=== PATIENT | female | born 1935 | race Caucasian/White ===

== ENCOUNTER 2017-11-01 21:25 | Inpatient (IN) | payer MEDICARE ==
[~2017-11-01] VITALS: Ht 160 cm; Wt 52.3 kg
[2017-11-01] MEDS ORDERED: ONDANSETRON HCL INJ 2 MG/ML VIAL IV STA (21:54)
[2017-11-01] MEDS ORDERED: SODIUM CHLORIDE 0.9% 1000ML 1,000 ML IV ONE (22:00)
[2017-11-01] MEDS ORDERED: ASPIRIN 81 MG CHEW TAB PO ONE (22:00)
--- NOTE | 2017-11-01 22:31 | Diagnostic Imaging Report ---
EXAM: CHEST SINGLE (PORTABLE), AP 1 view DATE: 11/01/2017 9:54 PM Time stamp on exam: 2214 hours INDICATION: Chest pain, vomiting COMPARISON: None FINDINGS: LINES/TUBES: None LUNGS: Emphysematous changes. Biapical scarring. Nonspecific reticulonodular changes throughout both lungs. PLEURA: No effusions or pneumothorax. HEART AND MEDIASTINUM: Normal size and contour. BONES AND SOFT TISSUES: No acute findings. IMPRESSION: Emphysematous changes with nonspecific reticulonodular changes throughout both lungs. This could represent chronic lung disease or infection in the appropriate clinical setting. Signed by: Dr. Susanna Mcgregor M.D. on 11/01/2017 10:28 PM
[2017-11-01 22:50] LABS: BASOPHILS % 0.2 % (0.0-1.0); EOSINOPHILS % 0.1 % (0.0-6.0); HEMATOCRIT 41.9 % (34.2-44.1); HEMOGLOBIN 12.8 g/dL (12.0-16.0); LYMPHOCYTES # (AUTO) 1.5 (1.0-3.2); LYMPHOCYTES % 11.7 % (18.0-39.1); MEAN CORPUSCULAR HEMOGLOBIN 28.7 pg (28-32); MEAN CORPUSCULAR HGB CONC 30.5 g/dL (31-35); MEAN CORPUSCULAR VOLUME 93.9 fL (81-99); NEUTROPHILS # (AUTO) 9.6 (2.1-6.9); NEUTROPHILS % 76.3 % (38.7-80.0); PLATELET COUNT 311 x10e3/uL (140-360); RED BLOOD COUNT 4.46 x10e6/uL (3.6-5.1); RED CELL DISTRIBUTION WIDTH 18.1 % (11.7-14.4)
[2017-11-01 23:01] LABS: INR 0.87; PROTHROMBIN TIME 12.3 seconds (11.9-14.5)
[2017-11-01 23:02] LABS: PARTIAL THROMBOPLASTIN TIME 36.5 seconds (23.8-35.5)
[2017-11-01 23:09] LABS: ALBUMIN 2.4 g/dL (3.5-5.0); ALBUMIN/GLOBULIN RATIO 0.6 (0.8-2.0); ALKALINE PHOSPHATASE 64 IU/L (40-150); ANION GAP 21.3 mmol/L (8-16); BLOOD UREA NITROGEN 11 mg/dL (7-26); BUN/CREATININE RATIO 18 (6-25); CALCIUM 9.7 mg/dL (8.4-10.2); CARBON DIOXIDE 36 mmol/L (22-29); CHLORIDE 86 mmol/L (98-107); CREATINE KINASE 9 IU/L (29-168); CREATININE, SERUM 0.61 mg/dL (0.57-1.11); EST GLOMERULAR FILTRATION RATE > 60 ML/MIN (60-); GLUCOSE 105 mg/dL (74-118); POTASSIUM 3.3 mmol/L (3.5-5.1); SODIUM 140 mmol/L (136-145)
[2017-11-01 23:11] LABS: ALANINE AMINOTRANSFERASE < 6 IU/L (0-55)
[2017-11-02] VITALS (7 sets, daily range): BP systolic 122–148; BP diastolic 60–70
[2017-11-02] MEDS ORDERED: KCL 20MEQ/.9 SOD CHL 1,000 ML IV ONE
[2017-11-02] MEDS ORDERED: SODIUM CHLORIDE 0.9% 500ML 500 ML IV ONE
[2017-11-02 00:03] LABS: BILIRUBIN,URINE 1+ (NEGATIVE); KETONES,URINE 3+ (NEGATIVE); LEUKOCYTE ESTERASE ,URINE 2+ (NEGATIVE); URINE UROBILINOGEN 8 mg/dL (0.2 - 1)
[2017-11-02 00:04] LABS: CLARITY,URINE CLOUDY (CLEAR); COLOR,URINE AMBER (YELLOW); NITRITE,URINE POSITIVE (NEGATIVE); PROTEIN,URINE DIPSTICK 2+ (NEGATIVE)
[2017-11-02 00:13] LABS: AMORPHOUS SEDIMENT,URINE MODERATE (FEW); BACTERIA,URINE MANY /HPF; EPITHELIAL CELLS,URINE RARE /LPF; WBC,URINE (MAN) 21-50 /HPF (0-5)
[2017-11-02] MEDS ORDERED: CEFTRIAXONE SOD 1 GM VIAL IV STA (02:44)
[2017-11-02] MEDS: SODIUM CHLORIDE 0.9% 1000ML 1,000 ML IV SCH ×3 (03:30→18:47)
[2017-11-02] MEDS ORDERED: DEXTROSE 50% SYRINGE 50 ML IV PRN (03:30)
[2017-11-02] MEDS: ONDANSETRON HCL INJ 2 MG/ML VIAL IV PRN ×4 (06:41→21:00)
[2017-11-02 07:05] LABS: CREATINE KINASE MB 1.1 ng/mL (0.00-5.00)
[2017-11-02] MEDS: INSULIN REGULAR, HUMAN 100 UNIT/1 ML 3ML VIAL SQ SCH ×3 (07:30→16:30)
[2017-11-02] MEDS: CEFTRIAXONE SOD 1 GM VIAL IV SCH ×2 (08:52→20:08)
[2017-11-02] MEDS ORDERED: PANTOPRAZOLE 40 MG 10ML VIAL IV SCH (09:00)
[2017-11-02] MEDS ORDERED: LASIX20 MG PO (13:47)
[2017-11-02] MEDS ORDERED: NORCO 7.5-3251 EACH PO (13:47)
[2017-11-02] MEDS ORDERED: PROMETHAZINE HC25 M1 PO (13:47)
[2017-11-02] MEDS ORDERED: ASPIRIN CHEW81 MG PO (13:47)
[2017-11-02] MEDS ORDERED: DESOXIMETASONE15 G2 TOP (13:47)
[2017-11-02] MEDS ORDERED: IBANDRONATE SO150 MG PO (13:47)
[2017-11-02] MEDS ORDERED: PANTOPRAZOLE SO40 MG PO (13:47)
[2017-11-02] MEDS ORDERED: MONTELUKAST SOD10 MG PO (13:47)
[2017-11-02] MEDS ORDERED: RANITIDINE HCL150 MG PO (13:47)
[2017-11-02] MEDS ORDERED: VITAMIN D250000 UNIT PO (13:47)
[2017-11-02] MEDS ORDERED: SYMBICORT 16010.2 GM INH (13:47)
[2017-11-02] MEDS ORDERED: GABAPENTIN100 MG PO (13:47)
[2017-11-02] MEDS ORDERED: AMIODARONE HCL200 MG PO (13:47)
[2017-11-02] MEDS ORDERED: ZOFRAN ODT4 MG PO (13:47)
[2017-11-02] MEDS ORDERED: ALBUTEROL0.63 MG/3 IH (13:48)
[2017-11-02] MEDS ORDERED: LIDOPATCH1 EACH TOP (13:52)
[2017-11-02 15:36] LABS: CREATINE KINASE MB 1.1 ng/mL (0.00-5.00)
[2017-11-02] MEDS: HYDROCODONE/APAP 7.5MG-325MG 1 EA TAB PO PRN (16:29)
[2017-11-02] MEDS: BALSAM PERU/CASTOR OIL 60 GM OINT...G. TP SCH (17:36)
[2017-11-02] MEDS: ENOXAPARIN SOD INJ 40 MG/0.4 ML SYR SC SCH (18:26)
--- NOTE | 2017-11-02 19:57 | History and Physical ---
PRIMARY CARE PROVIDER: Dr. Gorman at the [facility], CHIEF COMPLAINT: Nausea, vomiting and diarrhea. HISTORY OF PRESENT ILLNESS: Ms. Ridley is an 82-year-old year lady who comes in complaining of nausea, vomiting and diarrhea for the last 3 days. Poor p.o. intake and generalized weakness and unable to stand up on her own. REVIEW OF SYSTEMS: She denies fever, chills or weight loss. Denies sinus congestion or sore throat. She denies chest pain or palpitation. She has shortness of breath and some dyspnea with exertion. She is not wheezing and has no cough. She does have a history of COPD. She denies abdominal pain, but has nausea, vomiting and diarrhea. She denies dysuria or flank pain. She denies rash or pruritus. She denies joint pain or swelling. She denies bleeding or bruising. She denies headache, vertigo or loss of consciousness. She denies depression, agitation, homicidal or suicidal ideation. PAST MEDICAL HISTORY: Significant for longstanding hypertension, type 2 diabetes, paroxysmal atrial fibrillation, COPD and previous melanoma that was removed off the right leg. She also has a distant history of cholecystectomy and partial bowel resection. She is not sure why. CURRENT MEDICATIONS: Amiodarone 200 mg daily. Aspirin 81 mg daily. Gabapentin 100 mg 3 times a day. Hydrocodone as needed for pain. Singulair 10 mg at bedtime. Ranitidine 150 mg at bedtime. Protonix 40 mg twice daily before meals. Lidocaine patch as needed. Diphosphonate, I am not familiar with, 150 mg tablet daily. A steroid cream as needed for rash. Promethazine as needed. Zofran as needed. Lasix 20 mg daily. Vitamin D2 50,000 units weekly. Symbicort inhaler 1 puff twice a day. She uses albuterol in a nebulizer at home. She has home O2 and home nebulizer. ALLERGIES: SHE HAS A STATED ALLERGY TO CODEINE AND PENICILLIN. FAMILY HISTORY: Remarkable for hypertension and diabetes. SOCIAL HISTORY: The patient lives with her . She is . [place] is her primary language. She is quite weak. Has been getting home physical therapy, but has required quite a bit of assistance from her for daily living activities. PHYSICAL EXAM: PSYCHIATRIC: She is awake and alert, mostly oriented. She seems a little confused at times, but she seems oriented times 3 to simple questions. She has a normal body habitus and is in no acute distress. VITAL SIGNS: Blood pressure 144/67. Pulse 85 and regular. Respiratory rate 20. O2 sat 97% on 2 liter nasal cannula. Temperature 98.1. HEENT: Head is atraumatic. Her eyes are anicteric with clear conjunctivae. Ears and nares are without erythema or discharge. Oropharynx is clear. NECK: Is supple with no mass or thyromegaly. LYMPHATIC SYSTEM: She has no palpable cervical, axillary or inguinal adenopathy. CARDIOVASCULAR: Heart has a regular rate and rhythm without murmur or extra heart sounds. She has no carotid bruit. She has no peripheral edema. Has palpable dorsal pedal pulses. RESPIRATORY: Clear. She has markedly diminished breath sounds throughout. She has some end expiratory wheezing with forced expiration. She has hacking nonproductive cough. She is on 2 liters nasal cannula with normal respiratory effort. GASTROINTESTINAL: Abdomen is soft without organomegaly, masses or tenderness. Normal bowel sounds present. CUTANEOUS: Her skin is warm and dry to touch with no rash or skin breakdown. MUSCULOSKELETAL: Joints are normal alignment without erythema or swelling. No calf tenderness. NEUROLOGIC: Exam is nonfocal with intact cranial nerves and no motor or sensory deficits. DIAGNOSTIC STUDIES: Chest x-ray shows emphysema. Her urine has 6 to 10 red cells, 20 to 50 white cells with many bacteria, 2+ leukocyte esterase, 1+ nitrite. Her EKG shows normal sinus rhythm with possible old anterior infarct or poor R-wave progression due to pulmonary disease pattern. Her troponin is 0.012. BNP is 72.3. Magnesium 1.5. Her electrolytes are normal. CO2 is 26. Creatinine 0.61. BUN 11 for a normal GFR. Calcium 9.7. Glucose 105. Transaminases, bilirubin and alkaline phos are normal. CBC shows a white count 12.6 with 76% neutrophils and 12% lymphocytes. Hemoglobin 12.8, hematocrit 41.9 and platelet count 311,000. IMPRESSION AND PLAN 1. Urinary tract infection with sepsis. The patient has elevated white count and the source for urinary sepsis. The patient will be started on IV Rocephin empirically pending culture results. 2. Nausea, vomiting and diarrhea. Possibly related to the urinary tract infection. Will give antiemetics and will start the patient on Reglan and Pepcid before meals with Zofran as needed for nausea. Will check a Clostridium difficile on the stool to rule out Clostridium difficile colitis. 3. Hypertension. Patient is on no chronic medications. and so we will just continue to monitor her and use p.r.n. IV hydralazine if necessary. 4. Type 2 diabetes. Again patient appears to not be on any medication. She was diagnosed a few years ago. Will continue to monitor her blood sugar and check her A1c level 5. Paroxysmal atrial fibrillation. Will continue amiodarone. Patient is not a good candidate for anticoagulation and is currently in sinus rhythm. 6. Chronic obstructive pulmonary disease. The patient has chronic respiratory failure and chronic obstructive pulmonary disease, and is dependent on home oxygen. Will continue her O2 here as well as routine nebulizer treatments. 7. Severe debility. The patient will be started on PT, OT and will call case management for senior living evaluation. 8. For prophylaxis the patient will be on Lovenox for DVT prophylaxis and Pepcid for GI prophylaxis. Have changed her Protonix to Pepcid to reduce risk of Clostridium difficile. Job#: [id number]
[2017-11-02] MEDS: GABAPENTIN 100 MG CAP PO SCH (20:08)
[2017-11-02] MEDS: METOCLOPRAMIDE HCL 10 MG TAB PO SCH (20:09)
[2017-11-02] MEDS: MONTELUKAST SODIUM 10 MG TAB PO SCH (20:09)
[2017-11-03] VITALS (7 sets, daily range): BP systolic 107–144; BP diastolic 55–81
[2017-11-03] MEDS: ONDANSETRON HCL INJ 2 MG/ML VIAL IV PRN (02:39)
[2017-11-03] MEDS: HYDROCODONE/APAP 7.5MG-325MG 1 EA TAB PO PRN ×2 (02:39→20:54)
[2017-11-03] MEDS: SODIUM CHLORIDE 0.9% 1000ML 1,000 ML IV SCH (02:39)
[2017-11-03 06:48] LABS: BASOPHILS # (AUTO) 0.2 (0.0-0.1); BASOPHILS % 1.6 % (0.0-1.0); EOSINOPHILS % 0.4 % (0.0-6.0); HEMATOCRIT 35.2 % (34.2-44.1); HEMOGLOBIN 10.5 g/dL (12.0-16.0); LYMPHOCYTES # (AUTO) 1.8 (1.0-3.2); LYMPHOCYTES % 19.6 % (18.0-39.1); MEAN CORPUSCULAR HEMOGLOBIN 28.8 pg (28-32); MEAN CORPUSCULAR HGB CONC 29.8 g/dL (31-35); MEAN CORPUSCULAR VOLUME 96.4 fL (81-99); MONOCYTES # (AUTO) 0.8 (0.2-0.8); MONOCYTES % 8.6 % (4.4-11.3); NEUTROPHILS # (AUTO) 5.4 (2.1-6.9); NEUTROPHILS % 59.3 % (38.7-80.0); PLATELET COUNT 254 x10e3/uL (140-360); RED BLOOD COUNT 3.65 x10e6/uL (3.6-5.1); RED CELL DISTRIBUTION WIDTH 18.4 % (11.7-14.4)
[2017-11-03 07:16] LABS: ALBUMIN 1.9 g/dL (3.5-5.0); ALBUMIN/GLOBULIN RATIO 0.6 (0.8-2.0); ALKALINE PHOSPHATASE 49 IU/L (40-150); ANION GAP 11.7 mmol/L (8-16); BLOOD UREA NITROGEN 7 mg/dL (7-26); BUN/CREATININE RATIO 16 (6-25); CALCIUM 7.8 mg/dL (8.4-10.2); CARBON DIOXIDE 35 mmol/L (22-29); CHLORIDE 100 mmol/L (98-107); CREATININE, SERUM 0.45 mg/dL (0.57-1.11); EST GLOMERULAR FILTRATION RATE > 60 ML/MIN (60-); GLUCOSE 88 mg/dL (74-118); SODIUM 144 mmol/L (136-145)
[2017-11-03 07:20] LABS: ALANINE AMINOTRANSFERASE < 6 IU/L (0-55)
[2017-11-03 07:21] LABS: MAGNESIUM 1.1 MG/DL (1.3-2.1); POTASSIUM 2.7 mmol/L (3.5-5.1)
[2017-11-03] MEDS: METOCLOPRAMIDE HCL 10 MG TAB PO SCH ×4 (08:06→20:51)
[2017-11-03] MEDS: ASPIRIN 81 MG CHEW TAB PO SCH (08:06)
[2017-11-03] MEDS: GABAPENTIN 100 MG CAP PO SCH ×3 (08:06→20:51)
[2017-11-03] MEDS: CEFTRIAXONE SOD 1 GM VIAL IV SCH ×2 (08:06→20:51)
[2017-11-03] MEDS: FAMOTIDINE 20 MG TAB PO SCH ×2 (08:06→16:00)
[2017-11-03] MEDS: AMIODARONE HCL 200 MG TAB PO SCH (08:06)
[2017-11-03 08:13] LABS: THYROID STIMULATING HORMONE 16.888 uIU/mL (0.350-4.940)
[2017-11-03] MEDS ORDERED: POTASSIUM CHLORIDE 20 MEQ TAB CR PO STA (08:13)
[2017-11-03] MEDS ORDERED: MAGNESIUM SULFATE 2GM/50ML 50 ML IV ONE (08:15)
[2017-11-03] MEDS: BALSAM PERU/CASTOR OIL 60 GM OINT...G. TP SCH ×2 (08:31→17:11)
[2017-11-03] MEDS ORDERED: POTASSIUM CHLORIDE 20MEQ/100ML 200 ML IV ONE (09:30)
[2017-11-03] MEDS ORDERED: POTASSIUM CHLORIDE 100 ML IV SCH (10:00)
[2017-11-03] MEDS ORDERED: HYDRALAZINE HCL 20 MG/ML VIAL IV PRN (15:30)
[2017-11-03] MEDS: ENOXAPARIN SOD INJ 40 MG/0.4 ML SYR SC SCH (17:11)
--- NOTE | 2017-11-03 17:32 | Diagnostic Imaging Report ---
PROCEDURE:ABDOMINAL ULTRASOUND COMPARISON:None. INDICATIONS: Nausea and Vomiting TECHNIQUE: Transverse and longitudinal images of the upper abdomen were obtained. FINDINGS: Liver: Size: 12.6 cm in the right midclavicular line, normal Appearance: Normal echogenicity, smooth contour Mass: No focal masses Spleen: Size: 8.2 cm in length, normal Echogenicity: Normal Mass: No focal masses Gallbladder: Absent Bile Ducts: Intrahepatic Ducts: No dilatation Extrahepatic Ducts: Common bile duct measures 0.3 cm, no dilatation Pancreas: Limited visualized portions of the neck are normal. Right Kidney: Size: 8.9 x 4.3 x 5.2 cm Echogenicity: Normal Collecting System: No hydronephrosis Stone: None Cyst/Mass: Inferior pole 1.2 x 1 x 1.5 cm simple cyst. Left Kidney: Size: 9.8 x 4.7 x 4.5 cm Echogenicity: Normal Collecting System: No hydronephrosis Stone: None Cyst/Mass: Interpolar 1.5 x 1.6 x 1.6 cm simple cyst. Vessels: Aorta: Atherosclerotic calcifications. Size measures up to 2.7 cm in the mid portion, non-aneurysmal. Inferior Vena Cava: Prominent without prominence of the hepatic veins which may be related to volume status. Main Portal Vein: 1 cm, normal size with hepatopetal flow. Free Fluid: No ascites or pleural effusions IMPRESSION: No ultrasound findings to explain nausea and vomiting. Dictated by: Jonathan Hayes M.D. on 11/03/2017 at 17:42 Electronically approved by: Jonathan Hayes M.D. on 11/03/2017 at 17:42
[2017-11-03] MEDS: MONTELUKAST SODIUM 10 MG TAB PO SCH (20:51)
[2017-11-04] VITALS: BP 110/53
[2017-11-04] MEDS: ONDANSETRON HCL INJ 2 MG/ML VIAL IV PRN ×2 (06:03→12:54)
[2017-11-04] MEDS: HYDROCODONE/APAP 7.5MG-325MG 1 EA TAB PO PRN (06:04)
[2017-11-04 06:35] LABS: BASOPHILS % 0.3 % (0.0-1.0); EOSINOPHILS # (AUTO) 0.2 (0.0-0.4); EOSINOPHILS % 1.3 % (0.0-6.0); HEMOGLOBIN 11.2 g/dL (12.0-16.0); LYMPHOCYTES # (AUTO) 2.2 (1.0-3.2); LYMPHOCYTES % 19.8 % (18.0-39.1); MEAN CORPUSCULAR HEMOGLOBIN 28.9 pg (28-32); MEAN CORPUSCULAR HGB CONC 29.5 g/dL (31-35); MEAN CORPUSCULAR VOLUME 98.2 fL (81-99); MONOCYTES # (AUTO) 1.1 (0.2-0.8); MONOCYTES % 9.9 % (4.4-11.3); NEUTROPHILS # (AUTO) 6.6 (2.1-6.9); NEUTROPHILS % 58.9 % (38.7-80.0); PLATELET COUNT 249 x10e3/uL (140-360); RED BLOOD COUNT 3.87 x10e6/uL (3.6-5.1); RED CELL DISTRIBUTION WIDTH 18.1 % (11.7-14.4)
[2017-11-04 06:53] LABS: AMYLASE 14 U/L (25-125); ANION GAP 11.5 mmol/L (8-16); BLOOD UREA NITROGEN 5 mg/dL (7-26); BUN/CREATININE RATIO 10 (6-25); CARBON DIOXIDE 37 mmol/L (22-29); CHLORIDE 98 mmol/L (98-107); CREATININE, SERUM 0.49 mg/dL (0.57-1.11); EST GLOMERULAR FILTRATION RATE > 60 ML/MIN (60-); GLUCOSE 83 mg/dL (74-118); LIPASE 4 U/L (8-78); MAGNESIUM 1.6 MG/DL (1.3-2.1); POTASSIUM 3.5 mmol/L (3.5-5.1); SODIUM 143 mmol/L (136-145)
[2017-11-04 07:13] LABS: FREE T4 (FREE THYROXINE) 0.88 ng/dL (0.9-1.8)
[2017-11-04 08:13] VITALS: BP 110/53
[2017-11-04 08:33] VITALS: BP 116/61
[2017-11-04] MEDS: CEFTRIAXONE SOD 1 GM VIAL IV SCH ×2 (09:35→21:00)
[2017-11-04] MEDS: GABAPENTIN 100 MG CAP PO SCH ×3 (09:35→21:00)
[2017-11-04] MEDS: BALSAM PERU/CASTOR OIL 60 GM OINT...G. TP SCH ×2 (09:35→17:11)
[2017-11-04] MEDS: ASPIRIN 81 MG CHEW TAB PO SCH (09:35)
[2017-11-04] MEDS: FAMOTIDINE 20 MG TAB PO SCH ×2 (09:35→16:30)
[2017-11-04] MEDS: AMIODARONE HCL 200 MG TAB PO SCH (09:35)
[2017-11-04] MEDS: METOCLOPRAMIDE HCL 10 MG/2ML VIAL IV SCH ×5 (09:36→21:00)
[2017-11-04 09:39] LABS: LYMPHOCYTES % (MANUAL) 16 % (19-48); METAMYELOCYTES % (MANUAL) 2 % (0-0); MONOCYTES % (MANUAL) 11 % (3.4-9.0); MYELOCYTES % (MANUAL) 2 % (0-0); NEUTROPHILS % (MANUAL) 69 % (40-74); PLATELET ESTIMATE ADEQUATE; PLATELET MORPHOLOGY COMMENT NORMAL; RBC MORPHOLOGY COMMENT NORMAL
[2017-11-04] MEDS ORDERED: LEVOTHYROXINE SODIUM 50 MCG TAB PO SCH (10:00)
[2017-11-04] MEDS: LEVOTHYROXINE SODIUM 25 MCG TABLET PO SCH (10:30)
[2017-11-04 11:53] VITALS: BP 117/56
[2017-11-04 16:20] VITALS: BP 128/62
[2017-11-04] MEDS: ENOXAPARIN SOD INJ 40 MG/0.4 ML SYR SC SCH (17:00)
[2017-11-04] MEDS ORDERED: PROPOFOL IV EMULSION 10 MG/ML 20 ML VIAL ONE (18:21)
[2017-11-04] MEDS ORDERED: LIDOCAINE HCL 2% LOCAL INJ 5 ML SDV VIAL INJ ONE (18:21)
[2017-11-04] MEDS: PANTOPRAZOLE 40 MG 10ML VIAL IV SCH (20:00)
[2017-11-04 20:40] VITALS: BP 156/73
[2017-11-04] MEDS: MONTELUKAST SODIUM 10 MG TAB PO SCH (21:00)
[2017-11-04] MEDS: ALBUTEROL/IPRATROPIUM 3 ML NEB NEB SCH (21:05)
[2017-11-05] VITALS (7 sets, daily range): BP systolic 107–162; BP diastolic 58–75
[2017-11-05] MEDS: ALBUTEROL/IPRATROPIUM 3 ML NEB NEB SCH ×3 (01:00→19:43)
[2017-11-05] MEDS: ONDANSETRON HCL INJ 2 MG/ML VIAL IV PRN (01:57)
[2017-11-05] MEDS: HYDROCODONE/APAP 7.5MG-325MG 1 EA TAB PO PRN ×2 (04:08→18:51)
[2017-11-05] MEDS: LEVOTHYROXINE SODIUM 25 MCG TABLET PO SCH (05:24)
[2017-11-05 07:39] LABS: EOSINOPHILS # (AUTO) 0.1 (0.0-0.4); EOSINOPHILS % 1.1 % (0.0-6.0); HEMATOCRIT 35.4 % (34.2-44.1); HEMOGLOBIN 10.6 g/dL (12.0-16.0); LYMPHOCYTES # (AUTO) 1.7 (1.0-3.2); LYMPHOCYTES % 16.5 % (18.0-39.1); MEAN CORPUSCULAR HEMOGLOBIN 28.6 pg (28-32); MEAN CORPUSCULAR HGB CONC 29.9 g/dL (31-35); MEAN CORPUSCULAR VOLUME 95.4 fL (81-99); MONOCYTES # (AUTO) 0.7 (0.2-0.8); MONOCYTES % 7.1 % (4.4-11.3); NEUTROPHILS # (AUTO) 6.8 (2.1-6.9); NEUTROPHILS % 67.5 % (38.7-80.0); PLATELET COUNT 204 x10e3/uL (140-360); RED BLOOD COUNT 3.71 x10e6/uL (3.6-5.1); RED CELL DISTRIBUTION WIDTH 18.1 % (11.7-14.4)
[2017-11-05 08:00] LABS: ANION GAP 12.4 mmol/L (8-16); BLOOD UREA NITROGEN < 5 mg/dL (7-26); CALCIUM 7.9 mg/dL (8.4-10.2); CARBON DIOXIDE 38 mmol/L (22-29); CHLORIDE 96 mmol/L (98-107); CREATININE, SERUM 0.46 mg/dL (0.57-1.11); EST GLOMERULAR FILTRATION RATE > 60 ML/MIN (60-); GLUCOSE 79 mg/dL (74-118); MAGNESIUM 1.3 MG/DL (1.3-2.1); POTASSIUM 3.4 mmol/L (3.5-5.1); SODIUM 143 mmol/L (136-145)
[2017-11-05 08:03] LABS: BUN/CREATININE RATIO 11 (6-25)
[2017-11-05] MEDS: PANTOPRAZOLE 40 MG 10ML VIAL IV SCH ×2 (08:26→20:44)
[2017-11-05] MEDS: METOCLOPRAMIDE HCL 10 MG/2ML VIAL IV SCH ×4 (08:26→20:44)
[2017-11-05] MEDS: CEFTRIAXONE SOD 1 GM VIAL IV SCH ×2 (08:26→20:44)
[2017-11-05] MEDS: FAMOTIDINE 20 MG TAB PO SCH ×2 (08:26→16:10)
[2017-11-05] MEDS: ASPIRIN 81 MG CHEW TAB PO SCH (08:26)
[2017-11-05] MEDS: AMIODARONE HCL 200 MG TAB PO SCH (08:26)
[2017-11-05] MEDS: BALSAM PERU/CASTOR OIL 60 GM OINT...G. TP SCH ×2 (08:26→16:11)
[2017-11-05] MEDS: GABAPENTIN 100 MG CAP PO SCH ×3 (08:26→20:44)
--- NOTE | 2017-11-05 09:42 | Operative Report ---
DATE OF PROCEDURE: November 04, 2017 REFERRING PHYSICIAN: Dr. Clemente Stapleton. PROCEDURE PERFORMED: Esophagogastroduodenoscopy with biopsies. INDICATIONS FOR ESOPHAGOGASTRODUODENOSCOPY: History of nausea and vomiting. MEDICATION: Patient was done under MAC. Please see anesthesiologist's note. PROCEDURE: With the patient in left lateral decubitus position, flexible fiberoptic Olympus gastroscope was introduced into the esophagus under direct visualization without any difficulty. There was some patchy erythema noted in distal esophagus. A small hiatal hernia was noted and that was traversed with ease with the scope and it was advanced into the stomach. Mucosa overlying the antrum and the body revealed some diffuse erythema and mild to moderate edema and biopsies were obtained sent to stain for H. pylori. Pylorus appeared to be of normal contour and shape. Was intubated with ease and scope was advanced all the way to the 2nd portion of the duodenum. The scope was then withdrawn slowly. Mucosa overlying the proximal 2nd portion and the duodenal bulb appeared to be within normal limits. The scope was then withdrawn back above the stomach and retroflexed. Mucosa overlying the fundus and cardia appeared to be within normal limits. The scope was then straightened out. The stomach was decompressed. Scope was subsequently withdrawn. Patient tolerated procedure well. IMPRESSION: 1. Distal esophagitis. 2. Hiatal hernia. 3. Gastritis biopsied. Biopsy sent stain for H. pylori. PLAN: Follow up histology. Will augment current anti-PUD therapy. Start Protonix 40 mg IV b.i.d. Continue Reglan 10 mg IV q.6 hours. Will advance diet to full liquids. Job#: [id number]
[2017-11-05 10:19] LABS: BAND NEUTROPHILS % (MANUAL) 1 %; EOSINOPHILS % (MANUAL) 1 % (0-7); LYMPHOCYTES % (MANUAL) 19 % (19-48); METAMYELOCYTES % (MANUAL) 1 % (0-0); MONOCYTES % (MANUAL) 7 % (3.4-9.0); MYELOCYTES % (MANUAL) 1 % (0-0); NEUTROPHILS % (MANUAL) 70 % (40-74)
[2017-11-05 10:20] LABS: PLATELET ESTIMATE ADEQUATE; PLATELET MORPHOLOGY COMMENT NORMAL; RBC MORPHOLOGY COMMENT NORMAL
[2017-11-05] MEDS ORDERED: METOPROLOL TARTRATE INJ 1 MG/ML VIAL IV PRN (13:00)
[2017-11-05] MEDS ORDERED: POTASSIUM CHLORIDE 20 MEQ TAB CR PO ONE (15:00)
[2017-11-05] MEDS: ENOXAPARIN SOD INJ 40 MG/0.4 ML SYR SC SCH (16:10)
[2017-11-05] MEDS: VANCOMYCIN 250MG/5ML ORAL SOLN PO SCH (16:11)
[2017-11-05] MEDS: MONTELUKAST SODIUM 10 MG TAB PO SCH (20:44)
[2017-11-05] MEDS: METRONIDAZOLE 500MG/NS 100ML 100 ML IV SCH (22:27)
[2017-11-06] VITALS (8 sets, daily range): BP systolic 97–132; BP diastolic 55–65
[2017-11-06] MEDS: ALBUTEROL/IPRATROPIUM 3 ML NEB NEB SCH ×4 (01:00→19:55)
[2017-11-06] MEDS: VANCOMYCIN 250MG/5ML ORAL SOLN PO SCH ×4 (06:05→16:35)
[2017-11-06] MEDS: METRONIDAZOLE 500MG/NS 100ML 100 ML IV SCH ×3 (06:05→21:52)
[2017-11-06] MEDS: LEVOTHYROXINE SODIUM 25 MCG TABLET PO SCH (06:05)
[2017-11-06] MEDS: HYDROCODONE/APAP 7.5MG-325MG 1 EA TAB PO PRN (07:16)
[2017-11-06 07:56] LABS: BASOPHILS # (AUTO) 0.1 (0.0-0.1); BASOPHILS % 0.8 % (0.0-1.0); EOSINOPHILS # (AUTO) 0.2 (0.0-0.4); EOSINOPHILS % 2.1 % (0.0-6.0); HEMATOCRIT 37.7 % (34.2-44.1); HEMOGLOBIN 11.1 g/dL (12.0-16.0); LYMPHOCYTES # (AUTO) 1.8 (1.0-3.2); MEAN CORPUSCULAR HEMOGLOBIN 28.4 pg (28-32); MEAN CORPUSCULAR HGB CONC 29.4 g/dL (31-35); MEAN CORPUSCULAR VOLUME 96.4 fL (81-99); MONOCYTES # (AUTO) 0.8 (0.2-0.8); MONOCYTES % 10.7 % (4.4-11.3); NEUTROPHILS # (AUTO) 4.3 (2.1-6.9); NEUTROPHILS % 56.5 % (38.7-80.0); PLATELET COUNT 196 x10e3/uL (140-360); RED BLOOD COUNT 3.91 x10e6/uL (3.6-5.1); RED CELL DISTRIBUTION WIDTH 18.1 % (11.7-14.4)
[2017-11-06] MEDS: AMIODARONE HCL 200 MG TAB PO SCH (08:24)
[2017-11-06] MEDS: METOCLOPRAMIDE HCL 10 MG/2ML VIAL IV SCH ×4 (08:24→21:52)
[2017-11-06] MEDS: GABAPENTIN 100 MG CAP PO SCH ×3 (08:24→21:52)
[2017-11-06] MEDS: FAMOTIDINE 20 MG TAB PO SCH ×2 (08:24→16:35)
[2017-11-06] MEDS: ONDANSETRON HCL INJ 2 MG/ML VIAL IV PRN (08:24)
[2017-11-06] MEDS: CEFTRIAXONE SOD 1 GM VIAL IV SCH ×2 (08:24→21:52)
[2017-11-06] MEDS: BALSAM PERU/CASTOR OIL 60 GM OINT...G. TP SCH ×2 (08:24→16:35)
[2017-11-06] MEDS: ASPIRIN 81 MG CHEW TAB PO SCH (08:24)
[2017-11-06] MEDS: PANTOPRAZOLE 40 MG 10ML VIAL IV SCH ×2 (08:24→21:52)
[2017-11-06 08:32] LABS: ANION GAP 10.4 mmol/L (8-16); BLOOD UREA NITROGEN < 5 mg/dL (7-26); CALCIUM 8.1 mg/dL (8.4-10.2); CHLORIDE 92 mmol/L (98-107); EST GLOMERULAR FILTRATION RATE > 60 ML/MIN (60-); GLUCOSE 77 mg/dL (74-118); MAGNESIUM 1.4 MG/DL (1.3-2.1); POTASSIUM 3.4 mmol/L (3.5-5.1); SODIUM 142 mmol/L (136-145)
[2017-11-06 08:33] LABS: BUN/CREATININE RATIO 10 (6-25)
[2017-11-06 08:35] LABS: CARBON DIOXIDE 43 mmol/L (22-29)
[2017-11-06 10:17] LABS: ABG PH 7.41 (7.31-7.41)
[2017-11-06 10:19] LABS: ABG PCO2 73 mmHg (41-51); ABG PO2 96 mmHg (80-105)
[2017-11-06 10:20] LABS: ABG HCO3 46 mmol/L (23-28)
[2017-11-06] MEDS ORDERED: POTASSIUM CHLORIDE 20 MEQ TAB CR PO ONE (11:00)
[2017-11-06 11:11] LABS: BAND NEUTROPHILS % (MANUAL) 12 %; EOSINOPHILS % (MANUAL) 1 % (0-7); LYMPHOCYTES % (MANUAL) 31 % (19-48); MONOCYTES % (MANUAL) 7 % (3.4-9.0); NEUTROPHILS % (MANUAL) 49 % (40-74); PLATELET ESTIMATE ADEQUATE; PLATELET MORPHOLOGY COMMENT NORMAL; RBC MORPHOLOGY COMMENT NORMAL
[2017-11-06] MEDS ORDERED: ACETAZOLAMIDE SODIUM 500 MG/VIAL IV ONE (14:00)
--- NOTE | 2017-11-06 14:04 | Diagnostic Imaging Report ---
EXAMINATION: Chest, CHEST SINGLE (PORTABLE) INDICATION: Chest pain COMPARISON: None FINDINGS: LINES: None. Heart: Normal cardiac silhouette. Vascular: The pulmonary vasculature is within normal limits. Atherosclerotic calcifications of the aortic arch. Mediastinum: No mediastinal, hilar, or axillary mass or lymphadenopathy. Lungs: No parenchymal mass. Bibasilar airspace opacifications. Pleura: Small bilateral pleural effusions. No pneumothorax. Bones: No acute osseous abnormality. Degenerative changes of the thoracic spine. Soft tissues: Normal. Impression: Bibasilar airspace opacifications may represent atelectasis or a developing pneumonia. Signed by: Dr. Wiliam Cao M.D. on 11/06/2017 2:00 PM
--- NOTE | 2017-11-06 16:08 | Consultation ---
PULMONARY CONSULTATION DATE OF CONSULTATION: CONSULTING PHYSICIAN: Dr. Stapleton. REASON FOR CONSULTATION: COPD. HISTORY OF PRESENT ILLNESS: Ms. Ridley is an 82-year-old female who presented with nausea, vomiting, and generalized weakness. She reports that almost a month ago, she was admitted at [facility] and was transferred into [facility] since and was discharged from there to go home, but she has been weak and was not feeling well. She reports that she has a history of COPD, uses home oxygen around 3 to 4 liters at home, and has been on oxygen for 1 year; however, lately she has felt that she has no energy and is unable to walk even to the bathroom. She denies any chest pain, was having nausea, vomiting, and diarrhea, but currently it is better. REVIEW OF SYSTEMS: GENERAL: Denies any fever or chills. HEAD: Denies any head trauma. ENT: Denies any earache. CVS: Denies any chest pain or shortness of breath. RESPIRATORY: As in HPI. GI: Nausea and vomiting, which is better now. The rest of the review systems are negative except as in HPI. PAST MEDICAL HISTORY: History of lumbar vertebral fracture, atrial fibrillation, osteoporosis, arthritis, and COPD. PAST SURGICAL HISTORY: History of intestinal obstruction on August 14, 2017, cataract surgery, and hysterectomy. MEDICATIONS: Reviewed. SOCIAL HISTORY: She has been a smoker for almost 65 years, 1.5 packs per day, around [id number]. Denies any alcohol use. She was recently discharged from the [facility]. PHYSICAL EXAMINATION VITALS: Temperature 97, pulse of 80, blood pressure 127/60, respiratory rate of 18, and O2 sat 94% on 3 liters nasal cannula. SKIN: Warm and dry. GENERAL APPEARANCE: She is an elderly female, not in any obvious distress. She is awake and alert, following commands. Responding to questions appropriately. HEENT: Head atraumatic and normocephalic. Oral mucosa is dry. Oropharynx clear. NECK: Supple. No JVD. Thyroid not enlarged. CHEST: Reduced air entry bilaterally, but no wheezing. HEART: S1 and S2 audible. ABDOMEN: Soft, nontender, and nondistended. EXTREMITIES: No pedal edema. NEUROLOGIC: Awake and alert. DIAGNOSTIC DATA: Chest x-rays, I have reviewed the images. Chest x-ray was done on ; it is showing hyperinflation with no pneumonia. LABORATORY DATA: White count 7000, hemoglobin 11.1, and platelets 196. She had a blood gas done today; pH of 7.4, pCO2 of 73, and pO2 of 96. INR is 0.87. Urine culture is growing E. Coli. ASSESSMENT: Carolyn Ridley is an 82-year-old female who presented with nausea, had UTIs, being treated for UTI. ABG is showing evidence of hypercapnia with pCO2 of 73. Her bicarbonate on admission was 36 and now it has gone up to 43. Her C. diff has been positive. CURRENT PROBLEMS: 1. Chronic hypercapnic respiratory failure with mild acute worsening. PCO2 has increased to 73; however, the pH is normal. 2. Ex-smoker; the patient has known COPD and sees a auto wheel alignment specialist at [facility]. 3. Chest x-ray is not showing clearcut evidence of pneumonia. 4. C. diff colitis and diarrhea. 5. UTI. 6. Hypothyroidism. PLAN: 1. Agree with DuoNeb treatment. 2. I have asked the patient if she will be able to use BiPAP, and she is agreeable at nighttime as it is going to help in the chronic hypercapnia. I will give her a dose of Diamox as well. 3. Continue the current IV antibiotics as ordered. 4. Repeat a chest x-ray as the last one was done on the . I will review the chest x-ray. If it is showing any evidence of pneumonia, may need to add coverage for hospital-acquired pneumonia, currently on Rocephin and Flagyl. The patient is on p.o. vancomycin for C. diff colitis. Thank you for this consult. Job#: [id number] VAS
[2017-11-06] MEDS: ENOXAPARIN SOD INJ 40 MG/0.4 ML SYR SC SCH (16:35)
[2017-11-06] MEDS: CALCIUM CARBONATE 500 MG CHEWABLE TABS PO SCH (16:35)
[2017-11-06] MEDS: MONTELUKAST SODIUM 10 MG TAB PO SCH (21:52)
[2017-11-07] MEDS: VANCOMYCIN 250MG/5ML ORAL SOLN PO SCH ×4 (01:22→18:25)
[2017-11-07] MEDS: ALBUTEROL/IPRATROPIUM 3 ML NEB NEB SCH ×4 (02:00→19:20)
[2017-11-07] MEDS: METRONIDAZOLE 500MG/NS 100ML 100 ML IV SCH ×2 (05:15→15:03)
[2017-11-07] MEDS: LEVOTHYROXINE SODIUM 25 MCG TABLET PO SCH (05:15)
[2017-11-07] MEDS: HYDROCODONE/APAP 7.5MG-325MG 1 EA TAB PO PRN ×2 (05:15→15:04)
[2017-11-07 05:41] VITALS: BP 126/58
[2017-11-07 06:59] LABS: BASOPHILS % 0.5 % (0.0-1.0); EOSINOPHILS # (AUTO) 0.2 (0.0-0.4); EOSINOPHILS % 2.6 % (0.0-6.0); HEMATOCRIT 34.4 % (34.2-44.1); HEMOGLOBIN 10.1 g/dL (12.0-16.0); LYMPHOCYTES # (AUTO) 1.4 (1.0-3.2); LYMPHOCYTES % 16.6 % (18.0-39.1); MEAN CORPUSCULAR HGB CONC 29.4 g/dL (31-35); MEAN CORPUSCULAR VOLUME 95.3 fL (81-99); MONOCYTES # (AUTO) 0.9 (0.2-0.8); MONOCYTES % 11.4 % (4.4-11.3); NEUTROPHILS # (AUTO) 5.4 (2.1-6.9); PLATELET COUNT 158 x10e3/uL (140-360); RED BLOOD COUNT 3.61 x10e6/uL (3.6-5.1); RED CELL DISTRIBUTION WIDTH 17.8 % (11.7-14.4)
[2017-11-07 07:24] LABS: ANION GAP 9.6 mmol/L (8-16); BLOOD UREA NITROGEN 5 mg/dL (7-26); BUN/CREATININE RATIO 9 (6-25); CALCIUM 8.2 mg/dL (8.4-10.2); CARBON DIOXIDE 38 mmol/L (22-29); CHLORIDE 95 mmol/L (98-107); CREATININE, SERUM 0.53 mg/dL (0.57-1.11); EST GLOMERULAR FILTRATION RATE > 60 ML/MIN (60-); GLUCOSE 86 mg/dL (74-118); MAGNESIUM 1.4 MG/DL (1.3-2.1); POTASSIUM 3.6 mmol/L (3.5-5.1); SODIUM 139 mmol/L (136-145)
[2017-11-07 07:53] LABS: EOSINOPHILS % (MANUAL) 2 % (0-7); LYMPHOCYTES % (MANUAL) 12 % (19-48); METAMYELOCYTES % (MANUAL) 1 % (0-0); MONOCYTES % (MANUAL) 9 % (3.4-9.0); MYELOCYTES % (MANUAL) 3 % (0-0); NEUTROPHILS % (MANUAL) 73 % (40-74)
[2017-11-07 07:56] LABS: ANISOCYTOSIS MODERATE; ELLIPTOCYTE, RBC SLIGHT; HYPOCHROMASIA SLIGHT; PLATELET ESTIMATE ADEQUATE; PLATELET MORPHOLOGY COMMENT FEW LARGE; POIKILOCYTOSIS SLIGHT; RBC MORPHOLOGY COMMENT NORMAL
[2017-11-07] MEDS: FAMOTIDINE 20 MG TAB PO SCH ×2 (08:00→17:17)
[2017-11-07] MEDS: METOCLOPRAMIDE HCL 10 MG/2ML VIAL IV SCH ×4 (08:00→20:23)
[2017-11-07] MEDS: CALCIUM CARBONATE 500 MG CHEWABLE TABS PO SCH ×2 (08:00→17:17)
[2017-11-07] MEDS: PANTOPRAZOLE 40 MG 10ML VIAL IV SCH ×2 (08:00→20:23)
[2017-11-07 08:01] VITALS: BP 127/64
[2017-11-07] MEDS: BALSAM PERU/CASTOR OIL 60 GM OINT...G. TP SCH ×2 (09:00→17:17)
[2017-11-07] MEDS: CEFTRIAXONE SOD 1 GM VIAL IV SCH ×2 (09:00→20:23)
[2017-11-07] MEDS: GABAPENTIN 100 MG CAP PO SCH ×3 (09:00→20:23)
[2017-11-07] MEDS: ASPIRIN 81 MG CHEW TAB PO SCH (09:00)
[2017-11-07] MEDS: AMIODARONE HCL 200 MG TAB PO SCH (09:00)
[2017-11-07 12:05] VITALS: BP 114/62
[2017-11-07] MEDS ORDERED: METRONIDAZOLE500 MG PO (15:21)
[2017-11-07] MEDS ORDERED: OS-CAL 500+D T1 EACH PO (15:21)
[2017-11-07] MEDS ORDERED: LEVOTHYROXINE25 MCG PO (15:21)
[2017-11-07] MEDS ORDERED: LEVAQUIN500 MG PO (15:21)
[2017-11-07] MEDS ORDERED: ZOFRAN ODT4 MG PO (15:21)
[2017-11-07] MEDS ORDERED: VANCOCIN HCL250 MG PO (15:21)
[2017-11-07] MEDS ORDERED: REGLAN10 MG PO (15:22)
[2017-11-07 15:35] VITALS: BP 113/63
[2017-11-07] MEDS: ENOXAPARIN SOD INJ 40 MG/0.4 ML SYR SC SCH (17:17)
[2017-11-07 20:00] VITALS: BP 126/56
[2017-11-07] MEDS: MONTELUKAST SODIUM 10 MG TAB PO SCH (20:23)
[2017-11-07] MEDS: ONDANSETRON HCL INJ 2 MG/ML VIAL IV PRN (21:21)
--- NOTE | 2017-11-08 18:27 | Discharge Summary ---
ADMISSION DIAGNOSES 1. Urinary tract infection with sepsis. 2. Nausea, vomiting and diarrhea. 3. Hypertension. 4. Type 2 diabetes. 5. Paroxysmal atrial fibrillation. 6. Chronic obstructive pulmonary disease. 7. Severe debility. DISCHARGE DIAGNOSES 1. Urinary tract infection with sepsis. 2. Nausea, vomiting and diarrhea. 3. Hypertension. 4. Type 2 diabetes. 5. Paroxysmal atrial fibrillation. 6. Chronic obstructive pulmonary disease. 7. Severe debility. 8. Hypokalemia. 9. Hypercapnia. 10. Hypocalcemia. 11. Hypothyroidism. 12. Clostridium difficile. 13. Gastrointestinal bleed. HISTORY: Patient has a history of hypertension, type 2 diabetes, paroxysmal AFib, COPD, previous melanoma that was removed off the right leg, surgical history of cholecystectomy and partial bowel resection. HOSPITAL COURSE: An 82-year-old female complains of nausea, vomiting and diarrhea for the last 3 days. She has poor intake, weakness and is unable to stand on her own. She was recently sent home from detention facility, and was only home for about 2 days before being readmitted to the hospital. Patient was started on IV Rocephin empirically. Urine culture was found to have E. coli. Rocephin continued due to sensitivity. GI was consulted for the nausea and vomiting, which did not subside on antiemetics by themselves. C. diff was found to be positive. Patient was started on p.o. vancomycin. GI did an EGD, which found esophagitis, gastritis, hiatal hernia. Patient slowly began to be able to tolerate food. After starting the vancomycin p.o., the diarrhea started to slow down. Patient started to feel much better. As per physical therapy, she is still very weak, but is refusing to go to detention facility, even after speaking with the and telling him how weak she was. He refused to have her go anywhere else. He says that he is at home and can help her. They have a grandson or a nephew that lives across the street from them and can also help with her daily care. While running labs, the patient was found to have hypothyroidism. Patient started on levothyroxine 25 mcg daily, and was instructed to follow up with primary care to adjust dosing as needed. Patient was discharged home per her request. Prior to being discharged, the patient was found to have a CO2 of 43. Pulmonary was consulted, and started her on BiPAP at night. She did not use the BiPAP at night, but still felt comfortable going home. Pulmonary also agreed with that. Chest x-ray prior to discharge showed atelectasis. Pulmonary agreed to discharge. At the time of discharge, hemoglobin 10.1, hematocrit 34.4, WBC of 8.23. Sodium 139, potassium 3.6, creatinine of 0.53. Patient is stable and ready to be discharged home with family. Patient will follow up with primary care in 1-2 weeks, and follow up with pulmonary as needed. DICTATED BY GALO OGDEN NP KARLY AMBRIZ MD Job#: [id number] [place]
== END 2017-11-07 21:57 | DRG 871 ==
LOC: ER 21:25 → ERHOLD 11-02 03:34 → IMCU 11-02 05:11 → OBSVTOIN 11-07 13:26
PROVIDERS: ADMIT Internal Medicine; ATTEND Internal Medicine
PROC: 0DB68ZX Excision of Stomach, Via Natural or Artificial Opening Endoscopic, Diagnostic (ICD-10-PCS; 2017-11-04)
PROC: 0DB78ZX Excision of Stomach, Pylorus, Via Natural or Artificial Opening Endoscopic, Diagnostic (ICD-10-PCS; principal; 2017-11-04 19:34)
DX: A41.89 Other specified sepsis (principal); J96.22 Acute and chronic respiratory failure with hypercapnia; A04.72 Enterocolitis due to Clostridium difficile, not specified as recurrent; K92.2 Gastrointestinal hemorrhage, unspecified; E83.51 Hypocalcemia; E83.42 Hypomagnesemia; N39.0 Urinary tract infection, site not specified; I48.0 Paroxysmal atrial fibrillation; Z99.81 Dependence on supplemental oxygen; J44.9 Chronic obstructive pulmonary disease, unspecified; Z79.01 Long term (current) use of anticoagulants; E87.6 Hypokalemia; E03.9 Hypothyroidism, unspecified; Z79.52 Long term (current) use of systemic steroids; K20.9 Esophagitis, unspecified; K29.70 Gastritis, unspecified, without bleeding; Z87.891 Personal history of nicotine dependence; R19.7 Diarrhea, unspecified; M06.9 Rheumatoid arthritis, unspecified; R53.81 Other malaise
CPT/HCPCS: 36415; 36600; 43239; 71045; 76700; 80048; 80053; 81001; 82150; 82270; 82550; 82553; 82805; 82948; 83036; 83690; 83735; 83880; 84439; 84443; 84484; 85025; 85610; 85730; 87086; 87186; 87493; 88305; 88312; 93005; 94640; 96361; 97139; 99284; G0378; J0696; J1650; J2001; J2405; J2765; J7030

== ENCOUNTER 2019-06-08 12:28 | Emergency (ER) | payer MEDICARE ==
[~2019-06-08] VITALS: Ht 160 cm; Wt 52.2 kg
[~2019-06-08 12:28] MED LIST: ALBUTEROL0.63 MG/3 IH; AMIODARONE HCL200 MG PO; ASPIRIN CHEW81 MG PO; DESOXIMETASONE15 G2 TOP; GABAPENTIN100 MG PO; IBANDRONATE SO150 MG PO; LASIX20 MG PO; LEVAQUIN500 MG PO; LEVOTHYROXINE25 MCG PO; LIDOPATCH1 EACH TOP; METRONIDAZOLE500 MG PO; MONTELUKAST SOD10 MG PO; NORCO 7.5-3251 EACH PO; OS-CAL 500+D T1 EACH PO; PANTOPRAZOLE SO40 MG PO; PROMETHAZINE HC25 M1 PO; RANITIDINE HCL150 MG PO; REGLAN10 MG PO; SYMBICORT 16010.2 GM INH; VANCOCIN HCL250 MG PO; VITAMIN D250000 UNIT PO; ZOFRAN ODT4 MG PO
--- OUTSIDE RECORDS SUMMARY | 2019-06-08 12:32 | XMS REPORT | Clinical Summary ---
Author Author [facility] Address Unknown Phone Unavailable Care Team Providers Care Health Education Coordinator Name Role Phone Pcp, No PCP Unavailable Deepika Morrow 32 Unavailable Allergies Comments Active Allergy Reactions Severity Noted Date Codeine Rash Low 07/04/2017 Oxybutynin 11/09/2018 Penicillins Itching 07/04/2017 Medications End Date Status Medication Sig Dispensed Refills Start Date Active ergocalciferol Take 50,000 0 (ERGOCALCIFEROL) 50,000 Units by unit capsule mouth twice a week. Active ibandronate (BONIVA) 150 Take 150 mg 0 mg tablet by mouth every 30 (thirty) days Take in AM with glass of water prior to food, don't lie down for 30 minutes. . Active aspirin 81 MG EC tablet Take 81 mg by 0 mouth daily. Active DULoxetine (CYMBALTA) 60 Take 60 mg by 0 MG capsule mouth daily. Active levothyroxine (SYNTHROID, Take 50 mcg 0 LEVOTHROID) 50 MCG tablet by mouth Every morning on an empty stomach. Active pantoprazole (PROTONIX) Take 40 mg by 0 40 MG tablet mouth daily. Active ranitidine (ZANTAC) 150 Take 150 mg 0 MG tablet by mouth nightly. Active senna (SENOKOT) 8.6 mg Take 1 tablet 0 tablet by mouth 2 (two) times daily as needed for Constipation. Active tiotropium (SPIRIVA) 18 Inhale 18 mcg 0 mcg inhalation capsule by mouth via inhaler daily. Active dronedarone (MULTAQ) 400 Take 0.5 0 mg tablet tablets (200 9 mg total) by mouth 2 (two) times daily with breakfast and dinner. Active budesonide (PULMICORT) Take 2 mLs 0 0.5 mg/2 mL nebulizer (0.5 mg 9 solution total) by nebulization 2 (two) times daily. Active levalbuterol (XOPENEX) Take 0.25 mLs 0 1.25 mg/0.5 mL nebulizer (0.63 mg 9 solution total) by nebulization every 4 (four) hours as needed (for shortness of breath or wheezing). Active metoprolol (LOPRESSOR) 25 Take 1 tablet 0 MG tablet (25 mg total) 9 by mouth 2 (two) times daily Do not give if systolic BP < 100 or heart rate < 60. Active HYDROcodone-acetaminophen Take 1 tablet 60 tablet 0 (NORCO 7.5-325) 7.5-325 by mouth 9 mg per tablet every 6 (six) hours as needed for Pain. Max Daily Amount: 4 tablets Active predniSONE (DELTASONE) 10 Take 1 tablet 7 tablet 0 MG tablet (10 mg total) 9 by mouth daily Take 2 pills for 1 day, then 1 pill daily for 5 days. 12/17/2019 Active ferrous sulfate 325 (65 Take 1 tablet 30 tablet 0 FE) MG EC tablet (325 mg 9 total) by mouth daily with breakfast. 11/09/2018 Discontinued albuterol HFA (VENTOLIN Inhale 1 puff 0 HFA) 90 mcg/actuation by mouth via inhaler inhaler 2 (two) times daily. 11/16/2018 Discontinued budesonide-formoterol Inhale 1 puff 0 (SYMBICORT) 160-4.5 by mouth via mcg/actuation inhaler inhaler 2 (two) times daily . 11/09/2018 Discontinued desoximetasone (TOPICORT) Apply 0 0.25 % cream topically 2 (two) times daily. 11/09/2018 Discontinued HYDROcodone-acetaminophen Take 1 tablet 0 (NORCO 7.5-325) 7.5-325 by mouth 2 mg per tablet (two) times daily as needed for Pain. 11/09/2018 Discontinued lidocaine (XYLOCAINE) 5 % Apply 0 ointment topically as needed. 11/09/2018 Discontinued montelukast (SINGULAIR) Take 10 mg by 0 10 mg tablet mouth nightly. 11/09/2018 Discontinued mupirocin (BACTROBAN) 2 % Apply 0 ointment topically 3 (three) times daily 3X DAILY FOR TEN DAYS . 11/09/2018 Discontinued gubwqswm-[id number]-imhrbb Place 3 drops 0 ortisone (CORTISPORIN) into both 3.5-10,000-1 ears 3 mg/mL-unit/mL-% otic (three) times solutionIndications: FOR daily. 10 DAYS 11/09/2018 Discontinued ondansetron (ZOFRAN) 4 MG Take 4 mg by 0 tablet mouth every 8 (eight) hours as needed for Nausea. 09/23/2018 amiodarone (PACERONE) 200 Take 1 tablet 60 tablet 0 MG tablet (200 mg 7 total) by mouth daily. 11/09/2018 Discontinued furosemide (LASIX) 20 MG Take 1 tablet 20 tablet 0 tabletIndications: edema (20 mg total) 7 by mouth daily as needed (leg swelling). 11/09/2018 Discontinued gabapentin (NEURONTIN) Take 3 0 100 MG capsules (300 7 capsuleIndications: mg total) by Neuropathic Pain mouth 3 (three) times daily. 11/09/2018 Discontinued pantoprazole (PROTONIX) Take 1 tablet 0 40 MG tablet (40 mg total) 7 by mouth 2 (two) times daily. 09/23/2018 aspirin 81 MG EC tablet Take 1 tablet 0 (81 mg total) 7 by mouth daily. 09/23/2018 ranitidine (HEARTBURN Take 1 tablet 30 tablet 11 RELIEF, RANITIDINE,) 150 (150 mg 7 MG tablet total) by mouth nightly. 11/16/2018 Discontinued dronedarone (MULTAQ) 400 Take 400 mg 0 mg tablet by mouth 2 (two) times daily with breakfast and dinner. 11/16/2018 Discontinued HYDROcodone-acetaminophen Take 1 tablet 0 (NORCO 10-325) 10-325 mg by mouth per tablet every 8 (eight) hours as needed for Pain. 11/16/2018 Discontinued levalbuterol (XOPENEX Inhale 2 0 HFA) 45 mcg/actuation puffs by inhaler mouth via inhaler every 4 (four) hours as needed for Wheezing or Shortness of Breath. 12/17/2018 Discontinued HYDROcodone-acetaminophen Take 1 tablet 0 (NORCO 5-325) 5-325 mg by mouth 9 per tablet every 6 (six) hours as needed (for severe apin). Max Daily Amount: 4 tablets 01/17/2019 lidocaine (LIDODERM) 5 % Place 1 patch 30 patch 0 patch onto the skin 9 daily for 30 days Remove & Discard patch within 12 hours or as directed by MD. Active Problems Problem Noted Date Acute chest pain 12/13/2018 Pathologic compression fracture of thoracic vertebra, initial encounter 11/10/2018 Pathologic compression fracture of lumbar vertebra, initial encounter 11/10/2018 Acute abdominal pain resolved 11/09/2018 Unintended weight loss 11/09/2018 Paroxysmal atrial fibrillation 11/09/2018 COPD, severe 11/09/2018 DJD (degenerative joint disease) of thoracic spine 11/09/2018 DJD (degenerative joint disease), lumbar 11/09/2018 Osteoporosis 11/09/2018 Hyperlipidemia 11/09/2018 Hypothyroidism 11/09/2018 Failure to thrive in adult 11/09/2018 Severe malnutrition 11/09/2018 Gastroesophageal reflux disease without esophagitis 11/09/2018 Depression 11/09/2018 Physical deconditioning 11/09/2018 Decubitus ulcer of coccyx, stage 2 11/09/2018 Nausea & vomiting resolved 09/21/2017 Weakness generalized 09/20/2017 Chronic respiratory failure with hypoxia 09/20/2017 Acute back pain less than 4 weeks duration 07/04/2017 Resolved Problems Problem Noted Date Resolved Date Back pain 11/10/2018 11/16/2018 Thoracic compression fracture, closed, initial encounter 11/10/2018 11/16/2018 Thoracic compression fracture, closed, initial encounter 11/09/2018 11/09/2018 Severe malnutrition 11/09/2018 11/09/2018 Decubitus ulcer of coccyx, stage 2 09/23/2017 11/09/2018 Moderate protein-calorie malnutrition 09/21/2017 11/09/2018 Acute cystitis with hematuria 09/21/2017 11/09/2018 Epigastric pain 09/20/2017 11/09/2018 Hypokalemia 09/20/2017 11/09/2018 Leg swelling 09/20/2017 11/09/2018 Atrial fibrillation with RVR 07/04/2017 11/09/2018 Encounters Care Team Description Date Type Specialty 12/16/2018 Travel Lan Mosquera MD Rehman, Javed, MD Alagugurusamy, Rajkumar, MD Acute chest pain (Primary Dx); SOB (shortness of breath); Hypotension, unspecified hypotension type; Elevated d-dimer; Other acute back pain; Dehydration 12/13/2018 Hospital Cardiology - Encounter 12/17/2018 12/13/2018 Orders Only General Internal Medicine 12/13/2018 Travel Sammi Anaya MD 11/14/2018 Anesthesia Event Virtual, Surgeon PROCEDURE DONE OUTSIDE OR 11/14/2018 Surgery Lilian Zavala Jr., MD Zalavarria, Jonard Herbias, MD Quadri, Syed M., MD Thoracic compression fracture, closed, initial encounter (HCC) (Primary Dx); Moderate protein-calorie malnutrition (HCC); Weakness generalized 11/09/2018 Hospital General Internal Medicine - Encounter 11/16/2018 11/09/2018 Orders Only General Internal Medicine 11/09/2018 Travel after 06/07/2018 Immunizations Name Dates Previously Given Next Due Pneumococcal Conjugate 11/13/2018 (Prevnar) 13-Valent Family History Medical History Relation Name Comments Dementia Sister Cancer Son Cancer Son Relation Name Status Comments Sister Son Son Social History Date Tobacco Use Types Packs/Day Years Used Quit: 10/03/2015 Former Smoker Smokeless Tobacco: Never Used Alcohol Use Drinks/Week oz/Week Comments No Sex Assigned at Date Recorded Not on file Industry Job Start Date Occupation Not on file Not on file Not on file Travel End Travel History Travel Start No recent travel history available. Last Filed Vital Signs Time Taken Vital Sign Reading 12/17/2018 4:10 PM CDT Blood Pressure 144/70 12/17/2018 4:10 PM CDT Pulse 80 12/17/2018 4:10 PM CDT Temperature 36.6 C (97.9 F) 12/17/2018 4:10 PM CDT Respiratory Rate 17 12/17/2018 4:10 PM CDT Oxygen Saturation 98% - Inhaled Oxygen - Concentration 12/13/2018 6:25 PM CDT Weight 41 kg (90 lb 6.2 oz) 12/16/2018 10:15 AM CDT Height 160 cm (5' 3") 12/13/2018 6:25 PM CDT Body Mass Index 16.01 Plan of Treatment Not on file Procedures Comments Procedure Name Priority Date/Time Associated Diagnosis RHYTHM STRIP - SCAN 12/29/2018 7:51 AM CDT REPORT OF PROCEDURE - 12/19/2018 ENDOSCOPY SCAN 1:40 PM CDT RHYTHM STRIP - SCAN 12/19/2018 1:40 PM CDT XR SPINE CERVICAL 2 OR 3 Routine 12/15/2018 VIEWS 12:45 PM CDT XR SPINE THORACIC 2 VIEWS Routine 12/15/2018 12:44 PM CDT CBC W/PLT COUNT & AUTO Routine 12/15/2018 DIFFERENTIAL 5:43 AM CDT CBC W/PLT COUNT & AUTO Routine 12/15/2018 DIFFERENTIAL 5:43 AM CDT BASIC METABOLIC PANEL (7) Routine 12/15/2018 5:43 AM CDT VITAMIN D, 25-HYDROXY Routine 12/14/2018 5:17 PM CDT MR THORACIC SPINE WITHOUT Routine 12/14/2018 CONTRAST 4:48 PM CDT TROPONIN I Routine 12/14/2018 6:39 AM CDT FERRITIN Routine 12/14/2018 1:18 AM CDT IRON, TIBC, % SAT. Routine 12/14/2018 (WITHOUT FERRITIN) 1:18 AM CDT CBC W/PLT COUNT & AUTO Routine 12/13/2018 DIFFERENTIAL 11:50 PM CDT CBC W/PLT COUNT & AUTO Routine 12/13/2018 DIFFERENTIAL 11:50 PM CDT TROPONIN I Routine 12/13/2018 11:50 PM CDT URINALYSIS W/ MICROSCOPIC STAT 12/13/2018 5:30 PM CDT LACTIC ACID, VENOUS STAT 12/13/2018 2:46 PM CDT XR CHEST 1 VIEW STAT 12/13/2018 PORTABLE/BEDSIDE 12:29 PM CDT CBC W/PLT COUNT & AUTO STAT 12/13/2018 DIFFERENTIAL 11:47 AM CDT D-DIMER STAT 12/13/2018 11:47 AM CDT RAPID TROPONIN I STAT 12/13/2018 11:47 AM CDT CBC W/PLT COUNT & AUTO STAT 12/13/2018 DIFFERENTIAL 11:47 AM CDT BASIC METABOLIC PANEL (7) STAT 12/13/2018 11:47 AM CDT ECG 12-LEAD Routine 12/13/2018 11:43 AM CDT Procedure Note - Interface, External Ris In - 12/13/2018 3:42 PM CDT Ventricula r Rate 93 BPM Atrial Rate 93 BPM P-R Interval 128 ms QRS Duration 76 ms Q-T Interval 366 ms QTC Calculatio n(Bazett) 455 ms P Eads 73 degrees R Eads 72 degrees T Eads 67 degrees Sinus rhythm with occasional Premature ventricula r complexes and Possible Premature atrial complexes with Aberrant conduction Possible Left atrial enlargemen t Borderline ECG When compared with ECG of 9 08:56, Premature ventricula r complexes are now Present Aberrant conduction is now Present Vent. rate has increased BY 31 BPM Nonspecifi c T wave abnormalit y now evident in Lateral leads ECG 12-LEAD STAT 12/13/2018 11:43 AM CDT ED ECG INTERPRETATION Routine 12/13/2018 11:42 AM CDT CRITICAL CARE Routine 12/13/2018 11:42 AM CDT RHYTHM STRIP - SCAN 11/25/2018 2:10 PM EPIDEMIOLOGY INTERN POCT-GLUCOSE METER Routine 11/16/2018 11:47 AM EPIDEMIOLOGY INTERN POCT-GLUCOSE METER Routine 11/16/2018 7:47 AM EPIDEMIOLOGY INTERN POCT-GLUCOSE METER Routine 11/15/2018 9:37 PM EPIDEMIOLOGY INTERN CBC W/PLT COUNT & AUTO Routine 11/15/2018 DIFFERENTIAL 4:00 AM EPIDEMIOLOGY INTERN PHOSPHORUS Routine 11/15/2018 4:00 AM EPIDEMIOLOGY INTERN MAGNESIUM Routine 11/15/2018 4:00 AM EPIDEMIOLOGY INTERN BASIC METABOLIC PANEL (7) Routine 11/15/2018 4:00 AM EPIDEMIOLOGY INTERN CBC W/PLT COUNT & AUTO Routine 11/15/2018 DIFFERENTIAL 4:00 AM EPIDEMIOLOGY INTERN POCT-GLUCOSE METER Routine 11/14/2018 10:17 PM EPIDEMIOLOGY INTERN IR KYPHOPLASTY THORACIC Routine 11/14/2018 5:21 PM EPIDEMIOLOGY INTERN PROCEDURE DONE OUTSIDE OR 11/14/2018 Compression fracture of 12:00 PM EPIDEMIOLOGY INTERN cervical spine, sequela Special Needs REQ 1200 ECG 12-LEAD STAT 11/14/2018 8:56 AM EPIDEMIOLOGY INTERN TROPONIN I STAT 11/14/2018 8:39 AM EPIDEMIOLOGY INTERN POCT-GLUCOSE METER Routine 11/14/2018 8:05 AM EPIDEMIOLOGY INTERN PT/APTT Routine 11/14/2018 5:14 AM EPIDEMIOLOGY INTERN BASIC METABOLIC PANEL (7) STAT 11/14/2018 5:12 AM EPIDEMIOLOGY INTERN MAGNESIUM Routine 11/14/2018 5:12 AM EPIDEMIOLOGY INTERN POTASSIUM Routine 11/14/2018 5:12 AM EPIDEMIOLOGY INTERN POCT-GLUCOSE METER Routine 11/13/2018 9:32 PM EPIDEMIOLOGY INTERN POCT-GLUCOSE METER Routine 11/13/2018 6:08 PM EPIDEMIOLOGY INTERN POCT-GLUCOSE METER Routine 11/13/2018 11:33 AM EPIDEMIOLOGY INTERN CBC W/PLT COUNT & AUTO STAT 11/13/2018 DIFFERENTIAL 8:03 AM EPIDEMIOLOGY INTERN CBC W/PLT COUNT & AUTO STAT 11/13/2018 DIFFERENTIAL 8:03 AM EPIDEMIOLOGY INTERN POCT-GLUCOSE METER Routine 11/13/2018 7:33 AM EPIDEMIOLOGY INTERN MAGNESIUM Routine 11/13/2018 4:09 AM EPIDEMIOLOGY INTERN BASIC METABOLIC PANEL (7) Routine 11/13/2018 4:09 AM EPIDEMIOLOGY INTERN POCT-GLUCOSE METER Routine 11/12/2018 9:41 PM EPIDEMIOLOGY INTERN POCT-GLUCOSE METER Routine 11/12/2018 5:32 PM EPIDEMIOLOGY INTERN MR SPINE LUMBAR WITHOUT Routine 11/12/2018 IV CONTRAST 5:10 PM EPIDEMIOLOGY INTERN MR THORACIC SPINE WITHOUT Routine 11/12/2018 CONTRAST 5:10 PM EPIDEMIOLOGY INTERN POCT-GLUCOSE METER Routine 11/12/2018 11:33 AM EPIDEMIOLOGY INTERN POCT-GLUCOSE METER Routine 11/12/2018 7:44 AM EPIDEMIOLOGY INTERN CBC W/PLT COUNT & AUTO Routine 11/12/2018 DIFFERENTIAL 5:47 AM EPIDEMIOLOGY INTERN MAGNESIUM Routine 11/12/2018 5:47 AM EPIDEMIOLOGY INTERN BASIC METABOLIC PANEL (7) Routine 11/12/2018 5:47 AM EPIDEMIOLOGY INTERN CBC W/PLT COUNT & AUTO Routine 11/12/2018 DIFFERENTIAL 5:47 AM EPIDEMIOLOGY INTERN POCT-GLUCOSE METER Routine 11/11/2018 9:47 PM EPIDEMIOLOGY INTERN POCT-GLUCOSE METER Routine 11/11/2018 5:28 PM EPIDEMIOLOGY INTERN POCT-GLUCOSE METER Routine 11/11/2018 11:12 AM EPIDEMIOLOGY INTERN POCT-GLUCOSE METER Routine 11/11/2018 7:57 AM EPIDEMIOLOGY INTERN CBC W/PLT COUNT & AUTO Routine 11/11/2018 DIFFERENTIAL 5:17 AM EPIDEMIOLOGY INTERN CBC W/PLT COUNT & AUTO Routine 11/11/2018 DIFFERENTIAL 5:17 AM EPIDEMIOLOGY INTERN MAGNESIUM Routine 11/11/2018 5:11 AM EPIDEMIOLOGY INTERN BASIC METABOLIC PANEL (7) Routine 11/11/2018 5:11 AM EPIDEMIOLOGY INTERN POCT-GLUCOSE METER Routine 11/10/2018 9:11 PM EPIDEMIOLOGY INTERN POCT-GLUCOSE METER Routine 11/10/2018 6:37 PM EPIDEMIOLOGY INTERN BLOOD CULTURE Routine 11/10/2018 1:10 PM EPIDEMIOLOGY INTERN POCT-GLUCOSE METER Routine 11/10/2018 12:03 PM EPIDEMIOLOGY INTERN POCT-GLUCOSE METER Routine 11/10/2018 7:41 AM EPIDEMIOLOGY INTERN POCT-GLUCOSE METER Routine 11/09/2018 9:44 PM EPIDEMIOLOGY INTERN PHOSPHORUS STAT 11/09/2018 5:15 PM EPIDEMIOLOGY INTERN MAGNESIUM STAT 11/09/2018 5:15 PM EPIDEMIOLOGY INTERN LIPASE STAT 11/09/2018 5:15 PM EPIDEMIOLOGY INTERN COMPREHENSIVE METABOLIC STAT 11/09/2018 PANEL 5:15 PM EPIDEMIOLOGY INTERN AMYLASE STAT 11/09/2018 5:15 PM EPIDEMIOLOGY INTERN POCT-GLUCOSE METER Routine 11/09/2018 4:[address] SPINE LUMBAR WITHOUT STAT 11/09/2018 IV CONTRAST 4:[address] SPINE THORACIC WITHOUT STAT 11/09/2018 IV CONTRAST 4:[address] ABDOMEN/PELVIS WITHOUT STAT 11/09/2018 IV CONTRAST 4:04 PM EPIDEMIOLOGY INTERN ECG 12-LEAD Routine 11/09/2018 3:25 PM EPIDEMIOLOGY INTERN Procedure Note - Interface, External Ris In - 11/09/2018 7:15 PM EPIDEMIOLOGY INTERN Ventricula r Rate 94 BPM Atrial Rate 94 BPM P-R Interval 112 ms QRS Duration 72 ms Q-T Interval 390 ms QTC Calculatio n(Bazett) 487 ms P Eads 61 degrees R Eads 78 degrees T Eads 76 degrees Sinus rhythm with Premature supraventr icular complexes and Fusion complexes Nonspecifi c ST abnormalit y Abnormal ECG When compared with ECG of 12:32, Fusion complexes are now Present Premature supraventr icular complexes are now Present QRS axis Shifted left ST no longer depressed in Inferior leads Nonspecifi c T wave abnormalit y no longer evident in Inferior leads QT has lengthened ECG 12-LEAD STAT 11/09/2018 3:25 PM EPIDEMIOLOGY INTERN BLOOD CULTURE Routine 11/09/2018 IDENTIFICATION PANEL 3:23 PM EPIDEMIOLOGY INTERN BLOOD CULTURE STAT 11/09/2018 3:23 PM EPIDEMIOLOGY INTERN CBC W/PLT COUNT & AUTO STAT 11/09/2018 DIFFERENTIAL 3:20 PM EPIDEMIOLOGY INTERN TSH VANDANA 11/09/2018 3:20 PM EPIDEMIOLOGY INTERN CBC W/PLT COUNT & AUTO STAT 11/09/2018 DIFFERENTIAL 3:20 PM EPIDEMIOLOGY INTERN URINALYSIS W/ MICROSCOPIC STAT 11/09/2018 2:30 PM EPIDEMIOLOGY INTERN after 06/07/2018 Results * RHYTHM STRIP - SCAN (12/29/2018 7:51 AM CDT) Only the most recent of 3 results within the time period is included. Narrative Performed At * EKG-SCANNED (12/19/2018 1:40 PM CDT) Narrative Performed At * XR spine cervical 2 or 3 views (12/15/2018 12:45 PM CDT) Specimen Narrative Performed At FINAL REPORT [facility] CLINICAL HISTORY: neck pain with radiculopathy TECHNIQUE: Frontal and lateral views of the cervical spine. COMPARISON: None IMPRESSION: Only the C1-C6 vertebral bodies are visualized. The visualized cervical vertebral body heights are maintained. The top of the C7 vertebral body is incompletely seen. The visualized cervical alignment is maintained, but the cervicothoracic junction alignment cannot be evaluated. The bones are osteopenic. The examination is of limited diagnostic value regarding radiculopathy and if clinically warranted, cross-sectional imaging should be performed for further evaluation. Signed: Brice Steele MD Report Verified Date/Time:12/15/2018 13:28:28 Reading Location: [address] Consult Reading Room Procedure Note Interface, External Ris In - 12/15/2018 1:30 PM CDT FINAL REPORT CLINICAL HISTORY: neck pain with radiculopathy TECHNIQUE: Frontal and lateral views of the cervical spine. COMPARISON: None IMPRESSION: Only the C1-C6 vertebral bodies are visualized. The visualized cervical vertebral body heights are maintained. The top of the C7 vertebral body is incompletely seen. The visualized cervical alignment is maintained, but the cervicothoracic junction alignment cannot be evaluated. The bones are osteopenic. The examination is of limited diagnostic value regarding radiculopathy and if clinically warranted, cross-sectional imaging should be performed for further evaluation. Signed: Brice Steele MD Report Verified Date/Time: 12/15/2018 13:28:28 Reading Location: [address] Consult Reading Room Performing Organization Address City/State/Zipcode Phone Number [facility] * XR spine thoracic 2 views (12/15/2018 12:44 PM CDT) Specimen Narrative Performed At FINAL REPORT [facility] CLINICAL HISTORY: upper back pain TECHNIQUE: Frontal and lateral views of the thoracic spine. COMPARISON: Thoracic MRI 12/14/2018 IMPRESSION: Vertebroplasty of severe compression fractures of the T6 and L1 vertebral bodies is again noted. Moderate compression fractures T5 and T8 are again noted without vertebroplasty. The bones are diffusely osteopenic with other thoracic vertebral body heights maintained. The thoracic curvature and alignment is preserved. Signed: Brice Steele MD Report Verified Date/Time:12/15/2018 14:26:14 Reading Location: [address] Consult Reading Room Procedure Note Interface, External Ris In - 12/15/2018 2:28 PM CDT FINAL REPORT CLINICAL HISTORY: upper back pain TECHNIQUE: Frontal and lateral views of the thoracic spine. COMPARISON: Thoracic MRI 12/14/2018 IMPRESSION: Vertebroplasty of severe compression fractures of the T6 and L1 vertebral bodies is again noted. Moderate compression fractures T5 and T8 are again noted without vertebroplasty. The bones are diffusely osteopenic with other thoracic vertebral body heights maintained. The thoracic curvature and alignment is preserved. Signed: Brice Steele MD Report Verified Date/Time: 12/15/2018 14:26:14 Reading Location: [facility] [id number] Consult Reading Room Performing Organization Address City/State/Zipcode Phone Number [facility] * CBC with platelet count + automated diff (12/15/2018 5:43 AM CDT) Only the most recent of 8 results within the time period is included. WBC 7.3 3.5 - 10.5 K/L [facility] RBC 3.35 (L) 3.93 - 5.22 M/L [facility] Hemoglobin 10.2 (L) 11.2 - 15.7 GM/DL [facility] Hematocrit 34.3 34.1 - 44.9 % [facility] MCV 102.4 (H)Comment: Discordant 79.4 - 94.8 fL [facility] result compared to previous [facility] result; clinical correlation required. MCH 30.4 25.6 - 32.2 pg [facility] MCHC 29.7 (L) 32.2 - 35.5 GM/DL [facility] RDW 13.4 11.7 - 14.4 % [facility] Platelets 144 (L) 150 - 450 K/CU MM [facility] MPV 11.2 9.4 - 12.3 fL [facility] nRBC 0 0 - 0 /100 WBC [facility] % Neutros 80 % [facility] % Lymphs 14 % [facility] % Monos 6 % [facility] % Eos 1 % [facility] % Baso 0 % [facility] # Neutros 5.79 1.56 - 6.13 K/L [facility] # Lymphs 1.01 (L) 1.18 - 3.74 K/L [facility] # Monos 0.41 (H) 0.24 - 0.36 K/L [facility] # Eos 0.04 0.04 - 0.36 K/L [facility] # Baso 0.01 0.01 - 0.08 K/L [facility] Immature 0 0 - 1 % [facility] Granulocytes-[facility] Specimen Blood Performing Organization Address City/State/Zipcode Phone Number [facility] [address] [place] [address] [facility] * Basic Metabolic Panel (12/15/2018 5:43 AM CDT) Only the most recent of 7 results within the time period is included. Sodium 137 136 - 145 meq/L [facility] Potassium 4.7 3.5 - 5.1 meq/L [facility] Chloride 105 98 - 107 meq/L [facility] CO2 25 22 - 29 meq/L [facility] BUN 18 7 - 21 mg/dL [facility] Creatinine 0.56 (L) 0.57 - 1.25 mg/dL [facility] Glucose 115 (H) 70 - 105 mg/dL [facility] Calcium 8.5 8.4 - 10.2 mg/dL [facility] EGFR 104Comment: ESTIMATED GFR IS mL/min/1.73 sq m [facility] NOT ACCURATE CREATININE [facility] CLEARANCE IN PREDICTING GLOMERULAR FILTRATION RATE. ESTIMATED GFR IS NOT APPLICABLE FOR DIALYSIS PATIENTS. Specimen Blood Performing Organization Address City/State/Zipcode Phone Number [facility] [address] [place] [address] [facility] * Vitamin D, 25-Hydroxy (12/14/2018 5:17 PM CDT) Vitamin D 25-Hydroxy 30.5 6.6 - 49.9 ng/mL [facility] Specimen Blood Narrative Performed At Effective 07/13/2017: Reference Range Change [facility] New: 6.6-49.9 ng/mL Previous: 13.0-47.8 ng/mL [facility] Recommended Vitamin D Target Range: 30.0-40.0 ng/mL Performing Organization Address City/[facility] Phone Number [facility] [address] [place] [address] [facility] * MR thoracic spine without IV contrast (12/14/2018 4:48 PM CDT) Only the most recent of 2 results within the time period is included. Specimen Narrative Performed At FINAL REPORT [facility] MR, SPINE, THORACIC, WITHOUT CONTRAST INDICATION: Abnormal xray, thoracic spine, bone destruction COMPARISON: November 12, 2018 TECHNIQUE: Multiplanar, multisequence MR images of the thoracic spine without contrast. FINDINGS: Spinal cord: Normal course and caliber of the cord. Faint T2 signal suggested in the right lateral aspect of the cord at the T6 level. No hydrosyrinx. Osseous structures: Signal loss in the T6 vertebral body compatible with vertebroplasty changes. No worsening of height loss is present at this level. Chronic height loss noted at multiple vertebral bodies including T3, T5, T8, T9, T11 and T12. Previously described fracture deformity of L1 again noted with signal loss compatible with interval vertebroplasty. There has been no progression of previously described degenerative changes and no critical canal or foraminal stenosis. Disc space narrowing is present at multiple levels and is also unchanged. Paraspinal soft tissues: Paraspinal soft tissues and visible retroperitoneal structures are unremarkable. IMPRESSION: Interval vertebroplasty at T6 without progression of compression deformity. Chronic multilevel compression fractures are unchanged from the prior examination. No new fractures or osseous lesions have developed. Suspected myelopathic changes in the right lateral aspect of the cord at the T6 level. Correlation is recommended for focal radiculopathy. Signed: JR Ashford Robert MD Report Verified Date/Time:12/15/2018 07:59:12 Reading Location: [address] Neuro Reading Room Procedure Note Interface, External Ris In - 12/15/2018 8:01 AM CDT FINAL REPORT MR, SPINE, THORACIC, WITHOUT CONTRAST INDICATION: Abnormal xray, thoracic spine, bone destruction COMPARISON: November 12, 2018 TECHNIQUE: Multiplanar, multisequence MR images of the thoracic spine without contrast. FINDINGS: Spinal cord: Normal course and caliber of the cord. Faint T2 signal suggested in the right lateral aspect of the cord at the T6 level. No hydrosyrinx. Osseous structures: Signal loss in the T6 vertebral body compatible with vertebroplasty changes. No worsening of height loss is present at this level. Chronic height loss noted at multiple vertebral bodies including T3, T5, T8, T9, T11 and T12. Previously described fracture deformity of L1 again noted with signal loss compatible with interval vertebroplasty. There has been no progression of previously described degenerative changes and no critical canal or foraminal stenosis. Disc space narrowing is present at multiple levels and is also unchanged. Paraspinal soft tissues: Paraspinal soft tissues and visible retroperitoneal structures are unremarkable. IMPRESSION: Interval vertebroplasty at T6 without progression of compression deformity. Chronic multilevel compression fractures are unchanged from the prior examination. No new fractures or osseous lesions have developed. Suspected myelopathic changes in the right lateral aspect of the cord at the T6 level. Correlation is recommended for focal radiculopathy. Signed: JR Ashford Robert MD Report Verified Date/Time: 12/15/2018 07:59:12 Reading Location: [facility] C0[facility] Neuro Reading Room Performing Organization Address City/State/Zipcode Phone Number GE RIS * Troponin I (12/14/2018 6:39 AM CDT) Only the most recent of 3 results within the time period is included. Troponin I <0.01 0.00 - 0.03 ng/mL [facility] Specimen Blood Narrative Performed At Troponin I (TnI) levels must be interpreted in the context of the presenting [facility] symptoms and the clinical findings. Elevated TnI levels indicate myocardial [facility] damage, but are not specific for ischemic heart disease. Elevated TnI levels are seen in patients with other cardiac conditions (including myocarditis and congestive heart failure), and slight TnI elevations occur in patients with other conditions, including sepsis, renal failure, acidosis, acute neurological disease, and persistent tachyarrhythmia. Performing Organization Address City/[facility]/Zipcode Phone Number [address] * Iron, TIBC, % sat. (without ferritin) (12/14/2018 1:18 AM CDT) Iron 39.0 (L) 40.0 - 160.0 ug/dL [facility] TIBC 226 (L) 250 - 450 ug/dL [facility] Iron % Saturation 17 (L) 20 - 55 % [facility] Specimen Blood Performing Organization Address [facility] Phone Number [address] * Ferritin (12/14/2018 1:18 AM CDT) Ferritin 87 5 - 275 ng/mL [facility] Specimen Blood Performing Organization Address City/[facility] [place] [phone] [place] [address] * Urinalysis w/Microscopic (12/13/2018 5:30 PM CDT) Only the most recent of 2 results within the time period is included. Color, UA Dark Yellow , [facility] [place] Clarity, UA Clear , [facility] [place] Specific Maybell, UA 1.025 1.001 - 1.035 , [facility] [place] pH, UA 5.5 5.0 - 8.[address] [facility] [place] Protein, UA 100 mg/dL (A) Negative [facility] Glucose, UA Negative Negative [facility] Ketones, UA Trace (A) Negative , [facility] Bilirubin, UA Negative Negative [facility] Blood, UA Negative Negative [facility] Nitrite, UA Negative Negative [facility] Leukocytes, UA Negative Negative [facility] Urobilinogen, UA 1.0 0.2 - 1.0 mg/dL [facility] Bacteria, UA Few [facility] Mucus Few [facility] RBC, UA None Seen /HPF [facility] WBC, UA <5 /HPF [facility] SQUAMOUS EPITHELIAL <5 /HPF [facility] HYALINE CASTS 5-10 /LPF [facility] Specimen Source , [facility] Specimen Urine Performing Organization Address City/State/Zipcode Phone Number [facility] [address] [place] [address] [facility] * Lactic acid, venous (12/13/2018 2:46 PM CDT) Lactate, Venous 1.6 0.5 - 2.2 mmol/L , [facility] [place] Specimen Blood Performing Organization Address City/[facility]/Zipcode Phone Number [place] [phone] [place] [address] [facility] [place] * XR chest 1 view portable / bedside (12/13/2018 12:29 PM CDT) Specimen Narrative Performed At FINAL REPORT [employer] CLINICAL HISTORY: HYPOTENSION TECHNIQUE: 1 view of the chest. COMPARISON: 09/20/2017 IMPRESSION: There are multiple bilateral lung nodular opacities bilaterally some of which are new since the prior exam. Further evaluation with chest CT is recommended to exclude metastatic disease. There is no lobar consolidation or pleural effusion. The heart is not enlarged. There is multilevel vertebroplasty cement. Signed: Brice Steele MD Report Verified Date/Time:12/13/2018 12:38:58 Reading Location: [address] Consult Reading Room Procedure Note Interface, External Ris In - 12/13/2018 12:41 PM CDT FINAL REPORT CLINICAL HISTORY: HYPOTENSION TECHNIQUE: 1 view of the chest. COMPARISON: 09/20/2017 IMPRESSION: There are multiple bilateral lung nodular opacities bilaterally some of which are new since the prior exam. Further evaluation with chest CT is recommended to exclude metastatic disease. There is no lobar consolidation or pleural effusion. The heart is not enlarged. There is multilevel vertebroplasty cement. Signed: Brice Steele MD Report Verified Date/Time: 12/13/2018 12:38:58 Reading Location: [facility] B1 C013W Consult Reading Room Performing Organization Address City/State/Zipcode Phone Number [facility] * Rapid Troponin I (12/13/2018 11:47 AM CDT) Rapid Troponin I <0.05 <0.05 ng/mL , [facility] [place] Specimen Blood Performing Organization Address [facility] Phone Number [place] [address] [place], [place] [phone] [facility] [place] * D-dimer, quantitative (12/13/2018 11:47 AM CDT) D-Dimer, Quant 0.50 (H) <0.50 MG/L FEU , [facility] [place] Specimen Blood Narrative Performed At REGARDING D-DIMER RESULTS: Results of this D-Dimer test should always be [facility] interpreted in conjunction with the patient's medical history, clinical [facility] presentation and other findings. DVT clinical diagnosis should not be based on [place] the results of [facility] D-Dimer alone. [facility], [facility] Performing Organization Address [facility] Phone Number [facility] [address] [place] [address] [facility] * ECG 12 lead (12/13/2018 11:43 AM CDT) Only the most recent of 3 results within the time period is included. Specimen Narrative Performed At Ventricular Rate 93 BPM GE MUSE Atrial Rate 93 BPM P-R Interval 128 ms QRS Duration 76 ms Q-T Interval 366 ms QTC Calculation(Bazett) 455 ms P Eads 73 degrees R Eads 72 degrees T Eads 67 degrees Sinus rhythm with occasional Premature ventricular complexes and Possible Premature atrial complexes with Aberrant conduction Possible Left atrial enlargement Borderline ECG When compared with ECG of 14-NOV-2018 08:56, Premature ventricular complexes are now Present Aberrant conduction is now Present Vent. rate has increased BY31 BPM Nonspecific T wave abnormality now evident in Lateral leads Confirmed by MD BRITNI, RACHEL Peña ([id number]) on 12/14/2018 6:45:11 AM Procedure Note Interface, External Ris In - 12/14/2018 6:45 AM CDT Ventricular Rate 93 BPM Atrial Rate 93 BPM P-R Interval 128 ms QRS Duration 76 ms Q-T Interval 366 ms QTC Calculation(Bazett) 455 ms P Eads 73 degrees R Eads 72 degrees T Eads 67 degrees Sinus rhythm with occasional Premature ventricular complexes and Possible Premature atrial complexes with Aberrant conduction Possible Left atrial enlargement Borderline ECG When compared with ECG of 14-NOV-2018 08:56, Premature ventricular complexes are now Present Aberrant conduction is now Present Vent. rate has increased BY 31 BPM Nonspecific T wave abnormality now evident in Lateral leads Confirmed by MD BRITNI, RACHEL Peña ([id number]) on 12/14/2018 6:45:11 AM Performing Organization Address City/State/Zipcode Phone Number [facility] M[facility] * ECG/EKG Interpretation (12/13/2018 11:42 AM CDT) Narrative Performed At Lan Mosquera MD 12/14/20188:45 AM ECG/EKG Interpretation Date/Time: 12/13/2018 1:40 PM Performed by: Lan Mosquera MD Authorized by: Lan Mosquera MD The ECG was interpreted by ED physician. The ECG is interpreted as sinus rhythm. Heart rate is 83 BPM. Patient tolerance: Patient tolerated the procedure well with no immediate complications Comments: SINUS RHYTHM ON MONITOR * CRITICAL CARE (12/13/2018 11:42 AM CDT) Narrative Performed At Lan Mosquera MD 12/14/20188:45 AM Critical Care Performed by: Lan Mosquera MD Authorized by: Lan Mosquera MD Total critical care time: 35 minutes Critical care time was exclusive of separately billable procedures and treating other patients. Critical care was necessary to treat or prevent imminent or life-threatening deterioration of the following conditions: circulatory failure. Critical care was time spent personally by me on the following activities: discussions with consultants, pulse oximetry, review of old charts, ordering and review of laboratory studies, obtaining history from patient or surrogate, evaluation of patient's response to treatment, development of treatment plan with patient or surrogate, ordering and performing treatments and interventions, ordering and review of radiographic studies and re-evaluation of patient's condition. Comments: I provided medically necessary Critical Care on an emergent basis in order to prevent any sudden, clinically significant deterioration in her condition. Critical care time:35min It is my opinion that her clinical presentation, without appropriate emergent intervention has the potential to acutely impair one or more of her vital organ systems with a high probability of imminent deterioration in her condition. The time involved in the performance of separately reportable procedures or teaching time was not counted towards the critical care time that is documented here. * POC-Glucose meter (11/16/2018 11:47 AM EPIDEMIOLOGY INTERN) Only the most recent of 23 results within the time period is included. POC-Glucose Meter 118 (H)Comment: TESTED AT 70 - 110 mg/dL [address] [address] Specimen Blood Performing Organization Address City/[facility] Phone Number [address] [address] [facility] * Phosphorus (11/15/2018 4:00 AM EPIDEMIOLOGY INTERN) Only the most recent of 2 results within the time period is included. Phosphorus 3.1 2.3 - 4.7 mg/dL [facility] Specimen Blood Performing Organization Address City/[facility] Phone Number [address] [phone] [facility] * Magnesium (11/15/2018 4:00 AM EPIDEMIOLOGY INTERN) Only the most recent of 6 results within the time period is included. Magnesium 1.7 1.6 - 2.6 mg/dL [facility] Specimen Blood Performing Organization Address [facility] Phone Number [address] [address] [facility] * IR kyphoplasty thoracic (11/14/2018 5:21 PM EPIDEMIOLOGY INTERN) Specimen Narrative Performed At FINAL REPORT [facility] HISTORY: T6 wedge vertebral compression fracture and severe lower back pain despite conservative therapy. PROCEDURE: Following informed written consent, general endotracheal anesthesia was performed by the anesthesiology service and the patient was placed in a prone position on the angiographic table. The lower back was prepped and draped in the usual sterile manner. 2% lidocaine was given locally for anesthesia. Using a bilateral posterior transpedicular approach and fluoroscopic guidance, the access needles were placed into the T6 vertebral body. Tracts were drilled through each cannula into the T6 vertebral body. Vertebral augmentation balloons were placed through the access cannulas and inflated bilaterally. The balloons were deflated, removed and a total of three cc of methyl methacrylate was infused into the T6 vertebral body under constant fluoroscopic visualization. The cannulas were then removed and the access sites closed with Steri-Strips. Sterile bandages were applied and the patient was transferred from the department in stable condition. There were no immediate complications. FINDINGS: Images obtained during the procedure show the access needles, cannulas and balloons in expected positions within the T6 vertebral body. Following methacrylate infusion, adequate distribution is seen within the T6 vertebral body without extravasation. IMPRESSION: 1. Technically successful T6 percutaneous vertebral augmentation. No immediate complications. Total fluoroscopy time: 16.2 minutes. Estimated total patient dose reported as (Ka,r): 133 mGy Signed: Lilian Esteban MD Report Verified Date/Time:11/21/2018 09:42:00 Reading Location: [address] Consult Reading Room Procedure Note Interface, External Ris In - 11/21/2018 9:44 AM EPIDEMIOLOGY INTERN FINAL REPORT HISTORY: T6 wedge vertebral compression fracture and severe lower back pain despite conservative therapy. PROCEDURE: Following informed written consent, general endotracheal anesthesia was performed by the anesthesiology service and the patient was placed in a prone position on the angiographic table. The lower back was prepped and draped in the usual sterile manner. 2% lidocaine was given locally for anesthesia. Using a bilateral posterior transpedicular approach and fluoroscopic guidance, the access needles were placed into the T6 vertebral body. Tracts were drilled through each cannula into the T6 vertebral body. Vertebral augmentation balloons were placed through the access cannulas and inflated bilaterally. The balloons were deflated, removed and a total of three cc of methyl methacrylate was infused into the T6 vertebral body under constant fluoroscopic visualization. The cannulas were then removed and the access sites closed with Steri-Strips. Sterile bandages were applied and the patient was transferred from the department in stable condition. There were no immediate complications. FINDINGS: Images obtained during the procedure show the access needles, cannulas and balloons in expected positions within the T6 vertebral body. Following methacrylate infusion, adequate distribution is seen within the T6 vertebral body without extravasation. IMPRESSION: 1. Technically successful T6 percutaneous vertebral augmentation. No immediate complications. Total fluoroscopy time: 16.2 minutes. Estimated total patient dose reported as (Ka,r): 133 mGy Signed: Lilian Esteban MD Report Verified Date/Time: 11/21/2018 09:42:00 Reading Location: [facility] [id number] Consult Reading Room Performing Organization Address City/[facility] Phone Number [employer] * PT/aPTT (11/14/2018 5:14 AM EPIDEMIOLOGY INTERN) Protime 15.1 (H) 11.7 - 14.7 seconds [facility] INR 1.2 <=5.9 [facility] PTT 34.9 22.5 - 36.0 seconds [facility] Specimen Blood Narrative Performed At RECOMMENDED COUMADIN/WARFARIN INR THERAPY RANGES [facility] STANDARD DOSE: 2.0 - 3.0 Includes: PROPHYLAXIS for venous thrombosis, [facility] systemic embolization; TREATMENT for venous thrombosis and/or pulmonary embolus. HIGH RISK: Target INR is 2.5-3.5 for patients with mechanical heart valves. Performing Organization Address [facility] Phone Number [address] * Potassium (11/14/2018 5:12 AM EPIDEMIOLOGY INTERN) Potassium 4.4 3.5 - 5.1 meq/L [facility] Specimen Blood Performing Organization Address City/[facility] Phone Number [address] * MR spine lumbar without IV contrast (11/12/2018 5:10 PM EPIDEMIOLOGY INTERN) Specimen Narrative Performed At FINAL REPORT [employer] MRI thoracic spine without contrast. MRI lumbar spine without contrast. CLINICAL HISTORY: Spine fracture, pathological, thoracic and lumbar. Determine chronicity of fractures TECHNIQUE: MRI of the thoracic and lumbar spine was performed without contrast, utilizing the following sequences: Sagittal T1, T2, STIR; axial T1 and T2. COMPARISON: Thoracic and lumbar spine MRI 07/06/2017. FINDINGS: There is an exaggeration of the visualized cervical lordosis. There is a thoracic kyphosis. Vertebral body alignment in the thoracic and lumbar spine is maintained. There are scattered multilevel intraosseous hemangiomas. There is a mild chronic compression fracture deformity of T3, mild to moderate chronic compression fracture deformity of T5 and T8 and mild chronic compression fracture deformity of T9, T11 and T12. There is an acute moderate compression fracture deformity of T6. There is a chronic moderate compression fracture deformity of L1. There is a mild chronic compression fracture deformity of L3. There is mild loss of height of L2 and L4. The spinal cord is normal in size, contour and signal. The conus medullaris terminates at L1. There is multilevel degenerative disc disease as evidenced by disc desiccation, endplate Schmorl's nodes and mild disc space narrowing. There is no significant spinal canal and neural foraminal stenosis. There are bilateral renal cysts.There are small bilateral pleural effusions. There is atrophy of the lumbosacral paraspinal and bilateral gluteal musculature. IMPRESSION: Moderate acute compression fracture of T6. Chronic compression fractures in the thoracic and lumbar spine as described. Signed: Zoraida Santos MD Report Verified Date/Time:11/12/2018 19:40:39 Reading Location: [place] [id number] CT Body Reading Room Procedure Note Interface, External Ris In - 11/13/2018 9:55 AM EPIDEMIOLOGY INTERN FINAL REPORT MRI thoracic spine without contrast. MRI lumbar spine without contrast. CLINICAL HISTORY: Spine fracture, pathological, thoracic and lumbar. Determine chronicity of fractures TECHNIQUE: MRI of the thoracic and lumbar spine was performed without contrast, utilizing the following sequences: Sagittal T1, T2, STIR; axial T1 and T2. COMPARISON: Thoracic and lumbar spine MRI 07/06/2017. FINDINGS: There is an exaggeration of the visualized cervical lordosis. There is a thoracic kyphosis. Vertebral body alignment in the thoracic and lumbar spine is maintained. There are scattered multilevel intraosseous hemangiomas. There is a mild chronic compression fracture deformity of T3, mild to moderate chronic compression fracture deformity of T5 and T8 and mild chronic compression fracture deformity of T9, T11 and T12. There is an acute moderate compression fracture deformity of T6. There is a chronic moderate compression fracture deformity of L1. There is a mild chronic compression fracture deformity of L3. There is mild loss of height of L2 and L4. The spinal cord is normal in size, contour and signal. The conus medullaris terminates at L1. There is multilevel degenerative disc disease as evidenced by disc desiccation, endplate Schmorl's nodes and mild disc space narrowing. There is no significant spinal canal and neural foraminal stenosis. There are bilateral renal cysts. There are small bilateral pleural effusions. There is atrophy of the lumbosacral paraspinal and bilateral gluteal musculature. IMPRESSION: Moderate acute compression fracture of T6. Chronic compression fractures in the thoracic and lumbar spine as described. Signed: Zoraida Santos MD Report Verified Date/Time: 11/12/2018 19:40:39 Reading Location: [facility] C013Y CT Body Reading Room Performing Organization Address City/[facility] Phone Number RIS * Blood culture (11/10/2018 1:10 PM EPIDEMIOLOGY INTERN) Only the most recent of 2 results within the time period is included. Result No growth in 5 days [facility] Specimen Blood Performing Organization Address [facility] [place] Phone Number [place] [address] [place] [address] * Lipase (11/09/2018 5:15 PM EPIDEMIOLOGY INTERN) Lipase 7 (L) 8 - 78 U/L [facility] Specimen Blood Performing Organization Address [facility] [place] Phone Number [address] [address] [phone] [place] [address] * Amylase (11/09/2018 5:15 PM EPIDEMIOLOGY INTERN) Amylase 26Comment: Specimen slightly 25 - 125 U/L [facility] hemolyzed [facility] Specimen Blood Performing Organization Address [facility] [place] Phone Number [address] [address] [facility] * Comprehensive metabolic panel (11/09/2018 5:15 PM EPIDEMIOLOGY INTERN) Protein, Total 6.3 6.0 - 8.3 gm/dL [facility] Albumin 3.9 3.5 - 5.0 g/dL [facility] Alkaline Phosphatase 47 40 - 150 U/L [facility] Total Bilirubin 0.9 0.2 - 1.2 mg/dL [facility] Sodium 132 (L) 136 - 145 meq/L [facility] Potassium 3.5 3.5 - 5.1 meq/L [facility] Chloride 93 (L) 98 - 107 meq/L [facility] CO2 27 22 - 29 meq/L [facility] BUN 17 7 - 21 mg/dL [facility] Creatinine 0.66 0.57 - 1.25 mg/dL [facility] Glucose 85 70 - 105 mg/dL [facility] Calcium 9.2 8.4 - 10.2 mg/dL [facility] AST 15 5 - 34 U/L [facility] ALT 8 6 - 55 U/L [facility] EGFR 86Comment: ESTIMATED GFR IS mL/min/1.73 sq m [facility] NOT ACCURATE CREATININE [facility] CLEARANCE IN PREDICTING GLOMERULAR FILTRATION RATE. ESTIMATED GFR IS NOT APPLICABLE FOR DIALYSIS PATIENTS. Specimen Blood Performing Organization Address City/State/Zipcode Phone Number [facility] [address] [place] [address] [facility] * CT spine lumbar without IV contrast (11/09/2018 4:04 PM EPIDEMIOLOGY INTERN) Specimen Narrative Performed At FINAL REPORT [facility] CT thoracic and lumbar spine without contrast 11/09/2018 4:13 PM CLINICAL INDICATION: Spine fracture, pathological, thoracic COMPARISON: MRI thoracic and lumbar spine 07/06/2017 TECHNIQUE: Multiple axial noncontrast CT images of the thoracic and lumbar spine were obtained in bone and soft tissue windows. Axially acquired data were reformatted in sagittal and coronal planes for further analysis. This examination was performed according to our departmental dose optimization program, which includes automated exposure control, adjustment of the mA and/or kV according to patient size, and/or use of iterated reconstruction technique. FINDINGS: There are mild and moderate compression fractures in the T3, T5, T6, T8, L1, L3, and L4 vertebral bodies, with evidence for prior L1 fracture augmentation. There is negligible osseous retropulsion of some of the posterior cortices, without spinal canal compromise. The remaining vertebral bodies are osteopenic, but intact. There is degeneration mediated grade 1 anterolisthesis of L4 on L5, with compensatory retrolisthesis of L2 on L3. Spinal canal diameter is within normal limits. There are multilevel degenerative changes, without high-grade central canal stenosis. There is pulmonary emphysema. There is arteriosclerosis with coronary artery vascular calcification. There is deconditioning of the posterior inferior paraspinal musculature. IMPRESSION: 1. Multilevel ajkh-vc-wuxmzaso compression fractures in the thoracolumbar spine, without spinal canal compromise. 2. Chronic appearing degenerative changes. No free. Pulmonary emphysema. 3. Atherosclerotic vascular disease. Signed: Judd Man MD Report Verified Date/Time:11/09/2018 16:19:08 Reading Location: [facility] Radiology Reading Room Procedure Note Interface, External Ris In - 11/09/2018 4:21 PM EPIDEMIOLOGY INTERN FINAL REPORT CT thoracic and lumbar spine without contrast 11/09/2018 4:13 PM CLINICAL INDICATION: Spine fracture, pathological, thoracic COMPARISON: MRI thoracic and lumbar spine 07/06/2017 TECHNIQUE: Multiple axial noncontrast CT images of the thoracic and lumbar spine were obtained in bone and soft tissue windows. Axially acquired data were reformatted in sagittal and coronal planes for further analysis. This examination was performed according to our departmental dose optimization program, which includes automated exposure control, adjustment of the mA and/or kV according to patient size, and/or use of iterated reconstruction technique. FINDINGS: There are mild and moderate compression fractures in the T3, T5, T6, T8, L1, L3, and L4 vertebral bodies, with evidence for prior L1 fracture augmentation. There is negligible osseous retropulsion of some of the posterior cortices, without spinal canal compromise. The remaining vertebral bodies are osteopenic, but intact. There is degeneration mediated grade 1 anterolisthesis of L4 on L5, with compensatory retrolisthesis of L2 on L3. Spinal canal diameter is within normal limits. There are multilevel degenerative changes, without high-grade central canal stenosis. There is pulmonary emphysema. There is arteriosclerosis with coronary artery vascular calcification. There is deconditioning of the posterior inferior paraspinal musculature. IMPRESSION: 1. Multilevel ntne-yo-rmwanqfi compression fractures in the thoracolumbar spine, without spinal canal compromise. 2. Chronic appearing degenerative changes. No free. Pulmonary emphysema. 3. Atherosclerotic vascular disease. Signed: Judd Man MD Report Verified Date/Time: 11/09/2018 16:19:08 Reading Location: [facility] Radiology Reading Room Performing Organization Address City/State/Zipcode Phone Number [facility] * CT spine thoracic without IV contrast (11/09/2018 4:04 PM EPIDEMIOLOGY INTERN) Specimen Narrative Performed At FINAL REPORT [facility] CT thoracic and lumbar spine without contrast 11/09/2018 4:13 PM CLINICAL INDICATION: Spine fracture, pathological, thoracic COMPARISON: MRI thoracic and lumbar spine 07/06/2017 TECHNIQUE: Multiple axial noncontrast CT images of the thoracic and lumbar spine were obtained in bone and soft tissue windows. Axially acquired data were reformatted in sagittal and coronal planes for further analysis. This examination was performed according to our departmental dose optimization program, which includes automated exposure control, adjustment of the mA and/or kV according to patient size, and/or use of iterated reconstruction technique. FINDINGS: There are mild and moderate compression fractures in the T3, T5, T6, T8, L1, L3, and L4 vertebral bodies, with evidence for prior L1 fracture augmentation. There is negligible osseous retropulsion of some of the posterior cortices, without spinal canal compromise. The remaining vertebral bodies are osteopenic, but intact. There is degeneration mediated grade 1 anterolisthesis of L4 on L5, with compensatory retrolisthesis of L2 on L3. Spinal canal diameter is within normal limits. There are multilevel degenerative changes, without high-grade central canal stenosis. There is pulmonary emphysema. There is arteriosclerosis with coronary artery vascular calcification. There is deconditioning of the posterior inferior paraspinal musculature. IMPRESSION: 1. Multilevel taga-dp-ujllsbue compression fractures in the thoracolumbar spine, without spinal canal compromise. 2. Chronic appearing degenerative changes. No free. Pulmonary emphysema. 3. Atherosclerotic vascular disease. Signed: Judd Man MD Report Verified Date/Time:11/09/2018 16:19:08 Reading Location: [facility] Radiology Reading Room Procedure Note Interface, External Ris In - 11/09/2018 4:21 PM EPIDEMIOLOGY INTERN FINAL REPORT CT thoracic and lumbar spine without contrast 11/09/2018 4:13 PM CLINICAL INDICATION: Spine fracture, pathological, thoracic COMPARISON: MRI thoracic and lumbar spine 07/06/2017 TECHNIQUE: Multiple axial noncontrast CT images of the thoracic and lumbar spine were obtained in bone and soft tissue windows. Axially acquired data were reformatted in sagittal and coronal planes for further analysis. This examination was performed according to our departmental dose optimization program, which includes automated exposure control, adjustment of the mA and/or kV according to patient size, and/or use of iterated reconstruction technique. FINDINGS: There are mild and moderate compression fractures in the T3, T5, T6, T8, L1, L3, and L4 vertebral bodies, with evidence for prior L1 fracture augmentation. There is negligible osseous retropulsion of some of the posterior cortices, without spinal canal compromise. The remaining vertebral bodies are osteopenic, but intact. There is degeneration mediated grade 1 anterolisthesis of L4 on L5, with compensatory retrolisthesis of L2 on L3. Spinal canal diameter is within normal limits. There are multilevel degenerative changes, without high-grade central canal stenosis. There is pulmonary emphysema. There is arteriosclerosis with coronary artery vascular calcification. There is deconditioning of the posterior inferior paraspinal musculature. IMPRESSION: 1. Multilevel uktq-uy-ixajzqze compression fractures in the thoracolumbar spine, without spinal canal compromise. 2. Chronic appearing degenerative changes. No free. Pulmonary emphysema. 3. Atherosclerotic vascular disease. Signed: Judd Man MD Report Verified Date/Time: 11/09/2018 16:19:08 Reading Location: [facility] Radiology Reading Room Performing Organization Address City/State/Zipcode Phone Number [facility] * CT abdomen/pelvis without iv contrast (11/09/2018 4:04 PM EPIDEMIOLOGY INTERN) Specimen Narrative Performed At FINAL REPORT [facility] ABDOMINAL AND PELVIS CT DATED 11/09/2018 CLINICAL INFORMATION:Abdominal pain, unspecified TECHNIQUE:Axial images of the abdomen and pelvis were obtained from diaphragm to the pubic symphysis without GI or intravenous contrast. This exam was performed according to our departmental dose-optimization program, which includes automated exposure control, adjustment of the mA and/or kV according to patient size and/or use of interactive reconstruction technique. COMMENT: Liver and spleen are normal in size without focal abnormality.Gallbladder is noted visualized. No biliary dilatation is noted. Pancreas and adrenals are unremarkable. Both kidneys are normal in size. No hydronephrosis, hydroureter, urolithiasis is seen. A 1.4 x 1.5 cm cyst is seen in the mid pole left kidney. A 1.1 cm cyst is seen in the inferior pole left kidney. The small and large bowel are suboptimally evaluated secondary to lack of GI and intravenous contrast. No small or large bowel dilatation is seen. Diverticular disease is seen in the large bowel without diverticulitis. Uterus surgically absent. Both ovaries are not visualized. Atherosclerotic calcification is seen in the abdominal aorta and bilateral iliac arteries. Wedge compression fracture seen involving the L1 vertebra with prior vertebroplasty. No mass, adenopathy or ascites is present. IMPRESSION: 1. Limited examination secondary to lack of GI and intravenous contrast. 2. Left renal cysts. 3. Diverticulosis without diverticulitis. 4. Generalized osteopenia and wedge compression fracture of L1 vertebra of undetermined age. Signed: Deepika Bruner MD Report Verified Date/Time:11/09/2018 16:24:49 Reading Location: [facility] C013Y CT Body Reading Room Procedure Note Interface, External Ris In - 11/09/2018 4:26 PM EPIDEMIOLOGY INTERN FINAL REPORT ABDOMINAL AND PELVIS CT DATED 11/09/2018 CLINICAL INFORMATION: Abdominal pain, unspecified TECHNIQUE: Axial images of the abdomen and pelvis were obtained from diaphragm to the pubic symphysis without GI or intravenous contrast. This exam was performed according to our departmental dose-optimization program, which includes automated exposure control, adjustment of the mA and/or kV according to patient size and/or use of interactive reconstruction technique. COMMENT: Liver and spleen are normal in size without focal abnormality. Gallbladder is noted visualized. No biliary dilatation is noted. Pancreas and adrenals are unremarkable. Both kidneys are normal in size. No hydronephrosis, hydroureter, urolithiasis is seen. A 1.4 x 1.5 cm cyst is seen in the mid pole left kidney. A 1.1 cm cyst is seen in the inferior pole left kidney. The small and large bowel are suboptimally evaluated secondary to lack of GI and intravenous contrast. No small or large bowel dilatation is seen. Diverticular disease is seen in the large bowel without diverticulitis. Uterus surgically absent. Both ovaries are not visualized. Atherosclerotic calcification is seen in the abdominal aorta and bilateral iliac arteries. Wedge compression fracture seen involving the L1 vertebra with prior vertebroplasty. No mass, adenopathy or ascites is present. IMPRESSION: 1. Limited examination secondary to lack of GI and intravenous contrast. 2. Left renal cysts. 3. Diverticulosis without diverticulitis. 4. Generalized osteopenia and wedge compression fracture of L1 vertebra of undetermined age. Signed: Deepika Bruner MD Report Verified Date/Time: 11/09/2018 16:24:49 Reading Location: [facility] B1 C013Y CT Body Reading Room Performing Organization Address City/State/Zipcode Phone Number [facility] * Blood Culture Panel([employer]) (11/09/2018 3:23 PM EPIDEMIOLOGY INTERN) [place] MONOCYTOGENES Not detected Not detected [facility] STAPHYLOCOCCUS Detected (A) Not detected [facility] Comment: [facility] First line therapy: Cefazolin, Nafcillin (Nafcillin preferred for Central Nervous Systeminfection) Coagulase Negative Staphylococcus (CoNS) DETECTED mecA NOT DETECTED Reference Range: Not Detected STAPHYLOCOCCUS AUREUS Not detected Not detected [facility] Streptococcus Not detected Not detected [facility] STREPTOCOCCUS AGALACTIAE Not detected Not detected [facility] (GROUP B) [facility] STREPTOCOCCUS PNEUMONIAE Not detected Not detected [facility] Streptococcus pyogenes Not detected Not detected [facility] (Group A) [facility] ACINETOBACTER BAUMANNII Not detected Not detected [facility] HAEMOPHILUS INFLUENZAE Not detected Not detected [facility] NEISSERIA MENINGITIDIS Not detected Not detected [facility] ENTEROBACTERIACEAE Not detected Not detected [facility] ENTEROBACTER CLOACOE Not detected Not detected [facility] OXYTOCA Not detected Not detected [facility] KLEBSIELLA PNEUMONIAE Not detected Not detected [facility] PROTEUS Not detected Not detected [facility] SERRATIA MARCESCENS Not detected Not detected [facility] EVELYN ALBICANS Not detected Not detected [facility] EVELYN GLABRATA Not detected Not detected [facility] EVELYN KRUSEI Not detected Not detected [facility]ELYN PARAPSILOSIS Not detected Not detected [facility] EVELYN TROPICALIS Not detected Not detected [facility] ESCHERICHIA COLI Not detected Not detected [facility] METHICILLIN-RESISTANCE Not detected Not detected [facility] VANCOMYCIN-RESISTANCE Not detected [facility] CARBAPENEM-RESISTANCE Not detected [facility] ENTEROCOCCUS Not detected Not detected [facility] PSEUDOMONAS AERUGINOSA Not detected Not detected [facility] Specimen Blood Narrative Performed At Other bacteria and resistance markers not targeted by this PCR panel cannot be [facility] excluded; therefore clinical correlation and follow up of serology, culture [facility] results, and other molecular studies is required. The results are not intended to be used as the sole means for clinical diagnosis or patient management decisions. This sample was tested at the [facility] Molecular Diagnostics Laboratory using the [employer] Blood Culture ID Panel. It is FDA cleared and has been verified and approved by the [facility] Molecular Diagnostics Laboratory for clinical use. This laboratory is CLIA-certified and [employer] ([employer])-accredited to perform high complexity testing. Performing Organization Address City/State/Zipcode Phone Number [facility] [address] [place] [address] [facility] * TSH (11/09/2018 3:20 PM EPIDEMIOLOGY INTERN) [facility] 1.16 0.35 - 4.94 uIU/mL [facility] Specimen Blood Performing Organization Address City/State/Zipcode Phone Number [facility] [address] [place] [address] [facility] after 06/07/2018 Insurance Payer Benefit Subscriber ID Type Phone Address Plan / Group [employer] xxxxxxxxxxx MEDICARE ADV Advance Directives For more information, please contact: [address] [address] Date Inactivated Comments Code Status Date Activated 12/17/2018 8:32 PM Full Code 12/13/2018 11:28 PM This code status was determined by: Patient 12/13/2018 11:27 AM Partial Code 11/09/2018 3:26 PM This code status was determined by: Patient and her [id number] Drug Protocol After Arrest Occurs? Yes Mechanical Ventilation with Intubation? No Bag/Mask? Yes Internal/External Pacemaker? Yes Transfer to Critical Care? Yes Chest Compressions? No Defibrillation/Cardioversion? No 09/23/2017 4:18 PM Full Code 09/20/2017 2:37 PM This code status was determined by: Patient 07/10/2017 4:15 PM Full Code 07/08/2017 10:13 AM This code status was determined by: Patient 07/08/2017 10:13 AM Full Code 07/04/2017 7:50 PM This code status was determined by: Patient
--- OUTSIDE RECORDS SUMMARY | 2019-06-08 12:33 | XMS REPORT ---
Author Author [facility] Address Unknown Phone Unavailable Care Team Providers Care Belting And Webbing Inspector Name Role Phone Jeanie NIX Unavailable Unavailable DEEPIKA WEBSTER Unavailable Unavailable KARLY AMBRIZ Unavailable Unavailable MANAV WHITE Unavailable Unavailable Problems This patient has no known problems. Allergies, Adverse Reactions, Alerts This patient has no known allergies or adverse reactions. Medications This patient has no known medications. Results Test Description Test Time Test Comments Text Results Atomic Results Result Comments RAD, SPINE, THORACIC, 2 VIEWS 2018-12-15 14:26:00 Reason for exam:->upper back painShould this be performed at the bedside?->Yes FINAL REPORT CLINICAL HISTORY: upper back pain [...] and alignment is preserved. Signed: Brice Steele MDReport Verified Date/Time: 12/15/2018 14:26:14 Reading Location: [address] Consult Reading Room , SPINE, CERVICAL, 2 OR 3 VIEWS 2018-12-15 13:28:00 Reason for exam:->neck pain with radiculopathyShould this be performed at the bedside?->Yes FINAL REPORT CLINICAL HISTORY: neck pain with [...] performed for further evaluation. Signed: Brice Steele Verified Date/Time: 12/15/2018 13:28:28 Reading Location: [facility] C013W Consult Reading Room , SPINE, THORACIC, WITHOUT CONTRAST 2018-12-15 07:59:00 FINAL REPORT MR, SPINE, THORACIC, WITHOUT CONTRAST INDICATION: Abnormal xray, thoracic spine, bone destruction COMPARISON: November 12, 2018 TECHNIQUE: Multiplanar, multisequence MR images of the thoracic spine without contrast. FINDINGS: Spinal cord: Normal course and caliber of the cord. Faint T2 signal suggested in the right lateral aspect of the cord at the T6 level. No hy drosyrinx. Osseous structures: Signal loss in the T6 [...] for focal radiculopathy. Signed: JR Ashford Robert MDReport Verified Date/Time: 12/15/2018 07:59:12 Reading Location: [facility] C013V Neuro Reading Room C METABOLIC PANEL 2018-12-15 07:07:00 SODIUM (BEAKER) (test jmyl=702) 137 meq/L 136-145 POTASSIUM (BEAKER) (test mchc=336) 4.7 meq/L 3.5-5.1 CHLORIDE (BEAKER) (test wfca=259) 105 meq/L 98-107 CO2 (BEAKER) (test nrpx=098) 25 meq/L 22-29 BLOOD UREA NITROGEN (BEAKER) (test myip=488) 18 mg/dL 7-21 CREATININE (BEAKER) (test uwkd=247) 0.56 mg/dL 0.57-1.25 GLUCOSE RANDOM (BEAKER) (test ictv=691) 115 mg/dL 70-105 CALCIUM (BEAKER) (test oehy=896) 8.5 mg/dL 8.4-10.2 EGFR (BEAKER) (test vdkm=6075) 104 mL/min/1.73 sq m ESTIMATED GFR IS NOT ACCURATE CREATININE CLEARANCE IN PREDICTING GLOMERULAR FILTRATION RATE. ESTIMATED GFR IS NOT APPLICABLE FOR DIALYSIS PATIENTS. CBC W/PLT COUNT & AUTO [id number] 06:53:00* Test Item Value Reference Range Comments WHITE BLOOD CELL COUNT (BEAKER) (test ecwe=705) 7.3 K/ L 3.5-10.5 RED BLOOD CELL COUNT (BEAKER) (test oxib=091) 3.35 M/ L 3.93-5.22 HEMOGLOBIN (BEAKER) (test qfdw=850) 10.2 GM/DL 11.2-15.7 HEMATOCRIT (BEAKER) (test wnpv=656) 34.3 % 34.1-44.9 MEAN CORPUSCULAR VOLUME (BEAKER) (test tarb=597) 102.4 fL 79.4-94.8 Discordant result compared to previous result; clinical correlation required. MEAN CORPUSCULAR HEMOGLOBIN (BEAKER) (test bgkp=481) 30.4 pg 25.6-32.2 MEAN CORPUSCULAR HEMOGLOBIN CONC (BEAKER) (test zhoz=369) 29.7 GM/DL 32.2-35.5 RED CELL DISTRIBUTION WIDTH (BEAKER) (test hpki=031) 13.4 % 11.7-14.4 PLATELET COUNT (BEAKER) (test zdwv=941) 144 K/CU MM 150-450 MEAN PLATELET VOLUME (BEAKER) (test bcnv=114) 11.2 fL 9.4-12.3 NUCLEATED RED BLOOD CELLS (BEAKER) (test fuqs=445) 0 /100 WBC 0-0 NEUTROPHILS RELATIVE PERCENT (BEAKER) (test yeed=942) 80 % LYMPHOCYTES RELATIVE PERCENT (BEAKER) (test xnbt=598) 14 % MONOCYTES RELATIVE PERCENT (BEAKER) (test lwti=575) 6 % EOSINOPHILS RELATIVE PERCENT (BEAKER) (test ncnd=156) 1 % BASOPHILS RELATIVE PERCENT (BEAKER) (test iacd=214) 0 % NEUTROPHILS ABSOLUTE COUNT (BEAKER) (test idti=296) 5.79 K/ L 1.56-6.13 LYMPHOCYTES ABSOLUTE COUNT (BEAKER) (test krqr=729) 1.01 K/ L 1.18-3.74 MONOCYTES ABSOLUTE COUNT (BEAKER) (test wltl=402) 0.41 K/ L 0.24-0.36 EOSINOPHILS ABSOLUTE COUNT (BEAKER) (test bmpo=033) 0.04 K/ L 0.04-0.36 BASOPHILS ABSOLUTE COUNT (BEAKER) (test kpnj=989) 0.01 K/ L 0.01-0.08 IMMATURE GRANULOCYTES-RELATIVE PERCENT (BEAKER) (test wiix=0858) 0 % 0-1 VITAMIN D, [id number] 19:03:00* Test Item Value Reference Range Comments VITAMIN D 25-OH (BEAKER) (test qpeg=1533) 30.5 ng/mL 6.6-49.9 Effective 07/13/2017: Reference Range ChangeNew: 6.6-49.9 ng/mL Previous: 13.0 -47.8 ng/mLRecommended Vitamin D Target Range: 30.0-40.0 ng/[id number] 10:45:00* Test Item Value Reference Range Comments FERRITIN (BEAKER) (test fqfi=958) 87 ng/mL 5-275 IRON, TIBC, % SAT. (WITHOUT FERRITIN)2018-12-14 10:13:00* Test Item Value Reference Range Comments IRON (BEAKER) (test bwmi=264) 39.0 ug/dL 40.0-160.0 TOTAL IRON BINDING CAPACITY (BEAKER) (test qblr=452) 226 ug/dL 250-450 IRON % SATURATION (2) (BEAKER) (test dmfg=9248) 17 % 20-55 TROPONIN [id number] 09:16:00* Test Item Value Reference Range Comments TROPONIN I (BEAKER) (test mxmz=411) < ng/mL 0.00-0.03 Troponin I (TnI) levels must be interpreted in the context of the presenting sym ptoms and the clinical findings. Elevated TnI levels indicate myocardial damage, but are not specific for ischemic heart disease. Elevated TnI levels are seen in patients with other cardiac conditions (including myocarditis and congestive h eart failure), and slight TnI elevations occur in patients with other conditions , including sepsis, renal failure, acidosis, acute neurological disease, and per sistent tachyarrhythmia.TROPONIN [id number] 00:39:00* Test Item Value Reference Range Comments TROPONIN I (BEAKER) (test qyam=975) < ng/mL 0.00-0.03 Troponin I (TnI) levels must be interpreted in the context of the presenting sym ptoms and the clinical findings. Elevated TnI levels indicate myocardial damage, but are not specific for ischemic heart disease. Elevated TnI levels are seen in patients with other cardiac conditions (including myocarditis and congestive h eart failure), and slight TnI elevations occur in patients with other conditions , including sepsis, renal failure, acidosis, acute neurological disease, and per sistent tachyarrhythmia.CBC W/PLT COUNT & AUTO [id number] 23:59:00* Test Item Value Reference Range Comments WHITE BLOOD CELL COUNT (BEAKER) (test rlnp=899) 6.6 K/ L 3.5-10.5 RED BLOOD CELL COUNT (BEAKER) (test ubyk=949) 3.15 M/ L 3.93-5.22 HEMOGLOBIN (BEAKER) (test ubii=893) 9.9 GM/DL 11.2-15.7 HEMATOCRIT (BEAKER) (test ayvt=228) 30.5 % 34.1-44.9 MEAN CORPUSCULAR VOLUME (BEAKER) (test apsu=739) 96.8 fL 79.4-94.8 MEAN CORPUSCULAR HEMOGLOBIN (BEAKER) (test peha=744) 31.4 pg 25.6-32.2 MEAN CORPUSCULAR HEMOGLOBIN CONC (BEAKER) (test jzfj=840) 32.5 GM/DL 32.2-35.5 RED CELL DISTRIBUTION WIDTH (BEAKER) (test uvht=540) 13.4 % 11.7-14.4 PLATELET COUNT (BEAKER) (test depn=646) 154 K/CU MM 150-450 MEAN PLATELET VOLUME (BEAKER) (test gpru=418) 10.7 fL 9.4-12.3 NUCLEATED RED BLOOD CELLS (BEAKER) (test mrux=286) 0 /100 WBC 0-0 NEUTROPHILS RELATIVE PERCENT (BEAKER) (test rjiy=377) 62 % LYMPHOCYTES RELATIVE PERCENT (BEAKER) (test ieqc=594) 23 % MONOCYTES RELATIVE PERCENT (BEAKER) (test lyjw=974) 11 % EOSINOPHILS RELATIVE PERCENT (BEAKER) (test hzvs=981) 4 % BASOPHILS RELATIVE PERCENT (BEAKER) (test auig=706) 1 % NEUTROPHILS ABSOLUTE COUNT (BEAKER) (test opjm=679) 4.10 K/ L 1.56-6.13 LYMPHOCYTES ABSOLUTE COUNT (BEAKER) (test pddi=159) 1.52 K/ L 1.18-3.74 MONOCYTES ABSOLUTE COUNT (BEAKER) (test xgmc=549) 0.70 K/ L 0.24-0.36 EOSINOPHILS ABSOLUTE COUNT (BEAKER) (test pkhc=604) 0.24 K/ L 0.04-0.36 BASOPHILS ABSOLUTE COUNT (BEAKER) (test eujs=298) 0.03 K/ L 0.01-0.08 IMMATURE GRANULOCYTES-RELATIVE PERCENT (BEAKER) (test farv=4404) 0 % 0-1 URINALYSIS W/ [id number] 17:49:00* Test Item Value Reference Range Comments COLOR (BEAKER) (test dqry=675) Dark Yellow CLARITY (BEAKER) (test sfpj=989) Clear SPECIFIC GRAVITY UA (BEAKER) (test gvkg=619) 1.025 1.001-1.035 PH UA (BEAKER) (test fptg=831) 5.5 5.0-8.0 PROTEIN UA (BEAKER) (test myiw=519) 100 mg/dL Negative GLUCOSE UA (BEAKER) (test kxji=814) Negative Negative KETONES UA (BEAKER) (test azjc=856) Trace Negative BILIRUBIN UA (BEAKER) (test shkj=736) Negative Negative BLOOD UA (BEAKER) (test ivyp=218) Negative Negative NITRITE UA (BEAKER) (test unay=591) Negative Negative LEUKOCYTE ESTERASE UA (BEAKER) (test hvqu=020) Negative Negative UROBILINOGEN UA (BEAKER) (test dwet=751) 1.0 mg/dL 0.2-1.0 BACTERIA (BEAKER) (test ykbj=843) Few MUCUS (BEAKER) (test bomv=3847) Few RBC UA-MANUAL (BEAKER) (test mtbl=2177) None Seen /HPF WBC UA-MANUAL (BEAKER) (test mngf=2847) <5 /HPF SQUAMOUS EPITHELIAL MANUAL (BEAKER) (test doqj=3494) <5 /HPF HYALINE CASTS MANUAL (BEAKER) (test rilc=1924) 5-10 /LPF SOURCE(BEAKER) (test ztax=4636) LACTIC ACID, [id number] 15:11:00* Test Item Value Reference Range Comments LACTATE BLOOD VENOUS (2) (BEAKER) (test qpaw=7942) 1.6 mmol/L 0.5-2.2 RAPID TROPONIN [id number] 12:54:00* Test Item Value Reference Range Comments RAPID TROPONIN I (BEAKER) (test urdg=4927) < ng/mL <0.05 [id number] 12:49:00* Test Item Value Reference Range Comments D-DIMER QUANTITATIVE (BEAKER) (test bfmn=369) 0.50 MG/L FEU <0.50 REGARDING D-DIMER RESULTS: Results of this D-Dimer test should always be interpr eted in conjunction with the patient's medical history, clinical presentation an d other findings. DVT clinical diagnosis should not be based on the results of I [place] D-Dimer alone.BASIC METABOLIC [id number] 12:43:00* Test Item Value Reference Range Comments SODIUM (BEAKER) (test adal=344) 135 meq/L 135-148 POTASSIUM (BEAKER) (test nomv=146) 3.9 meq/L 3.6-5.5 CHLORIDE (BEAKER) (test bjsg=755) 93 meq/L 98-106 CO2 (BEAKER) (test aunk=635) 33 meq/L 24-32 BLOOD UREA NITROGEN (BEAKER) (test gckk=495) 19 mg/dL 10-26 CREATININE (BEAKER) (test qtem=162) 0.72 mg/dL 0.50-1.20 GLUCOSE RANDOM (BEAKER) (test gjnp=079) 124 mg/dL 70-110 CALCIUM (BEAKER) (test ewvy=102) 8.4 mg/dL 8.5-10.5 EGFR (BEAKER) (test oths=5844) 78 mL/min/1.73 sq m ESTIMATED GFR IS NOT ACCURATE CREATININE CLEARANCE IN PREDICTING GLOMERULAR FILTRATION RATE. ESTIMATED GFR IS NOT APPLICABLE FOR DIALYSIS PATIENTS. CBC W/PLT COUNT & AUTO [id number] 12:41:00* Test Item Value Reference Range Comments WHITE BLOOD CELL COUNT (BEAKER) (test akpw=381) 6.2 K/ L 4.0-10.0 RED BLOOD CELL COUNT (BEAKER) (test esrq=620) 3.32 M/ L 4.00-5.00 HEMOGLOBIN (BEAKER) (test ckjg=321) 10.5 GM/DL 12.0-15.0 HEMATOCRIT (BEAKER) (test sqhs=228) 31.8 % 36.0-45.0 MEAN CORPUSCULAR VOLUME (BEAKER) (test eswi=274) 95.8 fL 82.0-99.0 MEAN CORPUSCULAR HEMOGLOBIN (BEAKER) (test szwt=992) 31.8 pg 27.0-33.0 MEAN CORPUSCULAR HEMOGLOBIN CONC (BEAKER) (test qsgf=571) 33.1 GM/DL 32.0-36.0 RED CELL DISTRIBUTION WIDTH (BEAKER) (test wude=079) 12.8 % 10.3-14.2 PLATELET COUNT (BEAKER) (test ueim=204) 169 K/CU MM 150-430 MEAN PLATELET VOLUME (BEAKER) (test omgj=841) 8.5 fL 6.5-10.5 NEUTROPHILS RELATIVE PERCENT (BEAKER) (test expg=532) 75 % LYMPHOCYTES RELATIVE PERCENT (BEAKER) (test icep=861) 16 % MONOCYTES RELATIVE PERCENT (BEAKER) (test rkvh=007) 7 % EOSINOPHILS RELATIVE PERCENT (BEAKER) (test waza=196) 1 % BASOPHILS RELATIVE PERCENT (BEAKER) (test hbqu=696) 0 % NEUTROPHILS ABSOLUTE COUNT (BEAKER) (test owhm=622) 4.68 K/ L 1.80-8.00 LYMPHOCYTES ABSOLUTE COUNT (BEAKER) (test ewnq=200) 0.99 K/ L 1.48-4.50 MONOCYTES ABSOLUTE COUNT (BEAKER) (test csiq=667) 0.43 K/ L 0.00-1.30 EOSINOPHILS ABSOLUTE COUNT (BEAKER) (test tmte=776) 0.09 K/ L 0.00-0.50 BASOPHILS ABSOLUTE COUNT (BEAKER) (test pqvz=161) 0.02 K/ L 0.00-0.20 RAD, CHEST, 1 VIEW, NON [id number] 12:38:00Reason for exam:->HYPOTENSIONsent here from [facility] for low bp, pt c/o feeling dizzy and faint. Should this be performed at the bedside?->YesFINAL REPORT CLINICAL HISTORY: HYPOTENSION TECHNIQUE: 1 view of the chest. COMPARISON: 09/20/2017 IMPRESSION: There are multiple bilateral lung nodular opacities bilaterally some of which are new since the prior exam. Further evaluation with chest CT is recommended to exclude metastatic disease. There is no lobar consolidation or pleural effusion. The heart is not enlarged. There is multilevel vertebroplasty cement. Signed: Brice Steele MDReport Verified Date/Time: 12/13/2018 12:38:58 Reading Location: [address] Consult Reading Room , KYPHOPLASTY, THORACIC, [id number] 09:42:00What level(s) should be performed->T3, T5, T6, A3Wnjari for exam:->COMPRESSION FRACTURESFINAL REPORT HISTORY: T6 wedge vertebral compression fracture [...] percutaneous vertebral augmentation. No immediate complications. Total f luoroscopy time: 16.2 minutes. Estimated total patient dose reported as (Ka,r): 133 mGy Signed: Lilian Esteban MDReport Verified Date/Time: 11/21/2018 09:42:00 Reading Location: [facility] C013W Consult Reading Room -GLUCOSE [id number] 12:28:00* Test Item Value Reference Range Comments POC-GLUCOSE METER (BEAKER) (test doaw=9959) 118 mg/dL 70-110 TESTED AT [address] [address] POCT-GLUCOSE [id number] 08:17:00* Test Item Value Reference Range Comments POC-GLUCOSE METER (BEAKER) (test myay=5455) 108 mg/dL 70-110 TESTED AT [address] [address] POCT-GLUCOSE [id number] 21:38:00* Test Item Value Reference Range Comments POC-GLUCOSE METER (BEAKER) (test glye=9494) 100 mg/dL 70-110 TESTED AT [address] [address] BLOOD [id number] 19:01:00* Test Item Value Reference Range Comments CULTURE (BEAKER) (test xzsd=7209) No growth in 5 days [id number] 05:11:00* Test Item Value Reference Range Comments PHOSPHORUS (BEAKER) (test bwiq=435) 3.1 mg/dL 2.3-4.7 [id number] 05:11:00* Test Item Value Reference Range Comments MAGNESIUM (BEAKER) (test foiq=635) 1.7 mg/dL 1.6-2.6 BASIC METABOLIC [id number] 05:11:00* Test Item Value Reference Range Comments SODIUM (BEAKER) (test essh=355) 135 meq/L 136-145 POTASSIUM (BEAKER) (test caqz=120) 3.6 meq/L 3.5-5.1 CHLORIDE (BEAKER) (test vxxo=657) 95 meq/L 98-107 CO2 (BEAKER) (test hpmr=604) 36 meq/L 22-29 BLOOD UREA NITROGEN (BEAKER) (test mivk=413) 6 mg/dL 7-21 CREATININE (BEAKER) (test mplu=658) 0.56 mg/dL 0.57-1.25 GLUCOSE RANDOM (BEAKER) (test pghg=728) 81 mg/dL 70-105 CALCIUM (BEAKER) (test vkff=793) 8.5 mg/dL 8.4-10.2 EGFR (BEAKER) (test hnch=0015) 104 mL/min/1.73 sq m ESTIMATED GFR IS NOT ACCURATE CREATININE CLEARANCE IN PREDICTING GLOMERULAR FILTRATION RATE. ESTIMATED GFR IS NOT APPLICABLE FOR DIALYSIS PATIENTS. CBC W/PLT COUNT & AUTO [id number] 04:54:00* Test Item Value Reference Range Comments WHITE BLOOD CELL COUNT (BEAKER) (test rqmm=204) 7.2 K/ L 3.5-10.5 RED BLOOD CELL COUNT (BEAKER) (test bavc=737) 3.32 M/ L 3.93-5.22 HEMOGLOBIN (BEAKER) (test yvkb=144) 10.1 GM/DL 11.2-15.7 HEMATOCRIT (BEAKER) (test oflp=498) 32.6 % 34.1-44.9 MEAN CORPUSCULAR VOLUME (BEAKER) (test fgjg=201) 98.2 fL 79.4-94.8 MEAN CORPUSCULAR HEMOGLOBIN (BEAKER) (test qwxl=313) 30.4 pg 25.6-32.2 MEAN CORPUSCULAR HEMOGLOBIN CONC (BEAKER) (test syfi=423) 31.0 GM/DL 32.2-35.5 RED CELL DISTRIBUTION WIDTH (BEAKER) (test wiou=741) 13.1 % 11.7-14.4 PLATELET COUNT (BEAKER) (test dhbz=073) 149 K/CU MM 150-450 MEAN PLATELET VOLUME (BEAKER) (test nrpe=346) 11.3 fL 9.4-12.3 NUCLEATED RED BLOOD CELLS (BEAKER) (test miex=264) 0 /100 WBC 0-0 NEUTROPHILS RELATIVE PERCENT (BEAKER) (test emor=106) 70 % LYMPHOCYTES RELATIVE PERCENT (BEAKER) (test nhck=335) 18 % MONOCYTES RELATIVE PERCENT (BEAKER) (test ruob=803) 9 % EOSINOPHILS RELATIVE PERCENT (BEAKER) (test spvv=745) 2 % BASOPHILS RELATIVE PERCENT (BEAKER) (test vibq=434) 0 % NEUTROPHILS ABSOLUTE COUNT (BEAKER) (test drca=775) 5.08 K/ L 1.56-6.13 LYMPHOCYTES ABSOLUTE COUNT (BEAKER) (test njub=012) 1.33 K/ L 1.18-3.74 MONOCYTES ABSOLUTE COUNT (BEAKER) (test vnlu=291) 0.63 K/ L 0.24-0.36 EOSINOPHILS ABSOLUTE COUNT (BEAKER) (test zbdx=416) 0.13 K/ L 0.04-0.36 BASOPHILS ABSOLUTE COUNT (BEAKER) (test pzqg=730) 0.02 K/ L 0.01-0.08 IMMATURE GRANULOCYTES-RELATIVE PERCENT (BEAKER) (test vdvj=6219) 0 % 0-1 POCT-GLUCOSE [id number] 22:19:00* Test Item Value Reference Range Comments POC-GLUCOSE METER (BEAKER) (test mqfn=1884) 111 mg/dL 70-110 TESTED AT [facility] [address] [facility] [address] BASIC METABOLIC [id number] 10:58:00* Test Item Value Reference Range Comments SODIUM (BEAKER) (test kpmp=252) 138 meq/L 136-145 POTASSIUM (BEAKER) (test scrl=333) 4.5 meq/L 3.5-5.1 CHLORIDE (BEAKER) (test ieix=923) 99 meq/L 98-107 CO2 (BEAKER) (test zixl=796) 34 meq/L 22-29 BLOOD UREA NITROGEN (BEAKER) (test pgqu=492) 10 mg/dL 7-21 CREATININE (BEAKER) (test bjfw=920) 0.63 mg/dL 0.57-1.25 GLUCOSE RANDOM (BEAKER) (test ydqh=716) 91 mg/dL 70-105 CALCIUM (BEAKER) (test gnqv=077) 8.6 mg/dL 8.4-10.2 EGFR (BEAKER) (test xvbz=1100) 90 mL/min/1.73 sq m ESTIMATED GFR IS NOT ACCURATE CREATININE CLEARANCE IN PREDICTING GLOMERULAR FILTRATION RATE. ESTIMATED GFR IS NOT APPLICABLE FOR DIALYSIS PATIENTS. TROPONIN [id number] 09:18:00* Test Item Value Reference Range Comments TROPONIN I (BEAKER) (test hmum=790) < ng/mL 0.00-0.03 Troponin I (TnI) levels must be interpreted in the context of the presenting sym ptoms and the clinical findings. Elevated TnI levels indicate myocardial damage, but are not specific for ischemic heart disease. Elevated TnI levels are seen in patients with other cardiac conditions (including myocarditis and congestive h eart failure), and slight TnI elevations occur in patients with other conditions , including sepsis, renal failure, acidosis, acute neurological disease, and per sistent tachyarrhythmia.POCT-GLUCOSE [id number] 08:21:00* Test Item Value Reference Range Comments POC-GLUCOSE METER (BEAKER) (test zrnr=5665) 111 mg/dL 70-110 TESTED AT [facility] [address] [place] [address] [id number] 05:58:00* Test Item Value Reference Range Comments POTASSIUM (BEAKER) (test bohy=280) 4.4 meq/L 3.5-5.1 [id number] 05:58:00* Test Item Value Reference Range Comments MAGNESIUM (BEAKER) (test jcde=815) 1.8 mg/dL 1.6-2.6 [id number] 05:43:00* Test Item Value Reference Range Comments PROTIME (BEAKER) (test omby=345) 15.1 seconds 11.7-14.7 INR (BEAKER) (test rwbh=092) 1.2 <=5.9 PARTIAL THROMBOPLASTIN TIME (BEAKER) (test jicq=640) 34.9 seconds 22.5-36.0 RECOMMENDED COUMADIN/WARFARIN INR THERAPY RANGESSTANDARD DOSE: 2.0 - 3.0 Inclu rayray: PROPHYLAXIS for venous thrombosis, systemic embolization; TREATMENT for sia ous thrombosis and/or pulmonary embolus.HIGH RISK: Target INR is 2.5-3.5 for pat ients with mechanical heart valves.POCT-GLUCOSE [id number] 21:39:00* Test Item Value Reference Range Comments POC-GLUCOSE METER (BEAKER) (test zvdp=8054) 121 mg/dL 70-110 TESTED AT [address] [address] POCT-GLUCOSE [id number] 18:13:00* Test Item Value Reference Range Comments POC-GLUCOSE METER (BEAKER) (test wkdp=6390) 86 mg/dL 70-110 TESTED AT [facility] [address] [facility] [address] BLOOD [id number] 13:24:00* Test Item Value Reference Range Comments CULTURE (BEAKER) (test vsjr=3529) From Aerobic And Anaerobic Bottles Coagulase negative Staphylococcus GRAM STAIN RESULT (BEAKER) (test roaq=3856) From aerobic and anaerobic bottles: gram positive cocci in clusters POCT-GLUCOSE [id number] 11:36:00* Test Item Value Reference Range Comments POC-GLUCOSE METER (BEAKER) (test phcp=1765) 159 mg/dL 70-110 TESTED AT [facility] [address] [facility] [address] CBC W/PLT COUNT & AUTO [id number] 08:13:00* Test Item Value Reference Range Comments WHITE BLOOD CELL COUNT (BEAKER) (test whyk=507) 4.6 K/ L 3.5-10.5 RED BLOOD CELL COUNT (BEAKER) (test vuzx=872) 3.68 M/ L 3.93-5.22 HEMOGLOBIN (BEAKER) (test ydnu=417) 11.2 GM/DL 11.2-15.7 HEMATOCRIT (BEAKER) (test aaqx=472) 36.5 % 34.1-44.9 MEAN CORPUSCULAR VOLUME (BEAKER) (test ihir=304) 99.2 fL 79.4-94.8 MEAN CORPUSCULAR HEMOGLOBIN (BEAKER) (test xdrk=553) 30.4 pg 25.6-32.2 MEAN CORPUSCULAR HEMOGLOBIN CONC (BEAKER) (test mfho=679) 30.7 GM/DL 32.2-35.5 RED CELL DISTRIBUTION WIDTH (BEAKER) (test fvtd=456) 13.2 % 11.7-14.4 PLATELET COUNT (BEAKER) (test otvm=079) 140 K/CU MM 150-450 MEAN PLATELET VOLUME (BEAKER) (test mhtn=899) 10.7 fL 9.4-12.3 NUCLEATED RED BLOOD CELLS (BEAKER) (test bsfd=029) 0 /100 WBC 0-0 NEUTROPHILS RELATIVE PERCENT (BEAKER) (test nrsy=192) 48 % LYMPHOCYTES RELATIVE PERCENT (BEAKER) (test qsty=827) 38 % MONOCYTES RELATIVE PERCENT (BEAKER) (test rons=180) 12 % EOSINOPHILS RELATIVE PERCENT (BEAKER) (test pttn=952) 2 % BASOPHILS RELATIVE PERCENT (BEAKER) (test dyqo=779) 0 % NEUTROPHILS ABSOLUTE COUNT (BEAKER) (test szug=349) 2.20 K/ L 1.56-6.13 LYMPHOCYTES ABSOLUTE COUNT (BEAKER) (test pjhj=340) 1.73 K/ L 1.18-3.74 MONOCYTES ABSOLUTE COUNT (BEAKER) (test sstr=578) 0.53 K/ L 0.24-0.36 EOSINOPHILS ABSOLUTE COUNT (BEAKER) (test zxno=557) 0.11 K/ L 0.04-0.36 BASOPHILS ABSOLUTE COUNT (BEAKER) (test tkbv=306) 0.02 K/ L 0.01-0.08 IMMATURE GRANULOCYTES-RELATIVE PERCENT (BEAKER) (test tnya=6532) 0 % 0-1 POCT-GLUCOSE [id number] 07:58:00* Test Item Value Reference Range Comments POC-GLUCOSE METER (BEAKER) (test alzs=6209) 98 mg/dL 70-110 TESTED AT [facility] [address] [facility] [id number] 04:39:00* Test Item Value Reference Range Comments MAGNESIUM (BEAKER) (test fspr=814) 1.8 mg/dL 1.6-2.6 BASIC METABOLIC [id number] 04:39:00* Test Item Value Reference Range Comments SODIUM (BEAKER) (test gtnb=811) 137 meq/L 136-145 POTASSIUM (BEAKER) (test qbgu=195) 3.6 meq/L 3.5-5.1 CHLORIDE (BEAKER) (test eshy=909) 98 meq/L 98-107 CO2 (BEAKER) (test ksbv=540) 35 meq/L 22-29 BLOOD UREA NITROGEN (BEAKER) (test frye=156) 8 mg/dL 7-21 CREATININE (BEAKER) (test ljsy=325) 0.62 mg/dL 0.57-1.25 GLUCOSE RANDOM (BEAKER) (test nwiu=391) 93 mg/dL 70-105 CALCIUM (BEAKER) (test piqj=264) 8.3 mg/dL 8.4-10.2 EGFR (YIFAN) (test hegl=2792) 92 mL/min/1.73 sq m ESTIMATED GFR IS NOT ACCURATE CREATININE CLEARANCE IN PREDICTING GLOMERULAR FILTRATION RATE. ESTIMATED GFR IS NOT APPLICABLE FOR DIALYSIS PATIENTS. POCT-GLUCOSE [id number] 21:52:00* Test Item Value Reference Range Comments POC-GLUCOSE METER (YIFAN) (test jhrm=7604) 137 mg/dL 70-110 TESTED AT [facility] [address] [facility] [id number] MR, SPINE, THORACIC, WITHOUT [id number] 19:40:00FINAL REPORT MRI thoracic spine without contrast. MRI lumbar spine without contrast. CLINICAL HISTORY: Spine fracture, pathological, thoracic and lumbar. Determine chronicity of fractures TECHNIQUE: MRI of the thoracic and lumbar spine was performed without contrast, utilizing the following sequences: Sagittal T1, T2, STIR; axial T1 and T2. COMPARISON: Thoracic and lumbar spine MRI 07/06/2017. FINDINGS:There is an exaggeration of the visualized cervical lordosis. There is a thoracic kyphosis. Vertebral body alignment in the thoracic and lumbar spine is maintained. There are scattered multilevel intraosseous he mangiomas. There is a mild chronic compression fracture deformity of T3, mild to moderate chronic compression fracture deformity of T5 and T8 and mild chronic c ompression fracture deformity of T9, T11 and T12. There is an acute moderate com pression fracture deformity of T6. There is a chronic moderate compression fract ure deformity of L1. There is a mild chronic compression fracture deformity of L 3. There is mild loss of height of L2 and L4. The spinal cord is normal in size, contour and signal. The conus medullaris terminates at L1. There is multilevel degenerative disc disease as evidenced by disc desiccation, endplate Schmorl's n odes and mild disc space narrowing. There is no significant spinal canal and dolores ral foraminal stenosis. There are bilateral renal cysts. There are small bilate ral pleural effusions. There is atrophy of the lumbosacral paraspinal and bilate ral gluteal musculature. IMPRESSION: Moderate acute compression fracture of T6.C hronic compression fractures in the thoracic and lumbar spine as described. Sign ed: Zoraida Santos MDReport Verified Date/Time: 11/12/2018 19:40:39 Reading Loca tion: [facility] B1 C013Y CT Body Reading Room , SPINE, LUMBAR, WITHOUT CONTRAST 2018-11-12 19:40:00FINAL REPORT MRI thoracic spine without contrast. MRI lumbar spine without contrast. CLINICAL HISTORY: Spine fracture, pathological, thoracic and lumbar. Determine chronicity of fractures TECHNIQUE: MRI of the thoracic and lumbar spine was performed without contrast, utilizing the following sequences: Sagittal T1, T2, STIR; axial T1 and T2. COMPARISON: Thoracic and lumbar spine MRI 07/06/2017. FINDINGS:There is an exaggeration of the visualized cervical [...] musculature. IMPRESSION: Moderate acute compression fracture of T6.Chronic compression fractures in the thoracic and lumbar spine as described. Signed: Zoraida Santos MDReport Verified Date/Time: 11/12/2018 19:40:39 Reading Loca tion: [facility] B1 C013Y CT Body Reading Room -GLUCOSE [id number] 17:37:00* Test Item Value Reference Range Comments POC-GLUCOSE METER (VANDANAAKER) (test refb=5380) 100 mg/dL 70-110 TESTED AT [address] [address] POCT-GLUCOSE [id number] 11:50:00* Test Item Value Reference Range Comments POC-GLUCOSE METER (BEAKER) (test qkor=0002) 101 mg/dL 70-110 TESTED AT [address] [address] POCT-GLUCOSE [id number] 07:54:00* Test Item Value Reference Range Comments POC-GLUCOSE METER (BEAKER) (test srqg=5492) 153 mg/dL 70-110 TESTED AT [address] [address] [id number] 06:33:00* Test Item Value Reference Range Comments MAGNESIUM (BEAKER) (test qlzr=416) 1.4 mg/dL 1.6-2.6 BASIC METABOLIC [id number] 06:33:00* Test Item Value Reference Range Comments SODIUM (BEAKER) (test qvgp=537) 136 meq/L 136-145 POTASSIUM (BEAKER) (test vazr=032) 3.6 meq/L 3.5-5.1 CHLORIDE (BEAKER) (test zcvy=142) 98 meq/L 98-107 CO2 (BEAKER) (test orbn=960) 33 meq/L 22-29 BLOOD UREA NITROGEN (BEAKER) (test junm=252) 10 mg/dL 7-21 CREATININE (BEAKER) (test zklr=843) 0.62 mg/dL 0.57-1.25 GLUCOSE RANDOM (BEAKER) (test xzpe=126) 103 mg/dL 70-105 CALCIUM (BEAKER) (test fpcr=547) 8.4 mg/dL 8.4-10.2 EGFR (BEAKER) (test cwwk=3602) 92 mL/min/1.73 sq m ESTIMATED GFR IS NOT ACCURATE CREATININE CLEARANCE IN PREDICTING GLOMERULAR FILTRATION RATE. ESTIMATED GFR IS NOT APPLICABLE FOR DIALYSIS PATIENTS. CBC W/PLT COUNT & AUTO [id number] 06:12:00* Test Item Value Reference Range Comments WHITE BLOOD CELL COUNT (BEAKER) (test nhkr=427) 4.0 K/ L 3.5-10.5 RED BLOOD CELL COUNT (BEAKER) (test iejl=665) 3.38 M/ L 3.93-5.22 HEMOGLOBIN (BEAKER) (test oaow=691) 10.4 GM/DL 11.2-15.7 HEMATOCRIT (BEAKER) (test vibb=981) 32.7 % 34.1-44.9 MEAN CORPUSCULAR VOLUME (BEAKER) (test wblk=347) 96.7 fL 79.4-94.8 MEAN CORPUSCULAR HEMOGLOBIN (BEAKER) (test wder=874) 30.8 pg 25.6-32.2 MEAN CORPUSCULAR HEMOGLOBIN CONC (BEAKER) (test dbrt=826) 31.8 GM/DL 32.2-35.5 RED CELL DISTRIBUTION WIDTH (BEAKER) (test vnhm=776) 13.0 % 11.7-14.4 PLATELET COUNT (BEAKER) (test iych=169) 159 K/CU MM 150-450 MEAN PLATELET VOLUME (BEAKER) (test pcjt=391) 10.7 fL 9.4-12.3 NUCLEATED RED BLOOD CELLS (BEAKER) (test aqje=671) 0 /100 WBC 0-0 NEUTROPHILS RELATIVE PERCENT (BEAKER) (test jgnu=782) 52 % LYMPHOCYTES RELATIVE PERCENT (BEAKER) (test cecm=342) 32 % MONOCYTES RELATIVE PERCENT (BEAKER) (test zzhh=596) 12 % EOSINOPHILS RELATIVE PERCENT (BEAKER) (test gzyf=547) 4 % BASOPHILS RELATIVE PERCENT (BEAKER) (test hrln=731) 1 % NEUTROPHILS ABSOLUTE COUNT (BEAKER) (test gyey=170) 2.09 K/ L 1.56-6.13 LYMPHOCYTES ABSOLUTE COUNT (BEAKER) (test cczv=790) 1.27 K/ L 1.18-3.74 MONOCYTES ABSOLUTE COUNT (BEAKER) (test xsji=294) 0.46 K/ L 0.24-0.36 EOSINOPHILS ABSOLUTE COUNT (BEAKER) (test eomx=366) 0.14 K/ L 0.04-0.36 BASOPHILS ABSOLUTE COUNT (BEAKER) (test oruf=427) 0.02 K/ L 0.01-0.08 IMMATURE GRANULOCYTES-RELATIVE PERCENT (BEAKER) (test jtif=1313) 0 % 0-1 POCT-GLUCOSE [id number] 21:49:00* Test Item Value Reference Range Comments POC-GLUCOSE METER (BEAKER) (test taxo=9122) 156 mg/dL 70-110 TESTED AT [facility] [address] [facility] [address] POCT-GLUCOSE [id number] 17:32:00* Test Item Value Reference Range Comments POC-GLUCOSE METER (BEAKER) (test czet=1094) 146 mg/dL 70-110 TESTED AT [facility] [address] [facility] [address] POCT-GLUCOSE [id number] 12:10:00* Test Item Value Reference Range Comments POC-GLUCOSE METER (BEAKER) (test epku=3405) 87 mg/dL 70-110 TESTED AT [place] [id number] [facility] [address] POCT-GLUCOSE [id number] 08:48:00* Test Item Value Reference Range Comments POC-GLUCOSE METER (BEAKER) (test ahtj=5623) 79 mg/dL 70-110 TESTED AT [address] [address] [id number] 07:56:00* Test Item Value Reference Range Comments MAGNESIUM (BEAKER) (test ffeb=624) 1.6 mg/dL 1.6-2.6 BASIC METABOLIC [id number] 07:56:00* Test Item Value Reference Range Comments SODIUM (BEAKER) (test uabc=325) 133 meq/L 136-145 POTASSIUM (BEAKER) (test hqxv=110) 3.8 meq/L 3.5-5.1 CHLORIDE (BEAKER) (test tnyn=715) 95 meq/L 98-107 CO2 (BEAKER) (test kpzo=976) 30 meq/L 22-29 BLOOD UREA NITROGEN (BEAKER) (test czxl=572) 10 mg/dL 7-21 CREATININE (BEAKER) (test rwmx=843) 0.63 mg/dL 0.57-1.25 GLUCOSE RANDOM (BEAKER) (test ducy=853) 77 mg/dL 70-105 CALCIUM (BEAKER) (test scja=414) 8.5 mg/dL 8.4-10.2 EGFR (BEAKER) (test lixd=4948) 90 mL/min/1.73 sq m ESTIMATED GFR IS NOT ACCURATE CREATININE CLEARANCE IN PREDICTING GLOMERULAR FILTRATION RATE. ESTIMATED GFR IS NOT APPLICABLE FOR DIALYSIS PATIENTS. CBC W/PLT COUNT & AUTO [id number] 06:21:00* Test Item Value Reference Range Comments WHITE BLOOD CELL COUNT (BEAKER) (test ljgn=990) 4.3 K/ L 3.5-10.5 RED BLOOD CELL COUNT (BEAKER) (test uuvc=296) 3.64 M/ L 3.93-5.22 HEMOGLOBIN (BEAKER) (test lfbo=266) 11.1 GM/DL 11.2-15.7 HEMATOCRIT (BEAKER) (test ifdt=921) 35.2 % 34.1-44.9 MEAN CORPUSCULAR VOLUME (BEAKER) (test qgfu=116) 96.7 fL 79.4-94.8 MEAN CORPUSCULAR HEMOGLOBIN (BEAKER) (test zqwh=139) 30.5 pg 25.6-32.2 MEAN CORPUSCULAR HEMOGLOBIN CONC (BEAKER) (test hqwy=957) 31.5 GM/DL 32.2-35.5 RED CELL DISTRIBUTION WIDTH (BEAKER) (test imva=126) 13.1 % 11.7-14.4 PLATELET COUNT (BEAKER) (test dvpy=411) 182 K/CU MM 150-450 MEAN PLATELET VOLUME (BEAKER) (test bjhw=736) 10.7 fL 9.4-12.3 NUCLEATED RED BLOOD CELLS (BEAKER) (test vrhs=992) 0 /100 WBC 0-0 NEUTROPHILS RELATIVE PERCENT (BEAKER) (test cghb=337) 54 % LYMPHOCYTES RELATIVE PERCENT (BEAKER) (test kvih=746) 32 % MONOCYTES RELATIVE PERCENT (BEAKER) (test rxqf=569) 10 % EOSINOPHILS RELATIVE PERCENT (BEAKER) (test gxqv=138) 3 % BASOPHILS RELATIVE PERCENT (BEAKER) (test rpcx=908) 1 % NEUTROPHILS ABSOLUTE COUNT (BEAKER) (test hnmu=314) 2.32 K/ L 1.56-6.13 LYMPHOCYTES ABSOLUTE COUNT (BEAKER) (test wesn=340) 1.37 K/ L 1.18-3.74 MONOCYTES ABSOLUTE COUNT (BEAKER) (test wovr=959) 0.43 K/ L 0.24-0.36 EOSINOPHILS ABSOLUTE COUNT (BEAKER) (test fvbv=366) 0.12 K/ L 0.04-0.36 BASOPHILS ABSOLUTE COUNT (BEAKER) (test ysov=168) 0.02 K/ L 0.01-0.08 IMMATURE GRANULOCYTES-RELATIVE PERCENT (BEAKER) (test yfzj=0927) 0 % 0-1 POCT-GLUCOSE [id number] 21:29:00* Test Item Value Reference Range Comments POC-GLUCOSE METER (BEAKER) (test kkgr=8164) 132 mg/dL 70-110 TESTED AT [facility] [address] [facility] [address] POCT-GLUCOSE [id number] 18:40:00* Test Item Value Reference Range Comments POC-GLUCOSE METER (BEAKER) (test nwjd=1225) 171 mg/dL 70-110 TESTED AT [facility] [address] [facility] [address] BLOOD CULTURE IDENTIFICATION [id number] 12:27:00* Test Item Value Reference Range Comments LISTERIA MONOCYTOGENES (test pwel=8406484) Not detected Not detected STAPHYLOCOCCUS (test yzzj=1128779) Detected Not detected First line therapy: Cefazolin, Nafcillin (Nafcillin preferred for Central Nervous System infection) Coagulase Negative Staphylococcus (CoNS) DETECTEDmecA NOT DETECTEDReference Range: Not Detected STAPHYLOCOCCUS AUREUS (test ilnw=3932598) Not detected Not detected STREPTOCOCCUS (test uqnw=3958604) Not detected Not detected STREPTOCOCCUS AGALACTIAE (GROUP B) (test orrr=8957011) Not detected Not detected STREPTOCOCCUS PNEUMONIAE (test rnmi=6165664) Not detected Not detected STREPTOCOCCUS PYOGENES (GROUP A) (test dnns=9556650) Not detected Not detected ACINETOBACTER BAUMANNII (test qqyz=3550818) Not detected Not detected HAEMOPHILUS INFLUENZAE (test inmr=5726782) Not detected Not detected NEISSERIA MENINGITIDIS (test dwwo=7148306) Not detected Not detected ENTEROBACTERIACEAE (test ssij=9241176) Not detected Not detected ENTEROBACTER CLOACOE COMPLEX (test zvkg=1272409) Not detected Not detected KLEBSIELLA OXYTOCA (test ldwa=5389297) Not detected Not detected KLEBSIELLA PNEUMONIAE (test vtug=1215) Not detected Not detected PROTEUS (test sghy=3672664) Not detected Not detected SERRATIA MARCESCENS (test rhzn=2375267) Not detected Not detected EVELYN ALBICANS (test xyrb=2681786) Not detected Not detected EVELYN GLABRATA (test bgyt=5475153) Not detected Not detected EVELYN KRUSEI (test agmd=9578732) Not detected Not detected EVELYN PARAPSILOSIS (test pzxr=9820135) Not detected Not detected EVELYN TROPICALIS (test uify=4198882) Not detected Not detected ESCHERICHIA COLI (test mizw=6419144) Not detected Not detected METHICILLIN-RESISTANCE GENE (test hkka=8420294) Not detected Not detected VANCOMYCIN-RESISTANCE GENE (test rgnc=1348286) Not detected CARBAPENEM-RESISTANCE GENE (test bisw=3518004) Not detected ENTEROCOCCUS-BEAKER (test qyfx=6891333) Not detected Not detected PSEUDOMONAS AERUGINOSA-BEAKER (test nrsr=1508406) Not detected Not detected Other bacteria and resistance markers not targeted by this PCR panel cannot be e xcluded; therefore clinical correlation and follow up of serology, culture resul ts, and other molecular studies is required. The results are not intended to be used as the sole means for clinical diagnosis or patient management decisions. T his sample was tested at the [facility] using the RxResults Blood Culture ID Panel. It is FDA cleared and has been verified and approved by the [facility] for clinical use. Thi s laboratory is CLIA-certified and [employer] ([employer])-accred ited to perform high complexity testing.POCT-GLUCOSE [id number] 12:10:00* Test Item Value Reference Range Comments POC-GLUCOSE METER (BEAKER) (test ajzf=7673) 95 mg/dL 70-110 TESTED AT [address] [address] POCT-GLUCOSE [id number] 07:56:00* Test Item Value Reference Range Comments POC-GLUCOSE METER (BEAKER) (test nyud=9723) 81 mg/dL 70-110 TESTED AT [address] [address] POCT-GLUCOSE [id number] 21:59:00* Test Item Value Reference Range Comments POC-GLUCOSE METER (BEAKER) (test iaxj=4902) 97 mg/dL 70-110 TESTED AT [address] [address] [id number] 18:09:00* Test Item Value Reference Range Comments PHOSPHORUS (BEAKER) (test xnic=185) 4.3 mg/dL 2.3-4.7 [id number] 18:09:00* Test Item Value Reference Range Comments MAGNESIUM (BEAKER) (test jcjz=071) 1.6 mg/dL 1.6-2.6 COMPREHENSIVE METABOLIC [id number] 18:09:00* Test Item Value Reference Range Comments TOTAL PROTEIN (BEAKER) (test ihzt=925) 6.3 gm/dL 6.0-8.3 ALBUMIN (BEAKER) (test mtdm=6845) 3.9 g/dL 3.5-5.0 ALKALINE PHOSPHATASE (BEAKER) (test tppc=381) 47 U/L 40-150 BILIRUBIN TOTAL (BEAKER) (test mqpc=257) 0.9 mg/dL 0.2-1.2 SODIUM (BEAKER) (test tfcl=582) 132 meq/L 136-145 POTASSIUM (BEAKER) (test wkea=242) 3.5 meq/L 3.5-5.1 CHLORIDE (BEAKER) (test kvzm=659) 93 meq/L 98-107 CO2 (BEAKER) (test eitq=021) 27 meq/L 22-29 BLOOD UREA NITROGEN (BEAKER) (test bdwv=115) 17 mg/dL 7-21 CREATININE (BEAKER) (test zzeg=745) 0.66 mg/dL 0.57-1.25 GLUCOSE RANDOM (BEAKER) (test wiqo=502) 85 mg/dL 70-105 CALCIUM (BEAKER) (test tjvo=684) 9.2 mg/dL 8.4-10.2 AST (SGOT) (BEAKER) (test jzfp=886) 15 U/L 5-34 ALT (SGPT) (BEAKER) (test omrs=834) 8 U/L 6-55 EGFR (BEAKER) (test sfcr=2397) 86 mL/min/1.73 sq m ESTIMATED GFR IS NOT ACCURATE CREATININE CLEARANCE IN PREDICTING GLOMERULAR FILTRATION RATE. ESTIMATED GFR IS NOT APPLICABLE FOR DIALYSIS PATIENTS. [id number] 18:09:00* Test Item Value Reference Range Comments LIPASE (BEAKER) (test ltyl=034) 7 U/L 8-78 [id number] 18:01:00* Test Item Value Reference Range Comments AMYLASE (BEAKER) (test scab=229) 26 U/L 25-125 Specimen slightly hemolyzed POCT-GLUCOSE [id number] 17:31:00* Test Item Value Reference Range Comments POC-GLUCOSE METER (BEAKER) (test ilae=5063) 107 mg/dL 70-110 TESTED AT [address] [address] [address], [id number] 16:24:00FINAL REPORT ABDOMINAL AND PELVIS CT DATED 11/09/2018 [...] secondary to lack of GI and intravenous contrast.2. Left renal cysts.3. Diverticulosis without diverticulitis.4. Generalized osteopenia and wedge compression fracture of L1 vertebra of u ndetermined age. Signed: Deepika Bruner MDReport Verified Date/Time: 11/09/2018 16 :24:49 Reading Location: [facility] C013Y CT Body Reading Room Electronically s igned by: DEEPIKA BRUNER M.D. on 11/09/2018 04:[address], SPINE, THORACIC, WO [id number] 16:19:00FINAL REPORT CT thoracic and lumbar spine without [...] posterior inferior paraspinal musculature. IMPRESSION: 1. Multilevel otnj-lc-xzberaoe compression fractures in the thoracolumbar spine, wi thout spinal canal compromise. 2. Chronic appearing degenerative changes. No caleb e. Pulmonary emphysema. 3. Atherosclerotic vascular disease. Signed: Angus Man MDReport Verified Date/Time: 11/09/2018 16:19:08 Reading Location: [facility] Radiology Reading Room , SPINE, LUMBAR, WO [id number] 16:19:00FINAL REPORT CT thoracic and lumbar spine without contrast 11/09/2018 4:13 PM CLINICAL INDICATION: Spine fracture, pathological, thoracic C OMPARISON: MRI thoracic and lumbar spine 07/06/2017 TECHNIQUE: Multiple axial non contrast CT images of the thoracic and lumbar spine were obtained in bone and so ft tissue windows. Axially acquired data were reformatted in sagittal and aguilar l planes for further analysis. This examination was performed according to our d epartmental dose optimization program, which includes automated exposure control , adjustment of the mA and/or kV according to patient size, and/or use of iterat ed reconstruction technique. FINDINGS: There are mild and moderate compression f ractures in the T3, T5, T6, T8, L1, L3, and L4 vertebral bodies, with evidence f or prior L1 fracture augmentation. There is negligible osseous retropulsion of s ome of the posterior cortices, without spinal canal compromise. The remaining ve rtebral bodies are osteopenic, but intact. There is degeneration mediated grade 1 anterolisthesis of L4 on L5, with compensatory retrolisthesis of L2 on L3. Spi nal canal diameter is within normal limits. There are multilevel degenerative ch anges, without high-grade central canal stenosis. There is pulmonary emphysema. There is arteriosclerosis with coronary artery vascular calcification. There is deconditioning of the posterior inferior paraspinal musculature. IMPRESSION: 1. Multilevel oriv-xs-stzaqcxr compression fractures in the thoracolumbar spine, wi thout spinal canal compromise. 2. Chronic appearing degenerative changes. No caleb e. Pulmonary emphysema. 3. Atherosclerotic vascular disease. Signed: Anugs Man MDReport Verified Date/Time: 11/09/2018 16:19:08 Reading Location: [facility] Reading Room [id number] 16:09:00* Test Item Value Reference Range Comments THYROID STIMULATING HORMONE (BEAKER) (test xori=409) 1.16 uIU/mL 0.35-4.94 CBC W/PLT COUNT & AUTO [id number] 15:37:00* Test Item Value Reference Range Comments WHITE BLOOD CELL COUNT (BEAKER) (test mtsh=531) 6.5 K/ L 3.5-10.5 RED BLOOD CELL COUNT (BEAKER) (test gntk=764) 4.16 M/ L 3.93-5.22 HEMOGLOBIN (BEAKER) (test ckzh=547) 12.5 GM/DL 11.2-15.7 HEMATOCRIT (BEAKER) (test evap=847) 38.4 % 34.1-44.9 MEAN CORPUSCULAR VOLUME (BEAKER) (test wibo=909) 92.3 fL 79.4-94.8 MEAN CORPUSCULAR HEMOGLOBIN (BEAKER) (test oray=320) 30.0 pg 25.6-32.2 MEAN CORPUSCULAR HEMOGLOBIN CONC (BEAKER) (test enik=579) 32.6 GM/DL 32.2-35.5 RED CELL DISTRIBUTION WIDTH (BEAKER) (test gdyc=522) 13.5 % 11.7-14.4 PLATELET COUNT (BEAKER) (test yqat=294) 233 K/CU MM 150-450 MEAN PLATELET VOLUME (BEAKER) (test ukja=797) 11.5 fL 9.4-12.3 NUCLEATED RED BLOOD CELLS (BEAKER) (test fkwo=778) 0 /100 WBC 0-0 NEUTROPHILS RELATIVE PERCENT (BEAKER) (test ioml=799) 72 % LYMPHOCYTES RELATIVE PERCENT (BEAKER) (test cobj=218) 20 % MONOCYTES RELATIVE PERCENT (BEAKER) (test lgti=948) 7 % EOSINOPHILS RELATIVE PERCENT (BEAKER) (test wrjg=486) 1 % BASOPHILS RELATIVE PERCENT (BEAKER) (test kimg=838) 1 % NEUTROPHILS ABSOLUTE COUNT (BEAKER) (test xsbt=186) 4.67 K/ L 1.56-6.13 LYMPHOCYTES ABSOLUTE COUNT (BEAKER) (test sgli=167) 1.31 K/ L 1.18-3.74 MONOCYTES ABSOLUTE COUNT (BEAKER) (test mgac=551) 0.45 K/ L 0.24-0.36 EOSINOPHILS ABSOLUTE COUNT (BEAKER) (test uues=760) 0.03 K/ L 0.04-0.36 BASOPHILS ABSOLUTE COUNT (BEAKER) (test ktdv=504) 0.04 K/ L 0.01-0.08 IMMATURE GRANULOCYTES-RELATIVE PERCENT (BEAKER) (test nhat=9067) 0 % 0-1 URINALYSIS W/ [id number] 14:56:00* Test Item Value Reference Range Comments COLOR (BEAKER) (test oogo=495) Yellow CLARITY (BEAKER) (test cvdr=000) Clear SPECIFIC GRAVITY UA (BEAKER) (test wwqv=219) 1.019 1.001-1.035 PH UA (BEAKER) (test jqgp=528) 6.5 5.0-8.0 PROTEIN UA (BEAKER) (test ekyi=692) 70 mg/dL Negative GLUCOSE UA (BEAKER) (test ykjk=759) Negative Negative KETONES UA (BEAKER) (test riav=126) 40 mg/dL Negative BILIRUBIN UA (BEAKER) (test uksi=260) Negative Negative BLOOD UA (BEAKER) (test ptwy=914) Negative Negative NITRITE UA (BEAKER) (test mjde=788) Negative Negative LEUKOCYTE ESTERASE UA (BEAKER) (test zjre=036) Small Negative UROBILINOGEN UA (BEAKER) (test txrh=046) 3.0 mg/dL 0.2-1.0 RBC UA (BEAKER) (test jspv=803) 1 /HPF WBC UA (BEAKER) (test bmvm=827) 0 /HPF MUCUS (BEAKER) (test phiw=7709) Few SQUAMOUS EPITHELIAL (BEAKER) (test xhkb=032) 1 /HPF HYALINE CASTS (BEAKER) (test jjyp=999) 1 /LPF CASTS (BEAKER) (test teyp=5032) 3 /LPF SOURCE(BEAKER) (test ccma=8088) Urine, Voided CBC (HEMOGRAM ONLY)2017-09-23 08:17:00* Test Item Value Reference Range Comments WHITE BLOOD CELL COUNT (BEAKER) (test kacs=022) 3.0 K/ L 3.5-10.5 RED BLOOD CELL COUNT (BEAKER) (test ijnw=335) 4.18 M/ L 3.93-5.22 HEMOGLOBIN (BEAKER) (test iymg=705) 12.0 GM/DL 11.2-15.7 HEMATOCRIT (BEAKER) (test lptv=425) 38.6 % 34.1-44.9 MEAN CORPUSCULAR VOLUME (BEAKER) (test aznq=182) 92.3 fL 79.4-94.8 MEAN CORPUSCULAR HEMOGLOBIN (BEAKER) (test cqbf=983) 28.7 pg 25.6-32.2 MEAN CORPUSCULAR HEMOGLOBIN CONC (BEAKER) (test ukqe=730) 31.1 GM/DL 32.2-35.5 RED CELL DISTRIBUTION WIDTH (BEAKER) (test axej=959) 15.8 % 11.7-14.4 PLATELET COUNT (BEAKER) (test rgqs=336) 140 K/CU MM 150-450 MEAN PLATELET VOLUME (BEAKER) (test jjjv=692) 10.9 fL 9.4-12.3 NUCLEATED RED BLOOD CELLS (BEAKER) (test vnbg=790) 0 /100 WBC 0-0 FL, UGI, WITH [id number] 17:00:00Reason for exam:->Dysphagia and COPDFINAL REPORT INDICATION:82-year-old female with abdominal pain. COMPARISON: Abdomen series radiographs September 20, 2017 TECHNIQUE: Esophagram and upper GI exam. The patient was unable to tolerate effervescent crystals so single-contrast exam with thin barium was performed. Diagnostic accuracy of the exam is decreased because of the patient's deconditioned state and immobili ty.Fluoroscopy time 0.5 minutes.Acquired fluoroscopic images 120. FINDINGS: The patient was administered thin barium by mouth. A few tertiary contractions of th e esophagus were noted without esophageal spasm. There is a moderate hiatal saurav ia and there was spontaneous reflux to the midesophagus. No gross esophageal or gastric mass demonstrated. IMPRESSION:Moderate hiatal hernia and mild gastroesop hageal reflux. No gross esophageal or gastric mass. Signed: Giovanni Henson MDR eport Verified Date/Time: 09/22/2017 17:00:41 Reading Location: [facility] C013X [facility] Consult Reading Room ALYSIS W/ REFLEX URINE [id number] 14:52:00* Test Item Value Reference Range Comments COLOR (BEAKER) (test rtxl=511) Yellow CLARITY (BEAKER) (test pbii=185) Clear SPECIFIC GRAVITY UA (BEAKER) (test rnys=488) 1.010 1.001-1.035 PH UA (BEAKER) (test qcci=581) 6.5 5.0-8.0 PROTEIN UA (BEAKER) (test qurv=463) Negative Negative GLUCOSE UA (BEAKER) (test cheu=937) Negative Negative KETONES UA (BEAKER) (test ylib=906) 100 mg/dL Negative BILIRUBIN UA (BEAKER) (test upjw=423) Negative Negative BLOOD UA (BEAKER) (test jfwa=799) Negative Negative NITRITE UA (BEAKER) (test keas=778) Negative Negative LEUKOCYTE ESTERASE UA (BEAKER) (test xtsk=137) Negative Negative UROBILINOGEN UA (BEAKER) (test pmgq=456) 0.2 mg/dL 0.2-1.0 RBC UA (BEAKER) (test uapr=473) < /HPF WBC UA (BEAKER) (test vtmz=442) 1 /HPF MUCUS (BEAKER) (test ttux=6498) Occasional SQUAMOUS EPITHELIAL (BEAKER) (test elsb=555) 2 /HPF HYALINE CASTS (BEAKER) (test mkjr=441) 1 /LPF SOURCE(BEAKER) (test tdll=6683) [id number] 13:01:00* Test Item Value Reference Range Comments HAPTOGLOBIN (BEAKER) (test xhjk=694) 116 mg/dL 14-258 [id number] 13:00:00* Test Item Value Reference Range Comments HAPTOGLOBIN (BEAKER) (test rgax=094) 121 mg/dL 14-258 CBC (HEMOGRAM ONLY)2017-09-22 11:39:00* Test Item Value Reference Range Comments WHITE BLOOD CELL COUNT (BEAKER) (test gtwo=938) 4.6 K/ L 3.5-10.5 RED BLOOD CELL COUNT (BEAKER) (test cavt=527) 4.31 M/ L 3.93-5.22 HEMOGLOBIN (BEAKER) (test rbym=918) 12.3 GM/DL 11.2-15.7 HEMATOCRIT (BEAKER) (test uygc=049) 40.3 % 34.1-44.9 MEAN CORPUSCULAR VOLUME (BEAKER) (test gsob=864) 93.5 fL 79.4-94.8 MEAN CORPUSCULAR HEMOGLOBIN (BEAKER) (test tzup=296) 28.5 pg 25.6-32.2 MEAN CORPUSCULAR HEMOGLOBIN CONC (BEAKER) (test ayyb=704) 30.5 GM/DL 32.2-35.5 RED CELL DISTRIBUTION WIDTH (BEAKER) (test hwms=826) 15.6 % 11.7-14.4 PLATELET COUNT (BEAKER) (test cbel=077) 131 K/CU MM 150-450 MEAN PLATELET VOLUME (BEAKER) (test mnes=970) 10.8 fL 9.4-12.3 NUCLEATED RED BLOOD CELLS (BEAKER) (test adgh=999) 0 /100 WBC 0-0 PERIPHERAL BLOOD SMEAR - PATHOLOGIST [id number] 10:43:00* Test Item Value Reference Range Comments RBC MORPHOLOGY (BEAKER) (test yldb=7789) Anisocytosis RBC MORPHOLOGY (BEAKER) (test dhow=91000) Poikilocytosis PLT MORPHOLOGY (BEAKER) (test kfqn=1283) No Clumping PERIPHERAL SMR REVIEW (BEAKER) (test piph=1033) Cell counts confirmed. Results discussed with Dr. Grubbs 09/22/2017. [id number] (BEAKER) (test lcen=8017) Mony Maya M.D. (electronic signature) BASIC METABOLIC [id number] 05:19:00* Test Item Value Reference Range Comments SODIUM (BEAKER) (test dosh=576) 138 meq/L 136-145 POTASSIUM (BEAKER) (test stcm=776) 3.7 meq/L 3.5-5.1 Specimen slightly hemolyzed CHLORIDE (BEAKER) (test gkpz=741) 98 meq/L 98-107 CO2 (BEAKER) (test yqlk=905) 30 meq/L 22-29 BLOOD UREA NITROGEN (BEAKER) (test ovsa=959) 5 mg/dL 7-21 CREATININE (BEAKER) (test twsg=404) 0.53 mg/dL 0.57-1.25 Specimen slightly hemolyzed GLUCOSE RANDOM (BEAKER) (test gmwz=699) 60 mg/dL 70-105 CALCIUM (BEAKER) (test jhje=979) 7.0 mg/dL 8.4-10.2 EGFR (BEAKER) (test sulz=9462) 111 mL/min/1.73 sq m ESTIMATED GFR IS NOT ACCURATE CREATININE CLEARANCE IN PREDICTING GLOMERULAR FILTRATION RATE. ESTIMATED GFR IS NOT APPLICABLE FOR DIALYSIS PATIENTS. [id number] 05:18:00* Test Item Value Reference Range Comments MAGNESIUM (BEAKER) (test amwg=429) 1.5 mg/dL 1.6-2.6 Specimen slightly hemolyzed [id number] 05:18:00* Test Item Value Reference Range Comments PHOSPHORUS (BEAKER) (test zojw=641) 2.0 mg/dL 2.3-4.7 Specimen slightly hemolyzed (MANUAL DIFFERENTIAL)2017-09-21 22:40:00* Test Item Value Reference Range Comments NEUTROPHILS - REL (DIFF) (BEAKER) (test zxwd=0562) 69 % LYMPHOCYTES - REL (DIFF) (BEAKER) (test crew=0285) 13 % MONOCYTES - REL (DIFF) (BEAKER) (test ouio=4634) 11 % EOSINOPHILS - REL (DIFF) (BEAKER) (test xzxp=9548) 1 % BANDS - REL (DIFF) (BEAKER) (test edsb=5694) 6 % 0-10 NEUTROPHILS - ABS (DIFF) (BEAKER) (test vpej=3937) 3.51 K/ L 1.80-8.00 LYMPHOCYTES - ABS (DIFF) (BEAKER) (test bjpq=8254) 0.67 K/ L 1.48-4.50 MONOCYTES - ABS (DIFF) (BEAKER) (test rygr=2053) 0.58 K/ L 0.00-1.30 EOSINOPHILS - ABS (DIFF) (BEAKER) (test qqvi=8995) 0.05 K/ L 0.00-0.50 BANDS-ABS (DIFF) (BEAKER) (test xons=2816) 0.3 K/ L 0.0-0.8 TOTAL COUNTED (BEAKER) (test jgip=4348) 106 BANDS + SEGMENTED NEUTROPHILS (BEAKER) (test cexe=0941) 3.80 WBC MORPHOLOGY (BEAKER) (test zifv=394) Normal PLT MORPHOLOGY (BEAKER) (test jmpb=014) Normal RBC MORPHOLOGY (BEAKER) (test ktgd=085) Normal LACTATE DEHYDROGENASE (LDH)2017-09-21 16:06:00* Test Item Value Reference Range Comments LACTATE DEHYDROGENASE (BEAKER) (test eiqz=350) 500 U/L 125-220 [id number] 10:34:00* Test Item Value Reference Range Comments PHOSPHORUS (BEAKER) (test iagd=573) 1.5 mg/dL 2.3-4.7 [id number] 10:23:00* Test Item Value Reference Range Comments LIPASE (BEAKER) (test tfaf=179) 5 U/L 8-78 BASIC METABOLIC [id number] 07:13:00* Test Item Value Reference Range Comments SODIUM (BEAKER) (test pghv=769) 134 meq/L 136-145 POTASSIUM (BEAKER) (test hpjv=750) 4.3 meq/L 3.5-5.1 CHLORIDE (BEAKER) (test yuuy=464) 90 meq/L 98-107 CO2 (BEAKER) (test kwdl=588) 35 meq/L 22-29 BLOOD UREA NITROGEN (BEAKER) (test zoek=875) 8 mg/dL 7-21 CREATININE (BEAKER) (test muvp=293) 0.57 mg/dL 0.57-1.25 GLUCOSE RANDOM (BEAKER) (test ogqu=093) 147 mg/dL 70-105 CALCIUM (BEAKER) (test dnxh=128) 7.2 mg/dL 8.4-10.2 EGFR (BEAKER) (test fpuq=2377) 102 mL/min/1.73 sq m ESTIMATED GFR IS NOT ACCURATE CREATININE CLEARANCE IN PREDICTING GLOMERULAR FILTRATION RATE. ESTIMATED GFR IS NOT APPLICABLE FOR DIALYSIS PATIENTS. CBC (HEMOGRAM ONLY)2017-09-21 06:54:00* Test Item Value Reference Range Comments WHITE BLOOD CELL COUNT (BEAKER) (test ddeu=218) 5.1 K/ L 3.5-10.5 RED BLOOD CELL COUNT (BEAKER) (test zjkk=970) 4.11 M/ L 3.93-5.22 HEMOGLOBIN (BEAKER) (test lsvl=174) 11.7 GM/DL 11.2-15.7 HEMATOCRIT (BEAKER) (test namc=782) 38.5 % 34.1-44.9 MEAN CORPUSCULAR VOLUME (BEAKER) (test zatg=341) 93.7 fL 79.4-94.8 MEAN CORPUSCULAR HEMOGLOBIN (BEAKER) (test pxdx=451) 28.5 pg 25.6-32.2 MEAN CORPUSCULAR HEMOGLOBIN CONC (BEAKER) (test sbpb=422) 30.4 GM/DL 32.2-35.5 RED CELL DISTRIBUTION WIDTH (BEAKER) (test onnq=070) 15.4 % 11.7-14.4 PLATELET COUNT (BEAKER) (test ehkn=700) 126 K/CU MM 150-450 MEAN PLATELET VOLUME (BEAKER) (test gyvb=583) 10.6 fL 9.4-12.3 NUCLEATED RED BLOOD CELLS (BEAKER) (test qgdu=872) 0 /100 WBC 0-0 URINALYSIS W/ [id number] 23:48:00* Test Item Value Reference Range Comments COLOR (BEAKER) (test rmis=173) Yellow CLARITY (BEAKER) (test zmuz=191) Hazy SPECIFIC GRAVITY UA (BEAKER) (test zgiu=103) 1.016 1.001-1.035 PH UA (BEAKER) (test lkza=291) 6.5 5.0-8.0 PROTEIN UA (BEAKER) (test upem=125) 30 mg/dL Negative GLUCOSE UA (BEAKER) (test bjrr=001) Negative Negative KETONES UA (BEAKER) (test sojd=575) 80 mg/dL Negative BILIRUBIN UA (BEAKER) (test zahp=097) Positive Negative BLOOD UA (BEAKER) (test crnz=498) Negative Negative NITRITE UA (BEAKER) (test kqgw=997) Negative Negative LEUKOCYTE ESTERASE UA (BEAKER) (test dvjp=328) Large Negative UROBILINOGEN UA (BEAKER) (test wkiy=538) 4.0 mg/dL 0.2-1.0 RBC UA (BEAKER) (test ujwc=628) 5 /HPF WBC UA (BEAKER) (test yuyd=975) > /HPF BACTERIA (BEAKER) (test ihyv=473) Occasional MUCUS (BEAKER) (test bbqy=4466) Many SQUAMOUS EPITHELIAL (BEAKER) (test xinx=557) 2 /HPF SOURCE(BEAKER) (test ikqm=0578) Urine, Voided T4, [id number] 17:20:00* Test Item Value Reference Range Comments FREE T4 (BEAKER) (test zegm=846) 0.92 ng/dL 0.70-1.48 RAD, ABDOMEN 3 OR MORE VIEWS - FLAT, UPRIGHT, [id number] 15:55:00Reason for exam:->abd painFINAL REPORT Technique: supine and bilateral decubitus views dated 09/20/2017 History: Abdominal pain Comparison: None Impression: No air-filled, dilated loops of bowel to suggest obstruction. No free intraperitoneal air. No abnormal soft tissue mass or calcification. Bones are markedly osteopenic. Kyphoplasty material is seen in L1. Signed: Stacy [place] Verified Date/Time: 09/20/2017 15:55:47 Reading Location: [facility] Radiology Reading Room /FREE T4 IF [id number] 15:47:00* Test Item Value Reference Range Comments THYROID STIMULATING HORMONE (BEAKER) (test xcnm=372) 9.73 uIU/mL 0.35-4.94 HEPATIC FUNCTION [id number] 13:30:00* Test Item Value Reference Range Comments TOTAL PROTEIN (BEAKER) (test kutf=386) 5.5 gm/dL 6.0-8.3 ALBUMIN (BEAKER) (test yjze=8374) 2.9 g/dL 3.5-5.0 BILIRUBIN TOTAL (BEAKER) (test soap=716) 0.7 mg/dL 0.2-1.2 BILIRUBIN DIRECT (BEAKER) (test chkl=094) 0.4 mg/dL 0.1-0.5 ALKALINE PHOSPHATASE (BEAKER) (test lpic=407) 33 U/L 40-150 AST (SGOT) (BEAKER) (test husn=870) 15 U/L 5-34 ALT (SGPT) (BEAKER) (test kgwy=988) < U/L 6-55 RAD, SPINE, LUMBAR, COMPLETE (MIN 4 VIEWS)2017-09-20 13:29:00Reason for exam:-> GENERALIZED WEAKNESS, NOT ASSOCIATED WITH EXTREMITIESFINAL REPORT TECHNIQUE: Frontal, lateral, bilateral oblique and cone-down views of the lumbosacral spine dated 09/20/2017. HISTORY: Generalized weakness. COMPARISON: None. FINDINGS:There are 5 fmb-dhw-thjetvd vertebral bodies. Bones are markedly osteopenic. There is a normal lumbar lordosis. No acute fracture or malalignment is seen. There is an old compression deformity of L1. Kyphoplasty material is seen in L1. There is decrease in the L4-L5 and L5-S1 intervertebral disc spaces. Atherosclerotic calcification of the abdominal aorta is visualized. IMPRESSION:No acute fracture or malalignment. Signed: Stacy [place] Verified Date/Time: 09/20/2017 13:29:34 Reading Location: [facility] Radiology Reading Room , CHEST, 1 VIEW, NON [id number] 12:56:00Reason for exam:->GENERALIZED WEAKNESS, NOT ASSOCIATED WITH EXTREMITIESFINAL REPORT HISTORY : GENERALIZED WEAKNESS, NOT ASSOCIATED WITH EXTREMITIES. Comparison: 07/05/2017 Comment: Single portable view of the chest was obtained. The cardiac silhouette size is within normal limits. There is atherosclerotic calcification of the thoracic aorta. No pneumothorax or pleural effusion is seen. There is some mild interstitial prominence. Projecting over the right lower lung, there is a 1.6 cm nodular density that has increased in size. Correlation with a chest CT is advised. Signed: Duran Bashir MDReport Verified Date/Time: 09/20/2017 12:56:24 Reading Location: [facility] C013W Consult Reading Room [id number] 12:53:00* Test Item Value Reference Range Comments MAGNESIUM (BEAKER) (test cioq=831) 1.4 mg/dL 1.6-2.6 BASIC METABOLIC [id number] 12:53:00* Test Item Value Reference Range Comments SODIUM (BEAKER) (test xhtv=398) 140 meq/L 136-145 POTASSIUM (BEAKER) (test njzv=847) 3.0 meq/L 3.5-5.1 CHLORIDE (BEAKER) (test bkjg=875) 88 meq/L 98-107 CO2 (BEAKER) (test gvqr=435) 36 meq/L 22-29 BLOOD UREA NITROGEN (BEAKER) (test jaoh=794) 10 mg/dL 7-21 CREATININE (BEAKER) (test zpdl=378) 0.67 mg/dL 0.57-1.25 GLUCOSE RANDOM (BEAKER) (test gqbj=842) 91 mg/dL 70-105 CALCIUM (BEAKER) (test tchv=081) 8.0 mg/dL 8.4-10.2 EGFR (BEAKER) (test weau=0268) 84 mL/min/1.73 sq m ESTIMATED GFR IS NOT ACCURATE CREATININE CLEARANCE IN PREDICTING GLOMERULAR FILTRATION RATE. ESTIMATED GFR IS NOT APPLICABLE FOR DIALYSIS PATIENTS. CREATINE KINASE (CK), TOTAL AND [id number] 12:53:00* Test Item Value Reference Range Comments CREATINE KINASE TOTAL (BEAKER) (test adcz=131) 44 U/L 29-200 CREATINE KINASE-MB (BEAKER) (test vqvn=874) 1.5 ng/mL 0.0-6.6 CREATINE KINASE-MB INDEX (BEAKER) (test hzwb=819) 3.4 % CK-MB Reference Range:<6.7 Normal6.7-10.0 Borderline>10.0 AbnormalB- TYPE NATRIURETIC FACTOR (BNP)2017-09-20 12:52:00* Test Item Value Reference Range Comments B-TYPE NATRIURETIC PEPTIDE (BEAKER) (test kerw=805) 62 pg/mL 0-100 TROPONIN [id number] 12:49:00* Test Item Value Reference Range Comments TROPONIN I (BEAKER) (test ozac=546) 0.02 ng/mL 0.00-0.03 Troponin I (TnI) levels must be interpreted in the context of the presenting sym ptoms and the clinical findings. Elevated TnI levels indicate myocardial damage, but are not specific for ischemic heart disease. Elevated TnI levels are seen in patients with other cardiac conditions (including myocarditis and congestive h eart failure), and slight TnI elevations occur in patients with other conditions , including sepsis, renal failure, acidosis, acute neurological disease, and per sistent tachyarrhythmia.CBC W/PLT COUNT & AUTO [id number] 12:29:00* Test Item Value Reference Range Comments WHITE BLOOD CELL COUNT (BEAKER) (test umgw=382) 6.5 K/ L 3.5-10.5 RED BLOOD CELL COUNT (BEAKER) (test zsvt=400) 4.84 M/ L 3.93-5.22 HEMOGLOBIN (BEAKER) (test imwz=951) 13.8 GM/DL 11.2-15.7 HEMATOCRIT (BEAKER) (test vdqw=189) 45.5 % 34.1-44.9 MEAN CORPUSCULAR VOLUME (BEAKER) (test mcwo=151) 94.0 fL 79.4-94.8 MEAN CORPUSCULAR HEMOGLOBIN (BEAKER) (test vzby=928) 28.5 pg 25.6-32.2 MEAN CORPUSCULAR HEMOGLOBIN CONC (BEAKER) (test znik=692) 30.3 GM/DL 32.2-35.5 RED CELL DISTRIBUTION WIDTH (BEAKER) (test rifj=795) 15.5 % 11.7-14.4 PLATELET COUNT (BEAKER) (test wgmw=464) 139 K/CU MM 150-450 MEAN PLATELET VOLUME (BEAKER) (test zyoi=260) 10.5 fL 9.4-12.3 NUCLEATED RED BLOOD CELLS (BEAKER) (test dluu=379) 0 /100 WBC 0-0 NEUTROPHILS RELATIVE PERCENT (BEAKER) (test cvxn=258) 75 % LYMPHOCYTES RELATIVE PERCENT (BEAKER) (test onvy=804) 13 % MONOCYTES RELATIVE PERCENT (BEAKER) (test tmoe=056) 11 % EOSINOPHILS RELATIVE PERCENT (BEAKER) (test bbsn=400) 1 % BASOPHILS RELATIVE PERCENT (BEAKER) (test jqjx=450) 1 % NEUTROPHILS ABSOLUTE COUNT (BEAKER) (test dqpj=768) 4.86 K/ L 1.56-6.13 LYMPHOCYTES ABSOLUTE COUNT (BEAKER) (test koqi=109) 0.82 K/ L 1.18-3.74 MONOCYTES ABSOLUTE COUNT (BEAKER) (test ihqu=732) 0.69 K/ L 0.24-0.36 EOSINOPHILS ABSOLUTE COUNT (BEAKER) (test ucip=559) 0.05 K/ L 0.04-0.36 BASOPHILS ABSOLUTE COUNT (BEAKER) (test wvhh=101) 0.03 K/ L 0.01-0.08 IMMATURE GRANULOCYTES-RELATIVE PERCENT (BEAKER) (test wdsz=9409) 0 % 0-1 POCT-LACTIC ACID, [id number] 12:14:00* Test Item Value Reference Range Comments POC-LACTIC ACID, VENOUS (BEAKER) (test gecu=8091) 1.0 mmol/L 0.9-1.7 TESTED AT [facility] [address] [facility] [address] ANG, KYPHOPLASTY, LUMBAR, [id number] 14:59:00What level(s) should be performed->L1 +/- B6Wzqqby for exam:->recent L1 and T3 compression fractures sp fallFINAL REPORT HISTORY: L1 wedge compression fracture and severe lower back pain despite conservative therapy. PROCEDURE: Following informed written consent, general anesthesia was performed by the anesthesiology service and the patient was placed in a prone position on the angiographic table. The lower back was prepped and draped in the usual sterile manner. 2% lidocaine was given locally for anesthesia. Using a bilateral transpedicular approach and fluoroscopic guidance, the access needles were placed into the L1 vertebral body. Tracts were drilled through each cannula into the L1 vertebral body. Vertebral augmentation balloons were placed through the access cannulas and inflated bilaterally. The balloons were deflated, removed and a total of 2 cc of methyl methacrylate was infused into the L1 vertebral body under constant fluoroscopic visualization. The cannulas were then removed and the access sites closed with Steri-Strips. Sterile bandages were applied and the patient was transferred from the department in stable condition. There were no immediate complications. FINDINGS: Images obtained during the procedure show the access needles, cannulas and balloons in expected positions within the L1 vertebral body. Following methacrylate infusion, adequate distribution is seen within the L1 vertebral body without extravasation. IMPRESSION: Technically successful L1 percutaneous vertebral augmentation. No immediate complications. Total flouroscopy time: 12.6 minsEstimated dose: 732 mGy Signed: Phillip Gruber MDReport Verified Date/Time: 07/13/2017 14:59:11 Reading Location: [facility] B1 C013Y CT Body Reading Room W/PLT COUNT & AUTO [id number] 06:39:00* Test Item Value Reference Range Comments WHITE BLOOD CELL COUNT (BEAKER) (test wfsf=318) 13.6 K/ L 3.5-10.5 RED BLOOD CELL COUNT (BEAKER) (test nbuf=611) 3.86 M/ L 3.93-5.22 HEMOGLOBIN (BEAKER) (test ulcm=745) 11.5 GM/DL 11.2-15.7 HEMATOCRIT (BEAKER) (test iazb=660) 37.1 % 34.1-44.9 MEAN CORPUSCULAR VOLUME (BEAKER) (test hvjd=475) 96.1 fL 79.4-94.8 MEAN CORPUSCULAR HEMOGLOBIN (BEAKER) (test kgqd=668) 29.8 pg 25.6-32.2 MEAN CORPUSCULAR HEMOGLOBIN CONC (BEAKER) (test irkn=036) 31.0 GM/DL 32.2-35.5 RED CELL DISTRIBUTION WIDTH (BEAKER) (test gokh=218) 15.3 % 11.7-14.4 PLATELET COUNT (BEAKER) (test zvcl=312) 213 K/CU MM 150-450 MEAN PLATELET VOLUME (BEAKER) (test lena=412) 10.9 fL 9.4-12.3 NUCLEATED RED BLOOD CELLS (BEAKER) (test zuwo=198) 0 /100 WBC 0-0 NEUTROPHILS RELATIVE PERCENT (BEAKER) (test clip=040) 87 % LYMPHOCYTES RELATIVE PERCENT (BEAKER) (test kxoc=306) 7 % MONOCYTES RELATIVE PERCENT (BEAKER) (test ljqi=407) 6 % EOSINOPHILS RELATIVE PERCENT (BEAKER) (test henq=815) 0 % BASOPHILS RELATIVE PERCENT (BEAKER) (test bpjy=177) 0 % NEUTROPHILS ABSOLUTE COUNT (BEAKER) (test pylj=983) 11.83 K/ L 1.56-6.13 LYMPHOCYTES ABSOLUTE COUNT (BEAKER) (test ewas=329) 0.93 K/ L 1.18-3.74 MONOCYTES ABSOLUTE COUNT (BEAKER) (test fdyg=287) 0.78 K/ L 0.24-0.36 EOSINOPHILS ABSOLUTE COUNT (BEAKER) (test zimp=362) 0.00 K/ L 0.04-0.36 BASOPHILS ABSOLUTE COUNT (BEAKER) (test rqrl=354) 0.01 K/ L 0.01-0.08 IMMATURE GRANULOCYTES-RELATIVE PERCENT (BEAKER) (test uovm=4294) 1 % 0-1 [id number] 06:02:00* Test Item Value Reference Range Comments MAGNESIUM (BEAKER) (test mvmf=135) 2.0 mg/dL 1.6-2.6 BASIC METABOLIC [id number] 06:02:00* Test Item Value Reference Range Comments SODIUM (BEAKER) (test hatw=430) 136 meq/L 136-145 POTASSIUM (BEAKER) (test vqaq=629) 5.1 meq/L 3.5-5.1 CHLORIDE (BEAKER) (test njxk=166) 99 meq/L 98-107 CO2 (BEAKER) (test dvvj=414) 30 meq/L 22-29 BLOOD UREA NITROGEN (BEAKER) (test jhst=454) 15 mg/dL 7-21 CREATININE (BEAKER) (test ohrg=529) 0.63 mg/dL 0.57-1.25 GLUCOSE RANDOM (BEAKER) (test ogqp=649) 108 mg/dL 70-105 CALCIUM (BEAKER) (test ypfu=544) 8.6 mg/dL 8.4-10.2 EGFR (BEAKER) (test ohyw=1808) 91 mL/min/1.73 sq m ESTIMATED GFR IS NOT ACCURATE CREATININE CLEARANCE IN PREDICTING GLOMERULAR FILTRATION RATE. ESTIMATED GFR IS NOT APPLICABLE FOR DIALYSIS PATIENTS. B-TYPE NATRIURETIC FACTOR (BNP)2017-07-09 05:52:00* Test Item Value Reference Range Comments B-TYPE NATRIURETIC PEPTIDE (BEAKER) (test zjcl=420) 272 pg/mL 0-100 PLATELET AGGREGATION: FUNCTION [id number] 16:21:00* Test Item Value Reference Range Comments WEAK ADP RESULT(BEAKER) (test jcyr=1213) 65 % 60-91 PLATELET FUNCTION SCREEN INTERP (BEAKER) (test lkrw=3809) 60-100% indicates normal platelet function [id number] (BEAKER) (test iljg=7713) Odalys Posada MD (electronic signature) PLATELET COUNT AGG (BEAKER) (test fudj=1381) 221 K/CU MM 150-450 CBC W/PLT COUNT & AUTO [id number] 08:51:00* Test Item Value Reference Range Comments WHITE BLOOD CELL COUNT (BEAKER) (test mtwi=019) 12.6 K/ L 3.5-10.5 RED BLOOD CELL COUNT (BEAKER) (test qvkm=241) 3.96 M/ L 3.93-5.22 HEMOGLOBIN (BEAKER) (test ibky=188) 11.6 GM/DL 11.2-15.7 HEMATOCRIT (BEAKER) (test plgv=543) 38.0 % 34.1-44.9 MEAN CORPUSCULAR VOLUME (BEAKER) (test asyc=591) 96.0 fL 79.4-94.8 MEAN CORPUSCULAR HEMOGLOBIN (BEAKER) (test ybdm=932) 29.3 pg 25.6-32.2 MEAN CORPUSCULAR HEMOGLOBIN CONC (BEAKER) (test dylq=156) 30.5 GM/DL 32.2-35.5 RED CELL DISTRIBUTION WIDTH (BEAKER) (test kols=407) 15.1 % 11.7-14.4 PLATELET COUNT (BEAKER) (test aies=881) 221 K/CU MM 150-450 MEAN PLATELET VOLUME (BEAKER) (test dapb=816) 11.4 fL 9.4-12.3 NUCLEATED RED BLOOD CELLS (BEAKER) (test yfqq=285) 0 /100 WBC 0-0 NEUTROPHILS RELATIVE PERCENT (BEAKER) (test fgtf=801) 86 % LYMPHOCYTES RELATIVE PERCENT (BEAKER) (test gmcy=349) 9 % MONOCYTES RELATIVE PERCENT (BEAKER) (test poyn=039) 4 % EOSINOPHILS RELATIVE PERCENT (BEAKER) (test msbt=409) 0 % BASOPHILS RELATIVE PERCENT (BEAKER) (test gkmk=989) 0 % NEUTROPHILS ABSOLUTE COUNT (BEAKER) (test cbgm=440) 10.90 K/ L 1.56-6.13 LYMPHOCYTES ABSOLUTE COUNT (BEAKER) (test mxwy=029) 1.08 K/ L 1.18-3.74 MONOCYTES ABSOLUTE COUNT (BEAKER) (test oetz=272) 0.53 K/ L 0.24-0.36 EOSINOPHILS ABSOLUTE COUNT (BEAKER) (test cqhy=922) 0.00 K/ L 0.04-0.36 BASOPHILS ABSOLUTE COUNT (BEAKER) (test tadt=372) 0.02 K/ L 0.01-0.08 IMMATURE GRANULOCYTES-RELATIVE PERCENT (BEAKER) (test aojn=1460) 1 % 0-1 [id number] 07:16:00* Test Item Value Reference Range Comments MAGNESIUM (BEAKER) (test aatf=085) 1.8 mg/dL 1.6-2.6 COMPREHENSIVE METABOLIC [id number] 07:16:00* Test Item Value Reference Range Comments TOTAL PROTEIN (BEAKER) (test xrob=181) 6.8 gm/dL 6.0-8.3 ALBUMIN (BEAKER) (test bnxk=5352) 3.8 g/dL 3.5-5.0 ALKALINE PHOSPHATASE (BEAKER) (test iheu=650) 76 U/L 40-150 BILIRUBIN TOTAL (BEAKER) (test pdai=113) < mg/dL 0.2-1.2 SODIUM (BEAKER) (test bwcu=243) 139 meq/L 136-145 POTASSIUM (BEAKER) (test jzml=817) 4.9 meq/L 3.5-5.1 CHLORIDE (BEAKER) (test jtzf=189) 100 meq/L 98-107 CO2 (BEAKER) (test abyx=152) 30 meq/L 22-29 BLOOD UREA NITROGEN (BEAKER) (test xqfo=369) 17 mg/dL 7-21 CREATININE (BEAKER) (test rvuj=250) 0.69 mg/dL 0.57-1.25 GLUCOSE RANDOM (BEAKER) (test qmkl=412) 116 mg/dL 70-105 CALCIUM (BEAKER) (test fqwe=846) 9.4 mg/dL 8.4-10.2 AST (SGOT) (BEAKER) (test fnxh=343) 18 U/L 5-34 ALT (SGPT) (BEAKER) (test lhro=104) 12 U/L 6-55 EGFR (BEAKER) (test dwks=0995) 82 mL/min/1.73 sq m ESTIMATED GFR IS NOT ACCURATE CREATININE CLEARANCE IN PREDICTING GLOMERULAR FILTRATION RATE. ESTIMATED GFR IS NOT APPLICABLE FOR DIALYSIS PATIENTS. PT/[id number] 07:00:00* Test Item Value Reference Range Comments PROTIME (BEAKER) (test yocv=105) 12.1 seconds 11.7-14.7 INR (BEAKER) (test rtxu=789) 0.9 <=5.9 PARTIAL THROMBOPLASTIN TIME (BEAKER) (test wshh=957) 30.4 seconds 22.5-36.0 RECOMMENDED COUMADIN/WARFARIN INR THERAPY RANGESSTANDARD DOSE: 2.0 - 3.0 Inclu rayray: PROPHYLAXIS for venous thrombosis, systemic embolization; TREATMENT for sia ous thrombosis and/or pulmonary embolus.HIGH RISK: Target INR is 2.5-3.5 for pat ients with mechanical heart valves.CBC W/PLT COUNT & AUTO [id number] 08:34:00* Test Item Value Reference Range Comments WHITE BLOOD CELL COUNT (BEAKER) (test mhcp=664) 10.6 K/ L 3.5-10.5 RED BLOOD CELL COUNT (BEAKER) (test sawi=667) 3.97 M/ L 3.93-5.22 HEMOGLOBIN (BEAKER) (test oprz=731) 11.7 GM/DL 11.2-15.7 HEMATOCRIT (BEAKER) (test bjvh=628) 37.7 % 34.1-44.9 MEAN CORPUSCULAR VOLUME (BEAKER) (test ejpv=653) 95.0 fL 79.4-94.8 MEAN CORPUSCULAR HEMOGLOBIN (BEAKER) (test uxdi=216) 29.5 pg 25.6-32.2 MEAN CORPUSCULAR HEMOGLOBIN CONC (BEAKER) (test fhtj=773) 31.0 GM/DL 32.2-35.5 RED CELL DISTRIBUTION WIDTH (BEAKER) (test rfyh=662) 15.0 % 11.7-14.4 PLATELET COUNT (BEAKER) (test whpw=192) 212 K/CU MM 150-450 MEAN PLATELET VOLUME (BEAKER) (test cfrf=793) 11.3 fL 9.4-12.3 NUCLEATED RED BLOOD CELLS (BEAKER) (test eekg=841) 0 /100 WBC 0-0 NEUTROPHILS RELATIVE PERCENT (BEAKER) (test rxpa=914) 87 % LYMPHOCYTES RELATIVE PERCENT (BEAKER) (test qqbx=051) 8 % MONOCYTES RELATIVE PERCENT (BEAKER) (test ikyo=040) 4 % EOSINOPHILS RELATIVE PERCENT (BEAKER) (test aqtc=940) 0 % BASOPHILS RELATIVE PERCENT (BEAKER) (test qaiw=153) 0 % NEUTROPHILS ABSOLUTE COUNT (BEAKER) (test kcpa=602) 9.30 K/ L 1.56-6.13 LYMPHOCYTES ABSOLUTE COUNT (BEAKER) (test sscz=868) 0.86 K/ L 1.18-3.74 MONOCYTES ABSOLUTE COUNT (BEAKER) (test okfd=979) 0.39 K/ L 0.24-0.36 EOSINOPHILS ABSOLUTE COUNT (BEAKER) (test gjfh=348) 0.01 K/ L 0.04-0.36 BASOPHILS ABSOLUTE COUNT (BEAKER) (test ubea=562) 0.02 K/ L 0.01-0.08 IMMATURE GRANULOCYTES-RELATIVE PERCENT (BEAKER) (test vryt=8176) 1 % 0-1 BASIC METABOLIC [id number] 07:41:00* Test Item Value Reference Range Comments SODIUM (BEAKER) (test etcb=034) 138 meq/L 136-145 POTASSIUM (BEAKER) (test mcpc=194) 4.9 meq/L 3.5-5.1 CHLORIDE (BEAKER) (test xmcl=471) 102 meq/L 98-107 CO2 (BEAKER) (test ovvm=389) 30 meq/L 22-29 BLOOD UREA NITROGEN (BEAKER) (test aien=578) 14 mg/dL 7-21 CREATININE (BEAKER) (test prwv=236) 0.65 mg/dL 0.57-1.25 GLUCOSE RANDOM (BEAKER) (test tmyd=295) 142 mg/dL 70-105 CALCIUM (BEAKER) (test asru=617) 8.7 mg/dL 8.4-10.2 EGFR (BEAKER) (test maor=7637) 87 mL/min/1.73 sq m ESTIMATED GFR IS NOT ACCURATE CREATININE CLEARANCE IN PREDICTING GLOMERULAR FILTRATION RATE. ESTIMATED GFR IS NOT APPLICABLE FOR DIALYSIS PATIENTS. B-TYPE NATRIURETIC FACTOR (BNP)2017-07-07 07:38:00* Test Item Value Reference Range Comments B-TYPE NATRIURETIC PEPTIDE (BEAKER) (test yidt=940) 316 pg/mL 0-100 [id number] 07:38:00* Test Item Value Reference Range Comments MAGNESIUM (BEAKER) (test ehch=159) 2.1 mg/dL 1.6-2.6 CALCIUM, [id number] 07:06:00* Test Item Value Reference Range Comments CALCIUM IONIZED (BEAKER) (test qzqq=369) 1.17 mmol/L 1.12-1.27 PH, BLOOD (BEAKER) (test ldil=7823) 7.29 MR, SPINE, THORACIC, WITHOUT [id number] 13:30:00FINAL REPORT MRI thoracic and lumbar spine without contrast 07/06/2017 at 1306. CLINICAL HISTORY: Back pain, minor trauma. TECHNIQUE: Noncontrast MRI of the thoracic and lumbar spine was performed, utilizing sagittal T1, T2, STIR, axial T1 and T2-weighted sequences. COMPARISON: None available. FINDINGS: There is a recent L1 compression fracture resulting in 45% loss of height but no osseous retropulsion. There is a recent superior T3 compression fracture resulting in 33% loss of height but no osseous retropulsion. There is a chronic mild T8 compression fracture without osseous retropulsion. There are multilevel intervertebral disc bulges, with resultant endplate deformation. The skeleton is osteopenic. There are no destructive osseous lesions. The spinal cord is normal in size and signal intensity. The conus medullaris terminates at L1. The distal spinal cord and terminal nerve roots are unremarkable. Spinal canal diameter is within normal limits. There are universal degenerative changes, without high-g rade central canal or foraminal stenosis. There is deconditioning of the posteri or inferior paraspinal musculature. There are simple appearing cysts in the kidn eys. IMPRESSION:1. Recent moderate L1 and mild T3 compression fractures without spinal canal compromise.2. Chronic mild T8 compression fracture without spinal c anal compromise.3. Chronic appearing degenerative changes, without high-grade ce ntral canal or foraminal stenosis. Signed: Judd Man Verified Rajinder e/Time: 07/06/2017 13:30:59 Reading Location: [facility] , SPINE, LUMBAR, WITHOUT [id number] 13:30:00FINAL REPORT MRI thoracic and lumbar spine without contrast 07/06/2017 at 1306. CLINICAL HISTORY: Back pain, minor trauma. TECHNIQUE: Noncontrast MRI of the thoracic and lumbar spine was performed, utilizing sagittal T1, T2, STIR, axial T1 and T2-weighted sequences. COMPARISON: None available. FINDINGS: There is a recent L1 compression fracture resulting in 45% loss of height but no osseous retropulsion. There is a recent superior T3 compression fracture resulting in 33% loss of height but no osseous retropulsion. There is a chronic mild T8 compression fracture without osseous retropulsion. There are multilevel intervertebral disc bulges, with resultant endplate deformation. The skeleton is osteopenic. There are no destructive osseous lesions. The spinal cord is normal in size and signal intensity. The conus medullaris terminates at L1. The distal spinal cord and terminal nerve roots are unremarkable. Spinal canal diameter is within normal limits. There are universal degenerative changes, without high-g rade central canal or foraminal stenosis. There is deconditioning of the posteri or inferior paraspinal musculature. There are simple appearing cysts in the kidn eys. IMPRESSION:1. Recent moderate L1 and mild T3 compression fractures without spinal canal compromise.2. Chronic mild T8 compression fracture without spinal c anal compromise.3. Chronic appearing degenerative changes, without high-grade ce ntral canal or foraminal stenosis. Signed: Judd Manort Verified Rajinder e/Time: 07/06/2017 13:30:59 Reading Location: [facility] C METABOLIC [id number] 07:34:00* Test Item Value Reference Range Comments SODIUM (BEAKER) (test ritn=981) 144 meq/L 136-145 POTASSIUM (BEAKER) (test cwan=089) 4.3 meq/L 3.5-5.1 CHLORIDE (BEAKER) (test ymrv=940) 114 meq/L 98-107 CO2 (BEAKER) (test xxej=129) 27 meq/L 22-29 BLOOD UREA NITROGEN (BEAKER) (test qola=608) 16 mg/dL 7-21 CREATININE (BEAKER) (test midz=097) 0.55 mg/dL 0.57-1.25 GLUCOSE RANDOM (BEAKER) (test irop=393) 92 mg/dL 70-105 CALCIUM (BEAKER) (test hblv=674) 6.8 mg/dL 8.4-10.2 EGFR (BEAKER) (test mrbw=7300) 106 mL/min/1.73 sq m ESTIMATED GFR IS NOT ACCURATE CREATININE CLEARANCE IN PREDICTING GLOMERULAR FILTRATION RATE. ESTIMATED GFR IS NOT APPLICABLE FOR DIALYSIS PATIENTS. [id number] 07:27:00* Test Item Value Reference Range Comments MAGNESIUM (BEAKER) (test gxgw=790) 1.7 mg/dL 1.6-2.6 CBC W/PLT COUNT & AUTO [id number] 07:11:00* Test Item Value Reference Range Comments WHITE BLOOD CELL COUNT (BEAKER) (test stss=067) 5.8 K/ L 3.5-10.5 RED BLOOD CELL COUNT (BEAKER) (test spxu=069) 3.06 M/ L 3.93-5.22 HEMOGLOBIN (BEAKER) (test mlia=967) 9.3 GM/DL 11.2-15.7 HEMATOCRIT (BEAKER) (test gicb=631) 30.3 % 34.1-44.9 MEAN CORPUSCULAR VOLUME (BEAKER) (test zxpw=124) 99.0 fL 79.4-94.8 MEAN CORPUSCULAR HEMOGLOBIN (BEAKER) (test kqza=889) 30.4 pg 25.6-32.2 MEAN CORPUSCULAR HEMOGLOBIN CONC (BEAKER) (test jdxs=934) 30.7 GM/DL 32.2-35.5 RED CELL DISTRIBUTION WIDTH (BEAKER) (test jyou=653) 15.2 % 11.7-14.4 PLATELET COUNT (BEAKER) (test ugff=243) 151 K/CU MM 150-450 MEAN PLATELET VOLUME (BEAKER) (test hgvx=721) 10.9 fL 9.4-12.3 NUCLEATED RED BLOOD CELLS (BEAKER) (test gxfi=828) 0 /100 WBC 0-0 NEUTROPHILS RELATIVE PERCENT (BEAKER) (test avug=830) 64 % LYMPHOCYTES RELATIVE PERCENT (BEAKER) (test icok=015) 20 % MONOCYTES RELATIVE PERCENT (BEAKER) (test rcrp=066) 10 % EOSINOPHILS RELATIVE PERCENT (BEAKER) (test ssxu=604) 6 % BASOPHILS RELATIVE PERCENT (BEAKER) (test accu=793) 0 % NEUTROPHILS ABSOLUTE COUNT (BEAKER) (test pays=584) 3.69 K/ L 1.56-6.13 LYMPHOCYTES ABSOLUTE COUNT (BEAKER) (test riyx=982) 1.15 K/ L 1.18-3.74 MONOCYTES ABSOLUTE COUNT (BEAKER) (test scmo=978) 0.57 K/ L 0.24-0.36 EOSINOPHILS ABSOLUTE COUNT (BEAKER) (test bbvm=159) 0.32 K/ L 0.04-0.36 BASOPHILS ABSOLUTE COUNT (BEAKER) (test jchy=075) 0.01 K/ L 0.01-0.08 IMMATURE GRANULOCYTES-RELATIVE PERCENT (BEAKER) (test rhkk=9431) 1 % 0-1 PT/[id number] 07:02:00* Test Item Value Reference Range Comments PROTIME (BEAKER) (test tqif=666) 15.5 seconds 11.7-14.7 INR (BEAKER) (test pcxg=316) 1.2 <=5.9 PARTIAL THROMBOPLASTIN TIME (BEAKER) (test cmbi=054) 42.4 seconds 22.5-36.0 RECOMMENDED COUMADIN/WARFARIN INR THERAPY RANGESSTANDARD DOSE: 2.0 - 3.0 Inclu rayray: PROPHYLAXIS for venous thrombosis, systemic embolization; TREATMENT for sia ous thrombosis and/or pulmonary embolus.HIGH RISK: Target INR is 2.5-3.5 for pat ients with mechanical heart valves.HEMOGLOBIN [id number] 16:51:00* Test Item Value Reference Range Comments HEMOGLOBIN A1C (BEAKER) (test cysv=911) 6.3 % 4.3-6.1 URINALYSIS W/ [id number] 15:40:00* Test Item Value Reference Range Comments COLOR (BEAKER) (test eaxe=444) Yellow CLARITY (BEAKER) (test ypsx=150) Clear SPECIFIC GRAVITY UA (BEAKER) (test iwdz=158) 1.023 1.001-1.035 PH UA (BEAKER) (test rfxf=281) 5.5 5.0-8.0 PROTEIN UA (BEAKER) (test jtyc=271) 10 mg/dL Negative GLUCOSE UA (BEAKER) (test xwia=552) Negative Negative KETONES UA (BEAKER) (test qhlt=472) Negative Negative BILIRUBIN UA (BEAKER) (test bnip=303) Negative Negative BLOOD UA (BEAKER) (test vvrf=015) Negative Negative NITRITE UA (BEAKER) (test pawi=430) Negative Negative LEUKOCYTE ESTERASE UA (BEAKER) (test scdn=077) Small Negative UROBILINOGEN UA (BEAKER) (test rtre=996) 0.2 mg/dL 0.2-1.0 RBC UA (BEAKER) (test qjhe=961) 1 /HPF WBC UA (BEAKER) (test xqjl=981) 6 /HPF MUCUS (BEAKER) (test nhzw=2359) Occasional SQUAMOUS EPITHELIAL (BEAKER) (test qeko=281) 2 /HPF HYALINE CASTS (BEAKER) (test caps=895) 9 /LPF SOURCE(BEAKER) (test lsmd=2344) Urine, Clean Catch TSH/FREE T4 IF [id number] 13:20:00* Test Item Value Reference Range Comments THYROID STIMULATING HORMONE (BEAKER) (test uqvr=586) 0.81 uIU/mL 0.35-4.94 [id number] 13:12:00* Test Item Value Reference Range Comments MAGNESIUM (BEAKER) (test exbu=022) 1.7 mg/dL 1.6-2.6 LIPID [id number] 13:12:00* Test Item Value Reference Range Comments TRIGLYCERIDES (BEAKER) (test ufyb=792) 64 mg/dL CHOLESTEROL (BEAKER) (test otpp=373) 157 mg/dL HDL CHOLESTEROL (BEAKER) (test jhrv=932) 55 mg/dL LDL CHOLESTEROL CALCULATED (BEAKER) (test xlxk=788) 89 mg/dL Triglyceride Reference Range: Low Risk <150 Borderline 150-199 High Risk 200-499 Very High Risk >=500Cholesterol Reference Range: Low Risk <200 Borderline 200-239 High Risk >240HDL Cholesterol Reference Range: Low Risk >=60 High Risk <40LDL Cholesterol Reference Range: Optimal <100 Near Optimal 100-129 Borderline 130-159 High 160-189 Very High >=190 HEPATIC FUNCTION [id number] 13:12:00* Test Item Value Reference Range Comments TOTAL PROTEIN (BEAKER) (test misi=293) 5.5 gm/dL 6.0-8.3 ALBUMIN (BEAKER) (test near=9057) 3.2 g/dL 3.5-5.0 BILIRUBIN TOTAL (BEAKER) (test olkr=720) 0.9 mg/dL 0.2-1.2 BILIRUBIN DIRECT (BEAKER) (test ojfx=915) 0.4 mg/dL 0.1-0.5 ALKALINE PHOSPHATASE (BEAKER) (test xkjp=495) 58 U/L 40-150 AST (SGOT) (BEAKER) (test iyic=108) 10 U/L 5-34 ALT (SGPT) (BEAKER) (test qhtc=299) 7 U/L 6-55 [id number] 13:08:00* Test Item Value Reference Range Comments D-DIMER QUANTITATIVE (BEAKER) (test ywgm=711) < MG/L FEU <0.50 Intended Use: The D-Dimer Assay can be used to aid in the diagnosis of Deep Vein Thrombosis (DVT) and Pulmonary Embolism Disease (PED).In patients with low pre- test probability, various studies concerning STA Liatest D-dimer test have repor zonia that with a cutoff value of 0.50 MG/L FEU, the Negative Predictive Value (BOILERMAKER WELDER V) regarding the exclusion of thrombosis is within 95-100% range.B-TYPE NATRIURETIC FACTOR (BNP)2017-07-05 12:59:00* Test Item Value Reference Range Comments B-TYPE NATRIURETIC PEPTIDE (BEAKER) (test bmef=996) 313 pg/mL 0-100 RAD, HIP, 2 VIEWS, [id number] 12:50:00Reason for exam:->fall, painShould this be performed at the bedside?->YesFINAL REPORT TECHNIQUE: Frontal and lateral radiographs of the left hip dated 07/05/2017 HISTORY: Fall, pain COMPARISON: None. FINDINGS:No fracture or dislocation. Bones are osteopenic. No joint space narrowing. No bone erosion or soft tissue nodule seen. No radiodense foreign body or subcutaneous emphysema. IMPRESSION:No fracture or dislocation. If there is continued clinical concern for a fracture recommend CT or MRI. Signed: Stacy [place] Verified Date/Time: 07/05/2017 12:50:55 Reading Location: [facility] Radiology Reading Room , CHEST, 1 VIEW, NON [id number] 11:42:00Reason for exam:->sobShould this be performed at the bedside?->YesFINAL REPORT Chest one view. Clinical history: sob Comparison: No priors Discussion: A frontal chest is provided. Cardiac silhouette is within normal limits. Aorta is mildly calcified. There is mild nonspecific interstitial prominence. At the right lower lung, there is an indeterminate 1.3 cm nodular density. This is amenable to radiographic follow-up or CT correlation. There is no pneumothorax, or significant pleural effusion. Osseous structures demonstrate mild degenerative changes. Signed: Neisha Price Verified Date/Time: 07/05/2017 11:42:24 Reading Location: [facility] Radiology Reading Room , HIP, 2 VIEWS, RIGHT 2017-07-05 11:36:00Reason for exam:->fall, painShould this be performed at the bedside?->YesFINAL REPORT Radiograph of the right hip Reason for exam: fall, pain Comparison: No priors Discussion: Frontal, and frog leg lateral views of the right hip are obtained. Bony mineralization is decreased, which decreases the sensitivity for detecting bony abnormality. No displaced fracture, or dislocation is identified. Symphysis pubis appears congruent. Visualized soft tissues are unremarkable. Impressions: No acute osseous abnormality is identified. Decreased bony mineralization, which reduces the sensitivity for detecting bony abnormality. Signed: Neisha Price Verified Date/Time: 07/05/2017 11:36:40 Reading Location: [facility] Radiology Reading Room ONIN [id number] 07:30:00* Test Item Value Reference Range Comments TROPONIN I (BEAKER) (test iggx=608) 0.01 ng/mL 0.00-0.03 Troponin I (TnI) levels must be interpreted in the context of the presenting sym ptoms and the clinical findings. Elevated TnI levels indicate myocardial damage, but are not specific for ischemic heart disease. Elevated TnI levels are seen in patients with other cardiac conditions (including myocarditis and congestive h eart failure), and slight TnI elevations occur in patients with other conditions , including sepsis, renal failure, acidosis, acute neurological disease, and per sistent tachyarrhythmia.TROPONIN [id number] 01:44:00* Test Item Value Reference Range Comments TROPONIN I (BEAKER) (test mwhf=425) 0.01 ng/mL 0.00-0.03 Troponin I (TnI) levels must be interpreted in the context of the presenting sym ptoms and the clinical findings. Elevated TnI levels indicate myocardial damage, but are not specific for ischemic heart disease. Elevated TnI levels are seen in patients with other cardiac conditions (including myocarditis and congestive h eart failure), and slight TnI elevations occur in patients with other conditions , including sepsis, renal failure, acidosis, acute neurological disease, and per sistent tachyarrhythmia.PT/[id number] 01:40:00* Test Item Value Reference Range Comments PROTIME (BEAKER) (test cjjd=165) 14.6 seconds 11.7-14.7 INR (BEAKER) (test ztyc=204) 1.2 <=5.9 PARTIAL THROMBOPLASTIN TIME (BEAKER) (test kdwp=705) 54.3 seconds 22.5-36.0 RECOMMENDED COUMADIN/WARFARIN INR THERAPY RANGESSTANDARD DOSE: 2.0 - 3.0 Inclu rayray: PROPHYLAXIS for venous thrombosis, systemic embolization; TREATMENT for sia ous thrombosis and/or pulmonary embolus.HIGH RISK: Target INR is 2.5-3.5 for pat ients with mechanical heart valves.BASIC METABOLIC [id number] 01:37:00* Test Item Value Reference Range Comments SODIUM (BEAKER) (test opxl=541) 140 meq/L 136-145 POTASSIUM (BEAKER) (test tfci=614) 3.5 meq/L 3.5-5.1 CHLORIDE (BEAKER) (test drks=869) 103 meq/L 98-107 CO2 (BEAKER) (test zcnv=060) 30 meq/L 22-29 BLOOD UREA NITROGEN (BEAKER) (test lcvy=012) 23 mg/dL 7-21 CREATININE (BEAKER) (test bpij=273) 0.73 mg/dL 0.57-1.25 GLUCOSE RANDOM (BEAKER) (test yfwa=913) 144 mg/dL 70-105 CALCIUM (BEAKER) (test xbcw=850) 8.2 mg/dL 8.4-10.2 EGFR (BEAKER) (test ghlo=3736) 77 mL/min/1.73 sq m ESTIMATED GFR IS NOT ACCURATE CREATININE CLEARANCE IN PREDICTING GLOMERULAR FILTRATION RATE. ESTIMATED GFR IS NOT APPLICABLE FOR DIALYSIS PATIENTS. CBC W/PLT COUNT & AUTO [id number] 01:21:00* Test Item Value Reference Range Comments WHITE BLOOD CELL COUNT (BEAKER) (test wgts=236) 9.5 K/ L 3.5-10.5 RED BLOOD CELL COUNT (BEAKER) (test ynlq=652) 4.28 M/ L 3.93-5.22 HEMOGLOBIN (BEAKER) (test tvfs=110) 12.8 GM/DL 11.2-15.7 HEMATOCRIT (BEAKER) (test uuog=033) 39.6 % 34.1-44.9 MEAN CORPUSCULAR VOLUME (BEAKER) (test pajq=363) 92.5 fL 79.4-94.8 MEAN CORPUSCULAR HEMOGLOBIN (BEAKER) (test srpa=145) 29.9 pg 25.6-32.2 MEAN CORPUSCULAR HEMOGLOBIN CONC (BEAKER) (test pjfd=064) 32.3 GM/DL 32.2-35.5 RED CELL DISTRIBUTION WIDTH (BEAKER) (test jayj=825) 14.8 % 11.7-14.4 PLATELET COUNT (BEAKER) (test xzzm=176) 222 K/CU MM 150-450 MEAN PLATELET VOLUME (BEAKER) (test veeg=326) 11.0 fL 9.4-12.3 NUCLEATED RED BLOOD CELLS (BEAKER) (test yqiq=318) 0 /100 WBC 0-0 NEUTROPHILS RELATIVE PERCENT (BEAKER) (test yjyo=138) 69 % LYMPHOCYTES RELATIVE PERCENT (BEAKER) (test mjcf=582) 17 % MONOCYTES RELATIVE PERCENT (BEAKER) (test khnu=688) 10 % EOSINOPHILS RELATIVE PERCENT (BEAKER) (test hafb=230) 4 % BASOPHILS RELATIVE PERCENT (BEAKER) (test jscu=756) 0 % NEUTROPHILS ABSOLUTE COUNT (BEAKER) (test iqvd=382) 6.55 K/ L 1.56-6.13 LYMPHOCYTES ABSOLUTE COUNT (BEAKER) (test mpej=386) 1.58 K/ L 1.18-3.74 MONOCYTES ABSOLUTE COUNT (BEAKER) (test zznu=677) 0.97 K/ L 0.24-0.36 EOSINOPHILS ABSOLUTE COUNT (BEAKER) (test bnpm=809) 0.33 K/ L 0.04-0.36 BASOPHILS ABSOLUTE COUNT (BEAKER) (test jwmz=311) 0.04 K/ L 0.01-0.08 IMMATURE GRANULOCYTES-RELATIVE PERCENT (BEAKER) (test gxik=1050) 1 % 0-1 CREATINE KINASE (CK), TOTAL AND [id number] 22:52:00* Test Item Value Reference Range Comments CREATINE KINASE TOTAL (BEAKER) (test jeln=299) 20 U/L 29-200 CREATINE KINASE-MB (BEAKER) (test pbci=602) 1.2 ng/mL 0.0-6.6 CREATINE KINASE-MB INDEX (BEAKER) (test fanx=487) 6.0 % CK-MB Reference Range:<6.7 Normal6.7-10.0 Borderline>10.0 Abnormal CHEST SINGLE (PORTABLE) [place] [address] Patient Name: CHLOE MARTIN MR #: [id number] : 1935 Age/Sex: 82/F Req #: [id number] Adm Physician: KARLY AMBRIZ MD Ordered by: ADRIEL ARITA MD Report #: [id number] Location: [facility] Room/Bed: [place] [address] Procedure: [id number] DX /CHEST SINGLE (PORTABLE) Exam Date: 11/06/17 Exam Ti me: 1350 REPORT STATUS: Signed EXAMINATION: Chest, CHEST SINGLE (GIO BLE) INDICATION: Chest pain COMPARISON: None FINDINGS: LINES: None. Heart: Normal cardiac silhouette. Vascular: The pulmonary vasculature is within normal limits. Atherosclerotic calcifications of the aortic arch. Mediastinum: No mediastinal, hilar, or axillary mass or lymphadenopathy. Lungs: No parenchymal mass. Bibasilar airspace opacif ications. Pleura: Small bilateral pleural effusions. No pneumothorax. Bones: No acute osseous abnormality. Degenerative changes of the thoracic s pine. Soft tissues: Normal. Impression: Bibasilar airspace opacifi cations may represent atelectasis or a developing pneumonia. Signed by : Dr. Deepika Kelly M.D. on 11/06/2017 2:00 PM Dictated By: DEEPIKA KELLY MD 99 Transcribed By: MITUL MENDEZ on 11/06/171399 COPY TO: ADRIEL ARITA MD US ABDOMEN COMPLETE [place] [address] Patient Name: CHLOE MARTIN MR #: [id number] : 1935 Age/Sex: 82/F Req #: [id number] Adm Physician: KARLY AMBRIZ MD Ordered by: Maria Ogden BOILERMAKER WELDER Report #: [id number] Location: [facility] Room/Bed: [place] [address] Procedure: [id number] US/ US ABDOMEN COMPLETE Exam Date: Exam Time: RE PORT STATUS: Signed PROCEDURE: ABDOMINAL ULTRASOUND COMPARISON: Non e. INDICATIONS: Nausea and Vomiting TECHNIQUE: Transverse and longit udinal images of the upper abdomen were obtained. FINDINGS: L iver: Size: 12.6 cm in the right midclavicular line, normal Appearance: Nor mal echogenicity, smooth contour Mass: No focal masses Spleen: Size: 8.2 cm in length, normal Echogenicity: Normal Mass: No focal masses Ga llbladder: Absent Bile Ducts: Intrahepatic Ducts: No dilatation E xtrahepatic Ducts: Common bile duct measures 0.3 cm, no dilatation Pancrea s: Limited visualized portions of the neck are normal. Right Kidney: Size: 8.9 x 4.3 x 5.2 cm Echogenicity: Normal Collecting System: No hydrone phrosis Stone: None Cyst/Mass: Inferior pole 1.2 x 1 x 1.5 cm simple cyst. Left Kidney: Size: 9.8 x 4.7 x 4.5 cm Echogenicity: Normal Collect ing System: No hydronephrosis Stone: None Cyst/Mass: Interpolar 1.5 x 1.6 x 1.6 cm simple cyst. Vessels: Aorta: Atherosclerotic calcifications. Size measures up to 2.7 cm in the mid portion, non-aneurysmal. Inferior V lupis Cava: Prominent without prominence of the hepatic veins which may be rela zonia to volume status. Main Portal Vein: 1 cm, normal size with hepatopetal f low. Free Fluid: No ascites or pleural effusions IMPRESSION: N o ultrasound findings to explain nausea and vomiting. Dictated by : Jonathan Bernard M.D. on 11/03/2017 at 17:42 Electronically approved by: Jonathan Bernard M.D. on 11/03/2017 at 17:42 Dictated By: KAREEM BERNARD MD 41 Transcr ibed By: NOLAN on 11/03/171741 COPY TO: MARIA OGDEN BOILERMAKER WELDER CHEST SINGLE (PORTABLE) [place] [address] Patient Name: CHLOE MARTIN MR #: [id number] : 1935 Age/Sex: 82/F Req #: [id number] Adm Physician: Ordered by: BEL SWANSON MD Report #: [id number] Location: ER Room/Bed: Procedure: [id number] DX/CHEST SINGLE (PORTABLE) Exam D ate: 11/01/17 Exam Time: 2200 REPORT STATUS: Si gned EXAM: CHEST SINGLE (PORTABLE), AP 1 view DATE: 11/01/2017 9:54 PM Time stamp on exam: 2214 hours INDICATION: Chest pain, vomiting COMPARISON: None FINDINGS: LINES/TUBES: None LUNGS: Emphysematous changes. Biapical scarring. Nonspecific reticulonodular changes throughout both lungs. PLE URA: No effusions or pneumothorax. HEART AND MEDIASTINUM: Normal size and c ontour. BONES AND SOFT TISSUES: No acute findings. IMPRESSION: Emph ysematous changes with nonspecific reticulonodular changes throughout both emily gs. This could represent chronic lung disease or infection in the appropriate clinical setting. Signed by: Dr. Neisha Mcgregor M.D. on 11/01/2017 10:28 PM Dictated By: NEISHA MCGREGOR MD 27 Transcribed By: EMILIE on 11/01/172227 COPY TO: BEL SWANSON MD
--- OUTSIDE RECORDS SUMMARY | 2019-06-08 12:41 | XMS REPORT | Clinical Summary ---
Author Author ROYCE [facility] Address Unknown Phone Unavailable Care Team Providers Care Demolitionist Name Role Phone Pcp, No PCP Unavailable [...] DAILY FOR TEN DAYS . 11/09/2018 Discontinued [id number] Place 3 drops 0 ortisone (CORTISPORIN) into [...] ms QTC Calculatio n(Bazett) 455 ms P [place] 73 degrees R [place] 72 degrees T [place] 67 degrees Sinus rhythm with occasional Premature [...] RHYTHM STRIP - SCAN 11/25/2018 2:10 PM CHANNEL PROGRAM MANAGER POCT-GLUCOSE METER Routine 11/16/2018 11:47 AM CHANNEL PROGRAM MANAGER POCT-GLUCOSE METER Routine 11/16/2018 7:47 AM CHANNEL PROGRAM MANAGER POCT-GLUCOSE METER Routine 11/15/2018 9:37 PM CHANNEL PROGRAM MANAGER CBC W/PLT COUNT & AUTO Routine 11/15/2018 DIFFERENTIAL 4:00 AM CHANNEL PROGRAM MANAGER PHOSPHORUS Routine 11/15/2018 4:00 AM CHANNEL PROGRAM MANAGER MAGNESIUM Routine 11/15/2018 4:00 AM CHANNEL PROGRAM MANAGER BASIC METABOLIC PANEL (7) Routine 11/15/2018 4:00 AM CHANNEL PROGRAM MANAGER CBC W/PLT COUNT & AUTO Routine 11/15/2018 DIFFERENTIAL 4:00 AM CHANNEL PROGRAM MANAGER POCT-GLUCOSE METER Routine 11/14/2018 10:17 PM CHANNEL PROGRAM MANAGER IR KYPHOPLASTY THORACIC Routine 11/14/2018 5:21 PM CHANNEL PROGRAM MANAGER PROCEDURE DONE OUTSIDE OR 11/14/2018 Compression fracture of 12:00 PM CHANNEL PROGRAM MANAGER cervical spine, sequela Special Needs REQ 1200 ECG 12-LEAD STAT 11/14/2018 8:56 AM CHANNEL PROGRAM MANAGER TROPONIN I STAT 11/14/2018 8:39 AM CHANNEL PROGRAM MANAGER POCT-GLUCOSE METER Routine 11/14/2018 8:05 AM CHANNEL PROGRAM MANAGER PT/APTT Routine 11/14/2018 5:14 AM CHANNEL PROGRAM MANAGER BASIC METABOLIC PANEL (7) STAT 11/14/2018 5:12 AM CHANNEL PROGRAM MANAGER MAGNESIUM Routine 11/14/2018 5:12 AM CHANNEL PROGRAM MANAGER POTASSIUM Routine 11/14/2018 5:12 AM CHANNEL PROGRAM MANAGER POCT-GLUCOSE METER Routine 11/13/2018 9:32 PM CHANNEL PROGRAM MANAGER POCT-GLUCOSE METER Routine 11/13/2018 6:08 PM CHANNEL PROGRAM MANAGER POCT-GLUCOSE METER Routine 11/13/2018 11:33 AM CHANNEL PROGRAM MANAGER CBC W/PLT COUNT & AUTO STAT 11/13/2018 DIFFERENTIAL 8:03 AM CHANNEL PROGRAM MANAGER CBC W/PLT COUNT & AUTO STAT 11/13/2018 DIFFERENTIAL 8:03 AM CHANNEL PROGRAM MANAGER POCT-GLUCOSE METER Routine 11/13/2018 7:33 AM CHANNEL PROGRAM MANAGER MAGNESIUM Routine 11/13/2018 4:09 AM CHANNEL PROGRAM MANAGER BASIC METABOLIC PANEL (7) Routine 11/13/2018 4:09 AM CHANNEL PROGRAM MANAGER POCT-GLUCOSE METER Routine 11/12/2018 9:41 PM CHANNEL PROGRAM MANAGER POCT-GLUCOSE METER Routine 11/12/2018 5:32 PM CHANNEL PROGRAM MANAGER MR SPINE LUMBAR WITHOUT Routine 11/12/2018 IV CONTRAST 5:10 PM CHANNEL PROGRAM MANAGER MR THORACIC SPINE WITHOUT Routine 11/12/2018 CONTRAST 5:10 PM CHANNEL PROGRAM MANAGER POCT-GLUCOSE METER Routine 11/12/2018 11:33 AM CHANNEL PROGRAM MANAGER POCT-GLUCOSE METER Routine 11/12/2018 7:44 AM CHANNEL PROGRAM MANAGER CBC W/PLT COUNT & AUTO Routine 11/12/2018 DIFFERENTIAL 5:47 AM CHANNEL PROGRAM MANAGER MAGNESIUM Routine 11/12/2018 5:47 AM CHANNEL PROGRAM MANAGER BASIC METABOLIC PANEL (7) Routine 11/12/2018 5:47 AM CHANNEL PROGRAM MANAGER CBC W/PLT COUNT & AUTO Routine 11/12/2018 DIFFERENTIAL 5:47 AM CHANNEL PROGRAM MANAGER POCT-GLUCOSE METER Routine 11/11/2018 9:47 PM CHANNEL PROGRAM MANAGER POCT-GLUCOSE METER Routine 11/11/2018 5:28 PM CHANNEL PROGRAM MANAGER POCT-GLUCOSE METER Routine 11/11/2018 11:12 AM CHANNEL PROGRAM MANAGER POCT-GLUCOSE METER Routine 11/11/2018 7:57 AM CHANNEL PROGRAM MANAGER CBC W/PLT COUNT & AUTO Routine 11/11/2018 DIFFERENTIAL 5:17 AM CHANNEL PROGRAM MANAGER CBC W/PLT COUNT & AUTO Routine 11/11/2018 DIFFERENTIAL 5:17 AM CHANNEL PROGRAM MANAGER MAGNESIUM Routine 11/11/2018 5:11 AM CHANNEL PROGRAM MANAGER BASIC METABOLIC PANEL (7) Routine 11/11/2018 5:11 AM CHANNEL PROGRAM MANAGER POCT-GLUCOSE METER Routine 11/10/2018 9:11 PM CHANNEL PROGRAM MANAGER POCT-GLUCOSE METER Routine 11/10/2018 6:37 PM CHANNEL PROGRAM MANAGER BLOOD CULTURE Routine 11/10/2018 1:10 PM CHANNEL PROGRAM MANAGER POCT-GLUCOSE METER Routine 11/10/2018 12:03 PM CHANNEL PROGRAM MANAGER POCT-GLUCOSE METER Routine 11/10/2018 7:41 AM CHANNEL PROGRAM MANAGER POCT-GLUCOSE METER Routine 11/09/2018 9:44 PM CHANNEL PROGRAM MANAGER PHOSPHORUS STAT 11/09/2018 5:15 PM CHANNEL PROGRAM MANAGER MAGNESIUM STAT 11/09/2018 5:15 PM CHANNEL PROGRAM MANAGER LIPASE STAT 11/09/2018 5:15 PM CHANNEL PROGRAM MANAGER COMPREHENSIVE METABOLIC STAT 11/09/2018 PANEL 5:15 PM CHANNEL PROGRAM MANAGER AMYLASE STAT 11/09/2018 5:15 PM CHANNEL PROGRAM MANAGER POCT-GLUCOSE METER Routine 11/09/2018 4:45 [address] SPINE LUMBAR WITHOUT STAT 11/09/2018 IV CONTRAST 4:[address] SPINE THORACIC WITHOUT STAT 11/09/2018 IV CONTRAST 4:04 PM CH[address] PROGRAM MANAGER CT ABDOMEN/PELVIS WITHOUT STAT 11/09/2018 IV CONTRAST 4:04 PM CHANNEL PROGRAM MANAGER ECG 12-LEAD Routine 11/09/2018 3:25 PM CHANNEL PROGRAM MANAGER Procedure Note - Interface, External Ris In - 11/09/2018 7:15 PM CHANNEL PROGRAM MANAGER Ventricula r Rate 94 BPM Atrial Rate 94 BPM P-R Interval 112 ms QRS Duration 72 ms Q-T Interval 390 ms QTC Calculatio n(Bazett) 487 ms P [place] 61 degrees R [place] 78 degrees T [place] 76 degrees Sinus rhythm with Premature supraventr [...] lengthened ECG 12-LEAD STAT 11/09/2018 3:25 PM CHANNEL PROGRAM MANAGER BLOOD CULTURE Routine 11/09/2018 IDENTIFICATION PANEL 3:23 PM CHANNEL PROGRAM MANAGER BLOOD CULTURE STAT 11/09/2018 3:23 PM CHANNEL PROGRAM MANAGER CBC W/PLT COUNT & AUTO STAT 11/09/2018 DIFFERENTIAL 3:20 PM CHANNEL PROGRAM MANAGER TSH VANDANA 11/09/2018 3:20 PM CHANNEL PROGRAM MANAGER CBC W/PLT COUNT & AUTO STAT 11/09/2018 DIFFERENTIAL 3:20 PM CHANNEL PROGRAM MANAGER URINALYSIS W/ MICROSCOPIC STAT 11/09/2018 2:30 PM CHANNEL PROGRAM MANAGER after 06/07/2018 Results * RHYTHM STRIP - SCAN (12/29/2018 7:51 AM CDT) Only the most recent of 3 results within the time period is included. Narrative Performed At * EKG-SCANNED (12/19/2018 1:40 PM CDT) Narrative Performed At * XR spine cervical 2 or 3 views (12/15/2018 12:45 PM CDT) Specimen Narrative Performed At FINAL REPORT [facility] CLINICAL HISTORY: neck pain with radiculopathy [...] MD Report Verified Date/Time:12/15/2018 13:28:28 Reading Location: [address] Consult Reading Room Procedure Note Interface, [...] Report Verified Date/Time: 12/15/2018 13:28:28 Reading Location: [address] Consult Reading Room Performing Organization Address City/State/Zipcode Phone Number [facility] * XR spine thoracic 2 views (12/15/2018 12:44 PM CDT) Specimen Narrative Performed At FINAL REPORT [facility] CLINICAL HISTORY: upper back pain TECHNIQUE: [...] MD Report Verified Date/Time:12/15/2018 14:26:14 Reading Location: [address] Consult Reading Room Procedure Note Interface, [...] Report Verified Date/Time: 12/15/2018 14:26:14 Reading Location: [facility] [id number] Consult Reading Room Performing Organization Address City/State/Zipcode Phone Number [facility] * CBC with platelet count + automated diff (12/15/2018 5:43 AM CDT) Only the most recent of 8 results within the time period is included. WBC 7.3 3.5 - 10.5 K/L [facility] RBC 3.35 (L) 3.93 - 5.22 M/L [facility] Hemoglobin 10.2 (L) 11.2 - 15.7 GM/DL [facility] Hematocrit 34.3 34.1 - 44.9 % [facility] MCV 102.4 (H)Comment: Discordant 79.4 - 94.8 fL [facility] result compared to previous [facility] result; clinical correlation required. MCH 30.4 25.6 - 32.2 pg [facility] MCHC 29.7 (L) 32.2 - 35.5 GM/DL [facility] RDW 13.4 11.7 - 14.4 % [facility] Platelets 144 (L) 150 - 450 K/CU MM [facility] MPV 11.2 9.4 - 12.3 fL [facility] nRBC 0 0 - 0 /100 WBC [facility] % Neutros 80 % [facility] % Lymphs 14 % [facility] % Monos 6 % [facility] % Eos 1 % [facility] % Baso 0 % [facility] # Neutros 5.79 1.56 - 6.13 K/L [facility] # Lymphs 1.01 (L) 1.18 - 3.74 K/L [facility] # Monos 0.41 (H) 0.24 - 0.36 K/L [facility] # Eos 0.04 0.04 - 0.36 K/L [facility] # Baso 0.01 0.01 - 0.08 K/L [facility] Immature 0 0 - 1 % [facility] Granulocytes-[facility] Specimen Blood Performing Organization Address City/State/Zipcode Phone Number [facility] [address] [place] [address] MEDICAL CENTER * Basic Metabolic Panel (12/15/2018 5:43 AM CDT) Only the most recent of 7 results within the time period is included. Sodium 137 136 - 145 meq/L [facility] Potassium 4.7 3.5 - 5.1 meq/L [facility] Chloride 105 98 - 107 meq/L [facility] CO2 25 22 - 29 meq/L [facility] BUN 18 7 - 21 mg/dL [facility] Creatinine 0.56 (L) 0.57 - 1.25 mg/dL [facility] Glucose 115 (H) 70 - 105 mg/dL [facility] Calcium 8.5 8.4 - 10.2 mg/dL [facility] EGFR 104Comment: ESTIMATED GFR IS mL/min/1.73 sq m [facility] NOT ACCURATE CREATININE [facility] CLEARANCE IN PREDICTING GLOMERULAR FILTRATION RATE. ESTIMATED GFR IS NOT APPLICABLE FOR DIALYSIS PATIENTS. Specimen Blood Performing Organization Address City/State/Zipcode Phone Number [facility] [address] [place] [address] [facility] * Vitamin D, 25-Hydroxy (12/14/2018 5:17 PM CDT) Vitamin D 25-Hydroxy 30.5 6.6 - 49.9 ng/mL [facility] Specimen Blood Narrative Performed At Effective 07/13/2017: Reference Range Change [facility] New: 6.6-49.9 ng/mL Previous: 13.0-47.8 ng/mL [facility] Recommended Vitamin D Target Range: 30.0-40.0 ng/mL Performing Organization Address City/[facility] Phone Number [facility] [address] [place] [address] [facility] * MR thoracic spine without IV contrast (12/14/2018 4:48 PM CDT) Only the most recent of 2 results within the time period is included. Specimen Narrative Performed At FINAL REPORT [employer] MR, SPINE, THORACIC, WITHOUT CONTRAST INDICATION: Abnormal [...] MD Report Verified Date/Time:12/15/2018 07:59:12 Reading Location: [address] Neuro Reading Room Procedure Note Interface, [...] Report Verified Date/Time: 12/15/2018 07:59:12 Reading Location: [facility] C[facility] Neuro Reading Room Performing Organization Address City/State/Zipcode Phone Number [facility] * Troponin I (12/14/2018 6:39 AM CDT) Only the most recent of 3 results within the time period is included. Troponin I <0.01 0.00 - 0.03 ng/mL [facility] Specimen Blood Narrative Performed At Troponin I (TnI) levels must be interpreted in the context of the presenting [facility] symptoms and the clinical findings. Elevated TnI levels indicate myocardial [facility] damage, but are not specific for ischemic heart disease. Elevated TnI levels are seen in patients with other cardiac conditions (including myocarditis and congestive heart failure), and slight TnI elevations occur in patients with other conditions, including sepsis, renal failure, acidosis, acute neurological disease, and persistent tachyarrhythmia. Performing Organization Address City/[facility]/Zipcode Phone Number [address] * Iron, TIBC, % sat. (without ferritin) (12/14/2018 1:18 AM CDT) Iron 39.0 (L) 40.0 - 160.0 ug/dL [facility] TIBC 226 (L) 250 - 450 ug/dL [facility] Iron % Saturation 17 (L) 20 - 55 % [facility] Specimen Blood Performing Organization Address [facility] Phone Number [address] * Ferritin (12/14/2018 1:18 AM CDT) Ferritin 87 5 - 275 ng/mL [facility] Specimen Blood Performing Organization Address City/[facility] [place]ode [place] [address] [phone] [place] [address] * Urinalysis w/Microscopic (12/13/2018 5:30 PM CDT) Only the most recent of 2 results within the time period is included. Color, UA Dark Yellow [facility], [facility] [place], [facility] Clarity, UA Clear [facility], [facility] [place], [facility] Specific Rosalie, UA 1.025 1.001 - 1.035 [facility], [facility] [place], [facility] pH, UA 5.5 5.0 - 8.0 [facility] [place] Protein, UA 100 mg/dL (A) Negative [facility], [facility] Glucose, UA Negative Negative [facility], [facility] Ketones, UA Trace (A) Negative [facility], [facility], [facility] Bilirubin, UA Negative Negative [facility], [facility] Blood, UA Negative Negative [facility], [facility] Nitrite, UA Negative Negative [facility], [facility] Leukocytes, UA Negative Negative [facility], [facility] Urobilinogen, UA 1.0 0.2 - 1.0 mg/dL [facility] Bacteria, UA Few [facility], [facility] Mucus Few [facility], [facility] RBC, UA None Seen /HPF [facility], [facility] WBC, UA <5 /HPF [facility], [facility] SQUAMOUS EPITHELIAL <5 /HPF [facility] HYALINE CASTS 5-10 /LPF [facility], [facility] Specimen Source [facility], [facility], [facility] Specimen Urine Performing Organization Address City/State/Zipcode Phone Number [facility] [address] [place] [address] [facility], [facility], [facility] * Lactic acid, venous (12/13/2018 2:46 PM CDT) Lactate, Venous 1.6 0.5 - 2.2 mmol/L [facility], [facility] [place], [facility] Specimen Blood Performing Organization Address City/[facility]/Zipcode Phone Number [place] [phone] [place] [address] [facility], [facility] [place], [facility] * XR chest 1 view portable / bedside (12/13/2018 12:29 PM CDT) Specimen Narrative Performed At FINAL REPORT [facility] CLINICAL HISTORY: HYPOTENSION TECHNIQUE: 1 view of [...] MD Report Verified Date/Time:12/13/2018 12:38:58 Reading Location: [address] Consult Reading Room Procedure Note Interface, [...] Report Verified Date/Time: 12/13/2018 12:38:58 Reading Location: [facility] B1 C013W Consult Reading Room Performing Organization Address City/State/Zipcode Phone Number [facility] * Rapid Troponin I (12/13/2018 11:47 AM CDT) Rapid Troponin I <0.05 <0.05 ng/mL [facility], [facility] [place], [facility] Specimen Blood Performing Organization Address [facility] Phone Number ROYCE MA [address] [place], [place] [phone] [facility], [facility] [place], [facility] * D-dimer, quantitative (12/13/2018 11:47 AM CDT) D-Dimer, Quant 0.50 (H) <0.50 MG/L FEU [facility], [facility] [place], [facility] Specimen Blood Narrative Performed At REGARDING D-DIMER RESULTS: Results of this D-Dimer test should always be [facility] interpreted in conjunction with the patient's medical history, clinical [facility] presentation and other findings. DVT clinical diagnosis should not be based on [place], [facility] the results of [place] D-Dimer alone. EMERGENCY C[facility], [facility] Performing Organization Address [facility] Phone [facility] [address] [place] [address] [facility], [facility], [facility] * ECG 12 lead (12/13/2018 11:43 AM CDT) Only the most recent of 3 results within the time period is included. Specimen Narrative Performed At Ventricular Rate 93 BPM GE MUSE Atrial Rate 93 BPM P-R Interval 128 ms QRS Duration 76 ms Q-T Interval 366 ms QTC Calculation(Bazett) 455 ms P [place] 73 degrees R [place] 72 degrees T [place] 67 degrees Sinus rhythm with occasional Premature [...] 366 ms QTC Calculation(Bazett) 455 ms P [place] 73 degrees R [place] 72 degrees T [place] 67 degrees Sinus rhythm with occasional Premature ventricular complexes and Possible Premature atrial complexes with Aberrant conduction Possible Left atrial enlargement Borderline ECG When compared with ECG of 14-NOV-2018 08:56, Premature ventricular complexes are now Present Aberrant conduction is now Present Vent. rate has increased BY 31 BPM Nonspecific T wave abnormality now evident in Lateral leads Confirmed by MD BRITNI, RACHEL Peña ([id number]) on 12/14/2018 6:45:11 AM Performing Organization Address [...] here. * POC-Glucose meter (11/16/2018 11:47 AM CHANNEL PROGRAM MANAGER) Only the most recent of 23 results within the time period is included. POC-Glucose Meter 118 (H)Comment: TESTED AT 70 - 110 mg/dL [address] [address] Specimen Blood Performing Organization Address City/[facility] Phone Number [address] [address] [facility] * Phosphorus (11/15/2018 4:00 AM CHANNEL PROGRAM MANAGER) Only the most recent of 2 results within the time period is included. Phosphorus 3.1 2.3 - 4.7 mg/dL [facility] Specimen Blood Performing Organization Address City/[facility] Phone Number [address] [phone] [facility] * Magnesium (11/15/2018 4:00 AM CHANNEL PROGRAM MANAGER) Only the most recent of 6 results within the time period is included. Magnesium 1.7 1.6 - 2.6 mg/dL [facility] Specimen Blood Performing Organization Address [facility] Phone Number [address] [address] [facility] * IR kyphoplasty thoracic (11/14/2018 5:21 PM CHANNEL PROGRAM MANAGER) Specimen Narrative Performed At FINAL REPORT [facility] HISTORY: T6 wedge vertebral compression fracture [...] MD Report Verified Date/Time:11/21/2018 09:42:00 Reading Location: [address] Consult Reading Room Procedure Note Interface, External Ris In - 11/21/2018 9:44 AM CHANNEL PROGRAM MANAGER FINAL REPORT HISTORY: T6 wedge vertebral compression [...] Report Verified Date/Time: 11/21/2018 09:42:00 Reading Location: [facility] C013W Consult Reading Room Performing Organization Address City/[facility] Phone Number [facility] * PT/aPTT (11/14/2018 5:14 AM CHANNEL PROGRAM MANAGER) Protime 15.1 (H) 11.7 - 14.7 seconds [facility] INR 1.2 <=5.9 [facility] PTT 34.9 22.5 - 36.0 seconds [facility] Specimen Blood Narrative Performed At RECOMMENDED COUMADIN/WARFARIN INR THERAPY RANGES [facility] STANDARD DOSE: 2.0 - 3.0 Includes: PROPHYLAXIS for venous thrombosis, [facility] systemic embolization; TREATMENT for venous thrombosis and/or pulmonary embolus. HIGH RISK: Target INR is 2.5-3.5 for patients with mechanical heart valves. Performing Organization Address [facility] Phone Number [address] * Potassium (11/14/2018 5:12 AM CHANNEL PROGRAM MANAGER) Potassium 4.4 3.5 - 5.1 meq/L [facility] Specimen Blood Performing Organization Address City/[facility] Cent[facility] Phone Number [address] * MR spine lumbar without IV contrast (11/12/2018 5:10 PM CHANNEL PROGRAM MANAGER) Specimen Narrative Performed At FINAL REPORT [facility] MRI thoracic spine without contrast. MRI lumbar [...] MD Report Verified Date/Time:11/12/2018 19:40:39 Reading Location: [place] [id number] Body Reading Room Procedure Note Interface, External Ris In - 11/13/2018 9:55 AM CHANNEL PROGRAM MANAGER FINAL REPORT MRI thoracic spine without contrast. [...] Report Verified Date/Time: 11/12/2018 19:40:39 Reading Location: [facility] C013Y CT Body Reading Room Performing Organization Address City/[facility] Phone Number [facility] * Blood culture (11/10/2018 1:10 PM CHANNEL PROGRAM MANAGER) Only the most recent of 2 results within the time period is included. Result No growth in 5 days [facility] Specimen Blood Performing Organization Address [facility] Phone Number [place] [phone] [place] [address] * Lipase (11/09/2018 5:15 PM CHANNEL PROGRAM MANAGER) Lipase 7 (L) 8 - 78 U/L [facility] Specimen Blood Performing Organization Address [facility] Centercode Phone Number [address] [address] [phone] [place] [address] * Amylase (11/09/2018 5:15 PM CHANNEL PROGRAM MANAGER) Amylase 26Comment: Specimen slightly 25 - 125 U/L [facility] hemolyzed [facility] Specimen Blood Performing Organization Address [facility] Phone Number [address] [address] [facility] * Comprehensive metabolic panel (11/09/2018 5:15 PM CHANNEL PROGRAM MANAGER) Protein, Total 6.3 6.0 - 8.3 gm/dL [facility] Albumin 3.9 3.5 - 5.0 g/dL [facility] Alkaline Phosphatase 47 40 - 150 U/L [facility] Total Bilirubin 0.9 0.2 - 1.2 mg/dL [facility] Sodium 132 (L) 136 - 145 meq/L [facility] Potassium 3.5 3.5 - 5.1 meq/L [facility] Chloride 93 (L) 98 - 107 meq/L [facility] CO2 27 22 - 29 meq/L [facility] BUN 17 7 - 21 mg/dL [facility] Creatinine 0.66 0.57 - 1.25 mg/dL [facility] Glucose 85 70 - 105 mg/dL [facility] Calcium 9.2 8.4 - 10.2 mg/dL [facility] AST 15 5 - 34 U/L [facility] ALT 8 6 - 55 U/L [facility] EGFR 86Comment: ESTIMATED GFR IS mL/min/1.73 sq m [facility] NOT ACCURATE CREATININE [facility] CLEARANCE IN PREDICTING GLOMERULAR FILTRATION RATE. ESTIMATED GFR IS NOT APPLICABLE FOR DIALYSIS PATIENTS. Specimen Blood Performing Organization Address City/State/Zipcode Phone Number [facility] [address] [place] [address] [address] * CT spine lumbar without IV contrast (11/09/2018 4:04 PM CHANNEL PROGRAM MANAGER) Specimen Narrative Performed At FINAL REPORT [facility] CT thoracic and lumbar spine without [...] posterior inferior paraspinal musculature. IMPRESSION: 1. Multilevel tklo-nz-ojrtokkq compression fractures in the thoracolumbar spine, without spinal canal compromise. 2. Chronic appearing degenerative changes. No free. Pulmonary emphysema. 3. Atherosclerotic vascular disease. Signed: Judd Man MD Report Verified Date/Time:11/09/2018 16:19:08 Reading Location: [facility] Radiology Reading Room Procedure Note Interface, External Ris In - 11/09/2018 4:21 PM CHANNEL PROGRAM MANAGER FINAL REPORT CT thoracic and lumbar spine [...] posterior inferior paraspinal musculature. IMPRESSION: 1. Multilevel xsag-zw-yvljnupq compression fractures in the thoracolumbar spine, without spinal canal compromise. 2. Chronic appearing degenerative changes. No free. Pulmonary emphysema. 3. Atherosclerotic vascular disease. Signed: Judd Man MD Report Verified Date/Time: 11/09/2018 16:19:08 Reading Location: [facility] Radiology Reading Room Performing Organization Address City/State/Zipcode Phone Number [facility] * CT spine thoracic without IV contrast (11/09/2018 4:04 PM CHANNEL PROGRAM MANAGER) Specimen Narrative Performed At FINAL REPORT [facility] CT thoracic and lumbar spine without contrast [...] posterior inferior paraspinal musculature. IMPRESSION: 1. Multilevel pvkl-jw-jgrvjcfq compression fractures in the thoracolumbar spine, without spinal canal compromise. 2. Chronic appearing degenerative changes. No free. Pulmonary emphysema. 3. Atherosclerotic vascular disease. Signed: Judd Man MD Report Verified Date/Time:11/09/2018 16:19:08 Reading Location: [facility] Radiology Reading Room Procedure Note Interface, External Ris In - 11/09/2018 4:21 PM CHANNEL PROGRAM MANAGER FINAL REPORT CT thoracic and lumbar spine [...] posterior inferior paraspinal musculature. IMPRESSION: 1. Multilevel gyyp-sy-smzdtgmp compression fractures in the thoracolumbar spine, without spinal canal compromise. 2. Chronic appearing degenerative changes. No free. Pulmonary emphysema. 3. Atherosclerotic vascular disease. Signed: Judd Man MD Report Verified Date/Time: 11/09/2018 16:19:08 Reading Location: [facility] Radiology Reading Room Performing Organization Address City/State/Zipcode Phone Number [facility] * CT abdomen/pelvis without iv contrast (11/09/2018 4:04 PM CHANNEL PROGRAM MANAGER) Specimen Narrative Performed At FINAL REPORT [facility] [...] MD Report Verified Date/Time:11/09/2018 16:24:49 Reading Location: [facility] C013Y CT Body Reading Room Procedure Note Interface, External Ris In - 11/09/2018 4:26 PM CHANNEL PROGRAM MANAGER FINAL REPORT ABDOMINAL AND PELVIS CT DATED [...] Report Verified Date/Time: 11/09/2018 16:24:49 Reading Location: [facility] B1 C013Y CT Body Reading Room Performing Organization Address City/State/Zipcode Phone Number [facility] * Blood Culture Panel(BioFire) (11/09/2018 3:23 PM CHANNEL PROGRAM MANAGER) [place] MONOCYTOGENES Not detected Not detected [facility] STAPHYLOCOCCUS Detected (A) Not detected [facility] Comment: [facility] First line therapy: Cefazolin, Nafcillin (Nafcillin preferred for Central Nervous Systeminfection) Coagulase Negative Staphylococcus (CoNS) DETECTED mecA NOT DETECTED Reference Range: Not Detected STAPHYLOCOCCUS AUREUS Not detected Not detected [facility] Streptococcus Not detected Not detected [facility] STREPTOCOCCUS AGALACTIAE Not detected Not detected [facility] (GROUP B) [facility] STREPTOCOCCUS PNEUMONIAE Not detected Not detected [facility] Streptococcus pyogenes Not detected Not detected [facility] (Group A) [facility] ACINETOBACTER BAUMANNII Not detected Not detected [facility] HAEMOPHILUS INFLUENZAE Not detected Not detected [facility] NEISSERIA MENINGITIDIS Not detected Not detected [facility] ENTEROBACTERIACEAE Not detected Not detected [facility] ENTEROBACTER CLOACOE Not detected Not detected [facility] KLEBSIELLA OXYTOCA Not detected Not detected [facility] KLEBSIELLA PNEUMONIAE Not detected Not detected [facility] PROTEUS Not detected Not detected [facility] SERRATIA MARCESCENS Not detected Not detected [facility] EVELYN ALBICANS Not detected Not detected [facility] EVELYN GLABRATA Not detected Not detected [facility] EVELYN KRUSEI Not detected Not detected [facility] EVELYN PARAPSILOSIS Not detected Not detected [facility]N TROPICALIS Not detected Not detected [facility] ESCHERICHIA COLI Not detected Not detected [facility] METHICILLIN-RESISTANCE Not detected Not detected [facility] VANCOMYCIN-RESISTANCE Not detected [facility] CARBAPENEM-RESISTANCE Not detected [facility] ENTEROCOCCUS Not detected Not detected [facility] PSEUDOMONAS AERUGINOSA Not detected Not detected [facility] Specimen Blood Narrative Performed At Other bacteria and resistance markers not targeted by this PCR panel cannot be [facility] excluded; therefore clinical correlation and follow up of serology, culture [facility] results, and other molecular studies is required. The results are not intended to be used as the sole means for clinical diagnosis or patient management decisions. This sample was tested at the [facility] using the Cool Lumens Blood Culture ID Panel. It is FDA cleared and has been verified and approved by the [facility] for clinical use. This laboratory is CLIA-certified and [employer] (CAP)-accredited to perform high complexity testing. Performing Organization Address City/State/Zipcode Phone Number [facility] [address] [place] [address] [facility] * TSH (11/09/2018 3:20 PM CHANNEL PROGRAM MANAGER) [facility] 1.16 0.35 - 4.94 uIU/mL [facility] Specimen Blood Performing Organization Address City/State/Zipcode Phone Number [facility] [address] [place] [address] [facility] after 06/07/2018 Insurance Payer Benefit Subscriber ID Type Phone Address Plan / Group [employer] xxxxxxxxxxx MEDICARE ADV Advance Directives For more information, please contact: [address] [address] Date Inactivated Comments Code Status Date Activated 12/17/2018 8:32 PM Full Code 12/13/2018 11:28 PM This code status was determined by: Patient 12/13/2018 11:27 AM Partial Code 11/09/2018 3:26 PM This code status was determined by: Patient and her [id number] Drug Protocol After Arrest Occurs? Yes Mechanical [...]
[2019-06-08] MEDS ORDERED: SODIUM CHLORIDE 0.9% 1000ML 1,000 ML IV STA (12:45)
[2019-06-08] MEDS ORDERED: MORPHINE SULFATE 2 MG/ML SYR 1ML IV ONE (12:45)
[2019-06-08] MEDS ORDERED: ONDANSETRON HCL INJ 2MG/ML 2ML 2 MG/ML VIAL IV ONE (13:00)
[2019-06-08 13:42] LABS: BASOPHILS % 0.6 % (0.0-1.0); EOSINOPHILS # (AUTO) 0.2 (0.0-0.4); HEMATOCRIT 32.5 % (34.2-44.1); HEMOGLOBIN 10.4 g/dL (12.0-16.0); LYMPHOCYTES # (AUTO) 1.4 (1.0-3.2); LYMPHOCYTES % 28.6 % (18.0-39.1); MEAN CORPUSCULAR HEMOGLOBIN 29.9 pg (28-32); MEAN CORPUSCULAR VOLUME 93.4 fL (81-99); MONOCYTES # (AUTO) 0.5 (0.2-0.8); MONOCYTES % 9.7 % (4.4-11.3); NEUTROPHILS # (AUTO) 2.9 (2.1-6.9); NEUTROPHILS % 57.9 % (38.7-80.0); PLATELET COUNT 198 x10e3/uL (140-360); RED BLOOD COUNT 3.48 x10e6/uL (3.6-5.1)
[2019-06-08 13:54] LABS: CLARITY,URINE SL CLOUDY (CLEAR); COLOR,URINE YELLOW (YELLOW); LEUKOCYTE ESTERASE ,URINE NEGATIVE (NEGATIVE); NITRITE,URINE NEGATIVE (NEGATIVE); PROTEIN,URINE DIPSTICK TRACE (NEGATIVE)
[2019-06-08 13:55] LABS: BACTERIA,URINE RARE /HPF; BILIRUBIN,URINE NEGATIVE (NEGATIVE); EPITHELIAL CELLS,URINE RARE /LPF; HYALINE CASTS 0-1 (0-1); KETONES,URINE NEGATIVE (NEGATIVE); URINE UROBILINOGEN 0.2 mg/dL (0.2 - 1)
[2019-06-08 14:11] LABS: ALANINE AMINOTRANSFERASE < 6 IU/L (0-55); ALBUMIN 4.1 g/dL (3.5-5.0); ALBUMIN/GLOBULIN RATIO 1.7 (0.8-2.0); ALKALINE PHOSPHATASE 39 IU/L (40-150); ANION GAP 13.5 mmol/L (8-16); BLOOD UREA NITROGEN 9 mg/dL (7-26); BUN/CREATININE RATIO 13 (6-25); CALCIUM 9.1 mg/dL (8.4-10.2); CARBON DIOXIDE 34 mmol/L (22-29); CHLORIDE 88 mmol/L (98-107); CREATINE KINASE 54 IU/L (29-168); CREATININE, SERUM 0.71 mg/dL (0.57-1.11); EST GLOMERULAR FILTRATION RATE > 60 ML/MIN (60-); GLUCOSE 106 mg/dL (74-118); POTASSIUM 4.5 mmol/L (3.5-5.1); SODIUM 131 mmol/L (136-145)
--- NOTE | 2019-06-08 15:20 | Diagnostic Imaging Report ---
EXAMINATION: CHEST SINGLE (PORTABLE) INDICATION: Back pain COMPARISON: Chest radiograph of 11/01/2017 FINDINGS: LINES/TUBES:None LUNGS:The lungs are hyperinflated. Bilateral emphysematous changes. No focal consolidation or pulmonary edema. PLEURA:No pleural effusion or pneumothorax. MEDIASTINUM:The cardiomediastinal silhouette appears normal in size and shape. Atherosclerotic calcifications of the thoracic aorta. BONES/SOFT TISSUES:No acute osseous injury. Postoperative findings of vertebral augmentation at multiple thoracic levels. ABDOMEN:No free air under the diaphragm. IMPRESSION: Hyperinflated lungs with emphysematous changes. No focal pneumonia or pulmonary edema. Signed by: Benito Barrera MD on 06/08/2019 3:17 PM
== END 2019-06-08 16:15 | disposition home or self-care (01) ==
LOC: ER 12:38
DX: R07.89 Other chest pain (principal); R06.00 Dyspnea, unspecified; R11.0 Nausea; M54.5 Low back pain; E03.9 Hypothyroidism, unspecified; J44.9 Chronic obstructive pulmonary disease, unspecified
CPT/HCPCS: 36415; 71045; 80053; 81001; 82550; 82553; 83880; 84484; 85025; 93005; 99284; J2270; J2405; J7030

== ENCOUNTER 2019-09-16 22:20 | Inpatient (IN) | payer MEDICARE ==
[~2019-09-16] VITALS: Ht 160 cm; Wt 44.9 kg
[2019-09-17] VITALS (7 sets, daily range): BP systolic 106–124; BP diastolic 61–74
--- NOTE | 2019-09-17 01:31 | Diagnostic Imaging Report ---
EXAMINATION: CHEST SINGLE (PORTABLE) INDICATION: Fall COMPARISON: Chest x-ray 06/08/2019 FINDINGS: TUBES and LINES: None. LUNGS: Lungs are well inflated. No consolidations. Increased pulmonary interstitial markings scattered throughout the lungs. Prominent pulmonary vasculature. PLEURA: No pleural effusion or pneumothorax. HEART AND MEDIASTINUM: The cardiomediastinal silhouette is unremarkable. Calcified mediastinal nodes. Aortic calcifications. BONES AND SOFT TISSUES: No acute osseous lesion. Soft tissues are unremarkable. Kyphoplasty material within a mild T7 and L1 vertebral body compression fractures. Low bone mineral density. Degenerative changes in the sinuses shoulders. UPPER ABDOMEN: No free air under the diaphragm. IMPRESSION: Findings of chronic lung fibrotic changes and probably emphysema. Pulmonary vascular congestion. Low bone mineral density, kyphoplasty material within mild T7 and L1 vertebral body compression fractures, unchanged since 06/08/2019. Signed by: Jesse Clements DO on 09/17/2019 1:27 AM
--- NOTE | 2019-09-17 01:40 | Diagnostic Imaging Report ---
Exam: X-ray lumbar spine 5 views, including bilateral oblique views. X-ray pelvis one view. HISTORY: Pain. Fall, right hip and back pain COMPARISON: None available. DISCUSSION: Cortical step-off at the lateral subcapital aspect of the right femoral neck. The central pelvic osseous structures are partially obscured by stool and bowel gas. There are five non-rib bearing lumbar vertebral bodies. The alignment of the spine is within normal limits. Kyphoplasty material within mild/moderate L1 and L4 vertebral body compression fractures. Osteoporosis. Degenerative changes in the lumbar spine, hips, and pelvis. Aortic and arterial calcifications. Moderate colonic stool burden. Gluteal subcutaneous granulomas. IMPRESSION: 1. Acute nondisplaced, slightly impacted right subcapital femoral neck fracture. 2. The right sacral ala is obscured by bowel contents and not well delineated. A right sacral ala insufficiency fracture remains a possibility. A noncontrast pelvic MRI would be necessary to evaluate for sacroiliac fracture, CT cannot exclude a nondisplaced insufficiency fracture in the setting of severe osteoporosis. 3. Moderate colonic stool burden, correlate for constipation. 4. Kyphoplasty material within mild L1 and L4 vertebral body compression fractures. Signed by: Jesse Clements DO on 09/17/2019 1:37 AM
[2019-09-17 03:05] LABS: BASOPHILS % 0.1 % (0.0-1.0); EOSINOPHILS # (AUTO) 0.1 (0.0-0.4); HEMATOCRIT 32.8 % (34.2-44.1); HEMOGLOBIN 10.2 g/dL (12.0-16.0); LYMPHOCYTES # (AUTO) 1.1 (1.0-3.2); LYMPHOCYTES % 13.9 % (18.0-39.1); MEAN CORPUSCULAR HEMOGLOBIN 30.4 pg (28-32); MEAN CORPUSCULAR HGB CONC 31.1 g/dL (31-35); MEAN CORPUSCULAR VOLUME 97.9 fL (81-99); MONOCYTES # (AUTO) 0.9 (0.2-0.8); MONOCYTES % 11.2 % (4.4-11.3); NEUTROPHILS # (AUTO) 5.8 (2.1-6.9); NEUTROPHILS % 73.3 % (38.7-80.0); PLATELET COUNT 230 x10e3/uL (140-360); RED BLOOD COUNT 3.35 x10e6/uL (3.6-5.1); RED CELL DISTRIBUTION WIDTH 13.9 % (11.7-14.4)
[2019-09-17] MEDS ORDERED: HYDROCODONE/APAP 5MG-325MG TAB PO ONE (03:15)
[2019-09-17 03:24] LABS: ALANINE AMINOTRANSFERASE 21 IU/L (0-55); ALBUMIN 3.4 g/dL (3.5-5.0); ALBUMIN/GLOBULIN RATIO 1.2 (0.8-2.0); ALKALINE PHOSPHATASE 46 IU/L (40-150); ANION GAP 13.7 mmol/L (8-16); BLOOD UREA NITROGEN 15 mg/dL (7-26); BUN/CREATININE RATIO 22 (6-25); CALCIUM 9.1 mg/dL (8.4-10.2); CARBON DIOXIDE 35 mmol/L (22-29); CHLORIDE 92 mmol/L (98-107); CREATININE, SERUM 0.67 mg/dL (0.57-1.11); EST GLOMERULAR FILTRATION RATE > 60 ML/MIN (60-); GLUCOSE 114 mg/dL (74-118); POTASSIUM 3.7 mmol/L (3.5-5.1); SODIUM 137 mmol/L (136-145)
[2019-09-17] MEDS ORDERED: DILTIAZEM 24HR120 M1 PO (04:07)
[2019-09-17] MEDS ORDERED: XOPENEX INH (04:07)
[2019-09-17] MEDS ORDERED: CYMBALTA30 MG PO (04:07)
[2019-09-17] MEDS ORDERED: ELIQUIS2.5 MG PO (04:07)
[2019-09-17] MEDS ORDERED: MIRTAZAPINE15 MG PO (04:07)
[2019-09-17] MEDS ORDERED: LEVOTHYROXINE50 MCG PO (04:09)
[2019-09-17] MEDS: MORPHINE SULFATE 2 MG/ML SYR 1ML IV PRN ×2 (06:32→10:40)
[2019-09-17] MEDS: ONDANSETRON HCL INJ 2MG/ML 2ML 2 MG/ML VIAL IV PRN (06:32)
[2019-09-17] MEDS: AMIODARONE HCL 200 MG TAB PO SCH ×2 (08:35→17:02)
[2019-09-17] MEDS: FUROSEMIDE 20 MG TAB PO SCH (08:35)
[2019-09-17] MEDS: ASPIRIN 81 MG CHEW TAB PO SCH (08:35)
[2019-09-17] MEDS: GABAPENTIN 100 MG CAP PO SCH ×3 (08:35→20:55)
[2019-09-17] MEDS: PANTOPRAZOLE SOD 40 MG TABEC PO SCH (08:35)
[2019-09-17] MEDS: LEVOTHYROXINE SODIUM 50 MCG TAB PO SCH (08:37)
[2019-09-17 09:45] LABS: INR 0.86; PROTHROMBIN TIME 12.2 seconds (11.9-14.5)
[2019-09-17 09:46] LABS: PARTIAL THROMBOPLASTIN TIME 35.2 seconds (23.8-35.5)
--- NOTE | 2019-09-17 10:04 | Diagnostic Imaging Report ---
EXAMINATION: HIP RIGHT 2-3 VW (+/- PELVIS) INDICATION: Fall COMPARISON: Pelvis radiograph of earlier the same day FINDINGS: Again seen is a nondisplaced right subcapital femoral neck fracture. No other acute fracture identified. Mild diffuse osteopenia. Status post vertebral augmentation at L4. Nonobstructive bowel gas pattern. No free air. IMPRESSION: Nondisplaced acute right subcapital femoral neck fracture. Signed by: Benito Barrera MD on 09/17/2019 10:01 AM
--- NOTE | 2019-09-17 11:00 | NUR ---
Pt was transferred to OR at this time. 0 s/s of acute distress noted. Breaths are even and unlabored.
--- NOTE | 2019-09-17 11:01 | NUR ---
ORTHOPEDICS CONSULTATION 84 yo limited ambulator with walker presents to the ED after a mechanical fall with complaints of right hip pain and an inability to ambulate. Denies numbness, paresthesias or loss of distal motor function. Denies pain in any other extremity PMdHx: Cardiac arrythmia, CAD, HTN, Hypothyroidism, Nausea, Vomiting Allergies: PCN, Codeine SurgHx: Spine Surgery FamHx: Non-contributory SocHx: Neg Tob, Neg EtOH, Neg Drugs Meds: See reconciliation VS T 98.6, HR 75, RR 19, BP 124/62 O2 95% Right Hip - No open lesions or sores, no gross deformity Unable to straight leg raise, Pain with log roll and heal strike Motor: + EHL, FHL, TA, G/S Sensation grossly intact Pulses + DP, Post tib Compartments soft Negative calf tenderness Xrays of Right Hip demonstrates a Valgus Impacted Right Femoral Neck Fracture 84 yo Female with Valgus Impacted Right Femoral Neck Fracture Plan for OR today for percutaneous pinning NPO except meds Hold anticoagulation IVF while NPO Bedrest Montse Hopper, DO [facility].
[2019-09-17] MEDS ORDERED: CLINDAMYCIN PHOS 900MG/ 50ML 50 ML IV ONE (11:30)
--- NOTE | 2019-09-17 11:47 | NUR ---
WOUND CARE CONSULT 84 YO FEMALE RECENT HIP FRACTURE AND NONBLANCHABLE REDNESS TO SACRAL AREA REY 20 CONSERVATIVE PUP ON VISCO MATTRESS LABS : WBC- 7.92,HGB- 10.2, GLUCOSE- 114 SKIN ASSESSMENT COMPLETE PATIENT PRESENTS WITH STAGE 1 ULCERATION ON SACRO GLUTEAL AREA 4CM X4CM RED NON BLANCHABLE RECOMMENDATIONS : NURSING TO CONTINUE TO MAINTAIN CONSERVATIVE PUP AND FREQUENT TURNS WITH ASSISTANCE R/T HIP FRACTURE NURSING TO APPLY DAILY VENELEX OINTMENT TO SACRO GLUTEAL STAGE 1 ULCERATION AND COVER WITH ALLEVYN FOAM Addendum: 09/17/19 at 1154 by Cy Ibarra RN Amended: Links added.
[2019-09-17] MEDS ORDERED: ALBUMIN 25% 12.5GM 50ML 50 ML IV ONE (12:12)
[2019-09-17] MEDS ORDERED: BUPIVACAINE 0.25% 30ML SDV INJ ONE (12:26)
--- NOTE | 2019-09-17 13:40 | NUR ---
Pt returned from OR at this time. Pt is still very groggy,but is easily arousable. Pt is able to answer questions. Breaths are even and unlabored on O2 3L/min. Dressing to right hip is dry and intact.
[2019-09-17] MEDS ORDERED: ALBUTEROL SULF 0.083% NEB SOLN 3 ML NEB NEB PRN (15:15)
[2019-09-17] MEDS: BALSAM PERU/CASTOR OIL 60 GM OINT...G. TP SCH (15:54)
[2019-09-17] MEDS: CLINDAMYCIN PHOS 900MG/ 50ML 50 ML IV SCH ×2 (15:55→22:00)
--- NOTE | 2019-09-17 16:32 | NUR ---
Nutrition Intervention Note RD Recommendation(s) for Physician: -Ensure Enlive BID -Continue regular diet Plan of Care: RD following, monitoring for tolerance and adequacy Nutrition reason for involvement: MST RD Assessment (09/17/19) Pt is an 84 year old female admitted with femoral neck fracture. Pt was sleeping at time of visit; therefore, spoke to family member. Pts appetite has been down and eating <50% of meals for > 1 month per family member. No recent wt loss reported and pt had weighed 85 lbs for the past year per family member. Per wt history in chart, pt had weighed 115 lbs in November 2017. No N/V noted. Will continue to monitor. Principal Problems/Diagnoses: femoral neck fracture PMH: cardiac arrhythmia, CAD, HTN, hypothyroid, nausea, vomiting GI: soft, non-tender abdomen Skin: no pressure ulcers documented Labs: (09/17/19) Reviewed Meds: clindamycin, morphine, levothyroxine, protonix, lasix, zofran, ergocalciferol, lovenox Ht: 63 inches Wt: 84 lbs BMI: 14.9 kg/m2 IBW: 115 lbs Malnutrition Evaluation (09/17/19) The patient does not meet criteria for a specified degree of malnutrition at this time. Will re-evaluate at follow-up as appropriate. . Energy intake: <75% of estimated energy requirements for >1 month Weight loss: No weight loss reported Unable to perform NFPE since pt was sleeping at time of visit Fat loss: unable to evaluate Muscle loss: unable to evaluate Supporting Evidence: Fluid accumulation: unable to evaluate Functional Status: unable to evaluate Nutrition Prescription (Diet Order): Regular Estimated Nutritional Needs: 5012-4338 calories/day (30-35 kcal/kg CBW) 57-76 g protein/day (1.5-2g pro/kg CBW) Diet Adequacy: Not meeting calorie needs, Not meeting protein needs Tolerance: Tolerance pending (pt was started on a regular diet today) Diet Education Needs Assessment: Diet education not indicated; patient on regular diet. Nutrition Care Level: moderate Nutrition Diagnosis: Underweight related to h/o inadequate energy intake as evidenced by BMI <18.5 kg/m2 and pt eating <50% of meals for > 1 month per family member. Goal: Patient will meet 75-100% of estimated needs by follow up Progress: N/A Interventions: -General healthful diet, Commercial beverage Monitoring/Evaluation: -Total energy intake, Total protein intake, Liquid supplement, Weight change Signed: Yola Anna RD, LD Addendum: 09/17/19 at 1636 by Yola Anna DIET Per wound care note, pt has a stage 1 sacral gluteal pressure ulcer.
--- NOTE | 2019-09-17 16:40 | NUR ---
Spoke with [id number] Emilie at bedside, patient is sleeping from surgery. Discussed that patient was at [place] for 21 days and two weeks, and left Tuesday. She fell on Tuesday. Patient and her family have applied for medicaid, but patient does not want to go live in a jail, does not want to lose her ss or her home. Spoke to Naz about SNF vs care home placement. Another order for SNF received. Choice for [facility] signed by Emilie.
--- NOTE | 2019-09-17 16:51 | NUR ---
Operative Note - Orthopedic Surgery PREOPERATIVE DIAGNOSES: Right Valgus Impacted Femoral Neck Fracture POSTOPERATIVE DIAGNOSES: Right Valgus Impacted Femoral Neck Fracture OPERATION PERFORMED: Closed Reduction, Percutaneous Pinning Left Hip, Flouroscopic Interpretation SURGEON: Montse Hopper DO ANESTHESIA: General. EBL: 10cc COMPLICATIONS: None IMPLANTS: Hollytree Asnis 6.3 Cannulated Screws x 3, 8.0 Cannulated Screw x 1 DESCRIPTION OF OPERATION: The patient was taken to the operating room and placed under general anesthesia. The right lower extremity and left upper extremity had all bony prominences well padded and secured. SCD was placed on the left lower leg. Preoperative Clindamycin antibiotics were given. The patients righr lower extremities were sterilely prepped and draped in the usual fashion. A time-out was performed to identify the correct extremity. The right hip was visualized under flouroscopy and the hip was adducted to improve the position of the fracture and to allow for pinning. Next and incision was made lateral to the greater trochanter. A guide pin was introduced through the inferior portion neck and head under flouroscopic guidance and deemed to be in adequate position. Two other guide pins were inserted under similar fashion along the superoanterior and superoposterior port ion of the neck and head. A fourth guide pin was used to fill the superior port ion of the neck. The intraosseous length of the pin was measured and four Asnis III Partially Threaded Cannulated Screws were introduced into the neck and head. The anterosuperior screw was 6.5x 80 mm TL 20 mm, posterosuperior screw was 6.5 x 85 mm TL 25mm and superior screw 8.0 x 85 mm TL 20mm and the superior screw was a 6.5 x 85 mm TL 20 mm Screw.. The guide pins were removed and final imaging was taken and interpreted to be in adequate position. The incisions were thoroughly irrigated, and the fascia was closed with 0 vicryl, and the subcutaneous tissue was closed with 2-0 vicryl. 3-0 Monocryl were placed to close the skin and the skin was then cleaned. 10 cc of .25% Marcaine was injected at the surgical site. An Aquacel dressing was placed. The patient was transferred back to the PACU.
--- NOTE | 2019-09-17 16:57 | NUR ---
Clinicals and pages 1-5 of PASSR faxed to [place] [phone]
[2019-09-17] MEDS: ENOXAPARIN SOD INJ 40 MG/0.4 ML SYR SC SCH (17:02)
[2019-09-17] MEDS ORDERED: SODIUM CHLORIDE 0.9% 1000ML 1,000 ML IV ONE (17:45)
--- NOTE | 2019-09-17 19:00 | NUR ---
Received nursing report from morning nurse. Pt alert to name, lying in bed HOB 45 degrees, drowsy. No acute distress noted. Bed low and locked call olivier within reach.
[2019-09-17] MEDS ORDERED: MIDAZOLAM HCL 2 MG/2 ML VIAL ONE (19:15)
[2019-09-17] MEDS ORDERED: LIDOCAINE HCL 2% LOCAL INJ 5 ML SDV VIAL INJ ONE (20:11)
[2019-09-17] MEDS ORDERED: EPHEDRINE SULFATE INJ 50 MG/ML VIAL ONE (20:11)
[2019-09-17] MEDS ORDERED: VASOPRESSIN INJ 20 UNIT/ML VIAL ONE (20:11)
[2019-09-17] MEDS ORDERED: FLUMAZENIL 0.5MG/ 5ML VIAL ONE (20:11)
[2019-09-17] MEDS ORDERED: ONDANSETRON HCL INJ 2MG/ML 2ML 2 MG/ML VIAL ONE (20:11)
[2019-09-17] MEDS ORDERED: PHENYLEPHRINE HCL 1% 10 MG/ML VIAL ONE (20:11)
[2019-09-17] MEDS ORDERED: PROPOFOL IV EMULSION 10 MG/ML 20 ML VIAL ONE (20:11)
[2019-09-17] MEDS ORDERED: SEVOFLURANE INHAL SOLN 250 ML PEN BTL ONE (20:11)
[2019-09-17] MEDS ORDERED: NALOXONE HCL INJ 0.4 MG/ML AMP ONE (20:11)
[2019-09-17] MEDS: BUDESONIDE/FORMOTEROL 160/4.5MCG INHALER INH SCH (20:15)
[2019-09-17] MEDS ORDERED: SODIUM CHLORIDE 0.9% 250ML 250 ML ONE (20:47)
[2019-09-17] MEDS: MIRTAZAPINE 15 MG TAB PO SCH (20:55)
[2019-09-17] MEDS: MONTELUKAST SODIUM 10 MG TAB PO SCH (20:55)
--- NOTE | 2019-09-17 20:57 | History and Physical ---
PRIMARY CARE PHYSICIAN: Dr. Simpson at [facility]. CHIEF COMPLAINT: Right hip pain status post fall. HISTORY OF PRESENT ILLNESS: This is an 84-year-old female with past medical history of hypertension, AFib, COPD, hypothyroidism, and osteoarthritis, presented to the ER with complaints of right hip pain status post fall. She denies any chest pain. Imaging showed acute nondisplaced, slightly impacted right subcapital femoral neck fracture. Orthopedics consulted and admitted for further workup. PAST MEDICAL HISTORY: 1. Hypertension. 2. AFib. 3. COPD. 4. Depression. 5. Osteoarthritis. PAST SURGICAL HISTORY: CryoPlasty. FAMILY MEDICAL HISTORY: She does not remember. SOCIAL HISTORY: Denies any tobacco, alcohol, or drug use. ALLERGIES: PENICILLIN AND CODEINE. REVIEW OF SYSTEMS: GENERAL: Fatigue. HEENT: No head trauma. LUNGS: No shortness of breath. CARDIOVASCULAR: No chest pain. No palpitation. GI: No nausea or vomiting. NEUROLOGIC: Alert. MUSCULOSKELETAL: Right lower extremity pain. PHYSICAL EXAMINATION: VITAL SIGNS: Temperature 97.1, pulse is 81, respiration rate is 16, blood pressure is 114/63, and pulse ox is 97% on 2 L of oxygen. GENERAL: No acute distress. HEENT: Normocephalic and atraumatic. NECK: Supple. LUNGS: Clear to auscultation. CARDIOVASCULAR: Regular rate and rhythm. GI: Soft and nontender. NEUROLOGIC: Alert, awake, and oriented x3. MUSCULOSKELETAL: Decreased ROM of the right lower extremity. SKIN: Dry. PSYCH: Calm. LABORATORY DATA: WBC 7.92, hemoglobin 10.2, hematocrit 32.8, and platelet 230. Sodium 137, potassium 3.7, carbon dioxide 35, BUN is 15, creatinine 0.67, and estimated GFR is greater than 60. PT is 12.2, INR is 0.86, and APTT is 35.2. IMAGING: Pelvic x-ray showed acute nondisplaced, slightly impacted right subcapital femoral neck fracture, right sacral ala is obscured by bowel contents and not well delineated. Right sacral ala insufficiency fracture remains a possibility. Moderate colonic stool burden, constipation, and kyphoplasty material within the L1 and L4. Chest x-ray shows chronic lung fibrotic changes and probable emphysema. Right hip x-ray shows nondisplaced acute right subcapital femoral neck. IMPRESSION: 1. Fall with right femoral neck fracture. Imaging noted. Orthopedics consulted to OR for ORIF of the right hip. 2. History of atrial fibrillation. Rate controlled, currently in sinus rhythm. We will continue on amiodarone. Started on Lovenox per Ortho. 3. Hypothyroidism. Continued on Synthroid. 4. Osteoarthritis, aware. Pain management as needed. 5. History of chronic obstructive pulmonary disease with no exacerbation. We will continue with DuoNebs. O2 continue. 6. Deep vein thrombosis prophylaxis. Lovenox per Ortho. PLAN: We will continue with current treatment, spoke to daughter who is requesting for long-term placement if agreeable. We will consult Case Management for placement. Dictated by LUIS ANTONIO Calabrese Christianne Wallace MD MY/MODL /[id number]
[2019-09-18] VITALS (7 sets, daily range): BP systolic 101–134; BP diastolic 53–76
[2019-09-18] MEDS ORDERED: SODIUM CHLORIDE 0.9% 1000ML 1,000 ML ONE (00:37)
[2019-09-18 05:40] LABS: HEMOGLOBIN 8.1 g/dL (12.0-16.0)
[2019-09-18] MEDS: CLINDAMYCIN PHOS 900MG/ 50ML 50 ML IV SCH (06:00)
[2019-09-18] MEDS: LEVOTHYROXINE SODIUM 50 MCG TAB PO SCH (06:00)
--- NOTE | 2019-09-18 06:45 | NUR ---
Report given to morning nurse. Patient lying quietly in bed with eyes closed. No acute distress noted.
[2019-09-18] MEDS: BUDESONIDE/FORMOTEROL 160/4.5MCG INHALER INH SCH ×2 (08:27→20:30)
[2019-09-18] MEDS: MORPHINE SULFATE 2 MG/ML SYR 1ML IV PRN (08:27)
[2019-09-18] MEDS: DULOXETINE HCL 30 MG DELAYED RELEASE PO SCH (08:28)
[2019-09-18] MEDS: ASPIRIN 81 MG CHEW TAB PO SCH (08:28)
[2019-09-18] MEDS: AMIODARONE HCL 200 MG TAB PO SCH ×2 (08:28→17:59)
[2019-09-18] MEDS: GABAPENTIN 100 MG CAP PO SCH ×3 (08:28→20:23)
[2019-09-18] MEDS: OYST-CAL-D 500MG TABLET PO SCH (08:28)
[2019-09-18] MEDS: PANTOPRAZOLE SOD 40 MG TABEC PO SCH (08:28)
[2019-09-18] MEDS: ERGOCALCIFEROL 50,000 UNIT CAP PO SCH (08:29)
[2019-09-18] MEDS: FUROSEMIDE 20 MG TAB PO SCH (08:29)
[2019-09-18] MEDS: ONDANSETRON HCL INJ 2MG/ML 2ML 2 MG/ML VIAL IV PRN ×2 (08:31→17:45)
[2019-09-18] MEDS ORDERED: VITAMIN D3 PO SCH (09:00)
[2019-09-18] MEDS ORDERED: CALCIUM CARBONATE PO SCH (09:00)
--- NOTE | 2019-09-18 10:25 | NUR ---
SPOKE WITH DIMPLE AT [facility]. SHE STATES PT HAS A PRIOR BALANCE OF 1800.00 CALLING FAMILY TO LET KNOW. DAUGHTER IN LAW [facility] NUMBER NOT DOCUMENTED IN CHART
--- NOTE | 2019-09-18 10:33 | NUR ---
WENT INTO ROOM NUMBER ON BOARD FOR [facility] CALLED AND GAVE HER THE INFORMATION FOR THE BALANCE DUE AND THE COPAY. ADVISED HER TO CALLED [facility] AND SPEAK WITH THEM THEY ARE A SEPARATE COMPANY. SHE STATES SHE WILL CALL AND THEN LET ME KNOW THE DIRECTION OF CARE FROM THERE.
--- NOTE | 2019-09-18 10:38 | NUR ---
DAMIAN'S NUMBER IS [phone]
[2019-09-18 11:38] LABS: % IRON SATURATION 7 % (15-50); IRON 15 ug/dL (50-170); TOTAL IRON BINDING CAPACITY 211 ug/dL (261-478); TRANSFERRIN 151 mg/dL (180-382)
--- NOTE | 2019-09-18 12:27 | Progress Note ---
DATE: 09/18/2019 DIESEL POWER MECHANIC: Dr. Hopper with Orthopedics. CHIEF COMPLAINT: Right hip pain. SUBJECTIVE: The patient is seen in the room, complaining of right hip pain. She reports having the pain throughout the night, status post ORIF of the right hip. Dressing looks intact. We will continue to treat pain as needed. PHYSICAL EXAMINATION: VITAL SIGNS: Temperature 97.5, pulse is 75, respirations 16, blood pressure 134/62, and pulse ox is 98% on 2 L of oxygen. GENERAL: No acute distress. Fatigued. HEENT: Normocephalic and atraumatic. NECK: Supple. LUNGS: With decreased breath sounds. CARDIOVASCULAR: Regular rate and rhythm. GI: Soft and nontender. NEUROLOGIC: Alert, awake, and oriented x3. MUSCULOSKELETAL: Decreased range of motion on the right lower extremity. SKIN: Dry. PSYCH: Calm. LABORATORY DATA: Hemoglobin 8.1 and hematocrit 26.0. IMPRESSION: 1. Right hip femoral neck fracture, status post open reduction and internal fixation of right hip per Orthopedics. Continue to control pain and PT evaluation per Ortho. 2. History of atrial fibrillation. Rate is controlled, currently normal sinus rhythm. We will continue on amiodarone and hold Eliquis due to recent surgery. 3. Hypothyroidism. Continue Synthroid. 4. Osteoarthritis. Pain management as needed. 5. History of chronic obstructive pulmonary disease with no exacerbation. We will continue DuoNeb as needed and O2 continuous. 6. Anemia, likely chronic diseases. Hemoglobin is 8.1. We will continue to monitor closely and transfuse if hemoglobin is less than 7. 7. Deep venous thrombosis prophylaxis. Currently on Lovenox per Ortho. PLAN: We will continue pain management and physical therapy to evaluate. Case management has been consulted for assisted facility placement. Dictated by LUIS ANTONIO Calabrese Christianne Wallace MD MY/MODL /[id number]
[2019-09-18 12:30] LABS: HEMATOCRIT 31.8 % (34.2-44.1); HEMOGLOBIN 9.7 g/dL (12.0-16.0)
[2019-09-18] MEDS: BALSAM PERU/CASTOR OIL 60 GM OINT...G. TP SCH (13:44)
--- NOTE | 2019-09-18 14:00 | NUR ---
Call received from Madison at [facility], . Patient was on service with them starting last Tuesday. Madison would like to be notified of DC. Informed her likely DC to SNF.
[2019-09-18] MEDS ORDERED: ACETAMINOPHEN/CODEINE 300MG - 30MG TAB PO PRN (15:15)
[2019-09-18] MEDS ORDERED: MORPHINE SULFATE 2 MG/ML SYR 1ML IV PRN (15:15)
--- NOTE | 2019-09-18 15:44 | NUR ---
observation rounding: patient is awaiting authorization for residential
[2019-09-18] MEDS: ENOXAPARIN SOD INJ 40 MG/0.4 ML SYR SC SCH (17:59)
--- NOTE | 2019-09-18 18:48 | NUR ---
ORTHOPEDICS PROGRESS NOTE Patient seen & examined resting comfortably at bedside. No acute events overnight. Patient states she has not worked with physical therapy. VS T 96.3 HR 76 RR 16 BP 128/59 O2 95% Right Hip - Dressing clean, dry and intact Motor: + EHL, FHL, TA, G/S Sensation grossly intact Pulses + DP, Post tib Compartments soft Negative calf tenderness H/H 9.7/31.8 84 yo F s/p Right Hip Femoral Neck Fracture POD #1 Analgesics DVT Prophylaxis PT WBT Follow up am labs DO MA[facility]
--- NOTE | 2019-09-18 19:05 | NUR ---
Nursing report received from morning nurse. Nurse reported Pt previously vomiting phlegm x2. Pt alert to name, lying in bed HOB 45 degrees. No acute distress noted. Bed low and locked call olivier within reach.
--- NOTE | 2019-09-18 19:37 | NUR ---
Notified Dr. Hermila Wallace, PROBE OPERATOR about episode of emesis x2 received orders to give Zofran 4 mg IV per MAR made aware I had already given Zofran 4 mg IV I also made PROBE OPERATOR aware patient c/o of chest pain, further that patient' s goes in at our of A-fib. Received orders to continue to monitor.
[2019-09-18] MEDS: MIRTAZAPINE 15 MG TAB PO SCH (20:23)
[2019-09-18] MEDS: MONTELUKAST SODIUM 10 MG TAB PO SCH (20:23)
[2019-09-18] MEDS: IRON SUCROSE 100 MG in SODIUM CHLORIDE 0.9% 100 ML 100 ML IV SCH (22:00)
--- NOTE | 2019-09-18 22:28 | NUR ---
Informed by telephone plant power operator Pt with 10 secs of V-tach. Spoke with Dr. Wallace ordered stat BMP and Mg labs, call back with abnormal potassium and Mg levels. Pt sitting up in bed, reflux clear phlegm, denies pain at this time.
[2019-09-18 23:16] LABS: ANION GAP 13.8 mmol/L (8-16); BLOOD UREA NITROGEN 12 mg/dL (7-26); BUN/CREATININE RATIO 20 (6-25); CARBON DIOXIDE 37 mmol/L (22-29); CHLORIDE 91 mmol/L (98-107); EST GLOMERULAR FILTRATION RATE > 60 ML/MIN (60-); GLUCOSE 110 mg/dL (74-118); POTASSIUM 3.8 mmol/L (3.5-5.1); SODIUM 138 mmol/L (136-145)
[2019-09-19] VITALS (8 sets, daily range): BP systolic 107–151; BP diastolic 52–75
[2019-09-19] MEDS ORDERED: POTASSIUM CHLORIDE 20 MEQ TAB CR PO STA (01:25)
[2019-09-19] MEDS ORDERED: MAGNESIUM SULFATE 2GM/50ML 50 ML IV ONE (01:30)
[2019-09-19] MEDS: ONDANSETRON HCL INJ 2MG/ML 2ML 2 MG/ML VIAL IV PRN ×2 (03:15→21:30)
[2019-09-19 05:32] LABS: HEMATOCRIT 33.7 % (34.2-44.1); HEMOGLOBIN 10.3 g/dL (12.0-16.0)
[2019-09-19] MEDS: LEVOTHYROXINE SODIUM 50 MCG TAB PO SCH (06:00)
--- NOTE | 2019-09-19 06:50 | NUR ---
Report given to morning nurse. Pt lying quietly in bed. No acute distress noted, SR HR 95.
--- NOTE | 2019-09-19 07:00 | NUR ---
BEDSIDE SHIFT REPORT RECEIVED FROM COFFEE SUPERVISOR RN. PT DENIES NEEDS AT THIS TIME.
[2019-09-19] MEDS: BUDESONIDE/FORMOTEROL 160/4.5MCG INHALER INH SCH ×2 (07:32→19:30)
--- NOTE | 2019-09-19 08:00 | NUR ---
discussed case with dr. johnston. Patient INPT LOC
--- NOTE | 2019-09-19 08:19 | NUR ---
SPOKE WITH DIMPLE AT [facility], SHE STATES SUBMITTED CLINICALS YESTERDAY, LET HER KNOW THAT DARRIUS HAD SPOKEN WITH [facility] AND SHE STATED AT 5PM SHE DID NOT GET THE CLINICALS. SHE STATES SHE WILL SUBMIT AGAIN, ALSO SHE STATES PT HAS MET OUT OF POCKET FOR THE YEAR AND THERE WILL BE NO COPAY. LET DIMPLE KNOW PT IS READY FOR DISCHARGE, SOON SHE GETS AUTH TO PLEASE LET ME KNOW.
[2019-09-19] MEDS: ASPIRIN 81 MG CHEW TAB PO SCH (09:29)
[2019-09-19] MEDS: BALSAM PERU/CASTOR OIL 60 GM OINT...G. TP SCH (09:30)
[2019-09-19] MEDS: AMIODARONE HCL 200 MG TAB PO SCH ×2 (09:30→17:28)
[2019-09-19] MEDS: FUROSEMIDE 20 MG TAB PO SCH (09:30)
[2019-09-19] MEDS: OYST-CAL-D 500MG TABLET PO SCH (09:30)
[2019-09-19] MEDS: DULOXETINE HCL 30 MG DELAYED RELEASE PO SCH (09:30)
[2019-09-19] MEDS: PANTOPRAZOLE SOD 40 MG TABEC PO SCH (09:30)
[2019-09-19] MEDS: GABAPENTIN 100 MG CAP PO SCH ×3 (09:30→21:10)
[2019-09-19] MEDS ORDERED: METOCLOPRAMIDE HCL 10 MG TAB PO PRN (10:00)
--- NOTE | 2019-09-19 10:03 | NUR ---
PER , PT IS NAUSEOUS AND A FIB, SPOKE WITH FACILITY TO UPDATE, LET KNOW MAY BE TOMORROW OR NEXT DAY BUT NOT TODAY, NEED TO SEND UPDATES WHEN AVAILABLE
[2019-09-19 10:20] LABS: ALANINE AMINOTRANSFERASE 17 IU/L (0-55); ALKALINE PHOSPHATASE 44 IU/L (40-150); ANION GAP 16.6 mmol/L (8-16); BLOOD UREA NITROGEN 13 mg/dL (7-26); BUN/CREATININE RATIO 22 (6-25); CALCIUM 9.5 mg/dL (8.4-10.2); CARBON DIOXIDE 34 mmol/L (22-29); CHLORIDE 89 mmol/L (98-107); EST GLOMERULAR FILTRATION RATE > 60 ML/MIN (60-); GLUCOSE 92 mg/dL (74-118); POTASSIUM 3.6 mmol/L (3.5-5.1); SODIUM 136 mmol/L (136-145)
--- NOTE | 2019-09-19 11:25 | Progress Note ---
DATE: 09/19/2019 CONSULTANTS: Dr. Hopper with Orthopedics and Dr. Medeiros with Cardiology. CHIEF COMPLAINT: Right hip pain, status post fall. SUBJECTIVE: The patient is sitting up in bed. Reports had nausea and vomiting overnight. She was noted to have SVTs and runs of ventricular tachycardia overnight. Currently, atrial fibrillation with controlled rate. We will consult Cardiology for evaluation. This may also be due to vagal response. PHYSICAL EXAMINATION: VITAL SIGNS: Temperature 97.4, pulse is 94, respirations 18, blood pressure 142/75, and pulse ox is 98% on 3 L of oxygen. GENERAL: No acute distress. Fatigued. HEENT: Normocephalic and atraumatic. NECK: Supple and midline. LUNGS: Decreased breath sounds. CARDIOVASCULAR: Irregular rate and rhythm. GI: Soft and nontender. NEUROLOGIC: Alert, awake, and oriented x3. MUSCULOSKELETAL: Decreased ROM of the right lower extremity. Right hip pain with movement. SKIN: Dry. PSYCH: Calm. LABORATORY DATA: Hemoglobin 10.3 and hematocrit 33.7. IMPRESSION: 1. Right hip femoral neck fracture, status post open reduction and internal fixation of right hip per Orthopedics. Continue pain control and physical therapy. 2. History of atrial fibrillation. Rate controlled, had runs of ventricular tachycardia overnight. Continue amiodarone and consult Cardiology for evaluation. We will hold Eliquis due to recent orthopedic surgery. 3. Hypothyroidism. Continue Synthroid. 4. Osteoarthritis. Pain management as needed. 5. History of chronic obstructive pulmonary disease with no exacerbation. Continue O2 and nebs. 6. Anemia, likely chronic. Hemoglobin is 10.3 today. We will continue to monitor closely. 7. Debility. Physical therapy on the case. SNF evaluation in place. 8. Deep vein thrombosis prophylaxis. Currently, on Lovenox per Ortho. 9. Nausea and vomiting. We will check an abdominal ultrasound and we will restart home Reglan. PLAN: We will continue current medications. We will await on Cardiology evaluation and pending halfway facility placement. Dictated by LUIS ANTONIO Calabrese Polyching Crow Wallace MD MY/MODL /[id number] Seen and examined, discussed with Dr. Medeiros. Agree with the findings and plan as documented by LUIS ANTONIO Lizarraga. GABI
[2019-09-19] MEDS: TRAMADOL HCL 50 MG TAB PO PRN (11:38)
--- NOTE | 2019-09-19 12:31 | Diagnostic Imaging Report ---
EXAM: US ABDOMEN COMPLETE INDICATION: Nausea, vomiting. COMPARISON: None TECHNIQUE: Transverse and longitudinal myrick scale and color doppler sonographic images of the abdomen were obtained. FINDINGS: Limited examination secondary to overlying bowel gas. LIVER 14.1 cm in the right midclavicular line. Normal echogenicity of the liver with normal contour, no masses. SPLEEN 6.6 cm in maximum diameter. Normal echogenicity, no masses. GALLBLADDER Status post cholecystectomy. BILE DUCTS No intra nor extra-hepatic biliary dilation. Common bile duct measures 1.0 cm, mildly dilated. PANCREAS: Visualized portions are normal. RIGHT KIDNEY: 9.1 cm Echogenicity: Normal Collecting System: No hydronephrosis Stones: None Cyst/Mass: Right lower pole anechoic renal cyst, measuring up to 1.2 cm. LEFT KIDNEY: 8.0 cm Echogenicity: Normal Collecting System: No hydronephrosis Stones: None Cyst/Mass: None VESSELS: Aorta: Visualized portions are within normal size limits Inferior Vena Cava: Visualized portions are normal Main Portal Vein: 0.7 cm, normal size with hepatopetal flow. FREE FLUID: None IMPRESSION: Somewhat limited examination secondary to overlying bowel gas. Mildly dilated common bile duct, measuring up to 1.0 cm, likely representing postcholecystectomy reservoir effect. Simple appearing right lower pole renal cyst. Signed by: Dr. Elie Forrest MD on 09/19/2019 12:28 PM
[2019-09-19] MEDS: ENOXAPARIN SOD INJ 40 MG/0.4 ML SYR SC SCH (17:28)
[2019-09-19] MEDS: MONTELUKAST SODIUM 10 MG TAB PO SCH (21:10)
[2019-09-19] MEDS: MIRTAZAPINE 15 MG TAB PO SCH (21:10)
[2019-09-19] MEDS: IRON SUCROSE 100 MG in SODIUM CHLORIDE 0.9% 100 ML 100 ML IV SCH (21:10)
[2019-09-19 21:32] LABS: ANION GAP 12.3 mmol/L (8-16); BLOOD UREA NITROGEN 15 mg/dL (7-26); BUN/CREATININE RATIO 23 (6-25); CALCIUM 9.4 mg/dL (8.4-10.2); CARBON DIOXIDE 38 mmol/L (22-29); CHLORIDE 87 mmol/L (98-107); CREATININE, SERUM 0.64 mg/dL (0.57-1.11); EST GLOMERULAR FILTRATION RATE > 60 ML/MIN (60-); GLUCOSE 112 mg/dL (74-118); POTASSIUM 3.3 mmol/L (3.5-5.1); SODIUM 134 mmol/L (136-145)
--- NOTE | 2019-09-19 22:20 | NUR ---
Assessment done.no resp.distress .has nausea.medication given.dressing to right hip is dry.getting nasal cannula o2 3litre.scd &zonia hose in place. bed locked and in lowest position.phone and call light within reach.instructed to call for assistance as needed.
--- NOTE | 2019-09-19 22:39 | Consultation ---
DATE OF CONSULTATION: 09/19/2019 Cardiology Consultation CONSULTING PHYSICIAN: Madhav Aguilar MD, Interventional Cardiology. REASON FOR CONSULTATION: Arrhythmia. HISTORY OF PRESENT ILLNESS: This is an 84-year-old woman with history of atrial fibrillation, osteoarthritis, COPD, anemia, hypertension, presents with right hip fracture, now status post open reduction and internal fixation. She had telemetry monitoring, revealed episodes of wide-complex nonsustained tachycardia overnight alternating with frequent PACs, short runs of SVTs, and sinus rhythm. She denies any chest discomfort or shortness of breath. Her EKG shows sinus rhythm with nonspecific repolarization abnormalities. Her hemoglobin has remained stable at 10, creatinine is 0.6, potassium 3.6, and magnesium 1.4 have been repleted with no recurrence of arrhythmia so far. Upon history of medications, she is on amiodarone 400 mg b.i.d. REVIEW OF SYSTEMS: She currently has no complaints. A 12-system review is negative except for as noted above. ALLERGIES: TO PENICILLIN AND CODEINE. PAST MEDICAL HISTORY: COPD, hypertension, paroxysmal atrial fibrillation. SOCIAL HISTORY: No smoking, alcohol, or drugs. FAMILY HISTORY: Noncontributory. PHYSICAL EXAMINATION: VITAL SIGNS: Temperature 98.1, heart rate 73, respiratory rate 16, blood pressure 107/52, O2 saturation 99% on 3 L/minute nasal cannula. GENERAL: No acute distress, alert. NECK: No JVD. CHEST: With scattered rhonchi. CARDIOVASCULAR: Regular rate and rhythm. Normal S1, S2. No S3 or S4. ABDOMEN: Soft. Bowel sounds positive. EXTREMITIES: No edema. Right lower extremity immobilized. CARDIOVASCULAR MEDICATIONS: Lovenox 40 mg subcu daily, amiodarone 200 mg b.i.d., furosemide 10 mg p.o. daily, and aspirin 81 mg daily. STUDIES: Sodium 136, potassium 3.6, chloride 89, bicarbonate 34, BUN 13, creatinine 0.6, glucose 92, calcium 9.2, magnesium 1.4. AST 11, ALT 17, INR 0.8, hemoglobin 10. Her chest x-ray shows COPD changes, pulmonary vascular congestion, low bone mineral density, kyphoplasty material in mid T7 and L1. ASSESSMENT AND PLAN: 1. An 84-year-old woman presents with right hip fracture, now status post open reduction and internal fixation. Past history of paroxysmal atrial fibrillation. On telemetry, noted to have less of nonsustained VT and SVT. 2. Chronic obstructive pulmonary disease, hypertension. 3. Frailty and cachectic. Recommend low blood pressure, currently limiting addition of beta-tran, however, as blood pressure allows, we will consider discontinue furosemide and assess blood pressure for now. Up titrate amiodarone to 400 mg b.i.d., recent surgery. For now, we will continue to attempt conservative management, particularly with low magnesium and potassium, which should be repleted to maintain magnesium over 2 and potassium over 4. Obtain echocardiogram. We will follow with you. Madhav Aguilar MD AFMilly/MODL /[id number]
[2019-09-20] VITALS (8 sets, daily range): BP systolic 111–168; BP diastolic 55–83
[2019-09-20] MEDS: LEVOTHYROXINE SODIUM 50 MCG TAB PO SCH (05:58)
[2019-09-20] MEDS: TRAMADOL HCL 50 MG TAB PO PRN ×3 (05:58→23:12)
--- NOTE | 2019-09-20 06:00 | NUR ---
PATIENT VOIDED IN THE BED JOYCE.ALLEVYN FOAM CHANGED.STABLE CONDITION.
--- NOTE | 2019-09-20 07:00 | NUR ---
LAB REPORTS NOTIFIED TO .RECEIVED NEW ORDERS.BED SIDE SHIFT REPORT GIVEN TO THE ONCOMING RN.STABLE CONDITION.
[2019-09-20] MEDS: BUDESONIDE/FORMOTEROL 160/4.5MCG INHALER INH SCH ×2 (07:21→19:25)
[2019-09-20] MEDS ORDERED: POTASSIUM CHLORIDE 20 MEQ TAB CR PO ONE ×2 (07:30→09:30)
--- NOTE | 2019-09-20 07:30 | NUR ---
walking rounds completed, change of shift report received from shift leader RN, pt resting, no signs of distress. will continue to assess.
[2019-09-20] MEDS ORDERED: MAGNESIUM SULFATE 2GM/50ML 50 ML IV ONE (09:00)
[2019-09-20] MEDS: AMIODARONE HCL 200 MG TAB PO SCH ×2 (09:04→16:18)
[2019-09-20] MEDS: ASPIRIN 81 MG CHEW TAB PO SCH (09:04)
[2019-09-20] MEDS: DULOXETINE HCL 30 MG DELAYED RELEASE PO SCH (09:05)
[2019-09-20] MEDS: GABAPENTIN 100 MG CAP PO SCH ×3 (09:05→21:42)
[2019-09-20] MEDS: OYST-CAL-D 500MG TABLET PO SCH (09:05)
[2019-09-20] MEDS: PANTOPRAZOLE SOD 40 MG TABEC PO SCH (09:06)
[2019-09-20] MEDS ORDERED: ONDANSETRON HCL 4 MG ORAL DISINTEGRATING TAB PO PRN (10:45)
--- NOTE | 2019-09-20 11:31 | NUR ---
WOUND CARE CONSULT/ FOLLOW UP VISIT 84 YO FEMALE HX FEMORAL FX REY 11 ON STRICT PUP STATUS AND ALTERNATING PRESSURE SURFACE PATIENT SEEN 09/17 FOR CONSULT FOR CARE SACRO GLUTEAL REDNESS NOW SHOWS IMPROVEMENT BLANCHABLE AND NOW MEASURES ABOUT A 1CM X 1CM AREA NURSING TO CONTINUE TO MONITOR PATIENT AND MAINTAIN STRICT PUP STATUS AND INTERVENTIONS NURSING TO RECONSULT WOUND CARE IF IN FUTURE THERE ARE ANY SKIN CARE CONCERNS OR WOUND CARE NEEDED Addendum: 09/20/19 at 1137 by Cy Ibarra RN Amended: Links added.
[2019-09-20] MEDS: BALSAM PERU/CASTOR OIL 60 GM OINT...G. TP SCH (14:01)
--- NOTE | 2019-09-20 14:18 | NUR ---
FAXED UPDATES TO [facility], SPOKE WITH NURSE AND MANAGER UTILIZATION REVIEW, STATES NOT READY FOR TRANSFER YET POSSIBLE TOMORROW. WILL LET NURSE KNOW WHEN GET ACCEPTANCE AND UPDATE PACKET AT STATION.
[2019-09-20 15:49] LABS: ANION GAP 14.9 mmol/L (8-16); BLOOD UREA NITROGEN 15 mg/dL (7-26); BUN/CREATININE RATIO 23 (6-25); CALCIUM 9.7 mg/dL (8.4-10.2); CARBON DIOXIDE 36 mmol/L (22-29); CHLORIDE 87 mmol/L (98-107); CREATININE, SERUM 0.65 mg/dL (0.57-1.11); EST GLOMERULAR FILTRATION RATE > 60 ML/MIN (60-); GLUCOSE 112 mg/dL (74-118); POTASSIUM 3.9 mmol/L (3.5-5.1); SODIUM 134 mmol/L (136-145)
[2019-09-20] MEDS: ENOXAPARIN SOD INJ 40 MG/0.4 ML SYR SC SCH (16:18)
--- NOTE | 2019-09-20 16:21 | Diagnostic Imaging Report ---
Exam: KUB - 2 views Indication: Constipation Comparison: None Findings: Moderately increased stool burden throughout the abdomen. Nonobstructive bowel gas pattern. No free air. Partially visualized right proximal femur ORIF hardware. Status post multilevel vertebral augmentation. Impression: Nonobstructive bowel gas pattern. No free air. Moderately increased stool burden. Signed by: Benito Barrera MD on 09/20/2019 4:17 PM
--- NOTE | 2019-09-20 16:23 | NUR ---
Follow up note RD Recommendation(s) for Physician: -Ensure Enlive TID -Continue regular diet The patient meets criteria for unspecified SEVERE protein-calorie malnutrition. Plan of Care: RD following, monitoring for tolerance and adequacy Nutrition reason for involvement: follow up RD Assessment (09/20/19) Follow up. Pt reports eating <50% of meals, but is drinking Ensure. Per documentation, pt has been consuming 25-50% of meals since 09/18. Pt was interested in receiving Ensure with every meal. Pt also reports some nausea. Pt did not have any questions at time of visit. Will continue to monitor. (09/17/19) Pt is an 84 year old female admitted with femoral neck fracture. Pt was sleeping at time of visit; therefore, spoke to family member. Pts appetite has been down and eating <50% of meals for > 1 month per family member. No recent wt loss reported and pt had weighed 85 lbs for the past year per family member. Per wt history in chart, pt had weighed 115 lbs in November 2017. No N/V noted. Will continue to monitor. Principal Problems/Diagnoses: femoral neck fracture PMH: cardiac arrhythmia, CAD, HTN, hypothyroid, nausea, vomiting GI: soft, non-tender abdomen Skin: stage 1 sacral gluteal pressure ulcer Labs: (09/20/19) Na 134 (09/17/19) Reviewed Meds: protonix, levothyroxine, iron sucrose, lovenox, ergocalciferol, zofran, reglan Ht: 63 inches Wt: 93 lbs (Pt weighed 84 lbs on 09/17, suspect possible weight error) BMI: 16.5 kg/m2 IBW: 115 lbs Malnutrition Evaluation (09/20/19) The patient meets criteria for unspecified SEVERE protein-calorie malnutrition. Energy intake: <75% of estimated energy requirements for >1 month Weight loss: No weight loss reported Fat loss: severe, generalized Muscle loss: severe, generalized Supporting Evidence: Fluid accumulation: no accumulation identified Functional Status: unable to evaluate Nutrition Prescription (Diet Order): Regular Estimated Nutritional Needs: 4430-8748 calories/day (30-35 kcal/kg CBW) 63-85 g protein/day (1.5-2g pro/kg CBW) Diet Adequacy: Not meeting calorie needs, Not meeting protein needs Tolerance: Tolerating PO Diet Education Needs Assessment: Diet education not indicated; patient on regular diet. Nutrition Care Level: moderate Nutrition Diagnosis: Severe protein calorie malnutrition related to h/o inadequate energy intake as evidenced by pt meeting <75% of estimated energy needs for > 1 month and generalized severe muscle and fat depletion. Goal: Patient will meet 75-100% of estimated needs by follow up Progress: not progressing Interventions: -General healthful diet, Commercial beverage Monitoring/Evaluation: -Total energy intake, Total protein intake, Liquid supplement, Weight change Signed: Yola Anna RD, LD
--- NOTE | 2019-09-20 17:07 | Progress Note ---
DATE: 09/20/2019 CONSULTANTS: 1. Dr. Hopper with Orthopedics. 2. Dr. Medeiros with Cardiology. CHIEF COMPLAINT: Right hip pain status post fall and nausea. SUBJECTIVE: The patient was seen working with physical therapy. She reports having nausea throughout the night and this morning. No reported vomiting. PHYSICAL EXAMINATION: VITAL SIGNS: Temperature 96.9, pulse is 77, respirations 16, blood pressure 165/82, pulse ox is 97%. GENERAL: No acute distress, chronically ill appearing, fatigued. HEENT: Normocephalic, atraumatic. NECK: Supple and midline. LUNGS: Decreased breath sounds. CARDIOVASCULAR: Irregular rate and rhythm. GI: Soft and nontender. NEUROLOGIC: Alert, awake, and oriented x3. MUSCULOSKELETAL: Decreased ROM of the right lower extremity due to pain. SKIN: Dry and intact. PSYCH: Calm. LABORATORY DATA: Sodium 134, potassium 3.3, carbon dioxide 38, creatinine 0.64, estimated GFR greater than 60. Magnesium level 1.7. IMAGING DATA: Abdominal ultrasound somewhat limited exam secondary to overlying bowel gas. Mildly dilated common bile duct likely postcholecystectomy reservoir effect and right lower pole renal cyst. IMPRESSION: 1. Right hip femoral neck fracture status post open reduction and internal fixation per Orthopedics. Continue pain control and physical therapy. 2. History of atrial fibrillation with supraventricular tachycardias. Cardiology has been consulted, amiodarone increased to 400 mg b.i.d. Electrolytes replaced. 3. Hypothyroidism. Continue Synthroid. 4. Osteoarthritis. Pain management as needed. 5. History of chronic obstructive pulmonary disease. No exacerbation. Continue nebs and O2. 6. Anemia, likely chronic. Hemoglobin is stable. We will continue to monitor. 7. Debility. Continue physical therapy and plan discharge to [facility] facility. 8. Nausea and vomiting. Improving abdominal ultrasound noted and restarted Reglan as needed. 9. Hypokalemia, replaced. We will recheck and address as needed. 10. Deep vein thrombosis prophylaxis, currently on Lovenox per Ortho. PLAN: We will continue current management. Echo has been done. Awaiting on results. Disposition to [facility] facility once cleared by Cardiology. Dictated by LUIS ANTONIO Calabrese Christianne Wallace MD MY/MODL /[id number] Seen and examined, check KUB to rule out constipation. Agree with the findings and plan as documented by LUIS ANTONIO Lizarraga. GABI
--- NOTE | 2019-09-20 18:09 | NUR ---
pt states she does not want any laxatives, despite not having BM for several days. Pt given prune juice to drink; pt tolerating PO. will continue to monitor.
--- NOTE | 2019-09-20 19:00 | NUR ---
RECEIVED THE PT IN REPORT.LYEING IN THE BED.STABLE CONDITION.
--- NOTE | 2019-09-20 21:00 | NUR ---
Assisted to use bed side commode.voided.patient is back to bed safely.bed locked and in lowest position.phone and call light within reach.instructed to call for assistance as needed.
--- NOTE | 2019-09-20 21:33 | Progress Note ---
DATE: 09/20/2019 Cardiology Progress Note SUBJECTIVE: No new complaints. OBJECTIVE: VITAL SIGNS: In telemetry, has remained in sinus rhythm. No recurrent ectopy. Temperature 98.2, heart rate 74, respiratory rate 16, blood pressure 158/71, O2 saturation 100% on nasal cannula. GENERAL: In no acute distress, alert. NECK: No JVD. CHEST: Clear to auscultation. CARDIOVASCULAR: Regular rate and rhythm. Normal S1 and S2. ABDOMEN: Soft and nontender. EXTREMITIES: With dressings in place. No edema. CARDIOVASCULAR MEDICATIONS: Reviewed. Amiodarone 400 mg b.i.d., Lovenox 40 mg subcu daily, and aspirin 81 mg daily. STUDIES: Reviewed. Hemoglobin 10.3. Sodium 134, potassium 3.9, chloride 87, bicarbonate 36, BUN 15, creatinine 0.6, glucose 112, calcium 9.7. Yesterday evening's magnesium is 1.7. ASSESSMENT AND PLAN: An 84-year-old woman presents with right hip fracture, status post open reduction and internal fixation. Noted to have history of paroxysmal atrial fibrillation, on telemetry, had nonsustained ventricular tachycardia as well as supraventricular tachycardia spells in the setting of hypomagnesemia and hypokalemia, which have now been repleted. The patient has been initiated on amiodarone in addition and remains in sinus rhythm. She also carries a history of chronic obstructive pulmonary disease and hypertension. She is frail and cachectic. Would benefit from consideration for SNF and/or rehab. MD NORMA Jewell/GALO /[id number]
[2019-09-20] MEDS: MONTELUKAST SODIUM 10 MG TAB PO SCH (21:42)
[2019-09-20] MEDS: MIRTAZAPINE 15 MG TAB PO SCH (21:42)
[2019-09-20] MEDS: LACTULOSE SYRUP 20 GM/30 ML UDC PO ONE (21:42)
[2019-09-20] MEDS: IRON SUCROSE 100 MG in SODIUM CHLORIDE 0.9% 100 ML 100 ML IV SCH (21:42)
[2019-09-21] VITALS: BP 143/80
[2019-09-21] MEDS: LACTULOSE SYRUP 20 GM/30 ML UDC PO ONE (00:45)
[2019-09-21 04:00] VITALS: BP 178/82
[2019-09-21] MEDS: LEVOTHYROXINE SODIUM 50 MCG TAB PO SCH (05:05)
--- NOTE | 2019-09-21 05:29 | NUR ---
Patient had bowel movement.black colored stool noted.
[2019-09-21 06:13] LABS: BASOPHILS % 0.2 % (0.0-1.0); EOSINOPHILS # (AUTO) 0.1 (0.0-0.4); EOSINOPHILS % 0.5 % (0.0-6.0); HEMATOCRIT 33.3 % (34.2-44.1); HEMOGLOBIN 10.6 g/dL (12.0-16.0); LYMPHOCYTES # (AUTO) 0.4 (1.0-3.2); LYMPHOCYTES % 2.7 % (18.0-39.1); MEAN CORPUSCULAR HEMOGLOBIN 30.8 pg (28-32); MEAN CORPUSCULAR HGB CONC 31.8 g/dL (31-35); MEAN CORPUSCULAR VOLUME 96.8 fL (81-99); MONOCYTES # (AUTO) 1.8 (0.2-0.8); MONOCYTES % 10.9 % (4.4-11.3); NEUTROPHILS % 85.2 % (38.7-80.0); PLATELET COUNT 265 x10e3/uL (140-360); RED BLOOD COUNT 3.44 x10e6/uL (3.6-5.1)
[2019-09-21 06:18] LABS: ALANINE AMINOTRANSFERASE 15 IU/L (0-55); ALBUMIN 2.7 g/dL (3.5-5.0); ALBUMIN/GLOBULIN RATIO 0.9 (0.8-2.0); ALKALINE PHOSPHATASE 148 IU/L (40-150); BUN/CREATININE RATIO 34 (6-25); CALCIUM 9.5 mg/dL (8.4-10.2); CARBON DIOXIDE 37 mmol/L (22-29); CHLORIDE 91 mmol/L (98-107); EST GLOMERULAR FILTRATION RATE > 60 ML/MIN (60-); GLUCOSE 129 mg/dL (74-118); SODIUM 136 mmol/L (136-145)
[2019-09-21 06:47] LABS: BLOOD UREA NITROGEN 24 mg/dL (7-26)
--- NOTE | 2019-09-21 07:00 | NUR ---
Bed side shift report given to the oncoming Rn.stable condition.
[2019-09-21] MEDS: TRAMADOL HCL 50 MG TAB PO PRN (07:08)
--- NOTE | 2019-09-21 07:09 | NUR ---
walking rounds completed and shift change report received from mini shifter RN. pt resting, in stable condition.
[2019-09-21] MEDS: BUDESONIDE/FORMOTEROL 160/4.5MCG INHALER INH SCH (07:50)
[2019-09-21] MEDS: ASPIRIN 81 MG CHEW TAB PO SCH (07:55)
[2019-09-21] MEDS: AMIODARONE HCL 200 MG TAB PO SCH (07:56)
[2019-09-21] MEDS: DULOXETINE HCL 30 MG DELAYED RELEASE PO SCH (07:56)
[2019-09-21] MEDS: ERGOCALCIFEROL 50,000 UNIT CAP PO SCH (07:58)
[2019-09-21] MEDS: PANTOPRAZOLE SOD 40 MG TABEC PO SCH (07:59)
[2019-09-21] MEDS: OYST-CAL-D 500MG TABLET PO SCH (07:59)
[2019-09-21] MEDS: GABAPENTIN 100 MG CAP PO SCH (07:59)
[2019-09-21] MEDS: BALSAM PERU/CASTOR OIL 60 GM OINT...G. TP SCH (08:00)
[2019-09-21 08:06] VITALS: BP 178/82
[2019-09-21 08:10] VITALS: BP 141/65
[2019-09-21] MEDS ORDERED: DOCUSATE SODIUM 100 MG CAP PO SCH (09:00)
--- NOTE | 2019-09-21 09:08 | Diagnostic Imaging Report ---
Exam: KUB - 2 views Indication: Constipation Comparison: Pelvic radiograph of 09/17/2019 Findings: Nonobstructive bowel gas pattern. Interval improvement in stool burden. Status post multilevel vertebral augmentation. No free air. Partially visualized right proximal femur or left hardware. Impression: Nonobstructive bowel gas pattern. No free air. Interval improvement in stool burden, now unremarkable. Signed by: Benito Barrera MD on 09/21/2019 9:04 AM
[2019-09-21 09:19] LABS: LYMPHOCYTES % (MANUAL) 1 % (19-48); MONOCYTES % (MANUAL) 10 % (3.4-9.0); NEUTROPHILS % (MANUAL) 89 % (40-74)
[2019-09-21 09:21] LABS: PLATELET ESTIMATE ADEQUATE; PLATELET MORPHOLOGY COMMENT NORMAL; RBC MORPHOLOGY COMMENT NORMAL
--- NOTE | 2019-09-21 10:36 | NUR ---
DETENTION FACILITY DISCHARGE INFORMATION PATIENT HAS BEEN ACCEPTED TO: NAME:[facility] ADDRESS:[id number] [address], [place] [address] ACCEPTING FUEL RETROFITTING TECHNICIAN:RICHIE MATHEWS ACCEPTING MD: JAMES ROOM:313 A NURSE CALL REPORT TO: [phone] IMM SIGNED AND OBTAINED (if applicable): YES THE FOLLOWING DOCUMENTS MUST ACCOMPANY PATIENT FOR TRANSFER: COPIED CHART: CHART
[2019-09-21 11:38] VITALS: BP 120/56
--- NOTE | 2019-09-21 12:28 | Progress Note ---
DATE: 09/21/2019 Cardiology Progress Note SUBJECTIVE: No complaints today. Working with PT/OT. OBJECTIVE: VITAL SIGNS: Temperature 97.3, heart rate 82, respiratory rate 19, blood pressure 141/65, and O2 saturation 96% on nasal cannula. On Telemetry, in sinus rhythm. GENERAL: No acute distress, alert, frail, cachectic. NECK: No JVD. CHEST: Clear to auscultation. CARDIOVASCULAR: Regular rate and rhythm. Normal S1, S2. ABDOMEN: Soft. Bowel sounds positive. EXTREMITIES: No edema. Dressings in place to right hip area. CARDIOVASCULAR MEDICATION: Reviewed. Aspirin 81 mg daily, Lovenox 40 mg subcu daily. STUDIES: Reviewed. White blood cells 16.4, hemoglobin 10.6, and platelets 265. Sodium 136, potassium 5, chloride 91, bicarbonate 37, BUN 24, creatinine 0.7, glucose 129, calcium 9.2, total bilirubin 0.5, AST 12, ALT 15, alkaline phosphatase 148, total protein is 5.6, albumin 2.7. ASSESSMENT AND PLAN: 1. An 84-year-old woman presents with right hip fracture, status post open reduction and internal fixation. 2. Paroxysmal atrial fibrillation. 3. Nonsustained ventricular tachycardia in the setting of hypomagnesemia and hypokalemia. 4. Frailty and deconditioning. RECOMMENDATIONS: 1. Continue current cardiovascular medications, particularly low-dose amiodarone, and monitor and replete electrolytes as needed. 2. Continue rehab. Madhav Aguilar MD AFMilly/GALO /[id number]
--- NOTE | 2019-09-21 14:43 | NUR ---
called report to ANETA Bello at [facility] (formerly [facility]) who will be receiving pt to room 313A. RN states to send packet of pt's medicine list, H&P with pt in transport, no need to fax at this time.
[2019-09-21 16:28] VITALS: BP 108/67
--- NOTE | 2019-09-22 06:53 | Discharge Summary ---
PRIMARY CARE PHYSICIAN: Dr. Simpson at [facility]. FINAL DISCHARGE DIAGNOSES: 1. Right femoral neck fracture, status post open reduction and internal fixation. 2. Atrial fibrillation. 3. Hypothyroidism. 4. Osteoarthritis. 5. Chronic obstructive pulmonary disease. HORTICULTURAL SERVICES SUPERVISOR: Orthopedics, Dr. Wolfe. PROCEDURE: Status post right hip ORIF. HISTORY: Per HPI. HOSPITAL COURSE: This is an 84-year-old female, who presented to the ER with complaints of right hip pain status post fall. Imaging showed that she has a nondisplaced acute slightly impacted right subcapital femoral neck fracture. Orthopedics was consulted and underwent ORIF of the right hip. She was evaluated by Physical Therapy and will be discharging to a half-way facility for rehabilitation before going back home. PHYSICAL EXAMINATION: VITAL SIGNS: Temperature 98.1, pulse is 75, BP is 120/56, pulse ox 99% on 3 L of oxygen. GENERAL: No acute distress. HEENT: Normocephalic, atraumatic. NECK: Supple. LUNGS: Clear to auscultation. CARDIOVASCULAR: Regular rate and rhythm. GI: Soft and nontender. NEUROLOGIC: Alert, awake, and oriented x3. MUSCULOSKELETAL: Right lower extremity decreased ROM. SKIN: Dry. PSYCH: Calm. CONDITION AT DISCHARGE: Improved. DISCHARGE MEDICATIONS: See medication reconciliation list. FOLLOWUP: Follow up with PCP and Orthopedics in 1 to 2 weeks. TIME SPENT: Total time of discharge is 32 minutes. PLAN: Discharge to half-way facility. Dictated by LUIS ANTONIO Calabrese Christianne Wallace MD MY/MODL /[id number] cc[facility] and examined on 09/21/19, wbc 16 noted, afebrile, clinically no evidence of infection, incision looks good, likely due to postop stress reaction, updated snf accepting phyisician Dr. Devin Almaraz, will repeat another wbc next week to make sure it's coming down, the patient will follow up with ortho in 1-2 wks. Agree with the findings and plan as documented by LUIS ANTONIO Lizarraga. ASHELYD
== END 2019-09-21 18:30 | DRG 480 ==
LOC: ER 22:20 → ERHOLD 09-17 06:04 → MED/SURG 09-17 06:39 → OBSVTOIN 09-19 09:24
PROVIDERS: ADMIT Internal Medicine; ATTEND Internal Medicine
PROC: 0QS604Z Reposition Right Upper Femur with Internal Fixation Device, Open Approach (ICD-10-PCS; principal; 2019-09-19)
DX: S72.001A Fracture of unspecified part of neck of right femur, initial encounter for closed fracture (principal); E43 Unspecified severe protein-calorie malnutrition; I47.1 Supraventricular tachycardia; Z68.1 Body mass index [BMI] 19.9 or less, adult; R64 Cachexia; E03.9 Hypothyroidism, unspecified; M19.90 Unspecified osteoarthritis, unspecified site; I10 Essential (primary) hypertension; J44.9 Chronic obstructive pulmonary disease, unspecified; W19.XXXA Unspecified fall, initial encounter; D63.8 Anemia in other chronic diseases classified elsewhere; R11.2 Nausea with vomiting, unspecified; E87.6 Hypokalemia; I48.0 Paroxysmal atrial fibrillation; Z79.01 Long term (current) use of anticoagulants; E83.42 Hypomagnesemia; S72.011A Unspecified intracapsular fracture of right femur, initial encounter for closed fracture; I25.10 Atherosclerotic heart disease of native coronary artery without angina pectoris; E11.9 Type 2 diabetes mellitus without complications; K21.9 Gastro-esophageal reflux disease without esophagitis
CPT/HCPCS: 36415; 71045; 72110; 72170; 74018; 76000; 76700; 80048; 80053; 83540; 83735; 84466; 85014; 85018; 85025; 85610; 85730; 86850; 86870; 86880; 86900; 86905; 93005; 93306; 94664; 97139; 99001; 99284; C1713; C1769; G0378; J1650; J1756; J2001; J2250; J2270; J2310; J2370; J2405; J3475; J7030; J7050; Q0162

== ENCOUNTER 2019-11-07 13:55 | Inpatient (IN) | payer MEDICARE ==
[~2019-11-07] VITALS: Ht 160 cm; Wt 50.0 kg
--- NOTE | 2019-11-07 07:15 | NUR ---
Handoff report to Anderson RN made aware patient needs to be given the Rocephin IVPB verbalized understanding.
[~2019-11-07 13:55] MED LIST changes: +CYMBALTA30 MG PO; +DILTIAZEM 24HR120 M1 PO; +ELIQUIS2.5 MG PO; +LEVOTHYROXINE50 MCG PO; +MIRTAZAPINE15 MG PO; +XOPENEX INH
[2019-11-07 14:50] LABS: BASOPHILS % 0.2 % (0.0-1.0); EOSINOPHILS # (AUTO) 0.1 (0.0-0.4); HEMATOCRIT 28.5 % (34.2-44.1); HEMOGLOBIN 8.5 g/dL (12.0-16.0); LYMPHOCYTES # (AUTO) 1.2 (1.0-3.2); LYMPHOCYTES % 21.4 % (18.0-39.1); MEAN CORPUSCULAR HEMOGLOBIN 29.3 pg (28-32); MEAN CORPUSCULAR HGB CONC 29.8 g/dL (31-35); MEAN CORPUSCULAR VOLUME 98.3 fL (81-99); MONOCYTES # (AUTO) 0.8 (0.2-0.8); MONOCYTES % 13.7 % (4.4-11.3); NEUTROPHILS # (AUTO) 3.4 (2.1-6.9); NEUTROPHILS % 62.3 % (38.7-80.0); PLATELET COUNT 209 x10e3/uL (140-360); RED CELL DISTRIBUTION WIDTH 14.1 % (11.7-14.4)
[2019-11-07 14:53] LABS: INR 1.09; PROTHROMBIN TIME 14.4 seconds (11.9-14.5)
[2019-11-07 15:00] LABS: ALANINE AMINOTRANSFERASE 63 IU/L (0-55); ALBUMIN 3.1 g/dL (3.5-5.0); ALBUMIN/GLOBULIN RATIO 0.9 (0.8-2.0); ALKALINE PHOSPHATASE 73 IU/L (40-150); ANION GAP 12.8 mmol/L (8-16); BLOOD UREA NITROGEN 19 mg/dL (7-26); BUN/CREATININE RATIO 27 (6-25); CALCIUM 8.7 mg/dL (8.4-10.2); CARBON DIOXIDE 36 mmol/L (22-29); CHLORIDE 89 mmol/L (98-107); CREATINE KINASE 19 IU/L (29-168); CREATININE, SERUM 0.71 mg/dL (0.57-1.11); EST GLOMERULAR FILTRATION RATE > 60 ML/MIN (60-); GLUCOSE 96 mg/dL (74-118); POTASSIUM 4.8 mmol/L (3.5-5.1); SODIUM 133 mmol/L (136-145)
[2019-11-07 15:09] LABS: PARTIAL THROMBOPLASTIN TIME 42.8 seconds (23.8-35.5)
--- NOTE | 2019-11-07 15:45 | Diagnostic Imaging Report ---
Chest, 1 view, 11/07/2019. History: Fall. Comparison: 09/17/2019. Findings: The cardiomediastinal silhouette and pulmonary vasculature are within normal limits for a portable exam. Aortic contour is normal. Bilateral upper lobe reticulonodular opacities are unchanged. There is no focal consolidation or pleural effusion. Skin folds are projected over the right upper lung. There is no evidence of pneumothorax. Vertebral augmentation cement is noted within the thoracic and lumbar spine. There are no acute osseous or soft tissue abnormalities. Impression: No acute cardiopulmonary abnormality. Signed by: Steve Downing on 11/07/2019 3:42 PM
--- NOTE | 2019-11-07 15:51 | Diagnostic Imaging Report ---
Right hip, 2 views. History: Fall 2 days ago. Comparison: 09/17/2019. Findings: The soft tissues are normal. The bones are diffusely osteopenic. Right femoral neck fracture status post ORIF with 4 lag screws is present, with slight superior displacement of the distal fragment. There is no evidence of dislocation. Surgical hardware is intact. No other fractures are seen. There are no lytic or sclerotic lesions. The joint spaces are within normal limits. IMPRESSION: Status post ORIF of right femoral neck fracture. Signed by: Steve Downing on 11/07/2019 3:49 PM
--- NOTE | 2019-11-07 16:06 | Diagnostic Imaging Report ---
EXAMINATION: Head and cervical spine CT without contrast. HISTORY: Status post fall 2 days ago, trauma to the head, head and neck pain. COMPARISON: None. TECHNIQUE: Multidetector axial images were obtained without contrast from the foramen magnum to the vertex and through the cervical spine. The images were reconstructed using brain and bone algorithms. Thin section brain images were reformatted into coronal and sagittal planes. Dose modulation, iterative reconstruction, and/or weight based adjustment of the mA/kV was utilized to reduce the radiation dose to as low as reasonably achievable. HEAD CT FINDINGS: Skull/scalp: No lytic or blastic lesions. Prominent forehead soft tissue swelling/scalp hematoma measuring approximately 1 cm in thickness and about 3. Centimeter transverse, no underlying skull fractures.. Parenchyma: Scattered and mildly confluent periventricular white matter hypodensities, most likely nonspecific chronic microvascular ischemic changes. No mass, hemorrhage or CT evidence of acute vascular insult. Brain volume: Normal for age. Ventricles: No hydrocephalus or displacement. Arteries: No density suggestive of thrombus. Dural sinuses: No abnormal density. Extra-axial spaces: No abnormal density. Foramen magnum: No mass, Chiari malformation, or basilar invagination. Sella: No obvious mass. Paranasal/mastoid sinuses: Imaged portions unremarkable. CERVICAL SPINE CT FINDINGS: Alignment:Normal alignment and lordosis. Soft tissues: Normal. Vertebrae: Normal height and density. No acute fracture, infection or neoplasm. Degenerative changes: C1-C2: Mild degenerative changes without stenosis C2-C3: Facet arthrosis without stenosis C3-C4: Facet arthrosis without stenoses C4-C5: Mild uncovertebral and facet arthrosis without stenosis C5-C6: Mild uncovertebral hypertrophy is without stenosis C6-C7: Normal C7-T1: Normal Incidental findings: Emphysematous changes in the lung apices. IMPRESSION: Head CT: 1. No acute postraumatic intracranial hemorrhage. 2. 4 head scalp swelling/hematoma without underlying fractures. 3. Mild white matter chronic microvascular ischemic changes. Cervical spine CT: 1. No acute fractures or dislocations. 2. Chronic degenerative changes as described. Note: Acute post traumatic spinal cord, vascular or ligamentous injury cannot adequately be assessed with CT. Signed by: Dr. Sadaf Adame M.D. on 11/07/2019 4:03 PM
[2019-11-07] MEDS ORDERED: ONDANSETRON HCL INJ 2MG/ML 2ML 2 MG/ML VIAL IV PRN (17:00)
[2019-11-07 17:18] LABS: BILIRUBIN,URINE NEGATIVE (NEGATIVE); CLARITY,URINE SL CLOUDY (CLEAR); COLOR,URINE YELLOW (YELLOW); KETONES,URINE NEGATIVE (NEGATIVE); LEUKOCYTE ESTERASE ,URINE NEGATIVE (NEGATIVE); NITRITE,URINE POSITIVE (NEGATIVE); PROTEIN,URINE DIPSTICK NEGATIVE (NEGATIVE); URINE UROBILINOGEN 0.2 mg/dL (0.2 - 1)
[2019-11-07 17:36] LABS: BACTERIA,URINE MANY /HPF; EPITHELIAL CELLS,URINE RARE /LPF
[2019-11-07] MEDS ORDERED: ACETAMINOPHEN 325 MG TAB PO PRN (18:00)
[2019-11-07] MEDS ORDERED: ALBUTEROL SULF 0.083% NEB SOLN 3 ML NEB NEB PRN (18:00)
[2019-11-07] MEDS ORDERED: ERGOCALCIFEROL 50,000 UNIT CAP PO SCH (18:00)
--- NOTE | 2019-11-07 18:15 | NUR ---
Received patient from ER patient in bed alert and oriented x3, verbalizing needs, her son at bedside, she has a wound to sacral area, appears to be a stage 2, applied Alyven dressing to sacral area will order wound care consult per protocol, patient also has multiple hematomas to facial[facility] she has a bulging to frontal area, she also has bruising to arm, denies pain to right hip area, per handoff report she has a scar to right hip area from previous hip surgery on September 19 2019. Bed alarm on bed in low position, and with breaks on. belongings and call light within reach will continue to monitor.
[2019-11-07 18:20] VITALS: BP 121/58
[2019-11-07] MEDS ORDERED: CEFTRIAXONE SOD 1 GM/NS 50 ML 50 ML IV SCH (18:30)
[2019-11-07 18:35] VITALS: BP 121/58
--- NOTE | 2019-11-07 18:58 | NUR ---
ORTHOPEDIC CONSULTATION 84 yo limited ambulator with walker presents to the ED after a mechanical fall with complaints of right hip pain and an inability to ambulate. Patient had a right hip pinning in 09/2019 and was doing well without pain. She started havin g multiple falls in October and after her fall 2 weeks ago, she started having more right hip pain and an inability to ambulte. Denies numbness, paresthesias or loss of distal motor function. Denies pain in any other extremity. Patient is a poor historian and son is at bedside to provide history. PMdHx: Cardiac arrythmia, CAD, HTN, Hypothyroidism, Nausea, Vomiting Allergies: PCN, Codeine SurgHx: Spine Surgery, Right hip CRPP 09/20 FamHx: Non-contributory SocHx: Neg Tob, Neg EtOH, Neg Drugs Meds: See reconciliation VS T 98.6, HR 75, RR 19, BP 124/62 O2 95% Right Hip - Incision healed well. No open lesions or sores, no gross deformity Unable to straight leg raise, Pain with log roll and heal strike Motor: + EHL, FHL, TA, G/S Sensation grossly intact Pulses + DP, Post tib Compartments soft Negative calf tenderness Xrays of Right Hip demonstrates a displaced jamir-implant Right Femoral Neck Fracture 84 yo Female with a displced jamir-implnt Right Femoral Neck Fracture Plan for OR tomorrow for cemented right hip hemiarthroplasty NPO except meds after midnight Hold anticoagulation IVF while NPO Bedrest Montse Hopper, DO [facility]
--- NOTE | 2019-11-07 19:00 | NUR ---
Patient visited in room during nursing rounds. Patient alert and oriented x3. Patient has multiple bruises on face and neck and also some bumps on the forehead as a result of fall at [facility]. Stage 2 to sacrum and covered with Allevyn foam. Allevyn foam also on bilateral heels for protection from friction. Pt states she feels some pain on right hip but tolerable at this time. Call olivier within reach. Bed alarm active. Will monitor pt closely.
[2019-11-07] MEDS ORDERED: HEPARIN SOD (PORCINE) 5,000 UNIT/ML VIAL SC ONE (19:15)
[2019-11-07 20:00] VITALS: BP 121/58
[2019-11-07] MEDS ORDERED: SODIUM CHLORIDE 0.9% 250ML 250 ML ONE (20:14)
[2019-11-07] MEDS: MONTELUKAST SODIUM 10 MG TAB PO SCH (20:30)
[2019-11-07 21:00] VITALS: BP 121/58
[2019-11-07] MEDS: BUDESONIDE/FORMOTEROL 160/4.5MCG INHALER INH SCH (22:30)
--- NOTE | 2019-11-07 22:30 | NUR ---
Pt received bed bath as done by Shannon (PHOTO INTERN). Pt tolerated bed bath well.
--- NOTE | 2019-11-07 23:00 | NUR ---
Pt aware she is scheduled for surgery (Right hip removal of hardware, hip arthroplasty) tomorrow (11/08/19) at [address] Stewart. Patient signed consent form. Patient's son (Gopal) and [id number] (Emilie) aware. Pt stated Emilie will come in AM to accompany her. Informed pt that she will most likely be transferred to ICU after the surgery as mentioned by Dr. Stewart.
[2019-11-08] VITALS (16 sets, daily range): BP systolic 108–143; BP diastolic 40–67
--- NOTE | 2019-11-08 00:57 | Consultation ---
DATE OF CONSULTATION: 11/07/2019 Cardiology Consultation CONSULTING PHYSICIAN: Madhav Aguilar MD, Interventional Cardiology REASON FOR CONSULTATION: Perioperative cardiovascular evaluation. HISTORY OF PRESENT ILLNESS: An 84-year-old woman with a history of chronic obstructive pulmonary disease, hypertension, paroxysmal atrial fibrillation, nonsustained ventricular tachycardia in the setting of hypokalemia and hypomagnesemia on prior admission, frailty, cachexia, suspected dementia, and hard of hearing, who presents from group home after a mechanical fall. The patient describes bending forward in bed to get an item from the floor and suddenly losing balance and falling forward resulting in facial hematoma and was significant. The patient was previously on anticoagulation with aspirin and Eliquis. She complained of resulting right hip discomfort after this fall. After persistent issues with right hip discomfort, she was transferred to the hospital for further evaluation. She recently underwent right hip open reduction and internal fixation for hip fracture back in September 2019. At this time, she underwent echocardiogram remarkable for preserved left ventricular systolic function, left ventricular ejection fraction of 60% to 65%. Her creatinine is 0.7. Her hemoglobin is 8.5. She denies any chest discomfort or shortness of breath. She has no other complaints at this time. REVIEW OF SYSTEMS: A 12 system reviewed negative except for as noted above. ALLERGIES: TO PENICILLIN AND CODEINE. PAST MEDICAL HISTORY: Remarkable for hypertension, COPD, paroxysmal atrial fibrillation, and prior run of an SVT with a magnesium 1.4 on previous admission, and electrolyte imbalances. SOCIAL HISTORY: No smoking, alcohol, or drugs. FAMILY HISTORY: Noncontributory. Her son is at bedside. PHYSICAL EXAMINATION: VITAL SIGNS: Temperature 98.5, heart rate 63, respiratory rate 13, blood pressure 105/73, O2 saturation 97% on 3 L/minute nasal cannula. GENERAL: In no acute distress. Alert. Hematoma to forehead and ecchymosis to the face running down her cheeks. NECK: No JVD. CHEST: With scattered rhonchi. Clear to auscultation otherwise. CARDIOVASCULAR: Regular rate and rhythm, normal S1, S2. No S3, no S4. No murmurs or rubs. ABDOMEN: Soft, nontender. Bowel sounds positive. EXTREMITIES: No edema. CARDIOVASCULAR MEDICATIONS: Reviewed. Furosemide 20 mg daily, amiodarone 200 mg every 12 hours, aspirin 81 mg daily, diltiazem 120 mg daily. STUDIES: Reviewed. White blood cells 5.4, hemoglobin 8.5, platelets 209. INR 1.09. PT 14.4, PTT 42.9. Sodium 133, potassium 4.8, chloride 89, bicarbonate 36, BUN 19, creatinine 0.71, glucose 96, calcium 8.7, magnesium 2.2. ASSESSMENT AND PLAN: 1. An 84-year-old woman presents with mild alignment and discomfort to right hip after recent open reduction and internal fixation with plans by Orthopedic Surgery for possible surgical revision. 2. Chronic obstructive pulmonary disease, on home O2. 3. Paroxysmal atrial fibrillation. 4. Hypertension. 5. History of supraventricular tachycardia in the setting of hypokalemia. 6. Anemia. 7. Frailty and cachexia. RECOMMEND: 1. Elevated risk for adverse cardiovascular outcomes. Estimate RCRI over 10.1%, 30-day risk for , TX or cardiac arrest with surgery assuming component of ischemic heart disease and history of cerebrovascular disease. 2. Preserved left ventricular systolic function on recent echocardiogram, last month. 3. Electrolytes are currently at goal. 4. Maintain on telemetry. 5. Switch diltiazem out and initiate low-dose beta tran. 6. Continue amiodarone. 7. Check BNP. 8. Discussed at length with the patient and family members, if alternatives for conservative approach towards her hip issues are an option worth considering this versus with the elevated risk of surgery. She will be at elevated risk for complications. 9. Perioperative beta-blockers advised. At this point, advised against further anticoagulation for thromboembolic risk prevention in the setting of recurrent falls and bleeding risk to be elevated. 10. Consider EP consultation regarding arrhythmia issues. Discussed alternatives of coronary assessment. At this point, the patient's family members are agreeable with avoiding further and coronary invasive procedures, given current timing related to ongoing orthopedic issue being evaluated and they would to avoid any delays in potential surgery should decision for surgery be confirmed. Madhav Aguilar MD AFV/MODL /[id number]
--- NOTE | 2019-11-08 02:28 | History and Physical ---
PRIMARY CARE PHYSICIAN: Dr. Gorman at [facility]. CHIEF COMPLAINT: Status post fall with right hip pain. HISTORY OF PRESENT ILLNESS: This is an 84-year-old female with past medical history of hypertension, high cholesterol, atrial fibrillation, COPD, hypothyroidism, osteoarthritis, and recent right femur neck fracture status post ORIF, presented from a nursing facility after a fall a few days ago. According to son, the fall happened about four days ago. She reports getting out of bed in the middle of the night to go to the bathroom, but was bending over and fell face down on the floor. She has a large hematoma on her face and forehead nodule. She also reported right hip pain, where she had her surgery. She denies any chest pain, lightheadedness, shortness of breath, confusion, or headache. In the ER, chest x-ray was unremarkable. CT brain and C-spine were negative for acute trauma or fracture. Right hip x-ray shows right femur neck fracture, status post ORIF with four lag screws present with slight superior displacement of the distal fragment. Orthopedics has been consulted and Cardiology for surgical clearance. PAST MEDICAL HISTORY: 1. Hypertension. 2. Atrial fibrillation. 3. Chronic obstructive pulmonary disease. 4. Hypothyroidism. 5. Osteoarthritis. PAST SURGICAL HISTORY: 1. CryoPlasty. 2. A right hip ORIF. FAMILY MEDICAL HISTORY: Unknown. SOCIAL HISTORY: Denies any tobacco, alcohol, or illicit drug use. ALLERGIES: SHE IS ALLERGIC TO PENICILLIN AND CODEINE. REVIEW OF SYSTEMS: GENERAL: Fatigue. HEENT: No head trauma with discoloration of the face and swelling of the forehead. LUNGS: No shortness of breath or cough. CARDIOVASCULAR: No chest pain or palpitations. GI: No nausea or vomiting. NEUROLOGIC: Generalized weakness. MUSCULOSKELETAL: Right hip pain. SKIN: Discoloration due to fall and bruising. PHYSICAL EXAMINATION: VITAL SIGNS: Temperature 97.9, pulse is 64, respirations 22, blood pressure 121/58, and pulse ox is 97% on 2 L of oxygen. GENERAL: Fatigue, generalized weakness. HEENT: Normocephalic. Bruising on the face and swelling on forehead. NECK: Supple. LUNGS: With decreased breath sounds. CARDIOVASCULAR: Regular rate and rhythm. GI: Soft and nontender. NEUROLOGIC: Alert, awake, and oriented x2-3. MUSCULOSKELETAL: Moves all extremities. Right lower extremity limited due to pain. SKIN: Bruising on face, sacral pressure ulcer noted. PSYCH: Calm. LABORATORY DATA: WBC 5.47, hemoglobin 8.5, hematocrit 28.5, and platelets 209. Sodium 133, potassium 4.8, anion gap 12.8, BUN is 19, creatinine 0.71, estimated GFR is greater than 60. Glucose 96. AST 42, ALT 63, CK 19, and troponin 0.003. BNP is 92.8. Total protein 6.4. PT 14.4, INR 1.09, APTT 42.8. Urine color is yellow, cloudy with positive nitrites, negative leukocyte esterase with 6-10,000 WBC and bacteria. Urine culture is pending. IMAGING: Chest x-ray is unremarkable. CT brain and C-spine with no acute process except for four head scalp swelling hematoma without underlying fractures. A hip x-ray shows a right femoral neck fracture, status post ORIF with four lag screws present with slight superior displacement of the distal fragment. IMPRESSION: 1. Status post fall with right hip fracture. Orthopedics has been consulted. High risk for surgery. We will discuss with the patient. 2. History of atrial fibrillation, rate controlled. We will continue amiodarone. We will hold Eliquis for cerebrovascular accident prophylaxis due to possible surgery. 3. Chronic obstructive pulmonary disease. Continue neb treatments. 4. Hypertension. We will resume home medications. 5. Possible urinary tract infection. We will await on urine culture and treat prophylactically with Rocephin. 6. Hypothyroidism. Resume levothyroxine 50 mcg. 7. Anxiety. Continue Cymbalta. 8. Osteoarthritis. Pain management as needed. 9. Gastroesophageal reflux disease. PPI daily. 10. Deep vein thrombosis prophylaxis. Heparin given x1 today and we will start Eliquis once cleared by Ortho. PLAN: Continue current treatment, Cardiology is consulted for cardiac clearance and states the patient is high risk. Orthopedic eval pending. Dictated by LUIS ANTONIO Calabrese Christianne Wallace MD MY/MODL /[id number]
[2019-11-08] MEDS: LEVOTHYROXINE SODIUM 50 MCG TAB PO SCH (03:00)
[2019-11-08] MEDS: PANTOPRAZOLE SOD 40 MG TABEC PO SCH (03:00)
[2019-11-08 05:58] LABS: BASOPHILS % 0.3 % (0.0-1.0); EOSINOPHILS # (AUTO) 0.1 (0.0-0.4); EOSINOPHILS % 2.6 % (0.0-6.0); HEMOGLOBIN 7.7 g/dL (12.0-16.0); LYMPHOCYTES % 25.5 % (18.0-39.1); MEAN CORPUSCULAR HEMOGLOBIN 29.5 pg (28-32); MEAN CORPUSCULAR HGB CONC 30.8 g/dL (31-35); MEAN CORPUSCULAR VOLUME 95.8 fL (81-99); MONOCYTES # (AUTO) 0.6 (0.2-0.8); MONOCYTES % 14.8 % (4.4-11.3); NEUTROPHILS # (AUTO) 2.2 (2.1-6.9); PLATELET COUNT 196 x10e3/uL (140-360); RED BLOOD COUNT 2.61 x10e6/uL (3.6-5.1); RED CELL DISTRIBUTION WIDTH 14.1 % (11.7-14.4)
[2019-11-08 06:27] LABS: ALANINE AMINOTRANSFERASE 52 IU/L (0-55); ALBUMIN 2.8 g/dL (3.5-5.0); ALBUMIN/GLOBULIN RATIO 0.9 (0.8-2.0); ALKALINE PHOSPHATASE 55 IU/L (40-150); ANION GAP 12.1 mmol/L (8-16); BLOOD UREA NITROGEN 15 mg/dL (7-26); BUN/CREATININE RATIO 24 (6-25); CALCIUM 8.4 mg/dL (8.4-10.2); CARBON DIOXIDE 34 mmol/L (22-29); CHLORIDE 90 mmol/L (98-107); CREATININE, SERUM 0.62 mg/dL (0.57-1.11); EST GLOMERULAR FILTRATION RATE > 60 ML/MIN (60-); GLUCOSE 78 mg/dL (74-118); POTASSIUM 4.1 mmol/L (3.5-5.1); SODIUM 132 mmol/L (136-145)
[2019-11-08] MEDS: BUDESONIDE/FORMOTEROL 160/4.5MCG INHALER INH SCH ×2 (08:00→18:53)
[2019-11-08] MEDS: AMIODARONE HCL 200 MG TAB PO SCH ×2 (08:12→17:00)
[2019-11-08] MEDS ORDERED: TRANEXAMIC ACID 1,000 MG/10 ML ML ONE (08:34)
[2019-11-08] MEDS ORDERED: VANCOMYCIN HCL 500 MG ONE (08:34)
[2019-11-08] MEDS ORDERED: BACITRACIN 50,000 UNIT VIAL ONE (08:35)
[2019-11-08] MEDS: FUROSEMIDE 20 MG TAB PO SCH (09:00)
[2019-11-08] MEDS: ASPIRIN 81 MG CHEW TAB PO SCH (09:00)
[2019-11-08] MEDS: DULOXETINE HCL 30 MG DELAYED RELEASE PO SCH (09:00)
[2019-11-08] MEDS ORDERED: DILTIAZEM HCL ER 120 MG CAP PO SCH (09:00)
--- NOTE | 2019-11-08 09:09 | NUR ---
RD Recommendation(s) for Physician: -ADAT to regular per MD. -Recommend Ensure Enlive BID when diet is advanced. Plan of Care: RD following, monitoring for tolerance and adequacy. Ensure Enlive BID. Nutrition reason for involvement: low BMI, pressure ulcer stage II RD Assessment 11/08: 84 YOF admitted for fall with PMH listed below. The pt was seen resting in bed, she was alert but pt appeared confused. She could not appropriately answer questions as this time d/t altered state, no family at bedside. Pt was at [facility] in 2018, she was 93 lbs at that time, suggesting no recent weight loss. Pt was evaluated for severe PCM during her last visit, unable to evaluate malnutrition at this time. Past weights show the pt did have a 19% weight loss within one year, if pt was 115 lbs in Jun, but per RD note from Sep, the family reported her UBW for the past year was 85 lbs. Recommend ONS BID when the pt is no longer NPO. Stage II pressure ulcer on sacrum was also recorded in EMR. Pt is currently NPO. Will continue to monitor. Principal Problems/Diagnoses: fall, femoral neck fracture PMH: cardiac arrhythmia, CAD, HTN, hypothyroid, nausea, vomiting GI: soft, flat abdomen, LBM: 11/07 Skin: sacrum stage II pressure ulcer Labs: 11/08: Na 132, Cl 90, CO2 34, AST 37, Creat Kinase 20 Meds: protonix, levothyroxine, , zofran, abx, lasix Ht: 63 inches Wt: 93 lbs (Pt weighed 84 lbs on 09/17, suspect possible weight error) BMI: 16.5 kg/m2 IBW: 115 lbs Malnutrition Evaluation (11/08/2019) Unable to evaluate the pt at this time. Energy intake: Unable to evaluate (pt was confused, no family at bedside) Weight loss: Unable to evaluate (pt was confused, no family at bedside) Fat loss: severe, generalized Muscle loss: severe, generalized Supporting Evidence: Fluid accumulation: no accumulation identified Functional Status: unable to evaluate Nutrition Prescription (Diet Order): npo Estimated Nutritional Needs: 0395-8004 calories/day (30-35 kcal/kg CBW) 63-85 g protein/day (1.5-2g pro/kg CBW) Diet Adequacy: Not meeting calorie needs, Not meeting protein needs Tolerance: N/A Diet Education Needs Assessment: Diet education not indicated Nutrition Care Level: moderate Nutrition Diagnosis: Inadequate energy intake related to medical condition as evidenced by pt being confused, having hx of poor intake and need for ONS. Goal: Patient will meet 75-100% of estimated needs by follow up Progress: N/A Interventions: -General healthful diet, Commercial beverage Monitoring/Evaluation: -Total energy intake, Total protein intake, Liquid supplement, Weight change Signed: Eugenie Pinzon RD, LD
--- NOTE | 2019-11-08 09:15 | NUR ---
Patient off unit to surgery.
[2019-11-08] MEDS ORDERED: HEPARIN SOD/SOD CHLORIDE 1,000 ML ONE (09:28)
[2019-11-08] MEDS ORDERED: ROPIVACAINE 246.25 MG, EPINEPHRINE HCL 1:1000 1ML 0.5 MG, CLONIDINE HCL 0.08 MG, KETORO... INJ ONE ×5 (10:00)
[2019-11-08] MEDS ORDERED: FENTANYL CITRATE/PF 100MCG/2 ML INJ ONE ×2 (12:27→14:39)
[2019-11-08] MEDS: SODIUM CHLORIDE 0.9% 1000ML 1,000 ML IV SCH (13:00)
[2019-11-08] MEDS ORDERED: SODIUM CHLORIDE 0.9% 1000ML 1,000 ML ONE (14:05)
[2019-11-08] MEDS ORDERED: HYDROCODONE/APAP 5MG-325MG TAB PO PRN (14:30)
--- NOTE | 2019-11-08 14:33 | Diagnostic Imaging Report ---
EXAMINATION: PELVIS AP 1-2 VIEWS INDICATION: Postoperative COMPARISON: Right hip radiographs 11/07/2019 FINDINGS: Portable AP radiograph of the pelvis demonstrates postoperative findings of interval right total hip replacement. Alignment appears near-anatomic. No unexpected fracture. Postsurgical subcutaneous soft tissue emphysema. Surgical skin jerardo in place. IMPRESSION: Expected postoperative findings of right total hip replacement as above. Signed by: Benito Barrera MD on 11/08/2019 2:30 PM
--- NOTE | 2019-11-08 14:34 | Progress Note ---
DATE: 11/08/2019 Cardiology Progress Note SUBJECTIVE: No complaints, postop in the ICU, sleeping. OBJECTIVE: VITAL SIGNS: Temperature 97.4, heart rate 64, blood pressure 130/61, respiratory rate 16, and O2 saturation 92%. GENERAL: In no acute distress, sleeping. Face mask in place, pale. NECK: No JVD. CHEST: Clear to auscultation. CARDIOVASCULAR: Regular rate and rhythm. Normal S1 and S2. No S3 or S4. Systolic ejection murmur. ABDOMEN: Soft. Bowel sounds positive. EXTREMITIES: No edema. Warm extremities. CARDIOVASCULAR MEDICATIONS: Reviewed. Aspirin 81 mg daily, amiodarone 200 mg b.i.d., metoprolol succinate 25 mg at bedtime, and furosemide 10 mg daily. STUDIES: Reviewed. Creatinine 0.6. Hemoglobin 7.7, white blood cells 3.8, and platelets 196. ASSESSMENT AND PLAN: 1. An 84-year-old woman with chronic diastolic heart failure, chronic obstructive pulmonary disease, paroxysmal atrial fibrillation, history of ventricular ectopy in the setting of electrolyte derangements. 2. Hypothyroidism. 3. Mechanical fall resulting in facial and scalp hematoma and ecchymosis and right hip recent fracture and open reduction and internal fixation, now status post malalignment now with repair. RECOMMEND: 1. Continue monitoring in ICU on telemetry. 2. Monitor H and H and replete as needed. 3. Monitor and replete electrolytes as needed. 4. Continue amiodarone. 5. As blood pressure allows, continue beta-tran. 6. Currently not a candidate for anticoagulation long-term given recurrent falls. Troponin in a.m. Madhav Aguilar MD AFV/MODL /[id number]
[2019-11-08 14:35] LABS: BASOPHILS % 0.1 % (0.0-1.0); EOSINOPHILS % 0.3 % (0.0-6.0); HEMATOCRIT 23.8 % (34.2-44.1); HEMOGLOBIN 7.2 g/dL (12.0-16.0); LYMPHOCYTES # (AUTO) 0.7 (1.0-3.2); MEAN CORPUSCULAR HEMOGLOBIN 29.8 pg (28-32); MEAN CORPUSCULAR HGB CONC 30.3 g/dL (31-35); MEAN CORPUSCULAR VOLUME 98.3 fL (81-99); MONOCYTES # (AUTO) 0.7 (0.2-0.8); MONOCYTES % 8.2 % (4.4-11.3); NEUTROPHILS # (AUTO) 7.4 (2.1-6.9); NEUTROPHILS % 82.5 % (38.7-80.0); PLATELET COUNT 191 x10e3/uL (140-360); RED BLOOD COUNT 2.42 x10e6/uL (3.6-5.1); RED CELL DISTRIBUTION WIDTH 13.9 % (11.7-14.4)
[2019-11-08] MEDS ORDERED: ONDANSETRON HCL INJ 2MG/ML 2ML 2 MG/ML VIAL ONE (14:37)
[2019-11-08] MEDS ORDERED: ROCURONIUM BROMIDE 10 MG/ML 5ML VIAL ONE (14:37)
[2019-11-08] MEDS ORDERED: LIDOCAINE HCL 2% JELLY 5 ML TUBE ONE (14:37)
[2019-11-08] MEDS ORDERED: DEXAMETHASONE SOD PHOS INJ 4 MG/ML VIAL ONE (14:37)
[2019-11-08] MEDS ORDERED: SEVOFLURANE INHAL SOLN 250 ML PEN BTL ONE (14:37)
[2019-11-08] MEDS ORDERED: PROPOFOL IV EMULSION 10 MG/ML 20 ML VIAL ONE (14:37)
[2019-11-08] MEDS ORDERED: ACETAMINOPHEN 1000 MG/100 ML IV ONE (14:37)
[2019-11-08] MEDS ORDERED: LIDOCAINE HCL 2% LOCAL INJ 5 ML SDV VIAL INJ ONE (14:37)
[2019-11-08] MEDS ORDERED: MIDAZOLAM HCL 2 MG/2 ML VIAL ONE (14:39)
[2019-11-08] MEDS ORDERED: ALBUTEROL SULF 0.083% NEB SOLN 3 ML NEB NEB PRN (14:45)
[2019-11-08 14:55] LABS: CREATINE KINASE MB 1.7 ng/mL (0-5.0)
--- NOTE | 2019-11-08 15:00 | NUR ---
Post operative labs reviewed by Sarwat Lizarraga NP. Orders for repeat H/H at 8 pm, mag sulfate 1 gram IV, and T&S 2 units to hold.
[2019-11-08 15:09] LABS: ALANINE AMINOTRANSFERASE 55 IU/L (0-55); ALBUMIN 2.7 g/dL (3.5-5.0); ALBUMIN/GLOBULIN RATIO 0.9 (0.8-2.0); ALKALINE PHOSPHATASE 56 IU/L (40-150); ANION GAP 12.7 mmol/L (8-16); BLOOD UREA NITROGEN 16 mg/dL (7-26); BUN/CREATININE RATIO 24 (6-25); CALCIUM 8.1 mg/dL (8.4-10.2); CARBON DIOXIDE 32 mmol/L (22-29); CHLORIDE 91 mmol/L (98-107); CREATININE, SERUM 0.68 mg/dL (0.57-1.11); EST GLOMERULAR FILTRATION RATE > 60 ML/MIN (60-); GLUCOSE 121 mg/dL (74-118); MAGNESIUM 1.5 MG/DL (1.3-2.1); POTASSIUM 4.7 mmol/L (3.5-5.1); SODIUM 131 mmol/L (136-145)
--- NOTE | 2019-11-08 15:30 | NUR ---
Pt has gone into a wide vent rhythm rate of [address] O2 sat 88, BP 117/46, RR 13. Pt stating " get off of my chest" , "I cant breathe". Was sinus rhythm prior to this change. Changed to 40% venti mask, with sat returning to 96%, EKG and cardiac enzymes per protocol. Dr Darcie Medeiros called and message was left. Addendum: 11/08/19 at 2026 by Milad Damon RN Error in document. Time of cardiac rhythm change was at 1730, not 1530.
[2019-11-08] MEDS ORDERED: MAGNESIUM SULF 1GRAM/DEXTROSE 100 ML IV ONE ×2 (16:30→18:00)
--- NOTE | 2019-11-08 17:40 | Progress Note ---
DATE: 11/08/2019 ATTENDING CONSULTANTS: 1. Dr. Medeiros with Cardiology. 2. Dr. Schroeder with Orthopedics. CHIEF COMPLAINT: Fall, femoral neck fracture with bruising on the face. SUBJECTIVE: She is lethargic post surgery ORIF of the right hip, admitted to the ICU for close monitoring. Discussed treatment plan with [id number] at the bedside. OBJECTIVE: VITAL SIGNS: Temperature 97.9, pulse is 71, blood pressure 153/71, respirations 16, pulse ox 100% on room air. GENERAL: No acute distress. NECK: Supple. LUNGS: With decreased breath sounds and crackles. CARDIOVASCULAR: Regular rate and rhythm. HEENT: Bruising noted in face and hematoma on the forehead. ABDOMEN: Soft and nontender. EXTREMITIES: Moves all extremities. Right hip surgical site intact with pressure dressing on. NEUROLOGIC: Lethargic due to anesthesia. LABORATORY DATA: Sodium 132, potassium 4.1, chloride 90, CO2 of 34, creatinine 0.62. WBC 3.84, hemoglobin 7.7, hematocrit 27.0, platelets 196. PT 14.4, PTT 42.8, INR 1.0. AST 37, ALT 52, T bilirubin 0.2, and alkaline phosphate 55. IMPRESSION: 1. Right hip fracture post fall. Status post open reduction and internal fixation of the right hip per Orthopedics. The patient is now in ICU for close monitoring. 2. History of atrial fibrillation, rate controlled. We will continue with amiodarone and hold Eliquis due to surgery. 3. Chronic obstructive pulmonary disease, chronic and stable. She is on non-rebreather mask currently. 4. Hypertension. We will resume home medications. 5. Possible urinary tract infection. Pending urine cultures. Prophylactic Rocephin is being given. 6. Hypothyroidism. Resume levothyroxine 50 mcg. 7. Anxiety. Continue Cymbalta. 8. Osteoarthritis. Continue pain management. 9. Anemia. Hemoglobin is 7.2. We will continue to monitor closely and transfuse today as needed. We will repeat H and H in 6 hours and monitor. 10. GI and deep venous thrombosis prophylaxis. We will continue with PPI and SCDs today. PLAN: To monitor the patient closely in the ICU, litigation specialist has been consulted, we will monitor H and H closely and transfuse if hemoglobin is less than 7. Dictated by Naz Lizarraga, ANP YiMD AB Bloom/GALO /[id number]
[2019-11-08] MEDS ORDERED: AMIODARONE HCL 150MG 100 ML IV NR ×2 (18:00→19:00)
[2019-11-08] MEDS ORDERED: AMIODARONE HCL 360MG 200 ML IV ONE (18:00)
--- NOTE | 2019-11-08 18:00 | NUR ---
Dr Medeiros returned call regarding rhythm change. At this time, pt has returned to sinus rhythm rate 60's. New orders received from Dr Medeiros.
[2019-11-08 18:06] LABS: CREATINE KINASE MB 2.3 ng/mL (0-5.0)
[2019-11-08] MEDS: CEFAZOLIN SOD 2 GM/D5W 50ML 50 ML IV SCH (18:11)
[2019-11-08] MEDS ORDERED: AMIODARONE 900MG 500 ML IV ONE (18:30)
[2019-11-08] MEDS: METOPROLOL TARTRATE INJ 1 MG/ML VIAL IV SCH ×2 (18:32→20:24)
[2019-11-08 20:26] LABS: HEMATOCRIT 22.3 % (34.2-44.1); HEMOGLOBIN 6.8 g/dL (12.0-16.0)
[2019-11-08] MEDS: METOPROLOL SUCCINATE 25 MG TAB XL PO SCH (20:38)
[2019-11-08] MEDS: MORPHINE SULFATE 2 MG/ML SYR 1ML IV PRN (21:00)
[2019-11-08] MEDS: MONTELUKAST SODIUM 10 MG TAB PO SCH (21:00)
[2019-11-08] MEDS ORDERED: SODIUM CHLORIDE 0.9% 250ML 250 ML ONE (21:03)
[2019-11-08] MEDS ORDERED: DEXTROSE 50% SYRINGE 50 ML IV PRN (21:15)
[2019-11-09] VITALS (28 sets, daily range): BP systolic 110–137; BP diastolic 36–79
[2019-11-09] MEDS: CEFAZOLIN SOD 2 GM/D5W 50ML 50 ML IV SCH ×2 (02:22→06:00)
--- NOTE | 2019-11-09 02:36 | Consultation ---
DATE OF CONSULTATION: 11/08/2019 Pulmonary Critical Care Medicine Consult. REASON FOR REFERRAL: Critical condition, post orthopedic surgery. HISTORY OF PRESENT ILLNESS: Ms. Ridley is a pleasant 84-year-old female with postoperative stay. The patient presented to [facility] on November 07, 2019. The patient had recent falls reportedly at a nursing facility. Fall was about one week ago. Followup chest x-ray showed displaced hardware and she was sent to the hospital. Originally, there was a September 19, 2019 right hip fracture, which was surgically pinned by orthopedic Dr. Hopper. It was also noted the patient had simultaneous head trauma and has bifacial bruising with impact ecchymoses on forehead with bruising going down past bilateral submandibular area. The patient was seen by surgeon and it was noted that the right hip was fractured right next to the implant site. The patient today had cemented right hip hemiarthroplasty. The patient after surgery was having multiple arrhythmias including SVT tachyarrhythmias, varying QRS complexes including wide-complex rhythms. I am consulted. The patient was spontaneously breathing and off pressors with normal tension. PAST MEDICAL HISTORY: Cardiac arrhythmias, CAD, hypertension, hypothyroidism, spinal surgery, right hip surgery September 2019, hypertension. MEDICATIONS: Medication list reviewed per the chart record. ALLERGIES: PENICILLIN AND CODEINE. SOCIAL HISTORY: No smoking, no drinking. No drugs. . The patient is not able to provide the history due to encephalopathy postop. FAMILY HISTORY: Noncontributory to this. REVIEW OF SYSTEMS: Cannot get reliably as patient is altered. OBJECTIVE: VITAL SIGNS: Currently afebrile, vital signs slightly better with heart rate in the 50s, blood pressure 119/45, other vital signs noted per the chart record. GENERAL: Sleeping, snoring, in bed, however, no acute distress, and she is moving air on breathing. HEENT: The patient is mostly normocephalic except for frontal forehead contusion with bilateral facial contusion, no large facial lacerations. NECK: Supple. Throat midline. LUNGS: Bilateral air entry, rare rhonchi. CARDIOVASCULAR: S1, S2. No murmurs, rubs, or gallops. ABDOMEN : Soft, nontender. EXTREMITIES: No clubbing. No cyanosis. There is no edema. INTEGUMENT: No rash. No purpura. LABORATORY DATA: Hematocrit from 20.5 to 22.3. White count 9, platelets 191, 4.7 potassium, 32 bicarbonate, 16 BUN, 0.7 creatinine. Calcium 8.1, magnesium 1.5, LFTs mostly unremarkable, total protein 5.6, albumin 2.7, troponins peaked at 0.008, CK 128. Urinalysis with 6 to 10 white cells. Fecal occult blood test positive. C difficile toxin positive. Urine culture so far gram-negative bacillus greater than 100,000 colony forming units. Chest x-ray, no acute cardiopulmonary abnormality, although some reticular nodular opacities. IMPRESSION AND PLAN: 1. Right hip fracture, acute. 2. Postoperative stay, status post hemiarthroplasty right. 3. Encephalopathy, likely mixed. Toxic metabolic plus postoperative medications plus or minus other. 4. Frontal/facial contusion, post trauma/fall. 5. Multiple cardiac arrhythmias, NOS. Treat for SVT. 6. History of atrial fibrillation, possibly this is without rate control. 7. Possible COPD. 8. Hypertension. 9. Urinary tract infection. 10. Hypothyroidism. 11. History of anxiety. 12. History of arthritis. 13. Anemia, multifactorial including blood loss. 14. Hypertension. 15. Hypothyroidism. Follow up serial mental exams and make sure the patient awakens neuropsychiatrically back to baseline. Else we have to pursue other workup. The patient should continue postoperative care including DVT prophylaxis as a post traumatic injury patient. Continue amiodarone, give some low-level maintenance IV fluid and titrate as needed. For 1st day at least give sliding scale insulin and continue stopping without history of diabetes if she is stable. Antibiotics for the clinical UTI. Repeat blood count and consider blood transfusion. Thank you very much, Dr. Wallace for this consult. Please call for questions. Cliff Aggarwal MD GMN/MODL /[id number]
[2019-11-09] MEDS: MORPHINE SULFATE 2 MG/ML SYR 1ML IV PRN ×4 (03:00→19:58)
[2019-11-09 05:09] LABS: BASOPHILS % 0.2 % (0.0-1.0); EOSINOPHILS % 0.2 % (0.0-6.0); HEMATOCRIT 26.8 % (34.2-44.1); HEMOGLOBIN 8.3 g/dL (12.0-16.0); LYMPHOCYTES # (AUTO) 0.7 (1.0-3.2); LYMPHOCYTES % 5.7 % (18.0-39.1); MEAN CORPUSCULAR HEMOGLOBIN 29.2 pg (28-32); MONOCYTES # (AUTO) 1.1 (0.2-0.8); MONOCYTES % 8.3 % (4.4-11.3); NEUTROPHILS # (AUTO) 10.9 (2.1-6.9); NEUTROPHILS % 85.1 % (38.7-80.0); PLATELET COUNT 197 x10e3/uL (140-360); RED BLOOD COUNT 2.84 x10e6/uL (3.6-5.1); RED CELL DISTRIBUTION WIDTH 14.4 % (11.7-14.4)
[2019-11-09 05:22] LABS: MEAN CORPUSCULAR VOLUME 94.4 fL (81-99)
[2019-11-09 05:32] LABS: ANION GAP 13.8 mmol/L (8-16); BLOOD UREA NITROGEN 18 mg/dL (7-26); BUN/CREATININE RATIO 26 (6-25); CALCIUM 8.1 mg/dL (8.4-10.2); CARBON DIOXIDE 30 mmol/L (22-29); CHLORIDE 93 mmol/L (98-107); CREATININE, SERUM 0.69 mg/dL (0.57-1.11); EST GLOMERULAR FILTRATION RATE > 60 ML/MIN (60-); GLUCOSE 105 mg/dL (74-118); POTASSIUM 4.8 mmol/L (3.5-5.1); SODIUM 132 mmol/L (136-145)
[2019-11-09] MEDS: LEVOTHYROXINE SODIUM 50 MCG TAB PO SCH (05:37)
--- NOTE | 2019-11-09 05:46 | Diagnostic Imaging Report ---
EXAMINATION: CHEST SINGLE (PORTABLE) INDICATION: CHF. COMPARISON: Chest x-ray 11/07/2019. FINDINGS: TUBES and LINES: None. LUNGS: Patchy density in the left lung base suggestive of atelectasis. Mild prominence of the pulmonary vasculature. Mild bilateral perihilar, peribronchial thickening. Mild patchy density in the upper lobes again observed, and may represent pleural parenchymal scarring. PLEURA: Trace left pleural effusion. No pneumothorax. HEART AND MEDIASTINUM: The cardiomediastinal silhouette is unremarkable. Calcified mediastinal nodes. Aortic calcifications. BONES AND SOFT TISSUES: No acute osseous lesion. Thoracolumbar kyphoplasty is again observed. UPPER ABDOMEN: No free air under the diaphragm. IMPRESSION: Left basilar subsegmental atelectasis and trace left pleural effusion. Signed by: Dr. Matthias Mao M.D. on 11/09/2019 5:44 AM
[2019-11-09] MEDS: BUDESONIDE/FORMOTEROL 160/4.5MCG INHALER INH SCH ×2 (07:01→19:50)
[2019-11-09] MEDS: INSULIN REGULAR, HUMAN 100 UNIT/1 ML 3ML VIAL SQ SCH ×4 (07:30→21:00)
[2019-11-09] MEDS: PANTOPRAZOLE SOD 40 MG TABEC PO SCH ×2 (07:30→07:53)
[2019-11-09] MEDS: ASPIRIN 81 MG CHEW TAB PO SCH ×2 (08:00→08:33)
[2019-11-09] MEDS: AMIODARONE HCL 200 MG TAB PO SCH ×4 (08:00→16:48)
[2019-11-09] MEDS: FUROSEMIDE 20 MG TAB PO SCH (08:01)
[2019-11-09] MEDS: DULOXETINE HCL 30 MG DELAYED RELEASE PO SCH ×2 (08:01→08:33)
--- NOTE | 2019-11-09 08:32 | NUR ---
patient refusing to eat and refusing to to take po medications
--- NOTE | 2019-11-09 08:49 | NUR ---
new ice pack to right hip
[2019-11-09] MEDS ORDERED: CEFAZOLIN SOD 2 GM/D5W 50ML 50 ML IV SCH (09:00)
[2019-11-09] MEDS: SODIUM CHLORIDE 0.9% 1000ML 1,000 ML IV SCH (10:02)
--- NOTE | 2019-11-09 11:11 | NUR ---
Pulmonary Critical Care Medicine DATE : 11/09/2019 SUBJECTIVE: AMIODARONE 0.5 mg/min iv drip ns at 50/hr ivf arrythmias have lessened today alatorre placed due to lag to void, 350 cc out during placement not eating, seems ao x 3 with some hearing impairment REVIEW OF SYSTEMS: Cannot get reliably as patient is altered. OBJECTIVE: VITAL SIGNS: vital signs reviewed per the chart record. GENERAL: no acute distress, calm in bed. HEENT: normocephalic with frontal forehead contusion and bilateral premaxillary facial contusion, no large facial lacerations. NECK: Supple. Throat midline. LUNGS: Bilateral air entry, rare rhonchi. CARDIOVASCULAR: S1, S2. No murmurs, rubs, or gallops. ABDOMEN : Soft, nontender. EXTREMITIES: No clubbing. No cyanosis. no edema. INTEGUMENT: No rash. No purpura. LABORATORY DATA: k 4.8, cr 0.69. 13 wbc, hct 27, plt 197. CXR: mild atelectasis, no overload/no infiltrates IMPRESSION AND PLAN: 1. Right hip fracture, acute. 2. Postoperative state, s/p hemiarthroplasty right. 3. Encephalopathy, mixed. Toxic/metabolic, postoperative medications. Resolving? early dementia?, unclear why she has multiple falls. 4. Frontal/facial contusion, post trauma/fall. 5. Multiple cardiac arrhythmias, NOS. Treat for SVT/Afib. 6. History of atrial fibrillation 7. Possible COPD. 8. Hypertension. 9. Urinary tract infection ecoli sensitive 10. Hypothyroidism. 11. Hx anxiety. 12. Hx arthritis. 13. Anemia, multifactorial including blood loss. 14. Hypertension. 15. Hypothyroidism. Serial neuropsychiatric evaluations continue postoperative care, DVT prophylaxis in this post trauma patient. Continue amiodarone, give some low-level maintenance IV fluid and titrate as needed. -convert to PO medications when patient begins to accept PO medications Continue sliding scale insulin. There is some hyperglycemia noted-- consider stopping without history of diabetes if she stabilizes. Repeat blood count intermittent, s/p blood transfusion Thank you very much, Dr. Wallace for this consult. Please call for questions.
--- NOTE | 2019-11-09 13:09 | NUR ---
WOUND CARE CONSULT 84 YO FEMALE HX OF FALL, HIP FRACTURE,POST OP ORIF REY 13 ON STRICT PUP STATUS AND INTERVENTIONS AND ALTERNATING PRESSURE MATTRESS LABS: WBC- 12.77, HGB- 8.3, GLUCOSE - 105 SKIN ASSESSMENT COMPLETE PATIENT PRESENTS WITH SACRAL STAGE 2 ULCERATION 1CM X1CMX .1CM SURROUNDED BY NONBLANCHABLE QUETA AREA MAKING TOTAL WOUND MEASUREMENT 6CMX 10.5CM X .1CM RECOMMENDATIONS: NURSING TO CONTINUE TO MAINTAIN STRICT PUP STATUS AND INTERVENTIONS AND ALTERNATING PRESSURE MATTRESS NURSING TO CONTINUE TO ASSIST PATIENT OUT OF BED FOR MEALS AND MUCH TOLERATED NURSING TO CONTINUE TO INSURE PATIENT IS RECEIVING NUTRITIONAL SUPPORT TO PROMOTE SKIN HEALTH AND APPROPRIATE WOUND HEALING NURSING TO CLEAN SACRAL STAGE 2 ULCERATION DAILY WITH NS AND APPLY VENELEX OINTMENT TO WOUND COVER WITH ALLEVYN FOAM DRESSING Addendum: 11/09/19 at 1316 by Cy Ibarra RN Amended: Links added.
[2019-11-09] MEDS: METOPROLOL TARTRATE INJ 1 MG/ML VIAL IV SCH ×2 (13:17→21:00)
[2019-11-09] MEDS: CEFAZOLIN SOD 1 GM/NS 50ML 50 ML IV SCH ×2 (13:24→22:35)
[2019-11-09] MEDS: BALSAM PERU/CASTOR OIL 60 GM OINT...G. TP SCH (15:35)
[2019-11-09] MEDS: ENOXAPARIN SOD INJ 40 MG/0.4 ML SYR SC SCH (16:44)
--- NOTE | 2019-11-09 16:57 | NUR ---
patient refusing to eat and take po meds
--- NOTE | 2019-11-09 20:26 | Progress Note ---
DATE: 11/09/2019 CONSULTANTS: 1. Dr. Medeiros with Cardiology. 2. Dr. Hopper with Orthopedics. 3. Dr. Aggarwal with rail assembler. CHIEF COMPLAINT: Fall with right femoral neck fracture and bruising of the face with hematoma. SUBJECTIVE: The patient is lethargic and with altered mental status, in the ICU. She denies any chest pain or abdominal pain. OBJECTIVE: VITAL SIGNS: Temperature 98.9, pulse 65, respirations 18, blood pressure 123/79, and pulse ox is 95% on 3 L of nasal cannula. GENERAL: No acute distress. Very lethargic. NECK: Supple. LUNGS: With decreased breath sounds. CARDIOVASCULAR: Regular rate and rhythm. HEENT: Bruising and hematoma noted on the forehead. ABDOMEN: Soft and nontender. EXTREMITIES: Limited right lower extremity movement due to ORIF. Dressing intact. NEUROLOGIC: Lethargic. SKIN: Dry. PSYCH: Calm. LABORATORY DATA: WBC 12.77, hemoglobin 8.3, hematocrit 26.8, and platelet 197. Sodium 132, creatinine 0.69, and troponin 0.001. IMPRESSION: 1. Right hip fracture post fall. Status post ORIF of the right hip per Orthopedics. Continue to monitor in the ICU. 2. Urinary tract infection. Urine positive for Escherichia coli. We will continue with Ancef per sensitivity. 3. History of atrial fibrillation, rate is controlled. We will continue with amiodarone and hold Eliquis due to surgery. 4. Chronic obstructive pulmonary disease, chronic and stable. We will continue with nasal cannula and DuoNeb. 5. Hypertension. We will resume with home medication. 6. Hypothyroidism. Resume levothyroxine at 50 mcg daily. 7. Anxiety, now stable and lethargic. 8. Osteoarthritis. Continue pain management as needed. 9. Leukocytosis, likely reactive due to surgery. Afebrile. Continue with antibiotics and continue to trend. 10. Anemia. Hemoglobin was down to 6.8. Status post transfusion of 1 unit of blood. Hemoglobin is now 8.3. We will continue to monitor closely. 11. Debility. Physical therapy to evaluate and treat. 12. Deep vein thrombosis prophylaxis. Lovenox. Dictated by LUIS ANTONIO Calabrese MD AB Al/MICHAELL /[id number]
[2019-11-09] MEDS: METOPROLOL SUCCINATE 25 MG TAB XL PO SCH (20:55)
[2019-11-09] MEDS: MONTELUKAST SODIUM 10 MG TAB PO SCH (21:00)
[2019-11-09] MEDS ORDERED: AMIODARONE 900MG 500 ML IV ONE (22:12)
[2019-11-09] MEDS ORDERED: AMIODARONE HCL 900 MG in DEXTROSE 5% 500ML 500 ML IV ONE (22:30)
--- NOTE | 2019-11-09 23:19 | NUR ---
ORTHOPEDICS PROGRESS NOTE Patient seen & examined resting comfortably at bedside. Patient was able to participate with PT today. T 98.8 HR 71 RR 19 BP 119/37 O2 95% Right Hip dressing clean dry and intact Motor: + EHL, FHL, TA, G/S SILT Pulses + DP, Post tib Compartments soft Negative calf tenderness 84 yo F s/p Right Hip Removal of Hardware, Right Hip Hemiarthroplasty POD #1 Analgesics DVT Prophylaxis PT WBAT, Posterior hip precautions Follow up am labs Medical management DO MAAME [facility]
[2019-11-10] VITALS (26 sets, daily range): BP systolic 92–145; BP diastolic 30–61
[2019-11-10] MEDS: HYDROCODONE/APAP 5MG-325MG TAB PO PRN ×3 (00:19→17:01)
--- NOTE | 2019-11-10 02:02 | Progress Note ---
DATE: 11/09/2019 Cardiology Progress Note SUBJECTIVE: No complaints. Decreased p.o. intake. OBJECTIVE: VITAL SIGNS: Temperature 98.8, heart rate 64, blood pressure 123/79, respiratory rate 18, O2 saturation 95%. GENERAL: No acute distress, alert. NECK: No JVD. Mucosa pale. CHEST: Clear to auscultation. CARDIOVASCULAR: Regular rate and rhythm. Normal S1 and S2. ABDOMEN: Soft. Bowel sounds positive. EXTREMITIES: No edema. CARDIOVASCULAR MEDICATION: Reviewed. Metoprolol succinate 12.5 mg at bedtime, furosemide 20 mg daily, Lovenox 40 mg subcu daily, amiodarone 200 mg b.i.d., aspirin 81 mg daily. STUDIES: Reviewed. Creatinine 0.6, potassium 4.8. Hemoglobin 8.3. Magnesium 2. Cardiac enzymes, troponins negative. Telemetry yesterday had nonsustained VT, today in sinus rhythm. ASSESSMENT AND PLAN: An 84-year-old woman postoperative from hip malalignment revision following mechanical fall, history of , paroxysmal atrial fibrillation, anemia, frailty, deconditioning, hypertension. Recommend continue current cardiovascular medications and replete electrolytes as needed. Very sensitive to hypomagnesemia, tends to have ventricular ectopy with magnesium less than 1.5. Continue amiodarone and metoprolol. Not currently a candidate for anticoagulation given recurrent falls with significant resulting trauma. MD NORMA Jewell/GALO /[id number]
[2019-11-10 05:23] LABS: BASOPHILS % 0.2 % (0.0-1.0); LYMPHOCYTES # (AUTO) 0.7 (1.0-3.2); LYMPHOCYTES % 7.7 % (18.0-39.1); MEAN CORPUSCULAR HGB CONC 31.2 g/dL (31-35); MONOCYTES # (AUTO) 1.1 (0.2-0.8); MONOCYTES % 12.3 % (4.4-11.3); NEUTROPHILS # (AUTO) 7.1 (2.1-6.9); NEUTROPHILS % 79.5 % (38.7-80.0); PLATELET COUNT 200 x10e3/uL (140-360); RED BLOOD COUNT 2.27 x10e6/uL (3.6-5.1); RED CELL DISTRIBUTION WIDTH 14.3 % (11.7-14.4)
[2019-11-10 05:42] LABS: HEMATOCRIT 21.8 % (34.2-44.1); HEMOGLOBIN 6.8 g/dL (12.0-16.0)
[2019-11-10 05:50] LABS: BLOOD UREA NITROGEN 14 mg/dL (7-26); BUN/CREATININE RATIO 25 (6-25); CALCIUM 7.8 mg/dL (8.4-10.2); CARBON DIOXIDE 27 mmol/L (22-29); CHLORIDE 93 mmol/L (98-107); CREATININE, SERUM 0.57 mg/dL (0.57-1.11); EST GLOMERULAR FILTRATION RATE > 60 ML/MIN (60-); GLUCOSE 91 mg/dL (74-118); SODIUM 131 mmol/L (136-145)
[2019-11-10 05:52] LABS: MAGNESIUM 1.5 MG/DL (1.3-2.1)
[2019-11-10] MEDS ORDERED: SODIUM CHLORIDE 0.9% 250ML 250 ML IV ONE (06:00)
[2019-11-10] MEDS: CEFAZOLIN SOD 1 GM/NS 50ML 50 ML IV SCH ×3 (06:14→22:25)
[2019-11-10] MEDS: LEVOTHYROXINE SODIUM 50 MCG TAB PO SCH (06:45)
[2019-11-10] MEDS: SODIUM CHLORIDE 0.9% 1000ML 1,000 ML IV SCH (06:46)
[2019-11-10] MEDS: PANTOPRAZOLE SOD 40 MG TABEC PO SCH (07:30)
[2019-11-10] MEDS: INSULIN REGULAR, HUMAN 100 UNIT/1 ML 3ML VIAL SQ SCH ×4 (07:30→20:43)
[2019-11-10] MEDS: DULOXETINE HCL 30 MG DELAYED RELEASE PO SCH (08:02)
[2019-11-10] MEDS: AMIODARONE HCL 200 MG TAB PO SCH ×3 (08:02→17:01)
[2019-11-10] MEDS: ASPIRIN 81 MG CHEW TAB PO SCH (08:02)
[2019-11-10] MEDS: FUROSEMIDE 20 MG TAB PO SCH ×2 (08:03→08:48)
--- NOTE | 2019-11-10 08:03 | NUR ---
PATIENT REFUSING TO TAKE PO MEDICATIONS Addendum: 11/10/19 at 1350 by Sabrina Nixon RN 09 PATIENT AGREED TO SWALLOW MEDS AND PAIN PILL
[2019-11-10] MEDS: MORPHINE SULFATE 2 MG/ML SYR 1ML IV PRN ×2 (08:55→15:19)
[2019-11-10] MEDS: METOPROLOL TARTRATE INJ 1 MG/ML VIAL IV SCH ×2 (09:00→21:00)
[2019-11-10] MEDS: BALSAM PERU/CASTOR OIL 60 GM OINT...G. TP SCH (09:46)
[2019-11-10] MEDS: BUDESONIDE/FORMOTEROL 160/4.5MCG INHALER INH SCH ×2 (10:45→19:25)
--- NOTE | 2019-11-10 13:22 | NUR ---
Pulmonary Critical Care Medicine DATE : 11/10/2019 SUBJECTIVE: NS at 50/hr ivf amiodarone IV off, she took pills ao x 3 even to year, still intermittent confusion vs altered thinking anemia, transfused 1 unit REVIEW OF SYSTEMS: no bleed, no rash OBJECTIVE: VITAL SIGNS: vital signs reviewed per the chart record. GENERAL: no acute distress, calm in bed. HEENT: normocephalic with frontal forehead contusion and bilateral premaxillary facial contusion, no large facial lacerations. NECK: Supple. Throat midline. LUNGS: Bilateral air entry, rare rhonchi. CARDIOVASCULAR: S1, S2. No murmurs, rubs, or gallops. ABDOMEN : Soft, nontender. EXTREMITIES: No clubbing. No cyanosis. no edema. INTEGUMENT: No rash. No purpura. LABORATORY DATA: k 4.0, cr 0.57, wbc 8.9, hct 22. IMPRESSION AND PLAN: 1. Right hip fracture, acute. 2. Postoperative state, s/p hemiarthroplasty right. 3. Encephalopathy, mixed. Toxic/metabolic, postoperative medications. Resolving? early dementia surmised 4. Frontal/facial contusion, post trauma/fall. 5. Multiple cardiac arrhythmias, NOS. Treat for SVT/Afib. 6. History of atrial fibrillation 7. Possible COPD. 8. Hypertension. 9. Urinary tract infection ecoli sensitive 10. Hypothyroidism. 11. Hx anxiety. 12. Hx arthritis. 13. Anemia, multifactorial including blood loss. 14. Hypertension. 15. Hypothyroidism. Serial neuropsychiatric evaluations Continue postoperative care, DVT prophylaxis in this post trauma patient. Continue amiodarone, now PO Continue sliding scale insulin. There is some hyperglycemia noted-- consider stopping without history of diabetes if she stabilizes. Repeat blood count intermittent, rx blood transfusion Thank you very much, Dr. Wallace for this consult. Please call for questions.
[2019-11-10] MEDS: ENOXAPARIN SOD INJ 40 MG/0.4 ML SYR SC SCH (15:50)
--- NOTE | 2019-11-10 16:14 | NUR ---
pt with low hgb and about to be transfused will f/u tomorrow Addendum: 11/10/19 at 1615 by Wiliam Wan PTA Amended: Links added.
--- NOTE | 2019-11-10 16:51 | Progress Note ---
DATE: 11/10/2019 Cardiology Progress Note SUBJECTIVE: No complaints today, but confused. OBJECTIVE: VITAL SIGNS: Temperature 98 degrees, heart rate 67, blood pressure 119/57, respiratory rate is 16, and O2 saturation . GENERAL: No acute distress, alert. NECK: No JVD. CHEST: Clear to auscultation. CARDIOVASCULAR: Regular rate and rhythm. Normal S1, S2. ABDOMEN: Soft. Bowel sounds positive. EXTREMITIES: No edema. Warm extremities. HEENT: Mucosa seems less pale following transfusion. CARDIOVASCULAR MEDICATIONS: Reviewed. Furosemide 10 mg daily, Lovenox 40 mg subcu daily, amiodarone 200 mg b.i.d., aspirin 81 mg daily, metoprolol tartrate 12.5 mg q.12 hours p.r.n. STUDIES: Reviewed. Creatinine 0.5. Hemoglobin was 6.8 platelets 200. ASSESSMENT AND PLAN: 1. An 84-year-old woman with hip fracture, status post open reduction and internal resection on mechanical fall now status post revision. 2. Supraventricular tachycardia. 3. Chronic diastolic heart failure. 4. Paroxysmal atrial fibrillation. 5. Frailty, deconditioning, and recurrent falls. 6. Anemia. 7. Dementia. RECOMMENDATIONS: Continue current cardiovascular medications. MD NORMA Jewell/GALO /[id number]
--- NOTE | 2019-11-10 18:48 | NUR ---
ORTHOPEDICS PROGRESS NOTE Patient seen & examined resting comfortably. Patient lying in bed. No acute events 97.0 60 14 93/46 96% Right hip - dressing clean, dry and intact Motor: + EHL, FHL, TA, G/S Sensation grossly intact Pulse + DP, Post tib Compartments soft Negative calf tenderness 84 yo F s/p Removal of Hardware and Right Hip Hemiarthroplasty Continue medical management Transfuse as needed Analgesics PRN DVT Prophylaxis PT - WBAT, Posterior hip precautions Follow up am labs Montse Hopper DO
--- NOTE | 2019-11-10 19:01 | Progress Note ---
DATE: 11/10/2019 CONSULTANTS: 1. Dr. Medeiros with Cardiology. 2. Dr. Schroeder with Orthopedics. 3. Dr. Aggarwal with artistic director. CHIEF COMPLAINT: Fall with right femoral neck fracture and bruising of the face with hematoma. SUBJECTIVE: The patient is much more awake and alert today. Seen in ICU. Tolerating full liquids. She denies any chest pain, nausea, vomiting, or abdominal pain. OBJECTIVE: VITAL SIGNS: Temperature 97.0, pulse is 63, respirations 16, blood pressure is 116/49, and pulse ox is 96% on 3 L of oxygen. GENERAL: Fatigue. NECK: Supple and midline. HEENT: Hematoma and bruising on the face. LUNGS: With decreased breath sounds. CARDIOVASCULAR: Regular rate and rhythm. ABDOMEN: Soft and nontender. EXTREMITIES: Limited right lower extremity movement due to ORIF. Dressing is intact. NEUROLOGIC: Alert and awake, but falls asleep right away. SKIN: Dry and bruising on the face. PSYCH: Calm. LABORATORY DATA: WBC 8.94, hemoglobin is 6.8, hematocrit is 21.8, and platelet is 200. Sodium 131, potassium 4.0, CO2 27, creatinine 0.57, estimated GFR is greater than 60, calcium is 7.8, and magnesium is 1.5. Troponin I is less than 0.001. IMPRESSION: 1. Right hip fracture post fall. Status post open reduction and internal fixation of the right hip per Orthopedics. Pain Management and PT evaluation. 2. Urinary tract infection. Urine positive for Escherichia coli. Continue on Unasyn per sensitivity. 3. Acute blood loss anemia. Likely due to surgery. Hemoglobin is down to 6.8. Transfuse one more unit of PRBCs. We will continue to monitor closely. 4. History of atrial fibrillation. Rate controlled. We will continue on amiodarone and hold Eliquis due to recent surgery. 5. Chronic obstructive pulmonary disease without exacerbation. We will continue O2 via nasal cannula and DuoNeb q.4 hours. 6. Hypertension. We will resume home medications. 7. Hypothyroidism. On levothyroxine 50 mcg daily. 8. Anxiety, now stable. 9. Leukocytosis. Likely due to surgery and urinary tract infection. Continue Unasyn and is resolving. 10. Osteoarthritis. Continue pain management as needed. 11. Debility. Physical therapy to evaluate and treat. 12. Deep vein thrombosis prophylaxis. Continue Lovenox per Ortho. PLAN: To transfuse one unit of PRBCs and monitor H and H closely. We will consult Case Management for residential facility placement upon discharge. Dictated by LUIS ANTONIO Calabrese Polyching Crow Wallace MD MY/MODL /[id number]
[2019-11-10] MEDS: MONTELUKAST SODIUM 10 MG TAB PO SCH (20:55)
[2019-11-10] MEDS: METOPROLOL SUCCINATE 25 MG TAB XL PO SCH (22:10)
[2019-11-11] VITALS (24 sets, daily range): BP systolic 107–173; BP diastolic 36–75
[2019-11-11] MEDS: HYDROCODONE/APAP 5MG-325MG TAB PO PRN ×2 (05:07→21:05)
[2019-11-11] MEDS: LEVOTHYROXINE SODIUM 50 MCG TAB PO SCH (05:07)
[2019-11-11] MEDS: CEFAZOLIN SOD 1 GM/NS 50ML 50 ML IV SCH ×3 (05:07→20:46)
[2019-11-11] MEDS: SODIUM CHLORIDE 0.9% 1000ML 1,000 ML IV SCH (05:07)
[2019-11-11 06:06] LABS: BASOPHILS % 0.2 % (0.0-1.0); EOSINOPHILS % 0.5 % (0.0-6.0); HEMATOCRIT 28.1 % (34.2-44.1); HEMOGLOBIN 8.7 g/dL (12.0-16.0); LYMPHOCYTES # (AUTO) 0.8 (1.0-3.2); LYMPHOCYTES % 8.9 % (18.0-39.1); MEAN CORPUSCULAR HEMOGLOBIN 29.3 pg (28-32); MEAN CORPUSCULAR VOLUME 94.6 fL (81-99); MONOCYTES # (AUTO) 1.1 (0.2-0.8); MONOCYTES % 12.3 % (4.4-11.3); NEUTROPHILS # (AUTO) 6.8 (2.1-6.9); NEUTROPHILS % 77.1 % (38.7-80.0); PLATELET COUNT 209 x10e3/uL (140-360); RED BLOOD COUNT 2.97 x10e6/uL (3.6-5.1); RED CELL DISTRIBUTION WIDTH 14.4 % (11.7-14.4)
[2019-11-11 06:10] LABS: ANION GAP 12.9 mmol/L (8-16); BLOOD UREA NITROGEN 10 mg/dL (7-26); BUN/CREATININE RATIO 20 (6-25); CARBON DIOXIDE 29 mmol/L (22-29); CHLORIDE 96 mmol/L (98-107); EST GLOMERULAR FILTRATION RATE > 60 ML/MIN (60-); GLUCOSE 85 mg/dL (74-118); POTASSIUM 3.9 mmol/L (3.5-5.1); SODIUM 134 mmol/L (136-145)
[2019-11-11 06:27] LABS: MAGNESIUM 1.3 MG/DL (1.3-2.1)
[2019-11-11] MEDS: BUDESONIDE/FORMOTEROL 160/4.5MCG INHALER INH SCH ×2 (07:00→18:42)
[2019-11-11] MEDS: INSULIN REGULAR, HUMAN 100 UNIT/1 ML 3ML VIAL SQ SCH ×2 (07:23→11:30)
[2019-11-11] MEDS: PANTOPRAZOLE SOD 40 MG TABEC PO SCH (07:33)
[2019-11-11] MEDS: ASPIRIN 81 MG CHEW TAB PO SCH (08:24)
[2019-11-11] MEDS: FUROSEMIDE 20 MG TAB PO SCH (08:25)
[2019-11-11] MEDS: BALSAM PERU/CASTOR OIL 60 GM OINT...G. TP SCH (08:25)
[2019-11-11] MEDS: AMIODARONE HCL 200 MG TAB PO SCH ×2 (08:25→16:15)
[2019-11-11] MEDS: DULOXETINE HCL 30 MG DELAYED RELEASE PO SCH (08:25)
[2019-11-11] MEDS: METOPROLOL TARTRATE INJ 1 MG/ML VIAL IV SCH ×2 (09:00→21:00)
--- NOTE | 2019-11-11 12:36 | NUR ---
Pulmonary Critical Care Medicine DATE : 11/11/2019 SUBJECTIVE: 99% saturation 3 L/min by KEVIN NS at 50/ hr IVF eats some alatorre in, a line in REVIEW OF SYSTEMS: no bleed, no rash OBJECTIVE: VITAL SIGNS: vital signs reviewed per the chart record. GENERAL: no acute distress, calm in bed. HEENT: normocephalic with frontal forehead contusion and bilateral premaxillary facial contusion, no large facial lacerations. NECK: Supple. Throat midline. LUNGS: Bilateral air entry, rare rhonchi. CARDIOVASCULAR: S1, S2. No murmurs, rubs, or gallops. ABDOMEN : Soft, nontender. EXTREMITIES: No clubbing. No cyanosis. no edema. INTEGUMENT: No rash. No purpura. LABORATORY DATA: k 3.9, cr 0.50. hct 28, wbc 9 IMPRESSION AND PLAN: 1. Right hip fracture, acute. 2. Postoperative state, s/p hemiarthroplasty right. 3. Encephalopathy, mixed. Toxic/metabolic, postoperative medications. Resolving? early dementia surmised 4. Frontal/facial contusion, post trauma/fall. 5. Multiple cardiac arrhythmias, NOS. Treat for SVT/Afib. 6. History of atrial fibrillation 7. Possible COPD. 8. Hypertension. 9. Urinary tract infection ecoli sensitive 10. Hypothyroidism. 11. Hx anxiety. 12. Hx arthritis. 13. Anemia, multifactorial including blood loss. 14. Hypertension. 15. Hypothyroidism. Serial neuropsychiatric evaluations Continue postoperative care, DVT prophylaxis in this post trauma patient. Continue amiodarone, now PO dc sliding scale insulin. glucose better dc arterial line dc alatorre in AM Repeat blood count intermittent, rx blood transfusion Thank you very much, Dr. Wallace for this consult. Please call for questions.
[2019-11-11] MEDS: ENOXAPARIN SOD INJ 40 MG/0.4 ML SYR SC SCH (16:15)
--- NOTE | 2019-11-11 18:38 | NUR ---
ORTHOPEDICS PROGRESS NOTE Patient seen & examined resting comfortably in bed. Patient more alert today. States her hip feels more sore. Denies numbness, paresthesias or loss of distal motor function. T 97.6 HR 66 BP 126/60 O2 96% NC3 Right Hip - dressing clean, dry and intact Motor: + EHL, FHL, TA, G/S Sensation grossly intact to light touch Pulses + DP, Post tib Compartments soft Negative calf tenderness H/H 8.7/28.1 OR Cultures: NGTD at 3 days 84 yo F s/p Removal of hardware, Right hip cemented hemiarthroplasty POD#3 Analgesics DVT Prophylaxis PT WBAT - Posterior hip precautions Orthopedically stable for discharge Keep dressing on for 2 weeks until follow up as long as dressing is clean and dry Follow up in office in 2 weeks DO MAAME [facility]
--- NOTE | 2019-11-11 18:39 | Progress Note ---
DATE: 11/11/2019 CONSULTANTS: 1. Dr. Medeiros with Cardiology. 2. Dr. Schroeder with Orthopedics. 3. Dr. Aggarwal with card clothier. CHIEF COMPLAINT: Status post fall with right femur neck fracture and bruising and hematoma on the face. SUBJECTIVE: The patient is alert, awake, and oriented x1-2. Friends at the bedside, she remains in the ICU for close monitoring. She is tolerating p.o., denies any chest pain, nausea, vomiting, abdominal pain. PHYSICAL EXAMINATION: VITAL SIGNS: Temperature 97.6, pulse is 64, respirations 12, blood pressure 134/54, pulse ox is 96% on 2 L of nasal cannula. GENERAL: Fatigue. NECK: Supple and midline. HEENT: Hematoma and bruising on the face. PERRLA. LUNGS: With decreased breath sounds. CARDIOVASCULAR: Regular rate and rhythm. ABDOMEN: Soft and nontender. EXTREMITIES: Limited due to lower extremity surgery, status post ORIF, dressing is intact. NEUROLOGIC: Alert, awake, and oriented x1-2, much more awake. SKIN: Dry with bruising on face. PSYCH: Calm. LABORATORY DATA: WBC 8.85, hemoglobin is 8.7, hematocrit is 28.1, and platelet is 209. Sodium is 134, potassium 3.9, CO2 29, BUN is 10, creatinine 0.50, estimated GFR greater than 60, calcium is 8, magnesium 1.3, troponin 0.001. IMPRESSION: 1. Right hip fracture post fall. Status post open reduction and internal fixation of the right hip per Orthopedics. Continue pain management and physical therapy. 2. Urinary tract infection with Escherichia coli. Continue with Unasyn per sensitivity. 3. Acute blood loss anemia. Likely due to surgery. Transfused 2 units of blood. Hemoglobin is 8.4. We will continue to monitor and transfuse if less than 7. 4. History of atrial fibrillation. Rate controlled. We will continue amiodarone and AC per Cardiology/Orthopedics. 5. Chronic obstructive pulmonary disease without exacerbation. We will continue with O2 via nasal cannula at DuoNeb q.4 hours. 6. Hypertension. We will continue home medications. 7. Hypothyroidism. On levothyroxine 50 mcg daily. 8. Anxiety. Stable. 9. Leukocytosis. Now improved. Continue Unasyn for urinary tract infection sensitivity. 10. Osteoarthritis. Continue pain management as needed. 11. Debility. Physical therapy to evaluate and treat. 12. Deep vein thrombosis prophylaxis. Continue Lovenox per Ortho. PLAN: Continue pain management and physical therapy. We will plan on [facility]pc facility upon discharge. Dictated by LUIS ANTONIO Calabrese Polyching Crow Wallace MD MY/MODL /[id number]
--- NOTE | 2019-11-11 19:14 | Progress Note ---
DATE: 11/11/2019 Cardiology Progress Note SUBJECTIVE: No complaints today. Denies chest pain or shortness of breath. OBJECTIVE: VITAL SIGNS: Temperature 97.6, heart rate 66, blood pressure 126/60, respiratory rate 16, and O2 saturation 96%. GENERAL: In no acute distress. Alert. NECK: No JVD. CHEST: Clear to auscultation. CARDIOVASCULAR: Regular rate and rhythm. Normal S1 and S2. No S3 or S4. ABDOMEN: Soft. Bowel sounds positive. EXTREMITIES: No edema. CARDIOVASCULAR MEDICATIONS: Reviewed. Amiodarone, metoprolol, aspirin, and furosemide. STUDIES: Reviewed. Potassium 3.9, bicarbonate 29, and creatinine 0.5. Hemoglobin 8.7, platelets 209, and white blood cells 8.8. ASSESSMENT AND PLAN: An 84-year-old woman with hip fracture and malalignment revision, history of nonsustained ventricular tachycardia, chronic obstructive pulmonary disease, paroxysmal atrial fibrillation, recurrent falls, frailty, and chronic diastolic heart failure. RECOMMEND: 1. Continue current cardiovascular medications. 2. Monitor and replete electrolytes as needed. Maintain on telemetry while in the hospital. MD NORMA Jewell/GALO /[id number]
[2019-11-11] MEDS: MONTELUKAST SODIUM 10 MG TAB PO SCH (20:46)
[2019-11-11] MEDS: METOPROLOL SUCCINATE 25 MG TAB XL PO SCH (21:03)
[2019-11-12] VITALS (21 sets, daily range): BP systolic 93–159; BP diastolic 51–94
[2019-11-12 05:43] LABS: BASOPHILS % 0.2 % (0.0-1.0); EOSINOPHILS # (AUTO) 0.1 (0.0-0.4); EOSINOPHILS % 0.6 % (0.0-6.0); HEMATOCRIT 29.6 % (34.2-44.1); HEMOGLOBIN 9.4 g/dL (12.0-16.0); LYMPHOCYTES # (AUTO) 0.8 (1.0-3.2); LYMPHOCYTES % 7.3 % (18.0-39.1); MEAN CORPUSCULAR HEMOGLOBIN 29.6 pg (28-32); MEAN CORPUSCULAR HGB CONC 31.8 g/dL (31-35); MEAN CORPUSCULAR VOLUME 93.1 fL (81-99); MONOCYTES % 8.9 % (4.4-11.3); NEUTROPHILS # (AUTO) 9.2 (2.1-6.9); NEUTROPHILS % 82.3 % (38.7-80.0); PLATELET COUNT 268 x10e3/uL (140-360); RED BLOOD COUNT 3.18 x10e6/uL (3.6-5.1); RED CELL DISTRIBUTION WIDTH 14.4 % (11.7-14.4)
--- NOTE | 2019-11-12 06:00 | NUR ---
Mayer discontinued with tip intact per MD order at 0500. Diaper and purewick applied. No acute distress noted. Oncoming RN will be notified that pt is DTV.
[2019-11-12 06:04] LABS: ANION GAP 14.1 mmol/L (8-16); BLOOD UREA NITROGEN 10 mg/dL (7-26); BUN/CREATININE RATIO 20 (6-25); CALCIUM 8.2 mg/dL (8.4-10.2); CARBON DIOXIDE 31 mmol/L (22-29); CHLORIDE 94 mmol/L (98-107); CREATININE, SERUM 0.51 mg/dL (0.57-1.11); EST GLOMERULAR FILTRATION RATE > 60 ML/MIN (60-); GLUCOSE 100 mg/dL (74-118); POTASSIUM 4.1 mmol/L (3.5-5.1); SODIUM 135 mmol/L (136-145)
[2019-11-12] MEDS: CEFAZOLIN SOD 1 GM/NS 50ML 50 ML IV SCH ×3 (06:05→21:11)
[2019-11-12] MEDS: LEVOTHYROXINE SODIUM 50 MCG TAB PO SCH (06:05)
[2019-11-12] MEDS: BUDESONIDE/FORMOTEROL 160/4.5MCG INHALER INH SCH ×3 (07:35→19:45)
[2019-11-12] MEDS: ASPIRIN 81 MG CHEW TAB PO SCH (08:30)
[2019-11-12] MEDS: PANTOPRAZOLE SOD 40 MG TABEC PO SCH (08:30)
[2019-11-12] MEDS: BALSAM PERU/CASTOR OIL 60 GM OINT...G. TP SCH (08:30)
[2019-11-12] MEDS: AMIODARONE HCL 200 MG TAB PO SCH ×2 (08:30→16:10)
[2019-11-12] MEDS: DULOXETINE HCL 30 MG DELAYED RELEASE PO SCH (08:30)
[2019-11-12] MEDS: FUROSEMIDE 20 MG TAB PO SCH (08:30)
[2019-11-12] MEDS: HYDROCODONE/APAP 5MG-325MG TAB PO PRN ×2 (08:46→22:45)
[2019-11-12] MEDS: METOPROLOL TARTRATE INJ 1 MG/ML VIAL IV SCH (08:51)
[2019-11-12] MEDS ORDERED: ERGOCALCIFEROL 50,000 UNIT CAP PO SCH (09:00)
--- NOTE | 2019-11-12 13:30 | NUR ---
PT HAD 1 FULL VOID
--- NOTE | 2019-11-12 13:58 | Progress Note ---
DATE: 11/12/2019 Cardiology Progress Note. SUBJECTIVE: No complaints. OBJECTIVE: VITAL SIGNS: Temperature 98.5, heart rate 64, blood pressure 136/59, respiratory rate 17, and O2 saturation 99%. GENERAL: In no acute distress. Alert. NECK: No JVD. CHEST: Clear to auscultation. CARDIOVASCULAR: Regular rate and rhythm. Normal S1, S2. No S3 or S4. ABDOMEN: Soft. Bowel sounds positive. EXTREMITIES: No edema. SKIN: With ecchymosis to face and forehead continuing to improve. Frail cachectic. CARDIOVASCULAR MEDICATIONS: Reviewed. 1. Metoprolol tartrate transition to p.o. today. 2. Aspirin 81 mg daily. 3. Furosemide 10 mg daily. 4. Lovenox 40 mg subcu daily. LABORATORY DATA: Reviewed. Potassium 4.1, creatinine 0.5, white blood cells 11.2, hemoglobin 9.4, and platelets 268. AST 43 and ALT 55. Alkaline phosphatase 56. ASSESSMENT AND PLAN: 1. An 84-year-old woman presents with paroxysmal atrial fibrillation and supraventricular tachycardia, chronic obstructive pulmonary disease, hip fracture, malalignment, status post revision frailty, recurrent falls, and chronic diastolic heart failure. Recommend continue current cardiovascular medications with the following changes, transition IV to p.o. metoprolol 12.5 mg at bedtime. 2. Monitor and replete electrolytes as needed. 3. Not a candidate for long-term anticoagulation given recurrent repetitive falls with significant trauma. Madhav Aguilar MD AFMilly/MODL /[id number]
[2019-11-12] MEDS: ENOXAPARIN SOD INJ 40 MG/0.4 ML SYR SC SCH (16:10)
--- NOTE | 2019-11-12 17:24 | Progress Note ---
DATE: 11/12/2019 CONSULTANTS: 1. Dr. Medeiros with Cardiology. 2. Dr. Schroeder with Orthopedics. 3. Dr. Aggarwal with grader patrol. CHIEF COMPLAINT: Status post fall with right femur neck fracture and bruising with hematoma on the face. SUBJECTIVE: The patient is alert, awake, and oriented x1-2. She remains in ICU for close monitoring. Seen after working with physical therapy. She denies any chest pain, nausea, or vomiting. Family at bedside. Reports that her mentation has not improved since surgery. PHYSICAL EXAMINATION: VITAL SIGNS: Temperature 97.7, pulse is 59, respirations 17, blood pressure is 140/60, and pulse ox is 100% on 3 L of oxygen. GENERAL: Fatigue, generalized weakness. NECK: Supple and midline. HEENT: Hematoma and bruising of the face. PERRLA. LUNGS: With decreased breath sounds. CARDIOVASCULAR: Regular rate and rhythm. An episode of atrial fibrillation this morning reported. LUNGS: With decreased breath sounds. ABDOMEN: Soft and nontender. EXTREMITIES: Limited due to right lower extremity pain. NEUROLOGIC: Alert, awake, and oriented x1-2, more awake today. SKIN: Dry and intact with bruising on the face. PSYCH: Calm. LABORATORY DATA: WBC 11.23, hemoglobin 9.4, hematocrit 29.6, and platelet is 268. Sodium is 135, potassium 4.1, creatinine is 0.51, estimated GFR is greater than 60, and calcium is 8.2. IMPRESSION: 1. Right hip fracture, post fall. Status post open reduction and internal fixation of the right hip per Orthopedic. Continue pain management and physical therapy. 2. Urinary tract infection with Escherichia coli. Continue with Unasyn per sensitivity. 3. Acute blood loss anemia. Likely due to surgery. Status post 2 units of PRBCs. Hemoglobin is 9. We will continue to monitor H and H and transfuse if less than 7. 4. History of atrial fibrillation. Rate is controlled. Continue amiodarone. Not an anticoagulation candidate due to high risk for falls. 5. Chronic obstructive pulmonary disease without exacerbation. We will continue O2 via nasal cannula at 3 L and DuoNeb q.4 hours. 6. Hypertension. We will continue home medications. 7. Hypothyroidism. Continue levothyroxine. 8. Anxiety. Now stable. 9. Leukocytosis. Improving. We will continue with Unasyn for urinary tract infection. 10. Osteoarthritis. Continue pain management as needed. 11. Debility. Physical therapy as tolerated. 12. Altered mental status. Oriented x1-2. Likely due to urinary tract infection/anesthesia. We will continue to monitor for now. 13. Deep vein thrombosis prophylaxis. On Lovenox per Ortho. PLAN: To continue pain management and physical therapy. retirement evaluation. Dictated by LUIS ANTONIO Calabrese Christianne Wallace MD MY/MODL /[id number]
--- NOTE | 2019-11-12 19:00 | NUR ---
Bedside report received from Vira Rizzo RN. Care plan reviewed. Pt reports no pain or discomfort at this time. No signs of distress noted.
[2019-11-12] MEDS: MONTELUKAST SODIUM 10 MG TAB PO SCH (20:48)
--- NOTE | 2019-11-12 22:17 | NUR ---
Pulmonary Critical Care Medicine DATE : 11/12/2019 SUBJECTIVE: alatorre out under trial of void stood, 2 person max assist bed mobility 3 L/min oxygen REVIEW OF SYSTEMS: no bleed, no rash OBJECTIVE: VITAL SIGNS: vital signs reviewed per the chart record. GENERAL: no acute distress, calm in bed. HEENT: normocephalic with improving forehead + bimaxillary facial contusions NECK: Supple. Throat midline. LUNGS: Bilateral air entry, rare rhonchi. CARDIOVASCULAR: S1, S2. No murmurs, rubs, or gallops. ABDOMEN : Soft, nontender. EXTREMITIES: No clubbing. No cyanosis. no edema. INTEGUMENT: No rash. No purpura. LABORATORY DATA: wbc 11, hct 29, plt 268. k 4.1, cr 0.51 IMPRESSION AND PLAN: 1. Right hip fracture, acute. 2. Postoperative state, s/p hemiarthroplasty right. 3. Encephalopathy, mixed. Toxic/metabolic, postoperative medications, concussion. Resolving? early dementia surmised due to difficulty preventing falls 4. Frontal contusion, post trauma/fall. 5. SVT/Afib. 6. History of atrial fibrillation 7. Possible COPD. 8. Hypertension. 9. Urinary tract infection ecoli sensitive 10. Hypothyroidism. 11. Hx anxiety. 12. Hx arthritis. 13. Anemia, multifactorial including blood loss. 14. Hypertension. 15. Hypothyroidism. Serial neuropsychiatric evaluations DVT prophylaxis in this post trauma patient. Continue amiodarone, now PO dc alatorre today, trial of voiding Repeat blood count intermittent, rx blood transfusion dispo per family and attending. fall risk. still weak abx for UTI Thank you very much, Dr. Wallace for this consult. Please call for questions.
[2019-11-12] MEDS ORDERED: POTASSIUM CHLORIDE 20 MEQ TAB CR PO ONE (22:45)
--- NOTE | 2019-11-13 00:20 | NUR ---
Dr. Aggarwal present and assessing the pt.
[2019-11-13] MEDS: MORPHINE SULFATE 2 MG/ML SYR 1ML IV PRN (01:47)
[2019-11-13 03:00] VITALS: BP 127/60
[2019-11-13] MEDS: CEFAZOLIN SOD 1 GM/NS 50ML 50 ML IV SCH ×2 (06:03→14:43)
[2019-11-13] MEDS: LEVOTHYROXINE SODIUM 50 MCG TAB PO SCH (06:10)
[2019-11-13] MEDS: HYDROCODONE/APAP 5MG-325MG TAB PO PRN ×2 (06:10→14:44)
[2019-11-13] MEDS: BUDESONIDE/FORMOTEROL 160/4.5MCG INHALER INH SCH (06:34)
[2019-11-13 08:00] VITALS: BP 121/68
[2019-11-13] MEDS: BALSAM PERU/CASTOR OIL 60 GM OINT...G. TP SCH (08:26)
[2019-11-13] MEDS: DULOXETINE HCL 30 MG DELAYED RELEASE PO SCH (08:26)
[2019-11-13] MEDS: AMIODARONE HCL 200 MG TAB PO SCH ×2 (08:26→16:35)
[2019-11-13] MEDS: FUROSEMIDE 20 MG TAB PO SCH (08:26)
[2019-11-13] MEDS: PANTOPRAZOLE SOD 40 MG TABEC PO SCH (08:26)
[2019-11-13] MEDS: ASPIRIN 81 MG CHEW TAB PO SCH (08:26)
[2019-11-13 08:34] VITALS: BP 121/68
[2019-11-13] MEDS ORDERED: METOPROLOL SUCCINATE 25 MG TAB XL PO SCH (09:00)
[2019-11-13 12:00] VITALS: BP 119/57
--- NOTE | 2019-11-13 12:06 | NUR ---
Pulmonary Critical Care Medicine DATE : 11/13/2019 SUBJECTIVE: patient with some confusion intermittent spont breathing no resp distress still weak REVIEW OF SYSTEMS: no bleed, no rash OBJECTIVE: VITAL SIGNS: vital signs reviewed per the chart record. GENERAL: no acute distress, calm in bed. HEENT: normocephalic with improving forehead + bimaxillary facial contusions NECK: Supple. Throat midline. LUNGS: Bilateral air entry, rare rhonchi. CARDIOVASCULAR: S1, S2. No murmurs, rubs, or gallops. ABDOMEN : Soft, nontender. EXTREMITIES: No clubbing. No cyanosis. no edema. INTEGUMENT: No rash. No purpura. LABORATORY DATA: no new updates IMPRESSION AND PLAN: 1. Right hip fracture, acute. 2. Postoperative state, s/p hemiarthroplasty right. 3. Encephalopathy, mixed. Toxic/metabolic, postoperative medications, concussion. Resolving? early dementia surmised due to difficulty preventing falls 4. Frontal contusion, post trauma/fall. 5. SVT/Afib. 6. History of atrial fibrillation 7. Possible COPD. 8. Hypertension. 9. Urinary tract infection ecoli sensitive 10. Hypothyroidism. 11. Hx anxiety. 12. Hx arthritis. 13. Anemia, multifactorial including blood loss. 14. Hypertension. 15. Hypothyroidism. Serial neuropsychiatric evaluations DVT prophylaxis in this post trauma patient. Continue amiodarone, now PO continue trial of voiding Repeat blood count intermittent, rx blood transfusion dispo per family and attending. fall risk. still weak abx for UTI transfer out of ICU today Thank you very much, Dr. Wallace for this consult. Please call for questions.
--- NOTE | 2019-11-13 12:16 | Diagnostic Imaging Report ---
History:AMS Comparison studies:CT head 11/07/2019 Technique: Axial images were obtained from the skull base to the vertex. Coronal and sagittal images reconstructed from the axial data. Intravenous contrast: None Dose modulation, iterative reconstruction, and/or weight based adjustment of the mA/kV was utilized to reduce the radiation dose to as low as reasonably achievable. Findings: Scalp/skull: Left central frontal scalp thickening, stable from previous. Extra-axial spaces: No masses. No fluid collections. Brain sulci: Mildly prominent. Ventricles: Mild compensatory dilatation. No hydrocephalus. Parenchyma: Scattered small hypodensities in the supratentorial white matter are small vessel ischemic changes. No masses, hemorrhage, acute or chronic cortical vascular insults. Sellar/suprasellar region: No abnormalities. Craniocervical junction: Patent foramen magnum. No Chiari one malformation. Incidental findings: Atherosclerotic calcifications in the carotid siphons . Impression: No acute abnormalities. Stable from previous exam. Chronic findings: 1. Mild generalized volume loss. 2. Mild supratentorial white matter small vessel ischemic changes. 3. Left central scalp thickening/hematoma, stable from previous exam. Signed by: DR Mundo Morataya M.D. on 11/13/2019 12:14 PM
--- NOTE | 2019-11-13 12:30 | NUR ---
DAMIAN BARRIOS CALLED LEFT VM REGARDING PT POC FOR TODAY.
--- NOTE | 2019-11-13 13:04 | NUR ---
FAXED CLINICALS TO [facility] PER FAMILY REQUEST, PUTTING PACKET TOGETHER FOR TRANSFER WITH RTF TO RETURN TO FACILITY.
--- NOTE | 2019-11-13 13:14 | NUR ---
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 -Continue Ensure Enlive. Plan of Care: RD following, monitoring for tolerance and adequacy. Ensure Enlive BID. Nutrition reason for involvement: follow up RD Assessment 11/13: Follow up. Pt out of room for CT at time of visit. Pt discussed during am rounds, pending CT results pt to be discharged back to facility. Per RN pt with improving po intake yesterday and today. No BM yet today per RN. Chart reviewed. Will monitor and continue to follow. 11/08: 84 YOF admitted for fall with PMH listed below. The pt was seen resting in bed, she was alert but pt appeared confused. She could not appropriately answer questions as this time d/t altered state, no family at bedside. Pt was at [facility] in 2018, she was 93 lbs at that time, suggesting no recent weight loss. Pt was evaluated for severe PCM during her last visit, unable to evaluate malnutrition at this time. Past weights show the pt did have a 19% weight loss within one year, if pt was 115 lbs in Jun, but per RD note from Sep, the family reported her UBW for the past year was 85 lbs. Recommend ONS BID when the pt is no longer NPO. Stage II pressure ulcer on sacrum was also recorded in EMR. Pt is currently NPO. Will continue to monitor. Principal Problems/Diagnoses: fall, femoral neck fracture PMH: cardiac arrhythmia, CAD, HTN, hypothyroid, nausea, vomiting GI: LBM: 11/07- no BM yet today per RN Skin: sacrum stage II pressure ulcer Labs: 11/12: Na 135, K 4.1, BUN 10, Cr 0.51, Gluc 100 Meds: protonix, levothyroxine, ergocalciferol, zofran, abx, lasix Ht: 63 inches Wt: 93 lbs (Pt weighed 84 lbs on 09/17, suspect possible weight error) BMI: 16.5 kg/m2 IBW: 115 lbs Malnutrition Evaluation (11/08/2019) Unable to evaluate the pt at this time. Energy intake: Unable to evaluate (pt was confused, no family at bedside) Weight loss: Unable to evaluate (pt was confused, no family at bedside) Fat loss: severe, generalized Muscle loss: severe, generalized Supporting Evidence: Fluid accumulation: no accumulation identified Functional Status: unable to evaluate Nutrition Prescription (Diet Order): Regular, mechanical soft with Ensure Enlive Estimated Nutritional Needs: [id number] calories/day (30-35 kcal/kg CBW) 63-85 g protein/day (1.5-2g pro/kg CBW) Diet Adequacy: Not meeting calorie needs, Not meeting protein needs- intake improving per RN Tolerance: tolerating po Diet Education Needs Assessment: Diet education not indicated Nutrition Care Level: moderate Nutrition Diagnosis: Inadequate energy intake related to medical condition as evidenced by pt being confused, having hx of poor intake and need for ONS. Goal: Patient will meet 75-100% of estimated needs by follow up Progress: progressing Interventions: -General healthful diet, Commercial beverage Monitoring/Evaluation: -Total energy intake, Total protein intake, Liquid supplement, Weight change Signed: Maribell Moser RD, LD, CNSC
--- NOTE | 2019-11-13 14:55 | NUR ---
HALF-WAY FACILITY DISCHARGE INFORMATION PATIENT HAS BEEN ACCEPTED TO: [facility] NAME:[facility] ADDRESS: [id number] ACCEPTING MD:DR RODRIGUEZ ROOM: 37A NURSE CALL REPORT TO: [phone] IMM SIGNED AND OBTAINED (if applicable): IMM ON CHART THE FOLLOWING DOCUMENTS MUST ACCOMPANY PATIENT FOR TRANSFER: COPIED CHART: PACKET
[2019-11-13 16:00] VITALS: BP 100/50
[2019-11-13] MEDS: CITRATE OF MAGNESIA 300ML BOTTLE PO PRN ×2 (16:00→16:35)
[2019-11-13] MEDS: ENOXAPARIN SOD INJ 40 MG/0.4 ML SYR SC SCH (16:35)
[2019-11-13 17:30] VITALS: BP 116/54
--- NOTE | 2019-11-13 17:31 | NUR ---
PT BEING TAKEN TO [facility] AT THIS TIME IV DC'D SECURED WITH 4X4 GAUZE AND TAPE, FAMILY MADE AWARE PT IS GOING TO TRANSFER AT THIS TIME. Addendum: 11/13/19 at 1732 by Radha Larose RN REPORT GIVEN TO YENI AT [facility]
--- NOTE | 2019-11-13 17:51 | Progress Note ---
DATE: 11/13/2019 Cardiology Progress Note SUBJECTIVE: No complaints. Denies chest pain or shortness of breath. OBJECTIVE: VITAL SIGNS: Temperature 98 degrees, heart rate 61, blood pressure 119/57, respiratory rate 12, and O2 saturation 98%. GENERAL: In no acute distress. Alert. NECK: No JVD. CHEST: Clear to auscultation. CARDIOVASCULAR: Regular rate and rhythm. Normal S1 and S2. No S3 or S4. ABDOMEN: Soft. Bowel sounds positive. EXTREMITIES: No edema. Warm extremity. CARDIOVASCULAR MEDICATIONS: Reviewed. Amiodarone 200 mg b.i.d., aspirin 81 mg daily, metoprolol succinate 12.5 mg daily, Lovenox 40 mg subcutaneous daily, and furosemide 20 mg daily. STUDIES: Reviewed. Creatinine is 0.5. White blood cells 11.2, hemoglobin 9.4, and platelets 268. ASSESSMENT AND PLAN: An 84-year-old woman presents with malalignment, status post recurrent mechanical fall, now status post revision, paroxysmal atrial fibrillation, history of nonsustained ventricular tachycardia in the setting of hypomagnesemia, severe deconditioning and for fall risk, frailty, cachexia, and chronic diastolic heart failure. RECOMMEND: Continue current cardiovascular medications. Not a candidate for long-term anticoagulation given recurrent falls and significant trauma. Madhav Aguilar MD AFV/MODL /[id number]
--- NOTE | 2019-11-13 18:57 | NUR ---
ORTHOPEDICS OPERATIVE NOTE DATE OF SURGERY 11/08/2019 DIAGNOSIS: Right hip displaced periimplant femoral neck fracture PROCEDURE: Removal of Hardware Right Hip Hemiarthroplasty. SURGEON: Montse Hopper DO SAUSAGE MEAT TRIMMER: Duglas LUZ ANESTHESIA: General. EBL: 100cc ANESTHESIA: General COMPLICATIONS: None IMPLANTS: [place] Accolade C 127 Cemented Hip Stem Size 6 , Accolade C Distal Spacer Large, UHR [place] Head Bipolar Component 49 OD, LFit V40 Femoral Head OD 28 SPECIMEN: 4 Cannulated Screws & Bone from femoral neck and head PROCEDURE: The patient was bought to the operating room and placed under general anesthesia and antibiotics and TXA were provided. After induction of an esthesia, the patient was turned on the left side and secured in the hip table with all bony prominences well padded. The leg was prepped and draped in standard sterile fashion. A timeout was performed confirming patient and laterality. An incision was made, centered over the posterior portion of greater trochanter. Dissection was sharply carried down through the subcutaneous tissues with controlled hemostasis. The gluteus kosta and fascia margarito was incised and split proximally and distally. Four cannulated screws were removed and sent for pathology. The piriformis and external rotators were identified. These were removed from their insertions on the greater trochanter and tagged with stitches as a sleeve. A T-capsulotomy was performed for exposure to the fractured femoral neck and head. The distal portion of the capsule and external rotators were reflected to protect the sciatic nerve. A femoral neck cut was made above the lesser trochanter and the femoral neck and h ead were removed and sent for culture & patholgoy. The femoral head was measured to be a 49 mm. All bony remnants within the acetabulum and parts of the capsule were removed and focus was on preparation of the femur. The femur was then flexed and internally rotated. The extra trochanteric bone was removed, as was any leftover lateral soft tissue at the piriformis insertion. An intramedullary hole was drilled into the femur to define the canal. Reaming was performed until the appropriate size was reached. The broache s were then used to prepare the femur with the appropriate amount of version. Once the appropriate size broach was reached, it was used as a trial with head and neck placement. Hip [id number] was checked in all planes, including fle xion-internal rotation, the position of sleep, and extension-external rotation. The hip was found to have excellent stability with the final chosen head-neck combination. Intraoperative x-rays were obtained to ensure adequate canal filling and leg lengths. Xray were interpreted and showed good alignment, length and size. Leg length measurements were taken and found to be w ithin acceptable range, given the necessity for stability. The canal was thoroughly washed a cement restrictor was introduced. Next the [place] Accolade C #6 size neck length 37mm, stem length 158mm V40 Taper with 12 7 degree degree stem was opened and impacted in the appropriate version. The UH R [place] Head Bipolar Component 49 mm 28 mm with the [place] LFit V40 Femoral Head with 28 mm and -4mm Offset was used. Range of motion and stability were once again checked and found to be excellent. Adequate hemostasis was obtained. Vigorous power irrigation was used to remove all debris from the joint prior to final reduction. Periarticular cocktail injection was placed around the soft tissue of the joint. The arthrotomy and rotators were closed using Ethibond through drill holes in the bone, recreating the posterior hip structural anatomy. The gluteus kosta and IT Band was repaired using Vicryl. The subcutaneous tissues were closed after further irrigation with 2-0 Vicryl and Monocryl sutures. An analgesic cocktail was injected into the area for pain control. The skin covered with steristrips and an Aquacel dressing. The patient was transferred to the recovery room in stable condition, having tolerated the procedure well.
--- NOTE | 2019-11-14 04:33 | Discharge Summary ---
PCP: Dr. Simpson at [facility]. FINAL DISCHARGE DIAGNOSES: 1. Status post fall with right hip fracture. 2. History of atrial fibrillation. 3. Urinary tract infection. 4. Chronic obstructive pulmonary disease. 5. Hypertension. 6. Hypothyroidism. 7. Anxiety. 8. Osteoarthritis. 9. Gastroesophageal reflux disease. CONSULTANTS: 1. Dr. Medeiros with Cardiology. 2. Dr. Schroeder with Orthopedics. 3. Dr. Aggarwal with metal [employer]. PROCEDURES: Right hip ORIF. HISTORY: Per HPI. HOSPITAL COURSE: This is an 84-year-old female with past medical history of hypertension, atrial fibrillation, hypothyroidism, osteoarthritis, and anxiety, presented to the ER post fall. She had recent surgery of her right femur neck fracture. Imaging showed slight superior displacement of the distal fragment, no evidence of dislocation, and surgical hardware is intact. CT brain and cervical spine were negative for acute process. She, however, was on blood thinners, so has massive bruising and hematoma on her forehead. Cardiology and Orthopedics were consulted. Even though she was high risk for surgery, she accepted the risk and underwent ORIF of the right hip. Urine culture showed UTI with Escherichia coli. She was started on Ancef per sensitivity. Post surgery, she was transferred to the ICU for close monitoring. She had episodes of atrial fibrillation. Disability Rater was consulted. She was monitored closely in the ICU, pain management as needed, Physical Therapy has evaluated the patient. She remained stable, she is much awake, alert, and oriented today. Repeat CT brain was done due to her change in mental status per family. No changes noted, no intracranial bleeding. Unable to do MRI due to hardware. She is afebrile, vital signs stable, will discharge [facility]. PHYSICAL EXAMINATION: VITAL SIGNS: Temperature 97.7, pulse is 63, respirations 17, blood pressure 100/50, pulse ox 98% on 3 L of oxygen. GENERAL: Fatigue and generalized weakness. NECK: Supple, midline. HEENT: PERRLA, bruising on face and hematoma on the forehead. LUNGS: With decreased breath sounds. CARDIOVASCULAR: Regular rate and rhythm. ABDOMEN: Soft and nontender. EXTREMITIES: Decreased range of motion of the right lower extremity due to pain. No edema. NEUROLOGIC: Alert, awake, and oriented x2-3. SKIN: Dry with bruising on face. PSYCH: Calm. CONDITION AT DISCHARGE: Improved and stable. DISCHARGE MEDICATIONS: See medication reconciliation list. FOLLOWUP: Follow up with PCP, Orthopedics in 1 to 2 weeks. Total discharge time is 32 minutes. Dictated by LUIS ANTONIO Calabrese Polyching Crow Wallace MD MY/MODL /[id number] cc: [facility] Se[facility] and examined on 11/13/2019. Agree with the findings and plan as documented by LUIS ANTONIO Lizarraga. GABI
== END 2019-11-13 17:44 | DRG 469 ==
LOC: ER 13:55 → ERHOLD 16:55 → MED/SURG3 17:51 → ICU 11-08 10:25
PROVIDERS: ADMIT Internal Medicine; ATTEND Internal Medicine
PROC: 0QP804Z Removal of Internal Fixation Device from Right Femoral Shaft, Open Approach (ICD-10-PCS; 2019-11-08)
PROC: 30233N1 Transfusion of Nonautologous Red Blood Cells into Peripheral Vein, Percutaneous Approach (ICD-10-PCS; 2019-11-08)
PROC: 0SR9029 Replacement of Right Hip Joint with Metal on Polyethylene Synthetic Substitute, Cemented, Open Approach (ICD-10-PCS; principal; 2019-11-08 10:01)
DX: S72.001A Fracture of unspecified part of neck of right femur, initial encounter for closed fracture (principal); G93.41 Metabolic encephalopathy; R64 Cachexia; W19.XXXA Unspecified fall, initial encounter; I10 Essential (primary) hypertension; J44.9 Chronic obstructive pulmonary disease, unspecified; E03.9 Hypothyroidism, unspecified; S00.83XA Contusion of other part of head, initial encounter; M19.90 Unspecified osteoarthritis, unspecified site; F41.9 Anxiety disorder, unspecified; K21.9 Gastro-esophageal reflux disease without esophagitis; I48.0 Paroxysmal atrial fibrillation; Z99.81 Dependence on supplemental oxygen; D50.0 Iron deficiency anemia secondary to blood loss (chronic)
CPT/HCPCS: 36415; 70450; 71045; 72125; 72170; 80048; 80053; 81001; 82550; 82553; 82948; 83735; 83880; 84484; 85014; 85018; 85025; 85610; 85730; 86850; 86870; 86880; 86900; 86905; 86920; 86922; 87071; 87075; 87086; 87186; 87205; 93005; 94664; 96372; 97139; 99001; 99285; C1713; J0171; J0690; J0696; J1100; J1644; J1650; J1817; J1885; J2001; J2250; J2270; J2405; J2795; J3010; J3370; J3475; J7030; J7050; J7060; P9016